=== PATIENT | female | born 1960 | race Caucasian/White ===

== ENCOUNTER 2023-12-22 14:42 | Emergency (ER) | payer BC, SELFPAY ==
[2023-12-22 14:51] VITALS: BP 128/67; PULSE 93; RESP 18; TEMP 36.8; O2SAT 97; BMI 27.4
--- NOTE | 2023-12-22 15:09 | CRLHL7_ITS ---
For Patients: As a result of the Century Cures Act, medical imaging exams and procedure reports are released immediately into your electronic medical record. You may view this report before your referring provider. If you have questions, please contact your health care provider. Indication: Abdomen pain. Technique: Abdomen 3 view. Comparison: None. Findings: Bowel: Bowel pattern is normal. The amount of colonic stool is within normal limits. Other: No sign of free air. No sign of soft tissue mass. No suspicious calcifications. Osseous structures are unremarkable for age. Impression: Unremarkable abdomen. Dictated by Bennett Nur MD @ 12/22/2023 4:15:05 PM (Electronically Signed)
[2023-12-22 15:30] LABS: Lactate* 1.8 mmol/L (0.5-1.9)
[2023-12-22 15:33] LABS: Basophils Absolute Auto 0.02 K/uL (0.00-0.30); Basophils Percent Auto 0.2 % (0.0-3.0); Eosinophils Absolute Auto 0.13 K/uL (0.00-0.50); Eosinophils Percent Auto 1.3 % (0.0-7.0); Hematocrit 39.5 % (33.0-51.0); Hemoglobin* 12.4 gm/dL (12.0-16.0); Immature Granulocytes Abs Auto 0.02 K/uL (0.00-0.30); Immature Granulocytes Pct Auto 0.2 %; Lymphocytes Percent Auto 13.1 % (20-44); Mean Corpuscular HGB Conc 31 gm/dL (32-36); Mean Corpuscular Hemoglobin 30 pg (26-34); Mean Corpuscular Volume 95 fL (80-100); Monocytes Percent Auto 6.2 % (0.0-11.0); Platelet Count* 273 K/uL (140-440); Red Blood Count 4.18 m/uL (4.00-5.20); White Blood Count* 9.77 K/uL (4.50-11.00)
[2023-12-22 15:35] LABS: Slide Review Reflex No
[2023-12-22 15:46] LABS: Chloride* 102 mmol/L (96-114)
[2023-12-22 15:47] LABS: Albumin* 4.1 g/dL (3.3-5.0); Potassium* 3.9 mmol/L (3.6-5.1); Sodium* 136 mmol/L (135-149)
[2023-12-22 15:49] LABS: Anion Gap 8 mEq/L (7-15); Carbon Dioxide* 26 mmol/L (20-32); Creatinine* 0.8 mg/dL (0.5-1.5); Est. Creatinine Clearance* 53.21; Estimated Glomerular Filt Rate 82 ml/min
[2023-12-22 15:50] LABS: Alkaline Phosphatase* 86 U/L (40-150); Aspartate Amino Transferase* 32 U/L (12-35); Bilirubin Direct* 0.2 mg/dL (0.0-0.5); Bilirubin Total* 0.2 mg/dL (0.1-1.5); Blood Urea Nitrogen* 17 mg/dL (7-30); Glucose* 165 mg/dL (60-115); Lipase* 85 U/L (23-300); Total Protein* 6.5 g/dL (6.0-8.3)
[2023-12-22 15:51] LABS: Alanine Aminotransferase* 41 U/L (4-35); Calcium* 9.3 mg/dL (8.4-10.6)
[2023-12-22 15:53] LABS: C Reactive Protein* 1.7 mg/dL (0.5-1.0)
--- NOTE | 2023-12-22 16:06 | ED_ITS ---
HPI - General Adult General Chief complaint: Abdominal Pain Stated complaint: abd pain /cramping Time Seen by Provider: 12/22/23 14:58 Source: patient Mode of arrival: ambulatory Limitations: no limitations History of Present Illness HPI narrative: 63-year-old female presenting with abdominal pain. Patient states she has had lower abdominal pain across the entire lower abdomen for about 1 week, she describes this as a cramping discomfort. Today she woke up with right-sided abdominal discomfort that was higher in the abdomen so she came in for evaluation. She denies any fevers or chills. No nausea or vomiting. She denies any diarrhea but states that she might be a little bit constipated she feels bloated and backed up despite having daily bowel movements. She denies any dysuria, increased urinary frequency or urgency. She denies any unwanted weight loss or weight gain. Appetite is unchanged, pain is not altered with eating. Related Data Home Medications ?Medication ?Instructions ?Recorded ?Confirmed albuterol sulfate 90 mcg/actuation inhalation 12/22/23 aerosol inhaler amlodipine 2.5 mg tablet 2.5 mg PO DAILY 12/22/23 12/22/23 amlodipine 5 mg tablet 5 mg PO DAILY 12/22/23 12/22/23 lisinopril 40 mg tablet 40 mg PO DAILY 12/22/23 12/22/23 metoprolol succinate 50 mg 50 mg PO DAILY 12/22/23 12/22/23 tablet,extended release 24 hr rosuvastatin 10 mg tablet 10 mg PO QPM 12/22/23 12/22/23 Allergies Allergy/AdvReac Type Severity Reaction Status Date / Time Sulfa (Sulfonamide Allergy Unknown Verified 12/22/23 14:50 Antibiotics) Review of Systems Status of ROS: Reports: 10 or more systems reviewed and unremarkable except as noted in History and below Exam Narrative: Exam Narrative: Well-nourished well-developed patient in no acute distress. Alert and oriented. Answers questions appropriately. Mood and affect are appropriate. Thoughts are goal oriented and rational. No tangential or magical thinking noted. Patient speaks in full sentences without needing to catch their breath. HEENT: Normocephalic atraumatic. Pupils are equally round reactive to light. Extraocular muscles are intact. Conjunctivae are moist without any icterus noted. Moist mucous membranes. Posterior pharynx is normal. Neck is soft. Cardiovascular: Heart is regular rate and rhythm S1 and S2 are present without any murmurs. Lungs: Clear to auscultation bilaterally no wheezes rhonchi or rales are appreciated. Patient takes deep breaths without any discomfort. Abdomen: Protuberant, soft and nondistended. She has normal bowel sounds. She has mild right upper quadrant discomfort, negative Fischer sign. No lower abdominal discomfort with palpation. Extremities: Bilateral lower extremities are without edema. Skin: Well perfused without any obvious rashes. Const: Vital Signs, click to edit/add: Vital Signs - 24 hr 12/22/23 14:51 Temperature 98.2 F Pulse Rate [Pulse Oximeter] 93 Respiratory Rate 18 Blood Pressure [Ri t Upper Arm] 128/67 Pulse Oximetry 97 Oxygen Delivery Me thod Room Air Course Course ED Course: Differential diagnoses include cholelithiasis, hepatitis, constipation, pancreatitis, GERD-pain is rather nonspecific. CBC is unremarkable. Normal chemistries. Normal LFTs. Lactate is normal at 1.8. CRP minimally elevated at 1.7. Normal lipase. Abdominal x-ray is unremarkable. No evidence of constipation. Discussed doing ultrasound of the right upper quadrant, however, the fact the patient can eat without any difficulty and the pain is not worsened with eating makes me think that this is not in coli lithiasis. We discussed doing a CT scan, but again given normal blood work and the fact that her discomfort is not preventing her from doing her daily activities, I would not recommend this at this time. I do believe that the risks outweigh the benefits. Patient is in agreement with this. We discussed following up with her primary care provider to discuss doing colonoscopy which is something she has never had. Vital Signs Vital signs: Initial Vital Signs Temperature 98.2 F 12/22/23 14:51 Temperature Source Temporal Artery Scan 12/22/23 14:51 Pulse Rate 93 12/22/23 14:51 Pulse Rhythm Regular 12/22/23 14:51 Respiratory Rate 18 12/22/23 14:51 Blood Pressure 128/67 12/22/23 14:51 Blood Pressure Mean 87 12/22/23 14:51 Blood Pressure Position Sitting 12/22/23 14:51 Pulse Oximetry 97 12/22/23 14:51 Oxygen Delivery Method Room Air 12/22/23 14:51 Vital Signs Temperature 98.2 F 12/22/23 14:51 Pulse Rate 93 12/22/23 14:51 Respiratory Rate 18 12/22/23 14:51 Blood Pressure 128/67 12/22/23 14:51 Pulse Oximetry 97 12/22/23 14:51 Oxygen Delivery Method Room Air 12/22/23 14:51 Temperature 98.2 F 12/22/23 14:51 Pulse Rate 93 12/22/23 14:51 Respiratory Rate 18 12/22/23 14:51 Blood Pressure 128/67 12/22/23 14:51 Pulse Oximetry 97 12/22/23 14:51 Oxygen Delivery Method Room Air 12/22/23 14:51 Medical Decision Making MDM Narrative Medical decision making narrative: 63-year-old female with nonspecific abdominal pain. Plan per above. Lab Data Labs: Lab Results 12/22/23 Range/Units 15:26 WBC 9.77 (4.50-11.00) K/uL RBC 4.18 (4.00-5.20) m/uL Hgb 12.4 (12.0-16.0) gm/dL Hct 39.5 (33.0-51.0) % MCV 95 (80-100) fL MCH 30 (26-34) pg MCHC 31 L (32-36) gm/dL RDW Coeff of Bandar 13.0 (11.5-15.5) % Plt Count 273 (140-440) K/uL Neut % (Auto) 79.0 H (42.0-72.0) % Lymph % (Auto) 13.1 L (20-44) % [place] % (Auto) 6.2 (0.0-11.0) % Eos % (Auto) 1.3 (0.0-7.0) % Baso % (Auto) 0.2 (0.0-3.0) % Neut # (Auto) 7.70 H (1.7-7.0) K/uL Lymph # (Auto) 1.30 (0.90-2.90) K/uL [place] # (Auto) 0.60 (0.00-0.90) K/UL Eos # (Auto) 0.13 (0.00-0.50) K/uL Baso # (Auto) 0.02 (0.00-0.30) K/uL Abs Immat Gran (auto) 0.02 (0.00-0.30) K/uL Imm/Tot Granulo (auto) 0.2 % Sodium 136 (135-149) mmol/L Potassium 3.9 (3.6-5.1) mmol/L Chloride 102 (96-114) mmol/L Carbon Dioxide 26 (20-32) mmol/L Anion Gap 8 (7-15) mEq/L BUN 17 (7-30) mg/dL Creatinine 0.8 (0.5-1.5) mg/dL Estimated Creat Clear 53.21 Estimated GFR 82 ml/min Glucose 165 H (60-115) mg/dL Lactate 1.8 (0.5-1.9) mmol/L Calcium 9.3 (8.4-10.6) mg/dL Total Bilirubin 0.2 (0.1-1.5) mg/dL Direct Bilirubin 0.2 (0.0-0.5) mg/dL AST 32 (12-35) U/L ALT 41 H (4-35) U/L Alkaline Phosphatase 86 (40-150) U/L C-Reactive Protein 1.7 H (0.5-1.0) mg/dL Total Protein 6.5 (6.0-8.3) g/dL Albumin 4.1 (3.3-5.0) g/dL Lipase 85 (23-300) U/L Imaging Data Abdominal x-ray: Attestation: I have reviewed the pertinent imaging results. Radiologist's impression: Abdomen 3 view. Comparison: None. Findings: Bowel: Bowel pattern is normal. The amount of colonic stool is within normal limits. Other: No sign of free air. No sign of soft tissue mass. No suspicious calcifications. Osseous structures are unremarkable for age. Impression: Unremarkable abdomen. Discharge Plan Discharge Clinical Impression: Abdominal pain Patient Disposition: Home, Self-Care Condition: Stable Additional Instructions: Recommend you follow-up with your primary care provider to discuss doing a colonoscopy. There was no evidence of infection or inflammation found during your examination today. Your blood sugar was slightly elevated, you should have this repeated with your primary care provider. You should return to the emergency department if you develop vomiting, worsening pain or fevers. Prescriptions: No Action metoprolol succinate 50 mg tablet extended release 24 hr 50 mg PO DAILY amlodipine 2.5 mg tablet 2.5 mg PO DAILY amlodipine 5 mg tablet 5 mg PO DAILY albuterol sulfate 90 mcg/actuation HFA aerosol inhaler inhalation lisinopril 40 mg tablet 40 mg PO DAILY rosuvastatin 10 mg tablet 10 mg PO QPM Follow Up/Referrals: Luz Maria Matta MD [Primary Care Provider] - Stand Alone Forms: [employer] Info Instructions
[2023-12-22 16:39] LABS: Appearance Urine Clear (Clear); Bilirubin Urine Negative (Negative); Blood Urine Negative (Negative); Color Urine Yellow (Yellow); Glucose Urine Negative (Negative); Ketones Urine Negative (Negative); Leukocyte Esterase Urine Negative (Negative); Nitrite Urine Negative (Negative); Protein Urine Negative (Negative); Specific Gravity Urine <= 1.005 (1.000-1.030); Urobilinogen Urine 0.2 (0.2-1.0); pH Urine 5.5 (5.0-8.5)
[2023-12-22 16:59] LABS: RBC Urine 0-2 (0-2); WBC Urine 0-2 (0-5)
== END 2023-12-22 16:49 | disposition home or self-care (01) ==
PROVIDERS: Emergency Provider Family Medicine; PCP Family Medicine
DX: R10.30 Lower abdominal pain, unspecified (principal)
CPT/HCPCS: 36415; 74019; 80048; 80076; 81001; 83605; 83690; 85025; 86140; 87086; 99283; 99284

== ENCOUNTER 2024-05-16 13:40 | Emergency (ER) | payer BC, SELFPAY ==
[2024-05-16 13:42] VITALS: BP 132/53; PULSE 89; RESP 20; TEMP 36.4; O2SAT 94
--- OUTSIDE RECORDS SUMMARY | 2024-05-16 13:42 | XMS_ITS | CCD ---
Author Name Interface, [id number] Address [address] [address] Organization [facility] Address [address] [address] Care Team Providers Care Search Advertising Strategist Name Role Phone Jose Ayers Unavailable Unavailable Cynthia Euceda Unavailable Unava ilable Care Plan Date Type Value 05/17/2024 APPOINTMENT LAB 15 MIN 05/17/2024 APPOINTMENT NEW PT CONSULT 6 0 MIN 05/14/2024 APPOINTMENT NEW PT CONSULT 6 0 MIN 05/14/2024 APPOINTMENT LAB 15 MIN Reason for Visit NEW PT CONSULT 60 MIN Encounters Date Name 05/17/2024 LAB 15 MIN 05/17/2024 NEW PT CONSULT 60 [place] N Diagnostic Results Date Type Test Units Lower Limit Upper Limit Result Flag Comments Status Ordered By Specimen Source Lab Address 05/07 Misc other lab See attache mobley Social History Date Name Value 05/08/2024 Sex Female
--- OUTSIDE RECORDS SUMMARY | 2024-05-16 13:43 | XMS_ITS | Clinical Summary ---
Author Organization [employer] [facility] [employer] [facility] Address [address] [place] [id number] Care Team Providers Care Fibrous Plasterer Name Role Phone Luz Maria Matta MD [facility] Allergies Active Allergy Reactions Criticality Noted Date Comments Sulfa (Sulfonamide Antibiotics) Anaphylaxis High Medications albuterol (PROVENTIL) 0.083 % neb solutionIndication s:Bronchitis Inhale 3 mL via a nebulizer every 4 hours if needed. 1 box 8 Active clobetasol 0.05% (TEMOVATE 0.05% OINTMENT) 0.05 % ointmentIndication s:Prurigo nodularis Apply topically to affected area(s) 2 times daily. 1 Tube 0 Active fluticasone (50 mcg per actuation) nasal solution (FLONASE) Inhale 1 [place] into affected nostril(s). 2 Active cetirizine (ZYRTEC) 10 mg tabletIndications: Congestion of nasal sinus Take 1 Tablet (10 mg) by mouth once daily. 60 Tablet 2 Active rosuvastatin (CRESTOR) 10 mg tabletIndications: Other hyperlipidemia Take 1 Tablet (10 mg) by mouth at bedtime. 90 Tablet 3 4 Active lisinopriL (PRINIVIL; ZESTRIL) 40 mg tabletIndications: HTN (hypertension) Take 1 Tablet (40 mg) by mouth once daily. 90 Tablet 1 4 Active amLODIPine (NORVASC) 5 mg tabletIndications: HTN (hypertension) Take 1 Tablet (5 mg) by mouth once daily. 90 Tablet 1 4 Active albuterol HFA (Ventolin HFA) 90 mcg/actuation inhalerIndications :History of wheezing Inhale 2 Puffs by mouth every 4 hours if needed for Shortness Of Breath or Wheezing. 2 Each 2 4 Active metoprolol succinate (TOPROL XL) 50 mg sustained-release tabletIndications: HTN (hypertension) Take 1 Tablet (50 mg) by mouth once daily. 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 No lymph node involvement. 2) S/P 4 cycles of dose dense AC followed by 12 weekly doses of Taxol (and Herceptin) 3) S/P radiation to the right breast, completed 08/03 4) S/P one year of treatment with Herceptin and Lapatinib on the ALLTO trial, completed 03/05 Encounters Date Type Department Care Team Description 05/16/2024 Refill [facility] [address] [place] [address] Luz Maria Matta MD Refill Request (amlodipine) 05/15/2024 Nurse Triage [facility] [address] [place] [address] Luz Maria Matta MD Difficulty Breathing 05/15/2024 Nurse Triage [facility] [address] [place] [address] Luz Maria Matta MD 05/09/2024 11:15 AM CRAPS DEALER Office Visit [facility] [address] [place] [address] Avel Nguyen MD Hospital F/U (breathing feels okay - setting up when to have fluid drained ) 05/09/2024 Travel 05/07/2024 Telephone [facility] [address] [facility] [address] [place] [address] [place], [facility] Referral (Malignant neoplasm of female breast, unspecified estrogen receptor status) 05/07/2024 Telephone [facility] [address] [place] [address] Luz Maria Matta MD Referral (Oncology) 05/04/2024 Orders Only [facility] Scanner 1 scan: (1-Ord) [facility]ULT[facility]LE PATHOLOGIES, 05/04/2024 from Last 3 Months Immunizations Name Administration Dates Next Due Influenza, IIV3 (Age 6-35 mos) 03/02/2010 Influenza, IIV3 (Age >=3 years) 03/02/2010,12/11 Influenza, IIV4 06/06/2019 Tdap 06/06/2019 Family History Medical History Relation Name Comments Coronary artery disease Brother 1 Suicide Attempts Brother 2 successful suicide, found CAD on post-mortem exam Hypertension Father Stroke Mother Cancer-breast Paternal Aunt Initial dx in 30s Cancer-colon No Family History Cancer-ovarian No Family History Cancer-prostate No Family History Relation Name Status Comments Brother 1 Brother 2 Father Mother Paternal Aunt Social History Tobacco Use Types Packs/Day Years Used Date Smoking Tobacco: Every Day Cigarettes 1 30 Smokeless Tobacco: Never Tobacco Cessation:Ready to Q uit: No; Counseling Given: Yes Alcohol Use Standard Drinks/Week Comments Yes 3.3 (1 standard drink = 0.6 oz p ure alcohol) PHQ-2 Answer Date Recorded PHQ-2 TOTAL SCORE 0 11/02/2023 Social Connections Answer Date Recorded Do you often feel lonely or isolated from those around you? 0 11/02/2023 Financial Resource Strain Answer Date R ecorded Difficulty of Paying Living Expenses 3 11/02/2023 Difficulty of Paying Living Expenses Not on file 11/02/2023 Food Insecurity Answer Date Recorded Do you worry your food will run out before you are able to buy more? 1 11/02/2023 Transportation Needs Answer Date Record ed Does lack of transportation keep you from medica l appointments? 1 11/02/2023 Does lack of transportation keep you from work, meetings or getting things that you need? 1 11/02/2023 Housing Stability Answer Date Recorded What is your housing situation today? 1 11/02/2023 Utilities Answer Date Recorded Do you have trouble paying f or utilities (for example, heat, electricity, water, phone)? 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 [employer] Not on file Not on file Not on file Not on file Not on file Not on file Not on file Obstetrics History Last Filed Vital Signs Vital Sign Reading Time Taken Comments Blood Pressure 123/80 05/09/2024 11:20 AM CRAPS DEALER Pulse 85 05/09/2024 11:20 AM CRAPS DEALER Temperature 36.8 C (98.2 F) 02/24/2022 4:16 PM CRAPS DEALER Respiratory Rate 18 06/13/2017 5:03 PM CDT Oxygen Saturation 95% 05/09/2024 11:20 AM CRAPS DEALER Inhaled Oxygen Concentration - - Weight 71.9 kg (158 lb 9.6 oz) 05/09/2024 11:20 AM CRAPS DEALER Height 167.9 cm (5' 6.1) 11/02/2023 10:58 AM CD T Body Mass Index 25.52 11/02/2023 10:58 AM CDT Plan of Treatment Health Maintenance Due Date Last Done Comments COVID-19 vaccine series (#1) 07/06/1964 HIV for age 15-65 07/06/1974 Pneumococcal series for age 50+ (1 of 2 - PCV) 07/06/1978 Zoster (shingles) series for age 50+ (1 of 2) 07/06/1978 Colonoscopy through age 75 07/06/[address] (for lung CA) ag e 50-80 07/06/2009 11/12/2008 RSV vaccine for adults or (1 - Risk 60-74 years 1-dose series) 2019 Influenza for age 50-64 11/26/2023 06/06/19 20, 03/02/2010, 12/11/2008 Pap test for age 21-65 06/05/2024 06/06/2019, 2019 BMI (ht and wt on same day) for age 18+ 11/01/2024 11/02/2023, 11/25/2021, 09/10/2020, Additional history exists Depression screening for age 12+ 11/02/2024 11/03/2023, 11/03/2023, 11/02/2023, Additional history exists Mammogram for age 45-75 11/15/2024 11/16/19 24, 11/10/2022, 12/05/2019, Additional history exists Lipids for age 45-75 11/01/2028 11/02/2023, 11/10/2022, 11/25/2021, Additional history exists Tetanus booster 06/05/2029 06/06/2019 Hepatitis C screening for ag e 18-79 Completed 06/06/2019 Tdap Completed 06/06/2019 Medical Devices Implanted Type Area Reaming Machine Operator For Plastic Device Identifier Shelf Expiration Date Model / Serial / Lot Port Power 8fr [id number] [employer] - [id number] Implanted:Qty: 1 on 11/14/2008 at [facility] Left: Chest [employer] 09/14/2010 [id number] / / [id number] Procedures Procedure Name Priority Date/Time Associated Diagnosis Comments SCAN-PATHOLOGY REPORT 05/04/2024 12:00 AM CRAPS DEALER XR MAMMO GETACHEW BILAT SCREEN Routine 11/16/2023 11:10 AM CDT Visit for screening mammogram LIPID PANEL W REFLEX MEASURED LDL Routine 11/02/2023 11:44 AM CDT Other hyperlipidemia ANTI HCV Routine 06/06/2019 10:57 AM CDT Encounter for hepatitis C screening test for low risk patient PATIENT CARE COORDINATOR THIN PREP PAP SCREEN IMAGED Routine 06/06/2019 10:30 AM CDT Screening for malignant neoplasm of cervix CT CHEST WO STAT 11/12/2008 10:24 AM CDT Lung Nodule from Last 3 Months or Most Recently Relevant to Health Maintenance Results * SCAN-PATHOLOGY REPORT (05/04/2024 12:00 AM CRAPS DEALER) us Scanner OTHER Final Result * XR MAMMO GETACHEW BILAT SCREEN (11/16/2023 11:10 AM CDT) Anatomical Region Laterality Modality BREASTS, Breast Left, Breast Right Bilateral Mammography Impressions 11/16/2023 2:36 PM CDT There is no radiographic evidence for malignancy. Recommend annual mammograms. MAMMOGRAM ASSESSMENT: ACR 1 Negative PATIENTS: You will also receive a letter with your examination results in an easy to read format. If you have questions about your results, please contact your referring provider. Narrative 11/16/2023 2:36 PM CDT For Patients: As a result of the Century Cures Act, medical imaging exams and procedure reports are released immediately into your electronic medical record. You may view this report before your referring provider. If you have questions, please contact your health care provider. XR MAMMO GETACHEW BILAT SCREEN [[id number]] CLINICAL HISTORY: This is an asymptomatic 63 y.o. patient. INDICATION FOR EXAM: Mammogram Screening. TECHNIQUE: CC & MLO views were obtained. This study was evaluated with the assistance of Computer-Aided Detection. Breast Tomosynthesis was used in interpretation. COMPARISON FILM: Yes 11/10/22 [employer] 12/05/19 [employer] FINDINGS: There are scattered areas of fibroglandular density. There are no dominant masses, suspicious micro calcifications or areas of architectural distortion. Luz Maria Matta MD MAMMO Final Resul t * LIPID PANEL W REFLEX MEASURED LDL (11/02/2023 11:44 AM CDT) CHOLESTEROL,TOTAL 148 100 - 199 mg/dL 11/03/2023 1:13 AM CDT [facility] Comment: Cholesterol, Total Reference Ranges Desirable <200 mg/dL Borderline 200-239 mg/dL High >=240 mg/dL TRIGLYCERIDES 128 <150 mg/dL 11/03/2023 1:13 AM CDT [facility] HDL CHOLESTEROL 50 >40 mg/dL 1:13 AM CDT [facility] NON-HDL CHOLESTEROL 98 <145 mg/dl 11/03/2023 1:13 AM CDT [facility] CHOL/HDL RATIO 2.96 <4.50 11/03/2023 1:13 AM CDT [facility] LDL CHOLESTEROL 72 <=130 mg/dL 11/03/2023 1:13 AM CDT [facility] VLDL CHOLESTEROL 26 <=30 mg/dL 11/03/2023 1:13 AM CDT [facility] PROVIDER ORDERED STATUS RANDOM 11/03/2023 1:13 AM CDT [facility] Blood BLOOD SPECIMEN / Unknown Venipuncture / Unknown 11/02/2023 11:44 AM CDT 11/02/2023 11:45 AM CDT Luz Maria Matta MD CHEMISTRY Final Resul t [facility] [address] [place] [address], [place] * ANTI HCV (06/06/2019 10:57 AM CDT) HEPATITIS C ANTIBODY Non-React keri Non-React keri 06/06/2019 5:56 PM CDT [facility] Comment:Antibodies to HCV no t detected; does not exclude the possibility of exposure to HCV. Blood BLOOD SPECIMEN / Unknown Venipuncture / Unknown 06/06/2019 10:57 AM CDT 06/06/2019 10:57 AM CDT Luz Maria Matta MD SEND OUTS Final Resul t [facility] [address] [place] [address], [place] * PATIENT CARE COORDINATOR THIN PREP PAP SCREEN IMAGED [[id number]] (06/06/2019 10:30 AM CDT) Case Report Gynecologic Cytology Report Case: [id number] Authorizing Provider: Luz Maria Matta MD Collected: 06/06/2019 1030 Ordering Location: [facility] Received: 06/06/2019 1111 Clinic First Screen: Ailyn Dave Specimen: PATIENT CARE COORDINATOR ThinPrep Vial Screening, Cervical 06/13/2019 10:39 AM CDT [facility] INTERPRETATION/ RESULT NEGATIVE FOR INTRAEPITHELIAL LESION OR MALIGNANCY (NIL) (none) 06/13/2019 10:39 AM CDT [facility] IMEN ADEQUACY Satisfactory for evaluation Endocervical component present 06/13/2019 10:39 AM CDT [facility] HPV REQUEST HPV and PAP 06/13/2019 10:39 AM CDT [facility] Date of LMP 2009 06/13/2019 10:39 AM CDT [facility] Last Pap Date unknown 06/13/2019 10:39 AM CDT [facility] Last Pap Result First Pap/Unknown 10:39 AM CDT [facility] Abnormal Pap or [place] Bx in last 5 years No 06/13/2019 10:39 AM CDT [facility] Menstrual Status Postmenopausal 06/13/2019 10:39 AM CDT [facility] [place] Bx Done Today No 06/13/2019 10:39 AM CDT [facility] Additional Information None given 06/13/2019 10:39 AM CDT [facility] Comment: Cytology is screened at [facility] Laboratory - [address], [place] [address] and [facility] - [address] [place] [address], [place] [address] and [facility] - [address], [place] [address] Interpreted at [facility], [facility] - [address], [place] [address] Automated Review Successful 06/13/2019 10:39 AM CDT [facility] Comment:Specimen processed s uccessfully by automated clarification operator device, ThinPrep Imaging System, [employer] ANCILLARY TESTING PATIENT CARE COORDINATOR HPV Ordered, Please see separate report 06/13/2019 10:39 AM CDT [facility] Note The pap test is a screening technique, not a diagnostic procedure. It is used primarily to screen for squamous cancers and precursor lesions. Published studies have shown that it is subject to both false negative and false positive results. The pap test should not be used as the sole means to diagnose or exclude pre-malignant and malignant lesions. 06/13/2019 10:39 AM CDT [facility] Other (Cervical) Non-Blood / Unknown 06/06/2019 10:30 AM CDT 06/06/2019 11:11 AM CDT us Luz Maria Matta MD PATHOLOGY/CYTOLOGY Final Re sult [facility] [address] [place] [address], [place] * CT Chest wo Contrast (11/12/2008 10:24 AM CDT) Anatomical Region Laterality Modality CHEST, THORAX, HEART Computed To mography 11/12/2008 10:2 4 AM CDT Impressions 11/12/2008 11:15 AM CDT 1. There is patchy infiltrate in the right upper lobe in the area of questioned nodule on the MRI. No worrisome pulmonary nodules. 2. Mild emphysema. 3. Known right breast cancer. Narrative 11/12/2008 11:[address] SCAN OF THE CHEST WITHOUT CONTRAST 11/12/2008 INDICATION: Breast cancer. Right lung nodule seen on MRI. TECHNIQUE: Noncontrast. COMPARISON: [facility] 11/03/2008. FINDINGS: Two right breast masses are again seen. No thoracic abnormality by size criteria. There is mild paraseptal emphysema at the apices. Dependent atelectasis or fibrosis in the inferior right middle lobe and lingula. There is a focus of patchy infiltrate in the right upper lobe in the area of a questioned nodule on the MRI. There is an additional patchy focus of ground-glass opacity in the posterior right upper lobe. No worrisome pulmonary nodules. Images through the upper abdomen demonstrate a 3-cm low-dense left adrenal nodule consistent with an adenoma. There are degenerative endplate changes in the thoracic spine. No signs of skeletal metastases. Procedure Note Theron Minor - 11/12/2008 CT SCAN OF THE CHEST WITHOUT CONTRAST 11/12/2008 INDICATION: Breast cancer. Right lung nodule seen on MRI. TECHNIQUE: Noncontrast. COMPARISON: [facility] 11/03/2008. FINDINGS: Two right breast masses are again seen. No thoracicabnormality by size criteria. There is mild paraseptal emphysema at theapices. Dependent atelectasis or fibrosis in the inferior right middlelobe and lingula. There is a focus of patchy infiltrate in the rightupper lobe in the area of a questioned nodule on the MRI. There is anadditional patchy focus of ground-glass opacity in the posterior rightupper lobe. No worrisome pulmonary nodules. Images through the upperabdomen demonstrate a 3-cm low-dense left adrenal nodule consistent withan adenoma. There are degenerative endplate changes in the thoracicspine. No signs of skeletal metastases. IMPRESSION: 1. There is patchy infiltrate in the right upper lobe in the area ofquestioned nodule on the MRI. No worrisome pulmonary nodules. 2. Mild emphysema. 3. Known right breast cancer. Felipe Herrera MD CT Final Re sult from Last 3 Months or Most Recently Relevant to Health Maintenance Insurance [facility] [place] [phone] Advance Directives * Full Code (Latest Code Status on File) Date Activated Date Inactivated Comments 11/13/2008 7:43 AM 11/14/2008 7:15 PM Care Teams Fibrous Plasterer Relationship Specialty Start Date End Date Luz Maria Matta MD [address] [place] [address] PCP - General Family Practice 12/05/19 Danna Bond, RN [address] [facility] [place] [address] Nurse Navigator - Oncology Registered Nurse 05/07/24
--- OUTSIDE RECORDS SUMMARY | 2024-05-16 13:44 | XMS_ITS | Clinical Summary ---
Author Organization [facility] Address [address] [place] [id number] Care Team Providers Care Gun Tester Name Role Phone Elsewhere, Pcp Primary Care Provider Unavailabl e Source Comments Patient records contain information from all sites at [facility]. For routine questions regarding patient records, call [phone] during business hours, M-F 8:00 AM - 5:00 PM Central Time. Record requests for emergency care only can be directed to [phone] at any time.[facility] Allergies Active Allergy Reactions Criticality Noted Date Comments Sulfa (Sulfonamide Antibiotics) Anaphylaxis High Medications lisinopriL (PRINIVIL,ZEST RIL) 40 mg tablet Take 40 mg by mouth daily. 06/01/19 22 Active rosuvastatin (Crestor) 10 mg tablet Take 1 tablet by mouth at bedtime. 11/02/19 24 Active metoprolol succinate (Toprol XL) 50 mg 24 hr tablet Take 1 tablet by mouth daily. 12/08/19 24 Active amLODIPine (Norvasc) 5 mg tablet Take 1 tablet by mouth daily. 11/02/19 24 Active albuterol 90 mcg/actuation inhaler Inhale 2 puffs every 4 (four) hours as needed for shortness of breath. 18 g 04/24/19 25 Active benzonatate (Tessalon Perles) 100 mg capsule Take 1 capsule (100 mg total) by mouth 3 (three) times a day as needed for cough. 20 capsule 04/24/19 25 Active melatonin 10 mg capsule Take 10 mg by mouth at bedtime. Active albuterol (ACCUNEB) 2.5 mg /3 mL nebulizer solution Inhale 2.5 mg. 06/14/19 18 025 Discontinued( erapy completed) albuterol (PROVENTIL HFA,VENTOLIN HFA) 90 mcg/actuation inhaler Inhale 2 puffs. 07/26/19 13 025 Discontinued( erapy completed) albuterol sulfate (ProAir RespiClick) 90 mcg/actuation aerosol powdr breath activated inhalerIndicat ions:Cough Unspecified Type Inhale 2 puffs every 6 (six) hours as needed for wheezing or shortness of breath. 1 Inhaler 05/11/19 20 025 Discontinued( erapy completed) fluticasone propionate (FLONASE) 50 mcg/actuation nasal sprayIndicatio ns:Sinusitis Administer 1 spray into each nostril 2 (two) times a day. 16 g 06/15/19 22 025 Discontinued( erapy completed) amoxicillin-po t clavulanate (AUGMENTIN) 875-125 mg per tabletIndicati ons:Sinusitis Take 1 tablet by mouth 2 (two) times a day. 20 tablet 06/15/19 22 025 Discontinued amoxicillin-po t clavulanate (Augmentin) 875-125 mg per tabletIndicati ons:Pneumonia Take 1 tablet by mouth 2 (two) times a day for 5 days. 10 tablet 04/24/19 25 025 azithromycin (Zithromax) 250 mg tabletIndicati ons:Pneumonia Take 2 tablets (500 mg) on day 1 and then 1 tablet (250 mg) on days 2-5. 6 tablet 04/24/19 25 025 Active Problems Problem Noted Date Diagnosed Date Acute Respiratory Failure With Hypoxia Acute Candidiasis Of Vulva And Vagina 05/04/2024 Effusion Pleural 05/04/2024 Ascites 05/04/2024 Chronic Cough 05/04/2024 Other Cholelithiasis Without Obstruction 025 Diverticulosis 05/04/2024 Sore Throat 11/21/2021 Assessment & Plan (11/21/2021 2:20 PM CDT): It is most likely that her sore throat is caused by postnasal drip from sinusitis. Differential diagnosis includes allergic sinusitis, viral sinusitis and bacterial sinusitis. Given duration of symptoms, I do not feel that antibiotic therapy is warranted at this time. I advised that she trial Flonase and nasal saline rinses. I also recommend she trial Benadryl or Bailey to see if there is an allergic component to her sinusitis. Obtained strep swab at her request. She is status post tonsillectomy. I recommended that she present to her PCP if her symptoms persist for 10 days. At that time, would consider antibiotic therapy for bacterial sinusitis. 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 No lymph node involvement. 2) S/P 4 cycles of dose dense AC followed by 12 weekly doses of Taxol (and Herceptin) 3) S/P radiation to the right breast, completed 08/03 4) S/P one year of treatment with Herceptin and Lapatinib on the ALLTO trial, completed 03/05 Abuse Tobacco Smoking 05/11/2019 Encounters Date Type Department Care Team Description 05/13/2024 Results Follow-Up Department of Oncology in [place] [id number] [place] [address] Tegan Weaver M.D. Cytology Non-LITHOGRAPHING MACHINE OPERATOR, Cytology Non-LITHOGRAPHING MACHINE OPERATOR 05/07/2024 Refill [facility] [address] [place] [phone] Sabrina Ascencio P.A.-C., P.A. Med Refill 05/04/2024 7:25 AM JEWEL STRIPPER - 05/07/2024 5:42 PM JEWEL STRIPPER Hospital Encounter [facility], [facility], Fifth Floor [address] [place] [address] Zane Chinchilla M.D. Ariana Jefrfies APRN, C.N.P., M.S.N. Hakan Iniguez APRN, C.N.P., D.N.P. Adia Geiger M.D. Dastrange, Mehdi, M.D. Miguelina Harmon M.B., Jesus Madrigal Discharge Disposition: Home or Self Care 05/03/2024 12:29 PM JEWEL STRIPPER - 05/04/2024 6:28 AM [facility] Emergency [facility] [address] [place] [address], [place] [phone] Ilda Martinez M.D., M.B.A. Salma Dinh M.D., M.P.H. Effusion Pleural (Primary Dx); Ascites Discharge Disposition: [facility] 05/03/2024 Intake [facility] 04/24/2024 3:13 PM JEWEL STRIPPER - 04/24/2024 4:25 PM [facility] Emergency [facility] [address] [place] [phone] Sabrina Ascencio P.A.-C., P.A. Cough Unspecified Type (Primary Dx); Pneumonia Discharge Disposition: Home or Self Care from Last 3 Months Family History Medical History Relation Name Comments Coronary artery disease Brother 1 51 Lupus Brother 2 No Known Problems Daughter 1 No Known Problems Daughter 2 Hypertension Mother No Known Problems Son 1 No Known Problems Son 2 Relation Name Status Comments Brother 1 Brother 2 Brother 3 Alive Brother 4 Alive Daughter 1 Alive Daughter 2 Alive Father Alive Mother Alive Son 1 Alive Son 2 Alive Social History Tobacco Use Types Packs/Day Years Used Date Smoking Tobacco: Every Day Cigarettes Passive Smoke Exposure: Current Smokeless Tobacco: Never Tobacco Cessation:Ready to Q uit: Not Asked; Counseling Given: Not Answered Alcohol Use Standard Drinks/Week Comments Yes 0 (1 standard drink = 0.6 oz pur e alcohol) [facility] Utilities Answer Date Recorded In the past 12 months has th e [employer], gas, oil, or water [employer] threatened to shut off services in your home? No 05/04/2024 Humiliation, Afraid, Rape, and Kick questionnair e Answer Date Recorded Within the last year, have y ou been afraid of your partner or ex-partner? No 05/04/2024 Within the last year, have y ou been humiliated or emotionally abused in other ways by your partner or ex-partner? No Within the last year, have y ou been kicked, hit, slapped, or otherwise physically hurt by your partner or ex-partner? No 05/04/2024 Within the last year, have y ou been raped or forced to have any kind of sexual activity by your partner or ex-partner? No 05/04/2024 Hunger Vital Sign Answer Date Recorded Within the past 12 months, y ou worried that your food would run out before you got the money to buy more. Never true 05/04/19 25 Within the past 12 months, t he food you bought just didn't last and you didn't have money to get more. Never true 05/04/2024 PRAPARE - Transportation Answer Date Re corded In the past 12 months, has l ack of transportation kept you from medical appointments or from getting medications? No 10/2024 In the past 12 months, has l ack of transportation kept you from meetings, work, or from getting things needed for daily living? No 05/04/2024 Nutrition Answer Date Recorded Nutrition: EVOO Fat Source 13 10/21 Nutrition: Servings of Fruits/Vegetables per Day Not on file 10/22/2019 Dental Answer Date Recorded Dental: Regular Dentist Unknown 06/05/19 21 Housing Stability Answer Date Recorded What is your living situation today? I have a [facility] place to live 05/04/2024 Comments No Sex and Gender Information Value Date Recorded Sex Assigned at Not on file Legal Sex Female 2:38 PM JEWEL STRIPPER Gender Identity Not on file Sexual Orientation Not on file Last Filed Vital Signs Vital Sign Reading Time Taken Comments Blood Pressure 121/76 05/07/2024 2:11 PM JEWEL STRIPPER Pulse 69 05/07/2024 2:11 PM JEWEL STRIPPER Temperature 36.7 C (98.1 F) 05/07/2024 2:11 PM JEWEL STRIPPER Respiratory Rate 23 05/07/2024 2:11 PM JEWEL STRIPPER Oxygen Saturation 92% 05/07/2024 2:11 PM JEWEL STRIPPER Inhaled Oxygen Concentration - - Weight 71.5 kg (157 lb 10.1 oz) 05/07/2024 6:00 AM JEWEL STRIPPER Height 171 cm (5' 7.32) 05/04/2024 7:26 AM JEWEL STRIPPER Body Mass Index 24.45 05/04/2024 7:26 AM JEWEL STRIPPER Plan of Treatment Health Maintenance Due Date Last Done Comments CT Colonography 1959 Cervical/Vaginal Cancer Screening 1959 Cologuard 1959 Colonoscopy 1959 Colorectal Cancer Screening 1959 FIT 1959 HIV Screening 1959 Hepatitis C Screening 1959 Tobacco Cessation counseling 1959 Pneumococcal vaccine (50+ years) (1 of 2 - PCV) 07/06/1978 Zoster Vaccines (1 of 2) 07/06/2009 RSV vaccine - (32-36 weeks) or 60+ years (1 - Risk 60-74 years 1-dose series) 2019 COVID-19 Vaccine (1 - season) 2023 Influenza Vaccine (#1) 2023 , 03/02/2010, 12/11/2008 Depression Screening (Annual PHQ-2) 03/27/2024 Mammogram 11/15/2024 11/16/2023, 10/26, 11/10/2022, Additional history exists Creatinine Level (Kidney Function Test) 05/07/2025 05/07/2024, 05/06/2024, 05/05/2024, Additional history exists Potassium Level 05/07/2025 05/07/2024, 04/27, 05/05/2024, Additional history exists Sodium Level 05/07/2025 05/07/2024, 04/27, 05/05/2024, Additional history exists Fasting Glucose for Diabetes Screening 05/07/2027 05/07/2024, 05/06/2024, 05/05/2024, Additional history exists Lipid (Cholesterol) Screening 11/01/2028 11/02/2023, 11/25/2021, 06/06/2019 DTaP,Tdap,and Td Vaccines (2 - Td or Tdap) 06/05/2029 06/06/2019 IPV Vaccines Aged Out No longer eligi ble based on patient's age to complete this topic Procedures Procedure Name Priority Date/Time Associated Diagnosis Comments DX CHEST 1 VIEW RAD - Routine (most inpatients and all outpatients) 05/07/2024 4:22 PM JEWEL STRIPPER US THORACENTESIS RIGHT WITH IMAGING GUIDANCE RAD - Routine (most inpatients and all outpatients) 05/07/2024 3:41 PM JEWEL STRIPPER DX CHEST 1 VIEW RAD - Routine (most inpatients and all outpatients) 05/07/2024 10:12 AM JEWEL STRIPPER BASIC METABOLIC PANEL, S/P Routine 05/07/2024 6:43 AM JEWEL STRIPPER CBC WITHOUT DIFFERENTIAL, B Routine 05/07/2024 6:43 AM JEWEL STRIPPER PULSE OXIMETRY, CONTINUOUS Routine 05/06/2024 8:01 AM JEWEL STRIPPER ADULT OXYGEN THERAPY Routine 05/06/2024 8:01 AM JEWEL STRIPPER BASIC METABOLIC PANEL, S/P Routine 05/06/2024 7:00 AM JEWEL STRIPPER CBC WITH DIFFERENTIAL, B Routine 05/06/2024 7:00 AM JEWEL STRIPPER PULSE OXIMETRY, CONTINUOUS Routine 05/05/2024 8:00 PM JEWEL STRIPPER ADULT OXYGEN THERAPY Routine 05/05/2024 8:00 PM JEWEL STRIPPER PULSE OXIMETRY, CONTINUOUS Routine 05/05/2024 8:01 AM JEWEL STRIPPER ADULT OXYGEN THERAPY Routine 05/05/2024 8:01 AM JEWEL STRIPPER CBC WITH DIFFERENTIAL, B Routine 05/05/2024 7:25 AM JEWEL STRIPPER BASIC METABOLIC PANEL, S/P Routine 05/05/2024 7:25 AM JEWEL STRIPPER PULSE OXIMETRY, CONTINUOUS Routine 05/04/2024 8:01 PM JEWEL STRIPPER ADULT OXYGEN THERAPY Routine 05/04/2024 8:01 PM JEWEL STRIPPER CALCIUM, IONIZED, S/B Routine 05/04/2024 6:15 PM JEWEL STRIPPER PH BLOOD GAS Routine 05/04/2024 6:15 PM JEWEL STRIPPER LACTATE DEHYDROGENASE (LD), S Routine 05/04/2024 6:15 PM JEWEL STRIPPER CANCER AG 125 (CA 125), S Routine 05/04/2024 6:15 PM JEWEL STRIPPER URINALYSIS WITH MICROSCOPIC IF INDICATED, U Routine 05/04/2024 5:59 PM JEWEL STRIPPER CYTOLOGY NON-LITHOGRAPHING MACHINE OPERATOR Timed 05/04/2024 12:06 PM JEWEL STRIPPER CYTOLOGY NON-LITHOGRAPHING MACHINE OPERATOR Timed 05/04/2024 11:54 AM JEWEL STRIPPER US PARACENTESIS WITH IMAGING GUIDANCE RAD - Routine (most inpatients and all outpatients) 05/04/2024 11:35 AM JEWEL STRIPPER US THORACENTESIS RIGHT WITH IMAGING GUIDANCE RAD - Routine (most inpatients and all outpatients) 05/04/2024 11:30 AM JEWEL STRIPPER CBC WITH DIFFERENTIAL, B Routine 05/04/2024 11:30 AM JEWEL STRIPPER MAGNESIUM, S Routine 05/04/2024 11:30 AM JEWEL STRIPPER BASIC METABOLIC PANEL, S/P Routine 05/04/2024 11:30 AM JEWEL STRIPPER ECG Routine 05/04/2024 11:23 AM JEWEL STRIPPER GLUCOSE, BODY FLUID Routine 05/04/2024 11:23 AM JEWEL STRIPPER HEPATIC FUNCTION PANEL, S Routine 05/04/2024 11:11 AM JEWEL STRIPPER CELL COUNT AND DIFFERENTIAL, BF Timed 05/04/2024 10:50 AM JEWEL STRIPPER PROTEIN, TOTAL, BF Routine 05/04/2024 10:50 AM JEWEL STRIPPER ALBUMIN, BODY FLUID Routine 05/04/2024 10:50 AM JEWEL STRIPPER GRAM STAIN Timed 05/04/2024 10:50 AM JEWEL STRIPPER BACTERIAL CULTURE, ANAEROBIC + SUSC Timed 05/04/2024 10:50 AM JEWEL STRIPPER BACTERIAL CULTURE, AEROBIC + SUSC Timed 05/04/2024 10:50 AM JEWEL STRIPPER PH, PLEURAL FLUID Timed 05/04/2024 10:30 AM JEWEL STRIPPER CELL COUNT AND DIFFERENTIAL, BF Timed 05/04/2024 10:30 AM JEWEL STRIPPER PROTEIN, TOTAL, BF Timed 05/04/2024 10:30 AM JEWEL STRIPPER LACTATE DEHYDROGENASE (LD), BF Timed 05/04/2024 10:30 AM JEWEL STRIPPER BACTERIAL CULTURE, ANAEROBIC + SUSC Timed 05/04/2024 10:30 AM JEWEL STRIPPER BACTERIAL CULTURE, AEROBIC + SUSC Timed 05/04/2024 10:30 AM JEWEL STRIPPER GRAM STAIN Timed 05/04/2024 10:30 AM JEWEL STRIPPER PULSE OXIMETRY, CONTINUOUS Routine 05/04/2024 9:39 AM JEWEL STRIPPER PULSE OXIMETRY, CONTINUOUS Routine 05/04/2024 9:39 AM JEWEL STRIPPER PULSE OXIMETRY, CONTINUOUS Routine 05/04/2024 9:37 AM JEWEL STRIPPER ADULT OXYGEN THERAPY Routine 05/04/2024 9:37 AM JEWEL STRIPPER ADULT OXYGEN THERAPY Routine 05/04/2024 9:37 AM JEWEL STRIPPER ADULT OXYGEN THERAPY Routine 05/04/2024 9:[address] ABDOMEN PELVIS WITH IV CONTRAST RAD - Semiurgent (Fast; most ED patients; some inpatients) 05/03/2024 3:[address] CHEST ANGIOGRAM AND PULMONARY ARTERIES WITH IV CONTRAST RAD - Semiurgent (Fast; most ED patients; some inpatients) 05/03/2024 2:45 PM JEWEL STRIPPER NT-PRO B-TYPE NATRIURETIC PEPTIDE (BNP), S STAT 05/03/2024 1:19 PM JEWEL STRIPPER D-DIMER, P STAT 05/03/2024 1:19 PM JEWEL STRIPPER COMPREHENSIVE METABOLIC PANEL, S/P STAT 05/03/2024 1:19 PM JEWEL STRIPPER CBC WITH DIFFERENTIAL, B STAT 05/03/2024 1:19 PM JEWEL STRIPPER INFLUENZA A, B, RSV, PCR, POCT STAT 05/03/2024 1:15 PM JEWEL STRIPPER SARS CORONAVIRUS 2, PCR RAPID, V STAT 05/03/2024 1:15 PM JEWEL STRIPPER DX CHEST AP OR PA AND LATERAL 2 VIEWS RAD - Semiurgent (Fast; most ED patients; some inpatients) 04/24/2024 4:06 PM JEWEL STRIPPER Cough Unspecified Type from Last 3 Months Results * DX Chest 1 View (05/07/2024 4:22 PM JEWEL STRIPPER) Only the most recent of2 resultswithin the time period is included. Anatomical Region Laterality Modality Chest, Thoracic RST LOS, Tho racic ARZ LOS, Thoracic FLA LOS N/A Digital Radiography Impressions 05/07/2024 4:26 PM JEWEL STRIPPER Decreased pleural effusion and no pneumothorax following right-sided thoracentesis Narrative 05/07/2024 4:26 PM JEWEL STRIPPER EXAM: DX CHEST 1 VIEW COMPARISON: Chest x-ray 05/07/2024 FINDINGS: The heart is normal in size. There is a large pleural effusion on the RIGHT which is decreased in size since 9:49 AM. There is no pneumothorax on the RIGHT Procedure Note Tony Savage M.D. - 05/07/2024 EXAM: DX CHEST 1 VIEW COMPARISON: Chest x-ray 05/07/2024 FINDINGS: The heart is normal in size. There is a large pleural effusionon the RIGHT which is decreased in size since 9:49 AM. There is nopneumothorax on the RIGHT IMPRESSION: Decreased pleural effusion and no pneumothorax following right- sidedthoracentesis Miguelina Acharya B.Ch., M.D. [facility] Final Result * US Thoracentesis Right with Imaging Guidance (05/07/2024 3:41 PM JEWEL STRIPPER) Only the most recent of2 resultswithin the time period is included. Anatomical Region Laterality Modality Chest, Ultrasound RST LOS, U ltrasound ARZ LOS, Procedure FLA LOS, Abdominal FLA LOS, Procedural, Procedural NWWI LOS Right Ultrasound Impressions 05/07/2024 4:18 PM JEWEL STRIPPER Successful ultrasound guided thoracentesis. Narrative 05/07/2024 4:18 PM JEWEL STRIPPER EXAM: US THORACENTESIS RIGHT WITH IMAGING GUIDANCE PROCEDURE: Sterile; 1% lidocaine for local anesthesia. Location: Right pleural space Needle size: 5 Fr Yueh Fluid Amount/Color: 1.2 L, yellow Complications: None. Laboratory: N/A. Therapeutic only. PREPROCEDURE: Patient seen, evaluated, and history reviewed. Discussed risks, benefits, alternatives for procedure, and obtained informed consent. Patient understands information and questions answered. Immediately prior to starting the procedure, in the presence of assisting personnel, procedural pause was conducted to verify correct patient identity and verification of procedure to be performed, and as applicable, correct side and site, correct patient position, availability of implants, special equipment, or special requirements, and all image and specimen identification data. The roles and responsibilities of care team members, residents, and fellows were discussed. The medication list was reviewed and there are no changes to current medications. Patient education provided by the care horses or mules teamster. Ready to learn, no apparent learning barriers were identified. Post-procedure care explained; patient expressed understanding of the content. Procedure Note Joe Campoverde M.D., M.S. - 05/07/2024 EXAM: US THORACENTESIS RIGHT WITH IMAGING GUIDANCE PROCEDURE: Sterile; 1% lidocaine for local anesthesia. Location: Right pleural space Needle size: 5 Fr Yueh Fluid Amount/Color: 1.2 L, yellow Complications: None. Laboratory: N/A. Therapeutic only. PREPROCEDURE: Patient seen, evaluated, and history reviewed. Discussedrisks, benefits, alternatives for procedure, and obtained informedconsent. Patient understands information and questions answered.Immediately prior to starting the procedure, in the presence of assisting personnel, procedural pause was conducted to verifycorrect patient identity and verification of procedure to be performed,and as applicable, correct side and site, correct patient position,availability of implants, special equipment, or special requirements, and all image and specimenidentification data. The roles and responsibilities of care team members,residents, and fellows were discussed. The medication list was reviewedand there are no changes to current medications. Patient education provided by the care horses or mules teamster. Farideh pachecoearn, no apparent learning barriers were identified. Post-procedure careexplained; patient expressed understanding of the content. IMPRESSION: Successful ultrasound guided thoracentesis. us Miguelina Acharya B.Ch., M.D. IM US ADITI DENISE Final Result * CBC without Differential (05/07/2024 6:43 AM JEWEL STRIPPER) Hemoglobin 12.0 11.6 - 15.0 g/dL 05/07/2024 6:54 AM JEWEL STRIPPER MKTO Hematocrit 38.0 35.5 - 44.9 % 05/07/2024 6:54 AM JEWEL STRIPPER [facility] Erythrocytes 4.25 3.92 - 5.13 x10(12)/L 05/07/2024 6:54 AM JEWEL STRIPPER [facility] MCV 89.4 78.2 - 97.9 fL 05/07/2024 6:54 AM JEWEL STRIPPER [facility] RBC Distrib Width 13.0 12.2 - 16.1 % 05/07/2024 6:54 AM JEWEL STRIPPER [facility] Platelet Count 340 157 - 371 x10(9)/L 05/07/2024 6:54 AM JEWEL STRIPPER [facility] Leukocytes 5.3 3.4 - 9.6 x10(9)/L 05/07/2024 6:54 AM JEWEL STRIPPER [facility] Blood (Blood, Venous) 05/07/2024 6:43 AM JEWEL STRIPPER 05/07/2024 6:52 AM JEWEL STRIPPER us Sergo Ambrocio M.D. LAB BLOOD ADD-ON Final Resu lt [facility] [address] [place] [id number], [facility] in [address] [address] * Basic Metabolic Panel (05/07/2024 6:43 AM JEWEL STRIPPER) Only the most recent of4 resultswithin the time period is included. Potassium, P 4.2 3.6 - 5.2 mmol/L 05/07/2024 7:34 AM JEWEL STRIPPER MKTO Sodium, P 140 135 - 145 mmol/L 05/07/2024 7:34 AM JEWEL STRIPPER [facility] Chloride, P 105 98 - 107 mmol/L 05/07/2024 7:34 AM JEWEL STRIPPER [facility] Bicarbonate, P 27 22 - 29 mmol/L 05/07/2024 7:34 AM JEWEL STRIPPER [facility] Anion Gap, P 8 7 - 15 05/07/2024 7:34 AM JEWEL STRIPPER [facility] BUN (Blood Urea Nitrogen), P 9 6 - 21 mg/dL 05/07/2024 7:34 AM JEWEL STRIPPER [facility] Creatinine 0.69 0.59 - 1.04 mg/dL 05/07/2024 7:34 AM JEWEL STRIPPER [facility] Estimated GFR (eGFR) >90 >=60 mL/min/BSA 05/07/2024 7:34 AM JEWEL STRIPPER [facility] Comment: Estimated GFR calculated using the 2020 CKD_EPI creatinine equation. Calcium, Total, P 8.8 8.8 - 10.2 mg/dL 05/07/2024 7:34 AM JEWEL STRIPPER [facility] Glucose, P 88 70 - 140 mg/dL 05/07/2024 7:34 AM JEWEL STRIPPER [facility] Blood (Blood, Venous) 05/07/2024 6:43 AM JEWEL STRIPPER 05/07/2024 6:52 AM JEWEL STRIPPER us Sergo Ambrocio M.D. LAB BLOOD ADD-ON Final Resu lt [facility] [address] [place] [id number], [facility] in [address] [address] * (ABNORMAL) CBC with Differential, Blood (05/06/2024 7:00 AM JEWEL STRIPPER) Only the most recent of4 resultswithin the time period is included. Hemoglobin 11.4(L) 11.6 - 15.0 g/dL 05/06/2024 7:39 AM JEWEL STRIPPER [facility] Hematocrit 36.1 35.5 - 44.9 % 05/06/2024 7:39 AM JEWEL STRIPPER [facility] Erythrocytes 4.02 3.92 - 5.13 x10(12)/L 05/06/2024 7:39 AM JEWEL STRIPPER [facility] MCV 89.8 78.2 - 97.9 fL 05/06/2024 7:39 AM JEWEL STRIPPER [facility] RBC Distrib Width 13.0 12.2 - 16.1 % 05/06/2024 7:39 AM JEWEL STRIPPER [facility] Platelet Count 315 157 - 371 x10(9)/L 05/06/2024 7:39 AM JEWEL STRIPPER [facility] Leukocytes 5.0 3.4 - 9.6 x10(9)/L 05/06/2024 7:39 AM JEWEL STRIPPER [facility] Neutrophils 3.52 1.56 - 6.45 x10(9)/L 05/06/2024 7:39 AM JEWEL STRIPPER [facility] Lymphocytes 0.83(L) 0.95 - 3.07 x10(9)/L 05/06/2024 7:39 AM JEWEL STRIPPER [facility] Monocytes 0.50 0.26 - 0.81 x10(9)/L 05/06/2024 7:39 AM JEWEL STRIPPER [facility] Eosinophils 0.10 0.03 - 0.48 x10(9)/L 05/06/2024 7:39 AM JEWEL STRIPPER [facility] Basophils <0.03 0.01 - 0.08 x10(9)/L 05/06/2024 7:39 AM JEWEL STRIPPER [facility] Blood (Blood, Venous) 05/06/2024 7:00 AM JEWEL STRIPPER 05/06/2024 7:35 AM JEWEL STRIPPER us Adia Geiger M.D. LAB BLOOD ADD-ON Final Result [facility] [address] [place] [address], [facility] [place] [facility] [place] [address] [place] [address] * pH (05/04/2024 6:15 PM JEWEL STRIPPER) pH 7.38 7.35 - 7.45 pH 05/04/2024 6:23 PM JEWEL STRIPPER [facility] Blood 05/04/2024 6:15 PM JEWEL STRIPPER 05/04/2024 6:19 PM JEWEL STRIPPER Tamara Hutton APRN.N.P., D.N.P. LAB HISTORICA L ORDERS Final Result Performing Organization Address City/[facility]/ZIP Co de Phone Number [facility] [address] [place] [id number], [facility] in [place] [address] [place] [phone] * (ABNORMAL) Cancer Antigen 125 (CA 125) (05/04/2024 6:15 PM JEWEL STRIPPER) Cancer Ag 125 (CA 125), S 8527(H) <46 U/mL 05/06/2024 6:47 AM JEWEL STRIPPER AUST Comment: Biotin has been identified by the legislative assistant as a potential interfering substance. Higher concentrations of biotin may be found in multivitamins, hair/nail supplements, and workout supplements. If the result does not match clinical observations, repeat testing after patient refrains from the use of supplements for at least 12 hours. ----ADDITIONAL INFORMATION---- The testing method is an electrochemiluminescence assay manufactured by [employer] and performed on the [employer] system. Values obtained with different assay methods or kits may be different and cannot be used interchangeably. Test results cannot be interpreted as absolute evidence for the presence or absence of malignant disease. Blood (Blood, Venous) 05/04/2024 6:15 PM JEWEL STRIPPER 05/05/2024 1:52 PM JEWEL STRIPPER Hakan Iniguez APRN, C.N.P., D.N.P. LAB BLOOD ADD -ON Final Result Performing Organization Address City/[facility] [facility]/ZIP Co de Phone Number [facility] [address] [place] [address], [facility] - [facility] [address] [place] [address] * (ABNORMAL) LD (Lactate Dehydrogenase) (05/04/2024 6:15 PM JEWEL STRIPPER) Pathologist [facility] Lactate Dehydrogenase (LD), P 285(H) 122 - 222 U/L 05/04/2024 6:42 PM JEWEL STRIPPER MKTO Blood (Blood, Venous) 05/04/2024 6:15 PM JEWEL STRIPPER 05/04/2024 6:20 PM JEWEL STRIPPER us Hakan Iniguez APRN, C.N.P., D.N.P. LAB BLOOD NON ADD-ON Final Result Performing Organization Address City/[facility]/ZIP Co de Phone Number [facility] [address] [place] [address], [address] [address] * (ABNORMAL) Calcium, Ionized (05/04/2024 6:15 PM JEWEL STRIPPER) [facility] Calcium, Ionized, B 4.56(L) 4.65 - 5.30 mg/dL 05/04/2024 6:23 PM JEWEL STRIPPER MKTO Blood 05/04/2024 6:15 PM JEWEL STRIPPER 05/04/2024 6:19 PM JEWEL STRIPPER us Hakan Iniguez APRN, C.N.P., D.N.P. LAB BLOOD NON ADD-ON Final Result [facility] [address] [place] [address], [address] [address] * Urinalysis with Microscopic if Indicated: Urine, Midstream (05/04/2024 5:59 PM JEWEL STRIPPER) Source Urine, Urine, Midstream 05/04/2024 6:08 PM JEWEL STRIPPER MKTO Clarity Clear Clear 05/04/2024 6:08 PM JEWEL STRIPPER MKTO Color Yellow 05/04/2024 6:08 PM JEWEL STRIPPER MKTO Comment: ----REFERENCE VALUE---- Colorless Yellow Ginger Blood Negative Negative 05/04/2024 6:08 PM JEWEL STRIPPER MKTO Nitrite Negative Negative 05/04/2024 6:08 PM JEWEL STRIPPER MKTO Leukocyte Esterase Negative Negative 05/04/2024 6:08 PM JEWEL STRIPPER MKTO Protein Negative mg/dL 05/04/2024 6:08 PM JEWEL STRIPPER MKTO Comment: ----REFERENCE VALUE---- Negative Trace Glucose Negative Negative mg/dL 05/04/2024 6:08 PM JEWEL STRIPPER MKTO Ketone Negative Negative mg/dL 05/04/2024 6:08 PM JEWEL STRIPPER MKTO Bilirubin Negative Negative 05/04/2024 6:08 PM JEWEL STRIPPER MKTO pH 5.5 5.0 - 8.0 05/04/2024 6:08 PM JEWEL STRIPPER MKTO Specific Brethren 1.010 1.001 - 1.035 05/04/2024 6:08 PM JEWEL STRIPPER MKTO Urobilinogen 0.2 0.2 - 1.0 mg/dL 05/04/2024 6:08 PM JEWEL STRIPPER MKTO Urine (Urine, Midstream) 05/04/2024 5:59 PM JEWEL STRIPPER 05/04/2024 6:05 PM JEWEL STRIPPER us Hakan Iniguez APRN, C.N.P., D.N.P. LAB URINE ORD ERABLES Final Result [facility] [address] [place] [address], [facility] MKTO [facility] [place] [address] * (ABNORMAL) Cytology Non-LITHOGRAPHING MACHINE OPERATOR (05/04/2024 12:06 PM JEWEL STRIPPER) Only the most recent of2 resultswithin the time period is included. (A) 05/08/2024 9:38 AM JEWEL STRIPPER HKCY Report electronically signed by Inocencio Ford MD I verify that I have examined all relevant slides/materials for the specimen(s) and rendered or confirmed the diagnosis. (A) 05/08/2024 9:38 AM JEWEL STRIPPER HKCY Gross Description 1050 ml of cloudy reddish/yellow fluid received. 60 ml fixed with 50% ETOH at 7:15 am on 05-06-2024. 2 slides and cell block prepared. (A) 05/08/2024 9:38 AM JEWEL STRIPPER HKCY Source A. Pleural, Right, fluid(A) 05/08/2024 9:38 AM JEWEL STRIPPER HKCY Clinical History August 2008, right breast, grade 3, infiltrating ductal carcinoma, treated with chemotherapy. On 05/03/2024 with abdominal bloating and dyspnea and mild hypoxia. The CT scan showed diffuse omental or peritoneal thickening and moderate right pleural effusion. Presentation is not typical for recurrence of breast cancer. (A) 05/08/2024 9:38 AM JEWEL STRIPPER HK Interpretation A. Pleural, Right, fluid (smears/cell block): Positive for malignancy. High-grade serous carcinoma. Comment:The metastatic adenocarcinoma is strongly positive for PAX8, WT1, p16, CK7, and qualitative high Ki-67, with qualitative moderate ER positivity, while negative for CK20, CDX2, TTF, GATA3, and null pattern of p53, supporting the diagnosis of a high-grade serous carcinoma. MCSS-I Seen in consultation with Marck Pressley, Ch.B. Acceptable control results. (A) 05/08/2024 9:38 AM JEWEL STRIPPER [facility] Fluid (Pleural Fluid, Right) 05/04/2024 12:06 PM JEWEL STRIPPER 05/06/2024 8:11 AM JEWEL STRIPPER us Hakan Iniguez APRN, C.N.P., D.N.P. LAB SURG PATH ORDERABLES Final Result [facility] [address] [place] [address], [facility] HKCY [address] [address] * US Paracentesis with Imaging Guidance (05/04/2024 11:35 AM JEWEL STRIPPER) Anatomical Region Laterality Modality Abdomen, Ultrasound RST LOS, Ultrasound ARZ LOS, Procedure FLA LOS, Abdominal FLA LOS, Procedural, Procedural NWWI LOS N/A Ultrasound Impressions 05/04/2024 12:33 PM JEWEL STRIPPER Successful ultrasound guided diagnostic and therapeutic paracentesis. Narrative 05/04/2024 12:33 PM JEWEL STRIPPER EXAM: US PARACENTESIS WITH IMAGING GUIDANCE PROCEDURE: Sterile; 1% lidocaine for local anesthesia. Location: Right lower quadrant Needle size: 5 Fr Yueh Fluid Amount/Color: 600 mL of clear straw-colored fluid Complications: None Laboratory: Results pending. PREPROCEDURE: Patient seen, evaluated, and history reviewed. Discussed risks, benefits, alternatives for procedure, and obtained informed consent. Patient understands information and questions answered. Immediately prior to starting the procedure, in the presence of assisting personnel, procedural pause was conducted to verify correct patient identity and verification of procedure to be performed, and as applicable, correct side and site, correct patient position, availability of implants, special equipment, or special requirements, and all image and specimen identification data. The roles and responsibilities of care team members were discussed. The medication list was reviewed and there are no changes to current medications. Patient education provided by the care horses or mules teamster. Ready to learn, no apparent learning barriers were identified. Post-procedure care explained; patient expressed understanding of the content. Procedure Note Navid Roth M.D. - 05/04/2024 EXAM: US PARACENTESIS WITH IMAGING GUIDANCE PROCEDURE: Sterile; 1% lidocaine for local anesthesia. Location: Right lower quadrant Needle size: 5 Fr Yueh Fluid Amount/Color: 600 mL of clear straw-colored fluid Complications: None Laboratory: Results pending. PREPROCEDURE: Patient seen, evaluated, and history reviewed. Discussedrisks, benefits, alternatives for procedure, and obtained informedconsent. Patient understands information and questions answered.Immediately prior to starting the procedure, in the presence of assisting personnel, procedural pause was conducted to verifycorrect patient identity and verification of procedure to be performed,and as applicable, correct side and site, correct patient position,availability of implants, special equipment, or special requirements, and all image and specimenidentification data. The roles and responsibilities of care team memberswere discussed. The medication list was reviewed and there are no changesto current medications. Patient education provided by the care horses or mules teamster. Ready to learn, no apparent learningbarriers were identified. Post-procedure care explained; patient expressedunderstanding of the content. IMPRESSION: Successful ultrasound guided diagnostic and therapeutic paracentesis. us Tamara Hutton APRN.N.P., D.N.P. IMG US PROCED URES Final Result * Magnesium (05/04/2024 11:30 AM JEWEL STRIPPER) Magnesium, P 1.8 1.7 - 2.3 mg/dL 05/04/2024 11:58 AM JEWEL STRIPPER MKTO Blood (Blood, Venous) 05/04/2024 11:30 AM JEWEL STRIPPER 05/04/2024 11:38 AM JEWEL STRIPPER us Tamara Hutton APRN.N.P., D.N.P. LAB BLOOD ADD -ON Final Result [facility] [address] [place] [address], [facility] MKTO [facility] [place] [address] [place] [address] * ECG 12 Lead (05/04/2024 11:23 AM JEWEL STRIPPER) Ventricular Rate ECG/Min 75 BPM MUSE MI Interval 184 ms MUSE QRSD Interval 80 ms MUSE QT Interval 384 ms MUSE QTC Interval 428 ms MUSE P [place] 49 degrees MUSE R [place] 80 degrees MUSE T Wave [place] 47 degrees MUSE 05/04/2024 11:2 3 AM JEWEL STRIPPER 05/04/2024 11:33 AM JEWEL STRIPPER Impressions MUSE - 05/04/2024 11:33 AM JEWEL STRIPPER Normal sinus rhythm Normal ECG No previous ECGs available Reviewed by LINDA Linda Narrative Procedure Note Zhang Sandy M.D. - 05/04/2024 IMPRESSION: Normal sinus rhythm Normal ECG No previous ECGs available Reviewed by LINDA Linda us Tamara Hutton APRN.N.P., D.N.P. ECG ORDERABLE S Final Result Performing Organization Address [facility]/ZIP Co de Phone Number MUSE NA * Glucose, Body Fluid (05/04/2024 11:23 AM JEWEL STRIPPER) Glucose, BF 63 See Comment mg/dL 05/05/2024 12:32 PM JEWEL STRIPPER DTL Comment: ----ADDITIONAL INFORMATION---- Body fluid glucose concentrations may be decreased due to increased cellular metabolism and should be interpreted in the context of blood glucose concentrations and in conjunction with other laboratory and clinical findings. Pleural, Peritoneal, and Pericardial fluid and serum glucose concentrations are similar in the absence of infection. Synovial fluid glucose concentrations are similar to fasting blood glucose concentrations or approximately 50% of the non-fasting serum glucose concentration under normal conditions. Values below this can be seen with infection. Amniotic fluid glucose <16 mg/dL is suggestive of infection. Pancreatic cyst fluid glucose may be useful for differentiating mucinous from non-mucinous cystic lesions. Pancreatic cyst fluid glucose < 50 mg/dL is associated with mucinous cystic lesions. All other fluids refer to www.[employer].e-channel for further interpretive information. This test has been modified from the legislative assistant's instructions. Its performance characteristics were determined by [facility] in a manner consistent with CLIA requirements. This test has not been cleared or approved by the U.S. Food and Drug Administration. Fluid Type, Glucose PLEURAL 05/05 11:00 AM JEWEL STRIPPER DTL Fluid (Pleural Fluid, Right) 05/04/2024 11:23 AM JEWEL STRIPPER 05/05/2024 9:24 AM JEWEL STRIPPER us Hakan Iniguez APRN, C.N.P., D.N.P. LAB B FRANKIE FLUIDS AND STOOLS ORDERABLES Final Result Performing Organization Address [facility] Co de Phone Number [facility] [address] [place] [address], [facility] [address] [place] [address] * Hepatic Function Panel (05/04/2024 11:11 AM JEWEL STRIPPER) Bilirubin, Total, P <0.2 0.0 - 1.2 mg/dL 05/04/2024 1:47 PM JEWEL STRIPPER MKTO Bilirubin, Direct, P <0.1 0.0 - 0.3 mg/dL 05/04/2024 1:47 PM JEWEL STRIPPER MKTO Aspartate Aminotransferase (AST), P 28 8 - 43 U/L 05/04/2024 1:47 PM JEWEL STRIPPER MKTO Alanine Aminotransferase (ALT), P 20 7 - 45 U/L 05/04/2024 1:47 PM JEWEL STRIPPER MKTO Alkaline Phosphatase, P 59 35 - 104 U/L 05/04/2024 1:47 PM JEWEL STRIPPER MKTO Albumin, P 3.6 3.5 - 5.0 g/dL 05/04/2024 1:47 PM JEWEL STRIPPER MKTO Protein, Total, P 6.5 6.3 - 7.9 g/dL 05/04/2024 1:47 PM JEWEL STRIPPER MKTO Blood (Blood, Venous) 05/04/2024 11:11 AM JEWEL STRIPPER 05/04/2024 1:34 PM JEWEL STRIPPER Hakan Iniguez APRN, C.N.P., D.N.P. LAB BLOOD ADD -ON Final Result [facility] [address] [place] [address], [facility] [place] [address] * Protein, Total, Body Fluid (05/04/2024 10:50 AM JEWEL STRIPPER) Only the most recent of2 resultswithin the time period is included. Protein, Total, BF 4.9 See Comment g/dL 05/05/2024 12:34 PM JEWEL STRIPPER DTL Comment: ----ADDITIONAL INFORMATION---- A pleural fluid total protein to serum total protein ratio >0.5 is most consistent with exudative effusion. A peritoneal fluid total protein > 2.5 g/dL in patients with a high serum ascites albumin gradient can be caused by heart failure. A peritoneal fluid total protein > 1.0 g/dL helps to differentiate secondary from spontaneous bacterial peritonitis in conjunction with other laboratory, imaging, and clinical findings. All other fluids refer to www.[employer].com for further interpretive information. This test has been modified from the legislative assistant's instructions. Its performance characteristics were determined by [facility] in a manner consistent with CLIA requirements. This test has not been cleared or approved by the U.S. Food and Drug Administration. Fluid Type, Protein, Total PERITONEAL 05/05/2024 11:01 AM JEWEL STRIPPER DTL Fluid (Abdomen) 05/04/2024 1 0:50 AM JEWEL STRIPPER 05/05/2024 9:24 AM JEWEL STRIPPER Tamara Hutton APRN.N.P., D.N.P. LAB B FRANKIE FLUIDS AND STOOLS ORDERABLES Final Result Performing Organization Address [facility] Co de Phone Number [facility] [address] [place] [address], [facility] DTL [address] [address] * Bacterial Culture, Aerobic + Susceptibility (05/04/2024 10:50 AM JEWEL STRIPPER) Only the most recent of2 resultswithin the time period is included. Bacterial Culture, Aerobic + Susc No growth after 5 days of incubation. 05/09/2024 6:59 AM JEWEL STRIPPER MKTO Fluid (Abdomen) 05/04/2024 1 0:50 AM JEWEL STRIPPER 05/04/2024 11:50 AM JEWEL STRIPPER Comment:Specimen Source Site : Fluid Hakan Iniguez APRN, C.N.P., D.N.P. LAB M ICROBIOLOGY - GENERAL ORDERABLES Final Result [facility] [address] [place] [address], [facility] MKTO [facility] [place] [address] [place] [address] * Cell Count and Differential, Body Fluid (05/04/2024 10:50 AM JEWEL STRIPPER) Only the most recent of2 resultswithin the time period is included. Fluid Type Peritoneal/Pa racentesis 05/04/2024 12:46 PM JEWEL STRIPPER MKTO Gross Appearance Slightly Cloudy 05/04/2024 12:47 PM JEWEL STRIPPER MKTO Total Nucleated Cells 2808 /mcL 05/04/2024 12:48 PM JEWEL STRIPPER MKTO Comment: ----REFERENCE VALUE---- Synovial: <150 Peritoneal: <500 Pleural: <500 Pericardial: <500 ----ADDITIONAL INFORMATION---- This test has been modified from the legislative assistant's instructions. Its performance characteristics were determined by [facility] in a manner consistent with CLIA requirements. This test has not been cleared or approved by the U.S. Food and Drug Administration. Neutrophils 3 % 05/04/2024 1:20 PM JEWEL STRIPPER MKTO Comment: ----REFERENCE VALUE---- Synovial: <25% Peritoneal: <25% Pleural: <25% Pericardial: <25% Lymphocytes 34 Synovial : <75% % 05/04/2024 1:20 PM JEWEL STRIPPER MKTO Monocytes/Macropha ges 42 Synovial : <70% % 05/04/2024 1:20 PM JEWEL STRIPPER MKTO Other Cells 21 % 05/04/2024 1:20 PM JEWEL STRIPPER MKTO Comment: ----REFERENCE VALUE---- The reference range and other method performance specifications have not been established for this body fluid. The test result must be integrated into the clinical context for interpretation. Other Cells Are: SeeComment 05/04/19 25 7:48 PM JEWEL STRIPPER MKTO Comment: REVISED RESULTS Mesothelial cells: 8 Atypical cells: 13 Atypical cells, Correlate with cytology specimen. Dr. Hernandez ----PREVIOUSLY REPORTED ---- Mesothelial cells: 8 Atypical cells: 13 Atypical cells, Correlate with cytology specimen. (Reported 05/04/2024 13:22) Reviewed by: Dr. Hernandez 05/04/2024 7:48 PM JEWEL STRIPPER MKTO Comment: REVISED RESULTS ----PREVIOUSLY REPORTED ---- Will be reviewed by Pathologist Flagged as: N/A (Reported 05/04/2024 13:22) Fluid (Abdomen) 05/04/2024 1 0:50 AM JEWEL STRIPPER 05/04/2024 11:50 AM JEWEL STRIPPER us Hakan Iniguez APRN, C.N.P., D.N.P. LAB BODY FLUIDS AND STOOLS ORDERABLES Edited Result - Final [facility] [address] [place] [address], [address] [address] * Gram Stain (05/04/2024 10:50 AM JEWEL STRIPPER) Only the most recent of2 resultswithin the time period is included. Gram Stain No organisms seen. White blood cells present. Stain performed on concentrated cytospin preparation. 05/04/2024 12:50 PM JEWEL STRIPPER [facility] Fluid (Abdomen) 05/04/2024 1 0:50 AM JEWEL STRIPPER 05/04/2024 11:50 AM JEWEL STRIPPER Comment:Specimen Source Site : Fluid us Hakan Iniguez APRN, C.N.P., D.N.P. LAB M ICROBIOLOGY - GENERAL ORDERABLES Final Result Performing Organization Address [facility] Co de Phone Number [facility] [address] [place] [address], [address] [address] * Bacterial Culture, Anaerobic + Susceptibility (05/04/2024 10:50 AM JEWEL STRIPPER) Only the most recent of2 resultswithin the time period is included. Bacterial Culture, Anaerobic No growth after 7 days of incubation. 05/11/2024 5:49 AM JEWEL STRIPPER [facility] Fluid (Abdomen) 05/04/2024 1 0:50 AM JEWEL STRIPPER 05/04/2024 11:50 AM JEWEL STRIPPER Comment:Specimen Source Site : Fluid us Hakan Iniguez APRN, C.N.P., D.N.P. LAB M ICROBIOLOGY - GENERAL ORDERABLES Final Result Performing Organization Address [facility] Co de Phone Number [facility] [address] [place] [address], [address] [address] * Albumin, Body Fluid (05/04/2024 10:50 AM JEWEL STRIPPER) Albumin BF 2.8 See Comment g/dL 05/05/2024 12:34 PM JEWEL STRIPPER DTL Comment: ----ADDITIONAL INFORMATION---- Peritoneal fluid albumin is used to calculate the serum-ascites albumin gradient (SAAG). Values greater than or equal to 1.1 g/dL suggest portal hypertension. Pleural fluid albumin may be used to calculate a serum-effusion albumin gradient. Values greater than 1.2 g/dL are most consistent with a transudative process. All other fluids refer to www.T[employer]ss.com for further interpretive information. This test has been modified from the legislative assistant's instructions. Its performance characteristics were determined by [facility] in a manner consistent with CLIA requirements. This test has not been cleared or approved by the U.S. Food and Drug Administration. Fluid Type, Albumin PERITONEAL 05/05/2024 11:01 AM JEWEL STRIPPER DT Fluid (Abdomen) 05/04/2024 1 0:50 AM JEWEL STRIPPER 05/05/2024 9:24 AM JEWEL STRIPPER us Hakan Iniguez APRN, C.N.P., D.N.P. LAB B FRANKIE FLUIDS AND STOOLS ORDERABLES Final Result [address] [address], [facility] [address] [place] [address] * pH, Pleural Fluid (05/04/2024 10:30 AM JEWEL STRIPPER) pH, Pleural Fluid 7.35 Not Applicable pH 05/04/2024 12:14 PM JEWEL STRIPPER MKTO Comment: Clinical guidelines suggest that in parapneumonic pleural effusions, a pH <7.2 indicate the need for tube drainage. Fluid (Pleural Fluid, Right) 05/04/2024 10:30 AM JEWEL STRIPPER 05/04/2024 12:07 PM JEWEL STRIPPER us Hakan Iniguez APRN, C.N.P., D.N.P. LAB B FRANKIE FLUIDS AND STOOLS ORDERABLES Final Result Performing Organization Address [facility]/ZIP Co de Phone Number [facility] [address] [place] [address], [place] MKTO [facility] [place] [address] [place] [address] * Lactate Dehydrogenase (LD), Body Fluid (05/04/2024 10:30 AM JEWEL STRIPPER) Lactate Dehydrogenase (LD), BF 291 See Comment U/L 05/05/2024 2:30 PM JEWEL STRIPPER DTL Comment: ----ADDITIONAL INFORMATION---- Pleural fluid lactate dehydrogenase (LDH) to serum LDH ratio >0.6 are most consistent with exudative effusions. Peritoneal fluid LDH > 220 U/L suggest secondary rather than spontaneous bacterial peritonitis in conjunction with other laboratory, imaging, and clinical findings. Synovial fluid lactate dehydrogenase (LDH) may be elevated greater than plasma or serum LDH due to inflammatory causes. Values should be interpreted in conjunction with other clinical findings. All other fluids refer to www.Tail-f Systemss.e-channel for further interpretive information. This test has been modified from the legislative assistant's instructions. Its performance characteristics were determined by [facility] in a manner consistent with CLIA requirements. This test has not been cleared or approved by the U.S. Food and Drug Administration. Fluid Type, Lactate Dehydrogenase PLEURAL 05/05/2024 2:41 PM JEWEL STRIPPER DTL Fluid (Pleural Fluid, Right) 05/04/2024 10:30 AM JEWEL STRIPPER 05/05/2024 12:35 PM JEWEL STRIPPER us Hakan Iniguez APRN, C.N.P., D.N.P. LAB B FRANKIE FLUIDS AND STOOLS ORDERABLES Final Result Performing Organization Address [facility]/ZIP Co de Phone Number [facility] [address] [place] [address], [facility] [place] [address] [place] [address] * CT Abdomen Pelvis with IV Contrast (05/03/2024 3:01 PM JEWEL STRIPPER) Anatomical Region Laterality Modality Abdomen, Pelvis, Abdominal R ST LOS, Abdominal ARZ LOS, Abdominal FLA LOS N/A Computed Tomography 05/03/2024 2:55 PM JEWEL STRIPPER Impressions 05/03/2024 3:12 PM JEWEL STRIPPER 1. No evidence for acute or chronic pulmonary embolus. 2. Moderate-sized right pleural effusion with associated atelectasis and/or consolidation. 3. Diffuse omental and peritoneal disease identified concerning for metastatic or primary malignancy. 4. Moderate ascites. 5. Cholelithiasis. 6. Diverticulosis. 7. Distal small bowel wall thickening. Differential includes reactive change versus inflammatory disease versus infiltrative process. Narrative 05/03/2024 3:12 PM JEWEL STRIPPER EXAM: CT CHEST ANGIOGRAM AND PULMONARY ARTERIES WITH IV CONTRAST, CT ABDOMEN PELVIS WITH IV CONTRAST Including 3D image postprocessing with or without AI assistance. COMPARISON: 04/24/2024 and prior FINDINGS: Chest CT: There is a good contrast bolus within the pulmonary arterial system. There is no filling defect to suggest pulmonary embolus. The thoracic aorta is normal in caliber without evidence for dissection. The trachea and proximal bronchi are patent. There is a moderate-sized right pleural effusion with associated atelectasis and/or consolidation. The left lung is clear. There is no thoracic adenopathy. The visualized bony structures exhibit mild arthritic change. There is no worrisome bone lesion. Abdomen and pelvis CT:. There is extensive omental soft tissue infiltration noted. There is scattered peritoneal nodularity noted as well. The bladder is within normal limits. The genitourinary structures of the pelvis are grossly normal. There is a 6.6 x 5.6 cm left adrenal nodule with focal fat and calcifications. Gallbladder contains a small gallstone. The upper abdominal organs are within normal limits otherwise. There is moderate ascites. There is diverticulosis of the colon. The small and large bowel are of normal caliber. There is thickening of the distal small bowel wall in the right lower quadrant. There is mild arthritic change of the visualized skeleton. Procedure Note Steve Saenz M.D. - 05/03/2024 EXAM: CT CHEST ANGIOGRAM AND PULMONARY ARTERIES WITH IV CONTRAST, CTABDOMEN PELVIS WITH IV CONTRAST Including 3D image postprocessing with or without AI assistance. COMPARISON: 04/24/2024 and prior FINDINGS: Chest CT: There is a good contrast bolus within the pulmonary arterialsystem. There is no filling defect to suggest pulmonary embolus. Thethoracic aorta is normal in caliber without evidence for dissection. Thetrachea and proximal bronchi are patent. There is a moderate-sized right pleural effusion with associatedatelectasis and/or consolidation. The left lung is clear. There is nothoracic adenopathy. The visualized bony structures exhibit mild arthriticchange. There is no worrisome bone lesion. Abdomen and pelvis CT:. There is extensive omental soft tissueinfiltration noted. There is scattered peritoneal nodularity noted aswell. The bladder is within normal limits. The genitourinary structures ofthe pelvis are grossly normal. There is a 6.6 x 5.6 cm left adrenal nodule with focal fat and calcifications.Gallbladder contains a small gallstone. The upper abdominal organs arewithin normal limits otherwise. There is moderate ascites. There isdiverticulosis of the colon. The small and large bowel are of normal caliber. There is thickening of the distal small bowelwall in the right lower quadrant. There is mild arthritic change of thevisualized skeleton. IMPRESSION: 1. No evidence for acute or chronic pulmonary embolus. 2. Moderate-sized right pleural effusion with associated atelectasisand/or consolidation. 3. Diffuse omental and peritoneal disease identified concerning formetastatic or primary malignancy. 4. Moderate ascites. 5. Cholelithiasis. 6. Diverticulosis. 7. Distal small bowel wall thickening. Differential includes reactivechange versus inflammatory disease versus infiltrative process. Ilda Martinez M.D., M.B.A. IM CT PROCEDURES Final Result * CT Chest Angiogram and Pulmonary Arteries with IV Contrast (05/03/2024 2:45 PM JEWEL STRIPPER) Anatomical Region Laterality Modality Chest, Cardiovascular RST LO S, Thoracic ARZ LOS, Thoracic FLA LOS N/A Computed Tomography 05/03/2024 2:57 PM JEWEL STRIPPER Impressions 05/03/2024 3:12 PM JEWEL STRIPPER 1. No evidence for acute or chronic pulmonary embolus. 2. Moderate-sized right pleural effusion with associated atelectasis and/or consolidation. 3. Diffuse omental and peritoneal disease identified concerning for metastatic or primary malignancy. 4. Moderate ascites. 5. Cholelithiasis. 6. Diverticulosis. 7. Distal small bowel wall thickening. Differential includes reactive change versus inflammatory disease versus infiltrative process. Narrative 05/03/2024 3:12 PM JEWEL STRIPPER EXAM: CT CHEST ANGIOGRAM AND PULMONARY ARTERIES WITH IV CONTRAST, CT ABDOMEN PELVIS WITH IV CONTRAST Including 3D image postprocessing with or without AI assistance. COMPARISON: 04/24/2024 and prior FINDINGS: Chest CT: There is a good contrast bolus within the pulmonary arterial system. There is no filling defect to suggest pulmonary embolus. The thoracic aorta is normal in caliber without evidence for dissection. The trachea and proximal bronchi are patent. There is a moderate-sized right pleural effusion with associated atelectasis and/or consolidation. The left lung is clear. There is no thoracic adenopathy. The visualized bony structures exhibit mild arthritic change. There is no worrisome bone lesion. Abdomen and pelvis CT:. There is extensive omental soft tissue infiltration noted. There is scattered peritoneal nodularity noted as well. The bladder is within normal limits. The genitourinary structures of the pelvis are grossly normal. There is a 6.6 x 5.6 cm left adrenal nodule with focal fat and calcifications. Gallbladder contains a small gallstone. The upper abdominal organs are within normal limits otherwise. There is moderate ascites. There is diverticulosis of the colon. The small and large bowel are of normal caliber. There is thickening of the distal small bowel wall in the right lower quadrant. There is mild arthritic change of the visualized skeleton. Procedure Note Steve Saenz M.D. - 05/03/2024 EXAM: CT CHEST ANGIOGRAM AND PULMONARY ARTERIES WITH IV CONTRAST, CTABDOMEN PELVIS WITH IV CONTRAST Including 3D image postprocessing with or without AI assistance. COMPARISON: 04/24/2024 and prior FINDINGS: Chest CT: There is a good contrast bolus within the pulmonary arterialsystem. There is no filling defect to suggest pulmonary embolus. Thethoracic aorta is normal in caliber without evidence for dissection. Thetrachea and proximal bronchi are patent. There is a moderate-sized right pleural effusion with associatedatelectasis and/or consolidation. The left lung is clear. There is nothoracic adenopathy. The visualized bony structures exhibit mild arthriticchange. There is no worrisome bone lesion. Abdomen and pelvis CT:. There is extensive omental soft tissueinfiltration noted. There is scattered peritoneal nodularity noted aswell. The bladder is within normal limits. The genitourinary structures ofthe pelvis are grossly normal. There is a 6.6 x 5.6 cm left adrenal nodule with focal fat and calcifications.Gallbladder contains a small gallstone. The upper abdominal organs arewithin normal limits otherwise. There is moderate ascites. There isdiverticulosis of the colon. The small and large bowel are of normal caliber. There is thickening of the distal small bowelwall in the right lower quadrant. There is mild arthritic change of thevisualized skeleton. IMPRESSION: 1. No evidence for acute or chronic pulmonary embolus. 2. Moderate-sized right pleural effusion with associated atelectasisand/or consolidation. 3. Diffuse omental and peritoneal disease identified concerning formetastatic or primary malignancy. 4. Moderate ascites. 5. Cholelithiasis. 6. Diverticulosis. 7. Distal small bowel wall thickening. Differential includes reactivechange versus inflammatory disease versus infiltrative process. us Ilda Martinez M.D., M.B.A. IMG CT PROCEDURES Final Result * NT-Pro B-Type Natriuretic Peptide (BNP) (05/03/2024 1:19 PM JEWEL STRIPPER) NT-Pro BNP 153 <=226 pg/mL 05/03/2024 1:57 PM JEWEL STRIPPER NPRG Comment: NT-proBNP values less than 300 pg/mL have a 99% negative predictive value for excluding acute congestive heart failure. A cutoff of 1200 pg/mL for patients with an eGFR<60 yields a diagnostic sensitivity and specificity of 89% and 72% for acute congestive heart failure. A diagnostic NT-proBNP cutoff of 900 pg/mL has been suggested in adults 50-75 years of age in the absence of renal failure. Blood (Blood, Venous) 05/03/2024 1:19 PM JEWEL STRIPPER 05/03/2024 1:21 PM JEWEL STRIPPER us Ilda Martinez M.D., M.B.A. LAB BLOOD ADD-ON Final Result Performing Organization Address City/[facility]/ZIP Co de Phone Number [facility] [address] [place] [address], [facility] NPRG [place] [address] [place] [address] * (ABNORMAL) D-Dimer (05/03/2024 1:19 PM JEWEL STRIPPER) D-Dimer, P 3913(H) <=500 ng/mL FEU 05/03/2024 1:44 PM JEWEL STRIPPER NPRG Comment: D-dimer concentrations increase with age. For DVT/PE exclusion, in addition to clinical pre-test probability, age-adjusted D-dimer cut-offs are suggested for patients >50 years old. For additional information refer to the D-dimer assay in the Laboratory Test Catalog (LTC) and/or [employer] (KAREY). ----ADDITIONAL INFORMATION---- D-dimer values less than or equal to 500 ng/mL fibrinogen equivalent units (FEU) may be used in conjunction with clinical pre-test probability to exclude deep vein thrombosis (DVT) and/or pulmonary embolism (PE). Blood (Blood, Venous) 05/03/2024 1:19 PM JEWEL STRIPPER 05/03/2024 1:22 PM JEWEL STRIPPER Ilda Martinez M.D., M.B.A. LAB BLOOD ADD-ON Final Result Performing Organization Address City/[facility]/ZIP Co de Phone Number [facility] [address] [place] [address], [facility] NPRG [place] [address] [place] [address] * (ABNORMAL) Comprehensive Metabolic Panel (05/03/2024 1:19 PM JEWEL STRIPPER) Potassium, P 4.4 3.6 - 5.2 mmol/L 05/03/2024 1:54 PM JEWEL STRIPPER NPRG Sodium, P 138 135 - 145 mmol/L 05/03/2024 1:54 PM JEWEL STRIPPER NPRG Chloride, P 103 98 - 107 mmol/L 05/03/2024 1:54 PM JEWEL STRIPPER NPRG Bicarbonate, P 26 22 - 29 mmol/L 05/03/2024 1:54 PM JEWEL STRIPPER NPRG Anion Gap, P 9 7 - 15 05/03/2024 1:54 PM JEWEL STRIPPER NPRG BUN (Blood Urea Nitrogen), P 13 6 - 21 mg/dL 05/03/2024 1:54 PM JEWEL STRIPPER NPRG Creatinine 0.71 0.59 - 1.04 mg/dL 05/03/2024 1:54 PM JEWEL STRIPPER NPRG Estimated GFR (eGFR) >90 >=60 mL/min/BS A 05/03/2024 1:54 PM JEWEL STRIPPER NPRG Comment: Estimated GFR calculated using the 2020 CKD_EPI creatinine equation. Calcium, Total, P 8.7(L) 8.8 - 10.2 mg/dL 05/03/2024 1:54 PM JEWEL STRIPPER NPRG Glucose, P 85 70 - 140 mg/dL 05/03/2024 1:54 PM JEWEL STRIPPER NPRG Protein, Total, P 6.5 6.3 - 7.9 g/dL 05/03/2024 1:54 PM JEWEL STRIPPER NPRG Albumin, P 3.6 3.5 - 5.0 g/dL 05/03/2024 1:54 PM JEWEL STRIPPER NPRG Aspartate Aminotransferase (AST), P 26 8 - 43 U/L 05/03/2024 1:54 PM JEWEL STRIPPER NPRG Alkaline Phosphatase, P 61 35 - 104 U/L 05/03/2024 1:54 PM JEWEL STRIPPER NPRG Alanine Aminotransferase (ALT), P 21 7 - 45 U/L 05/03/2024 1:54 PM JEWEL STRIPPER NPRG Bilirubin, Total, P <0.2 0.0 - 1.2 mg/dL 05/03/2024 1:54 PM JEWEL STRIPPER NPRG Blood (Blood, Venous) 05/03/2024 1:19 PM JEWEL STRIPPER 05/03/2024 1:22 PM JEWEL STRIPPER us Ilda Martinez M.D., M.B.A. LAB BLOOD ADD-ON Final Result [facility] [address] [place] [address], [facility] NPRG [facility] [address] [place] [address] * SARS Coronavirus 2, PCR Rapid Symptomatic (05/03/2024 1:15 PM JEWEL STRIPPER) SARS CoV-2, PCR, Rapid, V Undetected Undetected 05/03/2024 1:24 PM JEWEL STRIPPER NPRG SARS Coronavirus 2, Source, Rapid Swab, Nasopharynx 05/03/2024 1:22 PM JEWEL STRIPPER NPRG Swab (Nasopharynx) 05/03/2024 1:15 PM JEWEL STRIPPER 05/03/2024 1:22 PM JEWEL STRIPPER Ilda Martinez M.D., M.B.A. LAB MICROBIOLOGY - GENERAL ORDERABLES Final Result Performing Organization Address City/[facility]/ZIP Co de Phone Number [facility] [address] [place] [address], [address] [address] * Influenza A/B and RSV, PCR, Point of Care (05/03/2024 1:15 PM JEWEL STRIPPER) Influenza A, POCT Negative Negative 05/03/2024 1:21 PM JEWEL STRIPPER NPRG Influenza B, POCT Negative Negative 05/03/2024 1:21 PM JEWEL STRIPPER NPRG Resp Syncytial Virus, POCT Negative Negative 05/03/2024 1:21 PM JEWEL STRIPPER NPRG Swab (Nasopharynx) 05/03/2024 1:15 PM JEWEL STRIPPER 05/03/2024 1:22 PM JEWEL STRIPPER Ilda Martinez M.D., M.B.A. LAB POCT ORDERABL ES - DEVICE Final Result [facility] [address] [place] [address], [place] [address] [address] [place] [address] * DX Chest AP or PA and Lateral 2 Views (04/24/2024 4:06 PM JEWEL STRIPPER) Anatomical Region Laterality Modality Chest, Thoracic RST LOS, Tho racic ARZ LOS, Thoracic FLA LOS N/A Digital Radiography Impressions 04/24/2024 4:08 PM JEWEL STRIPPER New large pleural effusion in the RIGHT lower lobe. Narrative 04/24/2024 4:08 PM JEWEL STRIPPER EXAM: DX CHEST AP OR PA AND LATERAL 2 VIEWS COMPARISON: Chest x-ray 05/11/2019 FINDINGS: The heart is normal in size. There is a large pleural effusion on the RIGHT with subsegmental atelectasis in the RIGHT lower lobe. The RIGHT upper lobe and LEFT lung are clear. Procedure Note Tony Savage M.D. - 04/24/2024 EXAM: DX CHEST AP OR PA AND LATERAL 2 VIEWS COMPARISON: Chest x-ray 05/11/2019 FINDINGS: The heart is normal in size. There is a large pleural effusionon the RIGHT with subsegmental atelectasis in the RIGHT lower lobe. TheRIGHT upper lobe and LEFT lung are clear. IMPRESSION: New large pleural effusion in the RIGHT lower lobe. Sabrina Ascencio P.A.-C., P.A. IMG DIAGNOSTIC IMAGI NG PROCEDURES Final Result from Last 3 Months Insurance [facility] Advance Directives For more information, please contact: [phone] * Full Code (Latest Code Status on File) Date Activated Date Inactivated Comments 05/04/2024 9:37 AM 05/07/2024 7:42 PM Question Answer Comments Full Code: Discussed with patient Care Teams Gun Tester Relationship Specialty Start Date End Date Elsewhere, Pcp PCP - General Internal Medicine 04/24/24
--- OUTSIDE RECORDS SUMMARY | 2024-05-16 13:44 | XMS_ITS | Encounter Summary ---
Author Organization [facility] Address [address] [place] [address] Care Team Providers Care Investor Name Role Phone Elsewhere, Pcp Primary Care Provider Unavailabl e Encounter Details Date Type Department Care Team (Late st Contact Info) Description 05/13/2024 Results Follow-Up Department of Oncology in [place], [place] [address] [place] [phone] Tegan Weaver M.D. [address] [place] [phone] Cytology Non-FACTORY MAINTENANCE MANAGER, Cytology Non-FACTORY MAINTENANCE MANAGER Social History Tobacco Use Types Packs/Day Years Used Date Smoking Tobacco: Every Day Cigarettes Passive Smoke Exposure: Current Smokeless Tobacco: Never Alcohol Use Standard Drinks/Week Comments Yes 0 (1 standard drink = 0.6 oz pur e alcohol) [facility] Utilities Answer Date Recorded In the past 12 months has [facility] [employer], gas, oil, or water [employer] threatened to shut off services in your [...] your living situation today? I have a [facility] place to live 05/04/2024 Comments No Sex and Gender Information Value Date Recorded Sex Assigned at Not on file Legal Sex Female 2:38 PM [employer] Gender Identity Not on file Sexual Orientation Not on file documented as of this encounter Plan of Treatment Not on file documented as of this encounter Visit Diagnoses Not on filedocumented in this encounter Care Teams Investor Relationship Specialty Start Date End Date Elsewhere, Pcp PCP - General Internal Medicine 04/24/24 documented as of this encounter
--- OUTSIDE RECORDS SUMMARY | 2024-05-16 13:44 | XMS_ITS | Encounter Summary ---
Author Organization [facility] Address [address] [place] [address] Care Team Providers Care Priming Mixture Carrier Name Role Phone Elsewhere, Pcp Primary Care Provider Unavailabl e Encounter Details Date Type Department Care Team (Latest Contact Info) Description 05/03/2024 Intake [facility] Social History Tobacco Use Types Packs/Day Years Used Date Smoking Tobacco: Every Day Cigarettes Passive Smoke Exposure: Current Smokeless Tobacco: Never Alcohol Use Standard Drinks/Week Comments Yes 0 (1 standard drink = 0.6 oz pur e alcohol) [facility] Utilities Answer Date Recorded In the past 12 months has e [employer], gas, oil, or water [employer] threatened to shut off services in your [...] your living situation today? I have a [facility] place to live 05/04/2024 Comments No Sex and Gender Information Value Date Recorded Sex Assigned at Not on file Legal Sex Female 2:38 PM FAT PURIFICATION WORKER Gender Identity Not on file Sexual Orientation Not on file documented as of this encounter Functional Status * Intimate Partner Violence Question Answer Date of Assessment Author Within the last year, have y ou been humiliated or emotionally abused in other ways by your partner or ex-partner? No 05/04/2024 7:56 AM FAT PURIFICATION WORKER Larissa Calderon R.N. Within the last year, have y ou been afraid of your partner or ex-partner? No 05/04/2024 7:56 AM FAT PURIFICATION WORKER Larissa Calderon R.N. Within the last year, have y ou been raped or forced to have any kind of sexual activity by your partner or ex-partner? No 05/04/2024 7:56 AM FAT PURIFICATION WORKER Larissa Calderon R.N. Within the last year, have y ou been kicked, hit, slapped, or otherwise physically hurt by your partner or ex-partner? No 05/04/2024 7:56 AM FAT PURIFICATION WORKER Larissa Calderon R.N. documented as of this encounter Plan of Treatment Not on file documented as of this encounter Visit Diagnoses Not on filedocumented in this encounter Additional Health Concerns Infection Onset Date Last Indicated Resolved Time COVID19 Pending 05/03/2024 05/03/2024 05/03/2024 1 :43 PM FAT PURIFICATION WORKER documented as of this encounter Care Teams Priming Mixture Carrier Relationship Specialty Start Date End Date Elsewhere, Pcp PCP - General Internal Medicine 04/24/24 documented as of this encounter
--- OUTSIDE RECORDS SUMMARY | 2024-05-16 13:44 | XMS_ITS | Encounter Summary ---
Author Organization [facility] Address [address] [place] [id number] Care Team Providers Care Medical Office Technology Instructor Name Role Phone Elsewhere, Pcp Primary Care Provider Unavailabl e Reason for Visit * Reason Comments Cough Patient reports prod uctive cough started originally around [place] time. Reports earache on her right side. Encounter Details Date Type Department Care Team (Late st Contact Info) Description 04/24/2024 3:13 PM WIND SITE MANAGER - 04/24/2024 4:25 PM WIND SITE MANAGER Emergency [facility] [address] [place] [phone] Sabrina Ascencio P.A.-Tamara., P.A. [address] [place] [phone] Cough Unspecified Type (Primary Dx); Pneumonia Discharge Disposition: Home or Self Care Social History Tobacco Use Types Packs/Day Years Used Date Smoking Tobacco: Every Day Cigarettes Passive Smoke Exposure: Current Smokeless Tobacco: Never Tobacco Cessation:Ready to Q uit: Not Asked; Counseling Given: Not Answered Alcohol Use Standard Drinks/Week Comments Yes 0 (1 standard drink = 0.6 oz pur e alcohol) Nutrition Answer Date Recorded Nutrition: EVOO Fat Source 13 10/21 Nutrition: Servings of Fruits/Vegetables per Day Not on file 10/22/2019 Dental Answer Date Recorded Dental: Regular Dentist Unknown 06/05/19 21 Comments No Sex and Gender Information Value Date Recorded Sex Assigned at Not on file Legal Sex Female 2:38 PM WIND SITE MANAGER Gender Identity Not on file Sexual Orientation Not on file documented as of this encounter Last Filed Vital Signs Vital Sign Reading Time Taken Comments Blood Pressure 124/71 04/24/2024 2:31 PM WIND SITE MANAGER Pulse 89 04/24/2024 2:31 PM WIND SITE MANAGER Temperature 36.7 C (98.1 F) 04/24/2024 2:31 PM WIND SITE MANAGER Respiratory Rate 20 04/24/2024 2:31 PM WIND SITE MANAGER Oxygen Saturation 93% 04/24/2024 2:31 PM WIND SITE MANAGER Inhaled Oxygen Concentration - - Weight 77.5 kg (170 lb 12.8 oz) 04/24/2024 2:32 PM WIND SITE MANAGER Height - - Body Mass Index - - documented in this encounter Medications at Time of Discharge albuterol 90 mcg/actuation inhaler Inhale 2 puffs every 4 (four) hours as needed for shortness of breath. 18 g 04/24/2024 amLODIPine (Norvasc) 5 mg tablet Take 1 tablet by mouth daily. 11/02/2023 lisinopriL (PRINIVIL,ZESTRIL ) 40 mg tablet Take 40 mg by mouth daily. 05/31/2021 metoprolol succinate (Toprol XL) 50 mg 24 hr tablet Take 1 tablet by mouth daily. 12/08/2023 rosuvastatin (Crestor) 10 mg tablet Take 1 tablet by mouth at bedtime. 11/02/2023 amoxicillin-pot clavulanate (Augmentin) 875-125 mg per tabletIndications :Pneumonia Take 1 tablet by mouth 2 (two) times a day for 5 days. 10 tablet 04/24/2024 azithromycin (Zithromax) 250 mg tabletIndications :Pneumonia Take 2 tablets (500 mg) on day 1 and then 1 tablet (250 mg) on days 2-5. 6 tablet 04/24/2024 5 albuterol (ACCUNEB) 2.5 mg /3 mL nebulizer solution Inhale 2.5 mg. 06/13/2017 5 albuterol (PROVENTIL HFA,VENTOLIN HFA) 90 mcg/actuation inhaler Inhale 2 puffs. 07/25/2012 5 albuterol sulfate (ProAir RespiClick) 90 mcg/actuation aerosol powdr breath activated inhalerIndication s:Cough Unspecified Type Inhale 2 puffs every 6 (six) hours as needed for wheezing or shortness of breath. 1 Inhaler 05/11/2019 5 fluticasone propionate (FLONASE) 50 mcg/actuation nasal sprayIndications: Sinusitis Administer 1 spray into each nostril 2 (two) times a day. 16 g 06/14/2021 5 documented as of this encounter Progress Notes * Sabrina Ascencio P.A.-Tamara., P.A. - 04/24/2024 4:25 PM CST SUBJECTIVE CHIEF COMPLAINT / REASON FOR VISIT Cough (Patient reports productive cough started originally around [place] time. Reports earache on her right side. ) HISTORY OF PRESENT ILLNESS Smiley Hernández is a 63 y.o. female who presents for evaluation of prolonged cough and congestion. She had onset of symptoms about 1 month ago of congestion and cough. Denies sinus pain/pressure.Has lost of congestion in the mornings blowing nose, clear nasal drainage. Cough is productive for clear to yellow colored sputum, no blood noted in sputum or with cough. She denies fever, chest painor SOB. She does have albuterol inhaler she uses as needed. She does think she may be almost out ofthe albuterol inhaler and will refill this today for her during visit. No vomiting, nausea, no abdominal pain. No urinary symptoms. Patient has noted the cough has been prolonged and has worsened with cough becoming productive. Pt does have history of smoking. The patient's social and medical history was reviewed in the electronic medical record. ALLERGIES/CONTRAINDICATIONS Allergies[1] OBJECTIVE VITAL SIGNS BP 124/71 (BP Location: Right arm;Upper, Patient Position: Sitting) Pulse 89 Temp 36.7 ??C (Temporal) Resp 20 Wt 77.5 kg SpO2 93% No PHYSICAL EXAMINATION General: Patient is alert and in no acute distress. HEENT: Pupils PERRLA. Conjunctivae clear without hemorrhages or exudates. Auditory canals normal without erythema or edema. TMs pearly salcedo and intact without erythema. Oral cavity adequately hydrated. Posterior pharynx normal without erythema or drainage present. Neck: Supple without lymphadenopathy. Respiratory: effort is easy. Lung sounds are clear to auscultation. Cardiovascular: S1, S2 present. Normal rate and rhythm. Musculoskeletal: Grossly intact. No deformities noted. Skin: Normal color, temperature and moisture. No rashes or lesions noted. DIAGNOSTICS Labs: No results found for this or any previous visit (from the past 24 hours). Imaging: DX Chest AP or PA and Lateral 2 Views Result Date: 04/24/2024 Impression: New large pleural effusion in the RIGHT lower lobe. Curb 64 ASSESSMENT / PLAN #1 Cough Unspecified Type - DX Chest AP or PA and Lateral 2 Views; Standing - DX Chest AP or PA and Lateral 2 Views #2 Pneumonia - amoxicillin-pot clavulanate (Augmentin) 875-125 mg per tablet; Take 1 tablet by mouth 2 (two) times a day for 5 days., Starting Mon04/24/2024, Until Mon04/29/2024, Normal - azithromycin (Zithromax) 250 mg tablet; Take 2 tablets (500 mg) on day 1 and then 1 tablet (250 mg) on days 2-5., Normal Other orders - albuterol 90 mcg/actuation inhaler; Inhale 2 puffs every 4 (four) hours as needed for shortness of breath., Starting Mon04/24/2024, NormalMay substitute generic Proair, generic Ventolin or generic Proventil as appropriate for patient or insurance preference - benzonatate (Tessalon Perles) 100 mg capsule; Take 1 capsule (100 mg total) by mouth 3 (three) times a day as needed for cough., Starting Mon04/24/2024, Normal Reviewed findings of chest xray with patient. Showed large pleural effusion in right lower lobe, atelectasis right. Discussed xray results with patient during visit. Based on patients history of productive cough andcongestion the past month suspect pleural effusion likely secondary to pneumonia. Did review with patient other conditions, causes for pleural effusion. At this time will treat empirically for pneumonia with antibiotic as above sent to pharmacy, patient advised on risks and directions on antibiotics. Refilled albuterol inhaler. Tessalon Perles Prn for cough. Patient has PCP whom she states is located in [facility]. Discussed with patient that she should make follow up appointment in 1-2 weeks, for recheck and recommendation to repeat chest xray to assure resolution of pleural effusion. She states understanding and agreement with recommendations. If persists or no change can follow up at that time for further work up. She is advised on return precautions and is advised if new or worsening symptoms to return to [facility] without delay. Ie chest pain, difficulty breathing, SOB, fever or any other new/worsening symptoms. Symptomatic treatments were discussed. Cover your cough. Wash hands frequently. Concerning symptoms to watch for were discussed. If new or concerning symptoms develop, seek medical attention. Patient verbalizes understanding and acceptance of this plan of care and denies any further needs or questions at this time. Sabrina Ascencio P.A.-C., P.A. [1] Allergies Allergen Reactions Sulfa (Sulfonamide Antibiotics) Anaphylaxis Sabrina Ascencio P.A.-C., P.A. 04/24/24 [id number] SITE MANAGER documented in this encounter Plan of Treatment Not on file documented as of this encounter Procedures Procedure Name Priority Date/Time Associated Diagnosis Comments DX CHEST AP OR PA AND LATERAL 2 VIEWS RAD - Semiurgent (Fast; most ED patients; some inpatients) 04/24/2024 4:06 PM WIND SITE MANAGER Cough Unspecified Type documented in this encounter Results * DX Chest AP or PA and Lateral 2 Views (04/24/2024 4:06 PM WIND SITE MANAGER) Anatomical Region Laterality Modality Chest, Thoracic RST LOS, Tho racic ARZ LOS, Thoracic FLA LOS N/A Digital Radiography Impressions 04/24/2024 4:08 PM WIND SITE MANAGER New large pleural effusion in the RIGHT lower lobe. Narrative 04/24/2024 4:08 PM WIND SITE MANAGER EXAM: DX CHEST AP OR PA AND [...] in the RIGHT lower lobe. Sabrina Ascencio P.A.-C. P.A. IMG DIAGNOSTIC IMAGI NG PROCEDURES Final Result documented in this encounter Visit Diagnoses Diagnosis Cough Unspecified Type- Primary Pneumonia documented in this encounter Care Teams Medical Office Technology Instructor Relationship Specialty Start Date End Date Elsewhere, Pcp PCP - General Internal Medicine 04/24/24 documented as of this encounter
--- OUTSIDE RECORDS SUMMARY | 2024-05-16 13:45 | XMS_ITS | Encounter Summary ---
Author Organization [facility] Address [address] [place] [id number] Care Team Providers Care Boatwright Name Role Phone Elsewhere, Pcp Primary Care Provider Unavailabl e Reason for Visit * Reason Comments Med Refill Encounter Details Date Type Department Care Team ([facility] st Contact Info) Description 05/07/2024 Refill [facility] [address] [place] [phone] Sabrina Ascencio P.A.-C., P.A. [address] [place] [phone] Med Refill Social History Tobacco Use Types Packs/Day Years Used Date Smoking Tobacco: Every Day Cigarettes Passive Smoke Exposure: Current Smokeless Tobacco: Never Alcohol Use Standard Drinks/Week Comments Yes 0 (1 standard drink = 0.6 oz pur e alcohol) [facility] Utilities Answer Date Recorded In the past 12 months has [facility] [employer], gas, oil, or water [employer] threatened to shut off services in your [...] your living situation today? I have a [facility] place to live 05/04/2024 Comments No Sex and Gender Information Value Date Recorded Sex Assigned at Not on file Legal Sex Female 2:38 PM [employer] Gender Identity Not on file Sexual Orientation Not on file documented as of this encounter Plan of Treatment Not on file documented as of this encounter Visit Diagnoses Not on filedocumented in this encounter Care Teams Boatwright Relationship Specialty Start Date End Date Elsewhere, Pcp PCP - General Internal Medicine 04/24/24 documented as of this encounter
--- OUTSIDE RECORDS SUMMARY | 2024-05-16 13:45 | XMS_ITS | Encounter Summary ---
Author Organization [facility] Address [address] [place] [address] Care Team Providers Care Hospice Admitting Clerk Name Role Phone Elsewhere, Pcp Primary Care Provider Unavailabl e Reason for Visit * Auth/Cert (Routine) Specialty Diagnoses / Procedures Referred By Contebenezer t Referred To Contact Diagnoses Acute Respiratory Failure With Hypoxia (HCC) shortness of breath Procedures INPT Referral ID Status Reason Start Date Expiration Date Visits Re quested Visits Authorized [id number] 1 1 Encounter Details Date Type Department Care Team (Latest Contact Info) Description 05/04/2024 7:25 AM DIRECTOR OF CLINICAL TRIALS - 05/07/2024 5:42 PM DIRECTOR OF CLINICAL TRIALS Hospital Encounter [facility], Fifth Floor [address] [phone] Zane Chinchilla M.D. [address] [place], [place] [id number] Ariana Jeffries APRN, C.N.P., M.S.N. [address] [place], [place] [phone] Hakan Iniguez APRN, C.N.P., D.N.P. [address] [place] [address] Adia Geiger M.D. [address] [place] [phone] Sergo Ambrocio M.D. [address] [place] [phone] Miguelina Harmon M.B., Arpita Madrigal. [address] [facility] [place] [address] Discharge Disposition: Home or Self Care Social History Tobacco Use Types Packs/Day Years Used Date Smoking Tobacco: Every Day Cigarettes Passive Smoke Exposure: Current Smokeless Tobacco: Never Alcohol Use Standard Drinks/Week Comments Yes 0 (1 standard drink = 0.6 oz pur e alcohol) [facility] Utilities Answer Date Recorded In the past 12 months has e [employer], gas, oil, or water [employer] threatened to shut off services in your [...] your living situation today? I have a [facility] to live 05/04/2024 Comments No Sex and Gender Information Value Date Recorded Sex Assigned at Not on file Legal Sex Female 2:38 PM DIRECTOR OF CLINICAL TRIALS Gender Identity Not on file Sexual Orientation Not on file documented as of this encounter Last Filed Vital Signs Vital Sign Reading Time Taken Comments Blood Pressure 121/76 05/07/2024 2:11 PM DIRECTOR OF CLINICAL TRIALS Pulse 69 05/07/2024 2:11 PM DIRECTOR OF CLINICAL TRIALS Temperature 36.7 C (98.1 F) 05/07/2024 2:11 PM DIRECTOR OF CLINICAL TRIALS Respiratory Rate 23 05/07/2024 2:11 PM DIRECTOR OF CLINICAL TRIALS Oxygen Saturation 92% 05/07/2024 2:11 PM DIRECTOR OF CLINICAL TRIALS Inhaled Oxygen Concentration - - Weight 71.5 kg (157 lb 10.1 oz) 05/07/2024 6:00 AM DIRECTOR OF CLINICAL TRIALS Height 171 cm (5' 7.32) 05/04/2024 7:26 AM DIRECTOR OF CLINICAL TRIALS Body Mass Index 24.45 05/04/2024 7:26 AM DIRECTOR OF CLINICAL TRIALS documented in this encounter Functional Status * Intimate Partner Violence Question Answer Date of Assessment Author Within the last year, have y ou been humiliated or emotionally abused in other ways by your partner or ex-partner? No 05/04/2024 7:56 AM DIRECTOR OF CLINICAL TRIALS Larissa Calderon R.N. Within the last year, have y ou been afraid of your partner or ex-partner? No 05/04/2024 7:56 AM DIRECTOR OF CLINICAL TRIALS Larissa Calderon R.N. Within the last year, have y ou been raped or forced to have any kind of sexual activity by your partner or ex-partner? No 05/04/2024 7:56 AM DIRECTOR OF CLINICAL TRIALS Larissa Calderon R.N. Within the last year, have y ou been kicked, hit, slapped, or otherwise physically hurt by your partner or ex-partner? No 05/04/2024 7:56 AM DIRECTOR OF CLINICAL TRIALS Larissa Calderon RKennN. documented as of this encounter Discharge Summaries * Miguelina Harmon M.B., Jesus Madrigal - 05/07/2024 4:09 PM CST DISCHARGE SUMMARY BRIEF OVERVIEW Discharge Hospital: Hospital: [facility] Discharge Provider: Miguelina Harmon M.B., Jesus Madrigal Primary Care Providers: Elsewhere, Pcp (General) No address on file Discharge Provider Team: [facility] ([facility]) [facility] Primary Care Provider Phone Number: None Primary Care Provider Fax Number: None Admission Date: 05/04/2024 Discharge Date: 05/07/24 PRINCIPAL DIAGNOSIS Acute Respiratory Failure With Hypoxia (HCC) SECONDARY DIAGNOSES Principal Problem: Acute Respiratory Failure With Hypoxia (HCC) Active Problems: Cancer Breast Personal History Abuse Tobacco Smoking Sore Throat Acute Candidiasis Of Vulva And Vagina Effusion Pleural Ascites Chronic Cough Other Cholelithiasis Without Obstruction Diverticulosis Resolved Problems: * No resolved hospital problems. * DISCHARGE DISPOSITION Home or Self Care [1] ACTIVE ISSUES REQUIRING FOLLOW UP -follow up with outpatient oncology OUTPATIENT FOLLOW UP Scheduled Appointments 05/07/2024 4:10 PM DX [facility] 04 Radiology For appointment details refer to your Patient Appointment Guide. TEST RESULTS PENDING AT DISCHARGE Pending Labs Order Current Status Cytology Non-BEADWORKER In process Cytology Non-BEADWORKER In process Bacterial Culture, Aerobic + Susceptibility Preliminary result Bacterial Culture, Aerobic + Susceptibility Preliminary result Bacterial Culture, Anaerobic + Susceptibility Preliminary result Bacterial Culture, Anaerobic + Susceptibility Preliminary result DETAILS OF HOSPITAL STAY REASON FOR ADMISSION Acute Respiratory Failure With Hypoxia (HCC) HOSPITAL COURSE Smiley Hernández is a pleasant 63 y.o. female with underlying comorbid medical conditions of breast cancer (SP resection, radiation and chemo 2008), tobacco abuse, hypertension, and hyperlipidemiawho presents to the [place] emergency department on 05/03/2024 with the abdominal bloating and shortness for breath for the past few weeks that progressed to her inability to lie flat. In the emergency department patient found to have mild hypoxia on presentation requiring 2 L of oxygen as well as abdominal ascites. Labs relatively unremarkable. Viral quad panel negative. CT showing moderate sized right pleural effusion diffuse omental or peritoneal disease concerning for metastatic or primary malignancy, moderate ascites, cholelithiasis, diverticulosis, distal small bowel thickening. No PE seen. Patient to be transferred to [facility] for hypoxia and further management of large pleural effusion including thoracentesis. status post thoracentesis with 1.2 L of clear straw-colored y ellow fluid drained on 05/04. status post paracentesis with 600 mL clear straw- colored fluid drained.CEA significantly elevated (8527). Patient does not live in [place]. She communicated with her PCP,she then provided us with a fax number to send the admission work up to ensure in-patient to outpatient follow up with oncology. Chest xray on the day of discharge showed reaccumulation of fluids. USthoracentesis was done. Patient tolerated the procedure well. Chest xray post procedure did not show pneumothorax. Patient was saturating well on room air on the day of discharge. Hospitalization otherwise uncomplicated. MEDICATIONS CHANGED DURING THIS HOSPITAL STAY Discharge Medications Unreviewed Medications Sig Disp Start albuterol 90 mcg/actuation inhaler Inhale 2 puffs every 4 (four) hours as needed for shortness of breath. 18 g amLODIPine 5 mg tablet Commonly known as: Norvasc Take 1 tablet by mouth daily. benzonatate 100 mg capsule Commonly known as: Tessalon Perles Take 1 capsule (100 mg total) by mouth 3 (three) times a day as needed for cough. 20 capsule lisinopriL 40 mg tablet melatonin 10 mg capsule Take 10 mg by mouth at bedtime. metoprolol succinate 50 mg 24 hr tablet Commonly known as: Toprol XL Take 1 tablet by mouth daily. rosuvastatin 10 mg tablet Commonly known as: Crestor Take 1 tablet by mouth at bedtime. CONSULTS ORDERED DURING THIS ADMISSION IP CONSULT TO ONCOLOGY CONDITION AT DISCHARGE stable I saw and evaluated Smiley Hernández today and provided counseling nipp-ie-hqon at bedside. I personally spent a total of greater than 30 minutes in counseling and coordination of care as described above to facilitate the hospital discharge. Discharge instructions were provided to the patient and caregiver(s). CTOR OF CLINICAL TRIALS documented in this encounter Medications at Time of Discharge albuterol 90 mcg/actuation inhaler Inhale 2 puffs every 4 (four) hours as needed for shortness of breath. 18 g 04/24/2024 amLODIPine (Norvasc) 5 mg tablet Take 1 tablet by mouth daily. 11/02/2023 benzonatate (Tessalon Perles) 100 mg capsule Take 1 capsule (100 mg total) by mouth 3 (three) times a day as needed for cough. 20 capsule 04/24/2024 lisinopriL (PRINIVIL,ZESTRI L) 40 mg tablet Take 40 mg by mouth daily. 05/31/2021 melatonin 10 mg capsule Take 10 mg by mouth at bedtime. metoprolol succinate (Toprol XL) 50 mg 24 hr tablet Take 1 tablet by mouth daily. 12/08/2023 rosuvastatin (Crestor) 10 mg tablet Take 1 tablet by mouth at bedtime. 11/02/2023 documented as of this encounter Progress Notes * Sergo Ambrocio M.D. - 05/06/2024 11:08 AM CST Images from the original note were not included. Internal Medicine Progress Note Date of Admission: 05/04/2024 LOS: 2 days SUBJECTIVE Ms. Hernández was seen and examined at the bedside during team rounds No acute events overnight at bedside Cytology pending OBJECTIVE VITAL SIGNS BP 123/71 (BP Location: Right arm;Upper, Patient Position: Sitting) Pulse 78 Temp 36.2 ??C (Temporal) Resp 16 Ht 171 cm Wt 73.9 kg SpO2 96% BMI 25.27 kg/m?? PHYSICAL EXAMINATION Gen: no acute distress HEENT: NCAT EOMI mmm Neck: Supple CV: RRR normal s1 s2 Lungs: CTAB Abd: Soft,nt, nd Neuro: Alert, oriented, CN grossly intact; nonfocal screening exam Psych: appropriate affect MSK: age appropriate muscle mass Skin; Warm, dry no rash on face Intake/Output Summary (Last 24 hours) at 05/06/2024 1129 Last data filed at 05/06/2024 0636 Gross per 24 hour Intake 1790 ml Output 0 ml Net 1790 ml DIAGNOSTICS Labs: Results from last 7 days Lab Units 05/06/24 0700 05/05/24 0725 05/04/24 1130 WBC x10(9)/L 5.0 5.5 5.4 HEMOGLOBIN g/dL 11.4* 12.1 11.5* HEMATOCRIT % 36.1 38.4 36.2 PLATELETS AUTO x10(9)/L 315 344 356 Results from last 7 days Lab Units 05/06/24 0700 05/05/24 0725 05/04/24 1130 SODIUM P mmol/L 140 138 138 CHLORIDE P mmol/L 105 103 102 BUN P mg/dL 8 8 10 CREATININE mg/dL 0.67 0.75 0.68 CALCIUM P mg/dL 8.5* 8.7* 8.5* Results from last 7 days Lab Units 05/04/24 1111 05/03/24 1319 ALBUMIN P g/dL 3.6 3.6 AST P U/L 28 26 ALT P U/L 20 21 ALK PHOS P U/L 59 61 BILIRUBIN DIRECT P mg/dL <0.1 -- BILIRUBIN TOTAL P mg/dL <0.2 <0.2 Intake/Output Summary (Last 24 hours) at 05/06/2024 1129 Last data filed at 05/06/2024 0636 Gross per 24 hour Intake 1790 ml Output 0 ml Net 1790 ml Radiology: US Paracentesis with Imaging Guidance Final Result Successful ultrasound guided diagnostic and therapeutic paracentesis. US Thoracentesis Right with Imaging Guidance Final Result Successful ultrasound guided diagnostic and therapeutic right thoracentesis. ASSESSMENT / PLAN # Acute Respiratory Failure with Hypoxia # Moderate Right-Sided Pleural Effusion # omental and peritoneal disease concerning for malignancy, metastatic versus primary # Ascites # Chronic Cough # Cancer Breast Personal History Status Post Resection, Radiation, And Chemotherapy In 2008 # diffuse small bowel thickening on CT -presented to ED with shortness for breath, and abdominal bloating as well as orthopnea that has been ongoing for the past few weeks. -CT angio of the chest abdomen and pelvis-no evidence of PE. Showed moderate- sized right pleural effusion with associated atelectasis/consolidation, omental and peritoneal disease concerning for metastatic or primary malignancy, moderate ascites, diffuse small bowel thickening among other findings. -status post thoracentesis with 1.2 L of clear straw-colored yellow fluid drained on 05/04. -status post paracentesis with 600 mL clear straw-colored fluid drained. -peritoneal fluid: Cultures pending. No organisms on Gram stain. 2808 cell count 34% lymphocytic and 3% neutrophilic therefore less likely bacterial infection. Cytology pending.CEA-pending . Pleural fluid: Gram stain shows no organisms. Cell count 523 predominantly lymphocytic. Cytology pending. LDH,protein pending. -given concern for underlying malignancy will consult oncology. -continue to try to wean off oxygen. -p.r.n. analgesics. -CT chest showing effusion with a seated atelectasis/consolidation. Recently treated with amoxicillin and azithromycin on 04/24/24. Will hold off any antibiotics for now pending cultures. Influenza and COVID panel negative. # Hypertension Controlled. - continue DRYER OPERATOR dosing of amlodipine, lisinopril, and metoprolol. # Hyperlipidemia - continue DRYER OPERATOR dosing of rosuvastatin # vaginal itching Vaginal itching and irritation status post recent antibiotic course. - Diflucan oral x1 - UA # Abuse Tobacco Smoking Patient smokes 3/4 of a pack per day. Declines nicotine replacement -counseled on smoking cessation # Other Cholelithiasis Without Obstruction # Diverticulosis # Distal Small Bowel Thickening # 6.6 X 5.6 Cm Left Adrenal Nodule Incidental findings. Asymptomatic. Will withhold from stool studies unless she develops diarrhea. ANTICOAGULANTS/DVT PROPHYLAXIS: AntiCoag AntiPlatelet Meds IP/OP Low Molecular Weight Heparins Refills Start End enoxaparin injection 40 mg (Lovenox) -- 05/05/2024 -- 40 mg, subcutaneous, Daily Lovenox,scd DIET: Current Diet Adult Diet Regular; 2,000 mg Na starting at 05/04 1142 Benavidez Catheter Present?: No. Code status: Full Code # Anticipated discharge and Disposition: Pending further workup, clinical improvement; cytology Oncology recs Total time spent 35 minutes CTOR OF CLINICAL TRIALS * Adia Geiger M.D. - 05/05/2024 8:17 AM CST Internal Medicine Progress Note Date of Admission: 05/04/2024 LOS: 1 day SUBJECTIVE Ms. Hernández was seen and examined at the bedside with the nurse. She does report shortness for breath and abdominal bloating of improved. Denies chest pain, nausea or vomiting. She does report a cough. Currently on 2-3 L of oxygen. OBJECTIVE VITAL SIGNS BP 124/69 (BP Location: Right arm;Upper, Patient Position: Sitting) Pulse 72 Temp 36 ??C (Temporal) Resp 14 Ht 171 cm Wt 73.9 kg SpO2 94% BMI 25.27 kg/m?? PHYSICAL EXAMINATION General exam: Patient appears comfortable not in any acute distress. Head ENT exam: Mucous membranes are moist. Neck: Supple. Cardiovascular exam: Regular rate and rhythm ,S1 and S2 normal ,no murmur ,no gallop. Lung exam: Not using accessory muscles. Breathing is nonlabored. Diminished breath sounds in the right. Abdomen: Soft ,nontender, bowel sounds are normoactive. Mildly distended, no fluid thrill Neuro: Patient is awake alert oriented time place and person. No focal deficits. Lower extremities: No edema. Intake/Output Summary (Last 24 hours) at 05/05/2024 08 Last data filed at 05/05/2024 0726 Gross per 24 hour Intake 2255 ml Output 300 ml Net 1955 ml DIAGNOSTICS Labs: Results from last 7 days Lab Units 05/05/24 0725 05/04/24 1130 05/03/24 1319 WBC x10(9)/L 5.5 5.4 5.5 HEMOGLOBIN g/dL 12.1 11.5* 11.6 HEMATOCRIT % 38.4 36.2 36.8 PLATELETS AUTO x10(9)/L 344 356 345 Results from last 7 days Lab Units 05/04/24 1130 05/03/24 1319 SODIUM P mmol/L 138 138 CHLORIDE P mmol/L 102 103 BUN P mg/dL 10 13 CREATININE mg/dL 0.68 0.71 CALCIUM P mg/dL 8.5* 8.7* Results from last 7 days Lab Units 05/04/24 1111 05/03/24 1319 ALBUMIN P g/dL 3.6 3.6 AST P U/L 28 26 ALT P U/L 20 21 ALK PHOS P U/L 59 61 BILIRUBIN DIRECT P mg/dL <0.1 -- BILIRUBIN TOTAL P mg/dL <0.2 <0.2 Intake/Output Summary (Last 24 hours) at 05/05/2024 0817 Last data filed at 05/05/2024 0726 Gross per 24 hour Intake 2255 ml Output 300 ml Net 1955 ml Radiology: US Paracentesis with Imaging Guidance Final Result Successful ultrasound guided diagnostic and therapeutic paracentesis. US Thoracentesis Right with Imaging Guidance Final Result Successful ultrasound guided diagnostic and therapeutic right thoracentesis. ASSESSMENT / PLAN # Acute Respiratory Failure with Hypoxia # Moderate Right-Sided Pleural Effusion # omental and peritoneal disease concerning for malignancy, metastatic versus primary # Ascites # Chronic Cough # Cancer Breast Personal History Status Post Resection, Radiation, And Chemotherapy In 2008 # diffuse small bowel thickening on CT -presented to ED with shortness for breath, and abdominal bloating as well as orthopnea that has been ongoing for the past few weeks. -CT angio of the chest abdomen and pelvis-no evidence of PE. Showed moderate- sized right pleural effusion with associated atelectasis/consolidation, omental and peritoneal disease concerning for metastatic or primary malignancy, moderate ascites, diffuse small bowel thickening among other findings. -status post thoracentesis with 1.2 L of clear straw-colored yellow fluid drained on 05/04. -status post paracentesis with 600 mL clear straw-colored fluid drained. -peritoneal fluid: Cultures pending. No organisms on Gram stain. 2808 cell count 34% lymphocytic and 3% neutrophilic therefore less likely bacterial infection. Cytology pending.CEA-pending . Pleural fluid: Gram stain shows no organisms. Cell count 523 predominantly lymphocytic. Cytology pending. LDH,protein pending. -given concern for underlying malignancy will consult oncology. -continue to try to wean off oxygen. -p.r.n. analgesics. -CT chest showing effusion with a seated atelectasis/consolidation. Recently treated with amoxicillin and azithromycin on 04/24/24. Will hold off any antibiotics for now pending cultures. Influenza and COVID panel negative. # Hypertension Controlled. - continue DRYER OPERATOR dosing of amlodipine, lisinopril, and metoprolol. # Hyperlipidemia - continue DRYER OPERATOR dosing of rosuvastatin # vaginal itching Vaginal itching and irritation status post recent antibiotic course. - Diflucan oral x1 - UA # Abuse Tobacco Smoking Patient smokes 3/4 of a pack per day. Declines nicotine replacement -counseled on smoking cessation # Other Cholelithiasis Without Obstruction # Diverticulosis # Distal Small Bowel Thickening # 6.6 X 5.6 Cm Left Adrenal Nodule Incidental findings. Asymptomatic. Will withhold from stool studies unless she develops diarrhea. ANTICOAGULANTS/DVT PROPHYLAXIS: Lovenox,scd DIET: Current Diet Adult Diet Regular; 2,000 mg Na starting at 05/04 1142 Benavidez Catheter Present?: No. Code status: Full Code # Anticipated discharge and Disposition: Pending further workup, clinical improvement. Total time spent 50 minutes CTOR OF CLINICAL TRIALS documented in this encounter H&P Notes * Hakan Iniguez, JONATHAN, C.N.P., D.N.P. - 05/04/2024 8:17 AM CST Date of Admission: 05/04/2024 LOS: 0 days Primary Care Physician: ELSEWHERE, PCP SUBJECTIVE REASON FOR ADMISSION: Acute Respiratory Failure With Hypoxia (HCC) HISTORY OF PRESENT ILLNESS HISTORY OF PRESENT ILLNESS Smiley Hernández is a pleasant 63 y.o. female with underlying comorbid medical conditions of breast cancer (SP resection, radiation and chemo 2008), tobacco abuse, hypertension, and hyperlipidemiawho presents to the [place] emergency department on 05/03/2024 with the abdominal bloating and shortness for breath for the past few weeks that progressed to her inability to lie flat. She was seen by urgent care previously and was diagnosed with pleural effusion which they thought to be parapneumonic and so was treated with antibiotics which she has completed. She also notes worsening appetite and feeling full. She had one day of nausea without vomiting and cramping pain without diarrhea, which resolved. Endorses a recent viral illness with nasal congestion and cough. In the emergency department patient found to have mild hypoxia on presentation requiring 2 L of oxygen as well as abdominal ascites. Labs relatively unremarkable. Viral quad panel negative. CT showing moderate sized right pleural effusion diffuse omental or peritoneal disease concerning for metastatic or primary malignancy, moderate ascites, cholelithiasis, diverticulosis, distal small bowel thickening. No PE seen. Patient to be transferred to [facility] for hypoxia and further managementof large pleural effusion including thoracentesis. Patient was evaluated once arrived to the medical surgical unit with her boyfriend Raheel at bedside.She was able to reiterate previous history provided to ER. She also complains of vaginal itching and discomfort that began after finishing recent antibiotic course. She otherwise denies dizziness, fever, chills, chest pain, palpitations, or urinary symptoms. REVIEW OF SYSTEMS Constitutional: Per HPI Ears, nose, mouth, throat, and face: Per HPI Respiratory: Per HPI Cardiovascular: No chest pain/palpitations/PND. Gastrointestinal: No abdominal pain, nausea, vomiting, diarrhea, constipation, melena, hematochezia. Genitourinary: No dysuria or changes in normal urinary habits. Integument: No rashes or easy bruising. Musculoskeletal: No joint or muscle pain. Neurological: No dizziness, AC, LOC, focal weakness, numbness/tingling. ALLERGIES/CONTRAINDICATIONS Allergies[1] CURRENT MEDICATIONS Current Outpatient Medications on File Prior to Encounter Medication Sig Dispense Refill Last Dose/Taking albuterol 90 mcg/actuation inhaler Inhale 2 puffs every 4 (four) hours as needed for shortness of breath. 18 g 0 05/03/2024 at 9:00 AM amLODIPine (Norvasc) 5 mg tablet Take 1 tablet by mouth daily. 05/03/2024 at 9:00 AM benzonatate (Tessalon Perles) 100 mg capsule Take 1 capsule (100 mg total) by mouth 3 (three) timesa day as needed for cough. 20 capsule 0 Past Week at 9:00 AM lisinopriL (PRINIVIL,ZESTRIL) 40 mg tablet 05/03/2024 at 9:00 AM melatonin 10 mg capsule Take 10 mg by mouth at bedtime. Past Week at 10:00 PM metoprolol succinate (Toprol XL) 50 mg 24 hr tablet Take 1 tablet by mouth daily. 05/03/2024 at 9:00 AM rosuvastatin (Crestor) 10 mg tablet Take 1 tablet by mouth at bedtime. 05/03/2024 at 9:00 AM Patient History MEDICAL HISTORY Problem List[2] Medical History[3] SURGICAL HISTORY Surgical History[4] FAMILY HISTORY Family History[5] SOCIAL HISTORY Social History Tobacco Use Smoking status: Every Day Current packs/day: 0.75 Types: Cigarettes Passive exposure: Current Smokeless tobacco: Never Substance Use Topics Alcohol use: Yes Lives with boyfriend in [place]. She has 4 adult children. OBJECTIVE VITAL SIGNS BP (!) 110/92 Pulse 78 Temp 36.3 ??C (Temporal) Resp 20 Ht 171 cm Wt 73.9 kg SpO2 97% BMI 25.27 kg/m?? PHYSICAL EXAMINATION General: Alert and oriented. Good historian. Sitting straight up in bed and dyspneic with conversation. Increased dyspnea with supine position. HEENT: Normocephalic, atraumatic. Pupils are equal, round, and reactive to light. No scleral icterus, conjunctivae clear, EOM normal, Oral mucosa dry. Skin: Warm, dry, and intact. Neck: Supple. No lymphadenopathy. No tracheal deviation present. Cardiovascular: Regular rate and rhythm. Normal S1/S2. No murmurs. Lungs: Rhonchi through bilaterally anterior and posterior. Abdomen: Firm, round, nontender without fluid wave. Positive bowel sounds. Musculoskeletal: No bilateral lower extremity edema. Neurological: CN 2-12 grossly intact, visual acuity not tested. Psychiatric: Normal mood and affect. Intake/Output Summary (Last 24 hours) at 05/04/2024 1239 Last data filed at 05/04/2024 1158 Gross per 24 hour Intake 100 ml Output -- Net 100 ml DIAGNOSTICS Data Review CBC: Results from last 7 days Lab Units 05/04/24 1130 05/03/24 1319 WBC x10(9)/L 5.4 5.5 HEMOGLOBIN g/dL 11.5* 11.6 HEMATOCRIT % 36.2 36.8 PLATELETS AUTO x10(9)/L 356 345 BMP: Results from last 7 days Lab Units 05/04/24 1130 05/03/24 1319 SODIUM P mmol/L 138 138 CHLORIDE P mmol/L 102 103 BUN P mg/dL 10 13 CREATININE mg/dL 0.68 0.71 CALCIUM P mg/dL 8.5* 8.7* Coagulation: Cardiac Markers: Liver Panel: Results from last 7 days Lab Units 05/03/24 1319 ALBUMIN P g/dL 3.6 AST P U/L 26 ALT P U/L 21 ALK PHOS P U/L 61 BILIRUBIN TOTAL P mg/dL <0.2 Microbiology: No results found for this visit on 05/04/24 (from the past 72 hours). EKG: ECG 12 Lead Result Date: 05/04/2024 Normal sinus rhythm Normal ECG No previous ECGs available Reviewed by [facility]: US Paracentesis with Imaging Guidance Final Result Successful ultrasound guided diagnostic and therapeutic paracentesis. US Thoracentesis Right with Imaging Guidance Final Result Successful ultrasound guided diagnostic and therapeutic right thoracentesis. ASSESSMENT / PLAN Ms. Hernández is a pleasant 63 y.o. female who presents with dyspnea and hypoxia with imaging consistent with pleural effusion and ascites. She is hospitalized on [facility] for evaluation and management of: Acute Respiratory Failure With Hypoxia (HCC) # Acute Respiratory Failure with Hypoxia Requiring 2 L Of Oxygen # Moderate Right-Sided Pleural Effusion # Ascites # Chronic Cough # Cancer Breast Personal History Status Post Resection, Radiation, And Chemotherapy In 2009 Moderate sized right pleural effusion and diffuse omental or peritoneal disease concerning for metastatic or primary malignancy given history., Patient dyspneic, orthopneic and unable to lie flat. Requiring 2 L of new oxygen. Lung sounds are rhonchorous throughout. Chronic cough has mildly worsenedwith white sputum and recent viral illness. Moderate ascites on scan, abdomen is round, firm and distended without fluid wave. With history of breast cancer, must consider possibility of late stage ovarian cancer. PLAN: - therapeutic and diagnostic paracentesis and thoracentesis with fluid analysis - repeat labs to include CBC, CMP, magnesium, LD, iCa, ca125; baseline EKG - follow-up with Oncology outpatient - continue DRYER OPERATOR dosing of albuterol - continue DRYER OPERATOR dosing of Tessalon Perles - Tylenol or oxycodone prn pain - Incentive spirometry - O2 to keep saturation > 92% - strict I/O and daily weights ADDENDUM: Paracentesis with 600 mL of clear straw-colored fluid. Thoracentesis with 1.2 L of clear straw yellow fluid. Patient is feeling less dyspneic however is still requiring 2 L of oxygen. Albumin was notreplaced at this time given they withdrew less than 3 L. We will continue to monitor blood pressures closely. Alert provider SBP less than 110. # Hypertension Controlled. - continue DRYER OPERATOR dosing of amlodipine, lisinopril, and metoprolol. - monitor blood pressures q.4 hours and consider albumin replacement infusion if begins to drop # Hyperlipidemia - continue DRYER OPERATOR dosing of rosuvastatin # Acute Candidiasis Of Vulva And Vagina Vaginal itching and irritation status post recent antibiotic course. - Diflucan oral x1 - will check UA # Abuse Tobacco Smoking Patient smokes 3/4 of a pack per day. He denies need for nicotine patch - discuss smoking cessation # Other Cholelithiasis Without Obstruction # Diverticulosis # Distal Small Bowel Thickening # 6.6 X 5.6 Cm Left Adrenal Nodule Incidental findings. Asymptomatic. Will withhold from stool studies unless she develops diarrhea. ANTICOAGULANTS/DVT PROPHYLAXIS: Sequential compression devices DIET: Current Diet Adult Diet Regular; 2,000 mg Na starting at 05/04 1142 LDA: Lines, Drains, and Airways Peripheral IV Duration Peripheral IV 05/03/24 20 G Anterior;Distal;Left;Lower Forearm 13h Benavidez Catheter Present?: No. CODE STATUS: Full Code discussed with the patient. Discharge Planning: Prior to this hospitalization this patient lived with her boyfriend. Discharge when medically stable. Communication: Plan of care was discussed with the patient and the bedside nurse. All questions andconcerns were addressed. ADMINISTRATIVE BILLING Total time spent 90 minutes Hakan Iniguez APRN, C.N.P., D.N.P. [1] Allergies Allergen Reactions Sulfa (Sulfonamide Antibiotics) Anaphylaxis [2] Patient Active Problem List Diagnosis Cancer Breast Personal History Abuse Tobacco Smoking Sore Throat Acute Respiratory Failure With Hypoxia (HCC) Acute Candidiasis Of Vulva And Vagina Effusion Pleural Ascites Chronic Cough Other Cholelithiasis Without Obstruction Diverticulosis [3] Past Medical History: Diagnosis Date Cancer Breast Personal History [4] History reviewed. No pertinent surgical history. [5] Family History Problem Relation Name Age of Onset Hypertension Mother Coronary artery disease Brother 51 Lupus Brother No Known Problems Son No Known Problems Son No Known Problems Daughter No Known Problems Daughter CTOR OF CLINICAL TRIALS documented in this encounter Consult Notes * Tegan Weaver M.D. - 05/05/2024 11:48 AM CSTAssociated Order(s): IP CONSULT TO ONCOLOGY [facility] Plan of care note [facility] Provider Tegan Weaver REASON FOR REFERRAL Medical Oncology Consultation patient with omental thickening, findings of peritoneal carcinomatosis, pleural effusion REFERRING PROVIDER: Ilda Martinez M.D., M.B.A. [address] [place] [phone] Oncology History/HPI -[place] a lump in right breast in August 2008. - Mammography at [facility]: 2 lobulated masses in upper outer quadrant. Biopsy: G3 IDC, ER neg, IN neg - Larger lesion was HER2 positive by FISH. Smaller lesion was HER2 negative by FISH -Preop breast MRI was performed prior. Pathology demonstrated 2 foci of invasive carcinoma. One of the tumors was a 2.8 cm grade 3 infiltrating ductal carcinoma, ER/IN and Her2 amplified based on FISH ratio of 2.56. The second tumor was a grade 3 infiltrating ductal carcinoma, ER/IN and Her2 negative. 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 [place] lymph node biopsy was performed and a total of 3 lymph nodes were identified and were benign. -10/24/2008 Met with Medical Oncology: recommendation given to meet with Genetic Counselor for germline testing but I did not see any results of testing -Right breast s/p lumpectomy 11-14-08 demonstrating 2.8 cm grade 3 infiltrating ductal carcinoma ER/IN negative, Her2 amplified and separate tumor measuring 1.5 cm grade 3 infiltrating ductal carcinoma, triple negative. No lymph node involvement. -Enrolled in [employer]TT[employer] trial and received AC followed by Paclitaxel. Also received Trastuzumab with lapatinib in the adjuvant setting - at [facility]. -05/03/2024 presents to [facility] with abdominal bloating and dyspnea and mild hypoxia. -CT scan showed diffuse omental or peritoneal thickening; moderate size right pleural effusion, MEDICATIONS: current medications[1] Scheduled Meds:albumin human, 0-100 g, intravenous, Once amLODIPine, 5 mg, oral, Daily enoxaparin, 40 mg, subcutaneous, Daily lisinopriL, 40 mg, oral, Daily metoprolol succinate, 50 mg, oral, Daily rosuvastatin, 10 mg, oral, Daily sodium chloride, 3 mL, intravenous, Q12H [place] Continuous Infusions: PRN Meds:. acetaminophen albuterol benzonatate calcium carbonate melatonin naloxone ondansetron oxyCODONE polyethylene glycol sennosides-docusate sodium sodium chloride sodium chloride Medical History[2] Surgical History[3] Family History[4] Social History[5] OBJECTIVE Vitals: 05/05/24 1045 BP: 123/70 Pulse: 77 Resp: 19 Temp: 36.5 ??C SpO2: 90% ECOG Score--No recent values found: No recent values found LABORATORY DATA Recent Results (from the past 24 hours) Urinalysis with Microscopic if Indicated: Urine, Midstream Collection Time: 05/04/24 5:59 PM Result Value Source Urine, Urine, Midstream Clarity Clear Color Yellow Blood Negative Nitrite Negative Leukocyte Esterase Negative Protein Negative Glucose Negative Ketone Negative Bilirubin Negative pH 5.5 Specific [place] 1.010 Urobilinogen 0.2 LD (Lactate Dehydrogenase) Collection Time: 05/04/24 6:15 PM Result Value Lactate Dehydrogenase (LD), P 285 (H) pH Collection Time: 05/04/24 6:15 PM Result Value pH 7.38 Calcium, Ionized Collection Time: 05/04/24 6:15 PM Result Value Calcium, Ionized, B 4.56 (L) Basic Metabolic Panel Collection Time: 05/05/24 7:25 AM Result Value Potassium, P 3.9 Sodium, P 138 Chloride, P 103 Bicarbonate, P 27 Anion Gap, P 8 BUN (Blood Urea Nitrogen), P 8 Creatinine 0.75 Estimated GFR (eGFR) 89 Calcium, Total, P 8.7 (L) Glucose, P 147 (H) CBC with Differential, Blood Collection Time: 05/05/24 7:25 AM Result Value Hemoglobin 12.1 Hematocrit 38.4 Erythrocytes 4.29 MCV 89.5 RBC Distrib Width 13.0 Platelet Count 344 Leukocytes 5.5 Neutrophils 4.12 Lymphocytes 0.81 (L) Monocytes 0.45 Eosinophils 0.05 Basophils 0.03 RADIOLOGICAL DATA Radiology data reviewed. 05/03/2024 CT angiogram of chest IMPRESSION: 1. No evidence for acute or chronic pulmonary embolus. 2. Moderate-sized right pleural effusion with associated atelectasis and/or consolidation. 3. Diffuse omental and peritoneal disease identified concerning for metastatic or primary malignancy. 4. Moderate ascites. 5. Cholelithiasis. 6. Diverticulosis. 7. Distal small bowel wall thickening. Differential includes reactive change versus inflammatory disease versus infiltrative process. ASSESSMENT / PLAN -Prior Right sided Estrogen Receptor negative Progesterone Receptor negative HER2 positive breast cancer (2+ by IHC, amplified on FISH) diagnosed in 2008 and managed with adjuvant chemotherapy and Herceptin + lapatinib -Prior Right sided Estrogen Receptor negative Progesterone Receptor negative HER2 negative (not amplified by FISH), managed with adjuvant chemotherapy in 2008 Presenting with findings suggestive of malignant involvement with omental thickening and pleural thickening. Cytology is still pending. CA-125 was ordered as well. -I do not see any results of germline testing following diagnosis of triple negative breast cancer -Presentation is not typical for recurrence of breast cancer, but will need results of cytology prior to any recommendations by Oncology Please reconsult when this information is available -Recommend Palliative Care consultation as well. Tegan Weaver M.D. 12:04 PM DIRECTOR OF CLINICAL TRIALS 05/05/24 ADMINISTRATIVE BILLING I personally spent 25 minutes in care of the patient today. Time includes both non face to face andface to face patient care. [1] No current outpatient medications on file. [2] Past Medical History: Diagnosis Date Cancer Breast Personal History [3] History reviewed. No pertinent surgical history. [4] Family History Problem Relation Name Age of Onset Hypertension Mother Coronary artery disease Brother 51 Lupus Brother No Known Problems Son No Known Problems Son No Known Problems Daughter No Known Problems Daughter [5] Social History Tobacco Use Smoking status: Every Day Current packs/day: 0.75 Types: Cigarettes Passive exposure: Current Smokeless tobacco: Never Vaping Use Vaping status: never used Substance Use Topics Alcohol use: Yes Drug use: Not Currently CTOR OF CLINICAL TRIALS documented in this encounter Nursing Notes * Cara Funez R.N. - 05/07/2024 5:03 PM CST INPATIENT DISCHARGE SUMMARY Discharge Provider: Miguelina Harmon M.B., Jesus Madrigal Admission Date: 05/04/2024 Discharge Date: 05/07/2024 DISCHARGE DISPOSITION Home/Self Care CONDITION AT DISCHARGE stable TREATMENTS None DEVICES/EQUIPMENT None PROFESSIONAL SKILLED SERVICES None MODE OF DISCHARGE Wheelchair TRANSPORTATION Private Vehicle ACCOMPANIED BY Nurse and daughter Reviewed upcoming appointments with patient. IV removed. All belongings sent home with patient. CTOR OF CLINICAL TRIALS * Vicenta Pinon R.N. - 05/07/2024 1:49 PM CST INPATIENT SHIFT SUMMARY ORIENTATION: A&Ox3 SAFETY MEASURES: Met by Routine ASSISTED MOBILITY: Independent VITALS: Vitals assessed and stable this shift INTAKE: Adequate for solids and Adequate for liquids, 2 gram na restriction OUTPUT: Patient has been urinating adequately. PAIN: Patient has not had any complaints of pain this shift. PRN MEDICATIONS UTILIZED THIS SHIFT: None DVT PROPHYLAXIS: SCDs and Lovenox injections CHG/BENAVIDEZ CARE NEEDS: None needed SHIFT EVENTS: No acute events this shift. UPCOMING PLAN OF CARE: Thoracentesis at 3 pm, possible d/c this evening CTOR OF CLINICAL TRIALS * Debi Meneses R.N. - 05/07/2024 5:07 AM CST Shift Goals: Clinical Goals for the Shift: VSS, monitor BP, monitor oxygenation, promote safety and rest Identify possible barriers to meeting goals/advancing plan of care: none End of Shift Summary: Pt had decreased pulse ox briefly. Noted pt is wearing artifical fingernails,new fingertip oximeter applied, pulse oximetry has been 92-96 % R/A. strong non-prod cough. Lab work/cultures pending. Slept fairly well during the night. CTOR OF CLINICAL TRIALS * Vicenta Pinon R.N. - 05/06/2024 4:05 PM CST INPATIENT SHIFT SUMMARY ORIENTATION: A&Ox3 SAFETY MEASURES: Met by Routine ASSISTED MOBILITY: Independent VITALS: Vitals assessed and stable this shift INTAKE: Adequate for solids and Adequate for liquids, 2 g na restriction OUTPUT: Patient has been urinating adequately. PAIN: Patient has not had any complaints of pain this shift. PRN MEDICATIONS UTILIZED THIS SHIFT: None DVT PROPHYLAXIS: SCDs and Lovenox injections CHG/BENAVIDEZ CARE NEEDS: None needed SHIFT EVENTS: No acute events this shift. Weaned off of oxygen this shift. No complaints of pain. Patients SpO2 went below 90% with ambulation. UPCOMING PLAN OF CARE: Pending cytology labs CTOR OF CLINICAL TRIALS CTOR OF CLINICAL TRIALS * Miri Tidwell R.N. - 05/06/2024 5:08 AM CST Shift Goals: Clinical Goals for the Shift: VSS, monitor BP, monitor oxygenation, promote safety and rest INPATIENT SHIFT SUMMARY ORIENTATION: A&Ox3 SAFETY MEASURES: Hourly Rounding and Met by Routine ASSISTED MOBILITY: Independent VITALS: Vitals assessed and stable this shift. INTAKE: Adequate for solids and Adequate for liquids OUTPUT: Patient has been urinating adequately. PAIN: Patient has not had any complaints of pain this shift. PRN MEDICATIONS UTILIZED THIS SHIFT: None DVT PROPHYLAXIS: Lovenox injections CHG/BENAVIDEZ CARE NEEDS: None needed SHIFT EVENTS: No acute events this shift. Patient slept well through the night. Patient care assumed at 2300. Patient remained on 2L overnight to maintain O2 SATS. UPCOMING PLAN OF CARE: Cultures pending. Continue plan of care. CTOR OF CLINICAL TRIALS * Zeus Alcocer R.N. - 05/05/2024 9:56 PM CST INPATIENT SHIFT SUMMARY ORIENTATION: A&Ox3 SAFETY MEASURES: Met by Routine ASSISTED MOBILITY: Independent VITALS: Vitals: 05/05/24 2141 BP: 116/63 Pulse: 71 Resp: 22 Temp: 36.6 ??C SpO2: 96% INTAKE: Adequate for solids and Adequate for liquids OUTPUT: Patient reports she has been voiding adequately. Had a small BM this morning. PAIN: Patient has not had any complaints of pain this shift. PRN MEDICATIONS UTILIZED THIS SHIFT: None DVT PROPHYLAXIS: Lovenox injections CHG/BENAVIDEZ CARE NEEDS: None needed SHIFT EVENTS: No acute events this shift. UPCOMING PLAN OF CARE: - Awaiting results of culture from fluids. CTOR OF CLINICAL TRIALS * Dee Dee Mcghee M.S.N. R.NKenn - 05/05/2024 4:30 PM CST Shift Goals: Monitor respiratory status, stable vital signs Identify possible barriers to meeting goals/advancing plan of care: acuity of illness End of Shift Summary: INPATIENT SHIFT SUMMARY ORIENTATION: A&Ox3 SAFETY MEASURES: Hourly Rounding ASSISTED MOBILITY: Independent VITALS: Vitals assessed and stable this shift INTAKE: Adequate for solids and Adequate for liquids OUTPUT: Patient has been urinating adequately. PAIN: Patient has not had any complaints of pain this shift. PRN MEDICATIONS UTILIZED THIS SHIFT: None DVT PROPHYLAXIS: SCDs CHG/BENAVIDEZ CARE NEEDS: None needed SHIFT EVENTS: No acute events this shift. Oncology consult added. UPCOMING PLAN OF CARE: Blood and fluid cultures pending. Problem: INFECTION - ADULT Goal: Absence of infection during hospitalization Outcome: Progressing CTOR OF CLINICAL TRIALS * Brenna Lubin R.N. - 05/05/2024 6:16 AM CST Shift Goals: Monitor oxygen titration, patient safety, thoracentesis and paracentesis sites and rest. Identify possible barriers to meeting goals/advancing plan of care: None End of Shift Summary: Patient continued on 2L NC. Thoracentesis and paracentesis sites remained CDI. Patient had no c/o pain, up IND in room. Patient rested comfortably throughout shift. VSS. CTOR OF CLINICAL TRIALS * Larissa Calderon R.N. - 05/04/2024 1:51 PM CST Shift Goals: Monitor thora and paracentesis sites, monitor respiratory status and O2 titration, enc activity, monitor for pain Identify possible barriers to meeting goals/advancing plan of care: None End of Shift Summary: Patient states her shortness of breath and breathing effort has much improvedpost thoracentesis and paracentesis. Those puncture sites remain soft, clean, dry, and intact. She tolerated procedures very well. She still requires 2 L NC supplemental oxygen for RA SATS of 86%. Harsh, nonproductive cough noted. She is up in the room independently. She has denied any lightheadedness or discomfort. Her s/o, Raheel, visiting most of day. Very pleasant. CTOR OF CLINICAL TRIALS documented in this encounter Plan of Treatment Not on file documented as of this encounter Procedures Procedure Name Priority Date/Time Associated Diagnosis Comments DX CHEST 1 VIEW RAD - Routine (most inpatients and all outpatients) 05/07/2024 4:22 PM DIRECTOR OF CLINICAL TRIALS US THORACENTESIS RIGHT WITH IMAGING GUIDANCE RAD - Routine (most inpatients and all outpatients) 05/07/2024 3:41 PM DIRECTOR OF CLINICAL TRIALS DX CHEST 1 VIEW RAD - Routine (most inpatients and all outpatients) 05/07/2024 10:12 AM DIRECTOR OF CLINICAL TRIALS CBC WITHOUT DIFFERENTIAL, B Routine 05/07/2024 6:43 AM DIRECTOR OF CLINICAL TRIALS BASIC METABOLIC PANEL, S/P Routine 05/07/2024 6:43 AM DIRECTOR OF CLINICAL TRIALS ADULT OXYGEN THERAPY Routine 05/06/2024 8:01 AM DIRECTOR OF CLINICAL TRIALS PULSE OXIMETRY, CONTINUOUS Routine 05/06/2024 8:01 AM DIRECTOR OF CLINICAL TRIALS CBC WITH DIFFERENTIAL, B Routine 05/06/2024 7:00 AM DIRECTOR OF CLINICAL TRIALS BASIC METABOLIC PANEL, S/P Routine 05/06/2024 7:00 AM DIRECTOR OF CLINICAL TRIALS ADULT OXYGEN THERAPY Routine 05/05/2024 8:00 PM DIRECTOR OF CLINICAL TRIALS PULSE OXIMETRY, CONTINUOUS Routine 05/05/2024 8:00 PM DIRECTOR OF CLINICAL TRIALS ADULT OXYGEN THERAPY Routine 05/05/2024 8:01 AM DIRECTOR OF CLINICAL TRIALS PULSE OXIMETRY, CONTINUOUS Routine 05/05/2024 8:01 AM DIRECTOR OF CLINICAL TRIALS CBC WITH DIFFERENTIAL, B Routine 05/05/2024 7:25 AM DIRECTOR OF CLINICAL TRIALS BASIC METABOLIC PANEL, S/P Routine 05/05/2024 7:25 AM DIRECTOR OF CLINICAL TRIALS ADULT OXYGEN THERAPY Routine 05/04/2024 8:01 PM DIRECTOR OF CLINICAL TRIALS PULSE OXIMETRY, CONTINUOUS Routine 05/04/2024 8:01 PM DIRECTOR OF CLINICAL TRIALS PH BLOOD GAS Routine 05/04/2024 6:15 PM DIRECTOR OF CLINICAL TRIALS CANCER AG 125 (CA 125), S Routine 05/04/2024 6:15 PM DIRECTOR OF CLINICAL TRIALS LACTATE DEHYDROGENASE (LD), S Routine 05/04/2024 6:15 PM DIRECTOR OF CLINICAL TRIALS CALCIUM, IONIZED, S/B Routine 05/04/2024 6:15 PM DIRECTOR OF CLINICAL TRIALS URINALYSIS WITH MICROSCOPIC IF INDICATED, U Routine 05/04/2024 5:59 PM DIRECTOR OF CLINICAL TRIALS CYTOLOGY NON-BEADWORKER Timed 05/04/2024 12:0 6 PM DIRECTOR OF CLINICAL TRIALS CYTOLOGY NON-BEADWORKER Timed 05/04/2024 11:5 4 AM DIRECTOR OF CLINICAL TRIALS US PARACENTESIS WITH IMAGING GUIDANCE RAD - Routine (most inpatients and all outpatients) 05/04/2024 11:35 AM DIRECTOR OF CLINICAL TRIALS US THORACENTESIS RIGHT WITH IMAGING GUIDANCE RAD - Routine (most inpatients and all outpatients) 05/04/2024 11:30 AM DIRECTOR OF CLINICAL TRIALS CBC WITH DIFFERENTIAL, B Routine 05/04/2024 11:30 AM DIRECTOR OF CLINICAL TRIALS MAGNESIUM, S Routine 05/04/2024 11:30 AM DIRECTOR OF CLINICAL TRIALS BASIC METABOLIC PANEL, S/P Routine 05/04/2024 11:30 AM DIRECTOR OF CLINICAL TRIALS ECG Routine 05/04/2024 11:23 AM DIRECTOR OF CLINICAL TRIALS GLUCOSE, BODY FLUID Routine 05/04/2024 1 1:23 AM DIRECTOR OF CLINICAL TRIALS HEPATIC FUNCTION PANEL, S Routine 05/04/2024 11:11 AM DIRECTOR OF CLINICAL TRIALS PROTEIN, TOTAL, BF Routine 05/04/2024 10 :50 AM DIRECTOR OF CLINICAL TRIALS BACTERIAL CULTURE, AEROBIC + SUSC Timed 05/04/2024 10:50 AM DIRECTOR OF CLINICAL TRIALS CELL COUNT AND DIFFERENTIAL, BF Timed 05/04/2024 10:50 AM DIRECTOR OF CLINICAL TRIALS GRAM STAIN Timed 05/04/2024 10:50 AM DIRECTOR OF CLINICAL TRIALS BACTERIAL CULTURE, ANAEROBIC + SUSC Timed 05/04/2024 10:50 AM DIRECTOR OF CLINICAL TRIALS ALBUMIN, BODY FLUID Routine 05/04/2024 1 0:50 AM DIRECTOR OF CLINICAL TRIALS PROTEIN, TOTAL, BF Timed 05/04/2024 10 :30 AM DIRECTOR OF CLINICAL TRIALS BACTERIAL CULTURE, AEROBIC + SUSC Timed 05/04/2024 10:30 AM DIRECTOR OF CLINICAL TRIALS CELL COUNT AND DIFFERENTIAL, BF Timed 05/04/2024 10:30 AM DIRECTOR OF CLINICAL TRIALS PH, PLEURAL FLUID Timed 05/04/2024 10: 30 AM DIRECTOR OF CLINICAL TRIALS GRAM STAIN Timed 05/04/2024 10:30 AM DIRECTOR OF CLINICAL TRIALS BACTERIAL CULTURE, ANAEROBIC + SUSC Timed 05/04/2024 10:30 AM DIRECTOR OF CLINICAL TRIALS LACTATE DEHYDROGENASE (LD), BF Timed 05/04/2024 10:30 AM DIRECTOR OF CLINICAL TRIALS PULSE OXIMETRY, CONTINUOUS Routine 05/04/2024 9:39 AM DIRECTOR OF CLINICAL TRIALS PULSE OXIMETRY, CONTINUOUS Routine 05/04/2024 9:39 AM DIRECTOR OF CLINICAL TRIALS PULSE OXIMETRY, CONTINUOUS Routine 05/04/2024 9:37 AM DIRECTOR OF CLINICAL TRIALS ADULT OXYGEN THERAPY Routine 05/04/2024 9:37 AM DIRECTOR OF CLINICAL TRIALS ADULT OXYGEN THERAPY Routine 05/04/2024 9:37 AM DIRECTOR OF CLINICAL TRIALS ADULT OXYGEN THERAPY Routine 05/04/2024 9:37 AM DIRECTOR OF CLINICAL TRIALS documented in this encounter Results * DX Chest 1 View (05/07/2024 4:22 PM DIRECTOR OF CLINICAL TRIALS) Anatomical Region Laterality Modality Chest, Thoracic RST LOS, Tho racic ARZ LOS, Thoracic FLA LOS N/A Digital Radiography Impressions 05/07/2024 4:26 PM DIRECTOR OF CLINICAL TRIALS Decreased pleural effusion and no pneumothorax following right-sided thoracentesis Narrative 05/07/2024 4:26 PM DIRECTOR OF CLINICAL TRIALS EXAM: DX CHEST 1 VIEW COMPARISON: Chest [...] following right- sidedthoracentesis Miguelina Acharya B.Ch., M.D. IM DIAGNOST IC IMAGING PROCEDURES Final Result * US Thoracentesis Right with Imaging Guidance (05/07/2024 3:41 PM DIRECTOR OF CLINICAL TRIALS) Anatomical Region Laterality Modality Chest, Ultrasound RST LOS, U ltrasound ARZ LOS, Procedure FLA LOS, Abdominal FLA LOS, Procedural, Procedural NWWI LOS Right Ultrasound Impressions 05/07/2024 4:18 PM DIRECTOR OF CLINICAL TRIALS Successful ultrasound guided thoracentesis. Narrative 05/07/2024 4:18 PM DIRECTOR OF CLINICAL TRIALS EXAM: US THORACENTESIS RIGHT WITH IMAGING GUIDANCE [...] medications. Patient education provided by the care athletic team physician. Ready to learn, no apparent learning barriers were identified. Post-procedure care explained; patient expressed understanding of the content. Procedure Note Joe Campoverde M.D., M.S. - 05/07/2024 EXAM: US THORACENTESIS RIGHT WITH IMAGING GUIDANCE PROCEDURE: Sterile; 1% lidocaine for local anesthesia. Location: Right pleural space Needle size: 5 Fr [place] Fluid Amount/Color: 1.2 L, yellow Complications: None. [...] medications. Patient education provided by the care athletic team physician. Ready tolearn, no apparent learning barriers were identified. Post-procedure careexplained; patient expressed understanding of the content. IMPRESSION: Successful ultrasound guided thoracentesis. us Miguelina Acharya, Jesus Madrigal [facility] US ADITI DENISE Final Result * DX Chest 1 View (05/07/2024 10:12 AM DIRECTOR OF CLINICAL TRIALS) Anatomical Region Laterality Modality Chest, Thoracic RST LOS, Tho racic ARZ LOS, Thoracic FLA LOS N/A Digital Radiography Impressions 05/07/2024 10:22 AM DIRECTOR OF CLINICAL TRIALS Enlarging RIGHT pleural effusion since April 24. Narrative 05/07/2024 10:22 AM DIRECTOR OF CLINICAL TRIALS EXAM: DX CHEST 1 VIEW COMPARISON: Chest x-ray 04/24/2024 FINDINGS: There is a large pleural effusion on the RIGHT that appears to have increased slightly in size since April 24. There is subsegmental atelectasis in the RIGHT base. The RIGHT upper lobe and LEFT lung are clear. Procedure Note Tony Savage M.D. - 05/07/2024 EXAM: DX CHEST 1 VIEW COMPARISON: Chest x-ray 04/24/2024 FINDINGS: There is a large pleural effusion on the RIGHT that appears tohave increased slightly in size since April 24. There is subsegmentalatelectasis in the RIGHT base. The RIGHT upper lobe and LEFT lung areclear. IMPRESSION: Enlarging RIGHT pleural effusion since April 24. us Miguelina Acharya B.Ch., M.D. IMG DIAGNOST IC IMAGING PROCEDURES Final Result * Basic Metabolic Panel (05/07/2024 6:43 AM DIRECTOR OF CLINICAL TRIALS) Pathologist [facility] Potassium, P 4.2 3.6 - 5.2 mmol/L 05/07/2024 7:34 AM DIRECTOR OF CLINICAL TRIALS [facility] Sodium, P 140 135 - 145 mmol/L 05/07/2024 7:34 AM DIRECTOR OF CLINICAL TRIALS [facility] Chloride, P 105 98 - 107 mmol/L 05/07/2024 7:34 AM DIRECTOR OF CLINICAL TRIALS [facility] Bicarbonate, P 27 22 - 29 mmol/L 05/07/2024 7:34 AM DIRECTOR OF CLINICAL TRIALS [facility] Anion Gap, P 8 7 - 15 05/07/2024 7:34 AM DIRECTOR OF CLINICAL TRIALS [facility] BUN (Blood Urea Nitrogen), P 9 6 - 21 mg/dL 05/07/2024 7:34 AM DIRECTOR OF CLINICAL TRIALS [facility] Creatinine 0.69 0.59 - 1.04 mg/dL 05/07/2024 7:34 AM DIRECTOR OF CLINICAL TRIALS [facility] Estimated GFR (eGFR) >90 >=60 mL/min/BSA 05/07/2024 7:34 AM DIRECTOR OF CLINICAL TRIALS [facility] Comment: Estimated GFR calculated using the 2020 CKD_EPI creatinine equation. Calcium, Total, P 8.8 8.8 - 10.2 mg/dL 05/07/2024 7:34 AM DIRECTOR OF CLINICAL TRIALS [facility] Glucose, P 88 70 - 140 mg/dL 05/07/2024 7:34 AM DIRECTOR OF CLINICAL TRIALS MK[facility] Blood (Blood, Venous) 05/07/2024 6:43 AM DIRECTOR OF CLINICAL TRIALS 05/07/2024 6:52 AM DIRECTOR OF CLINICAL TRIALS us Sergo Ambrocio M.D. LAB BLOOD ADD-ON Final Resu lt [facility] [address] [place] [address], [place] [facility] [address] [address] * CBC without Differential (05/07/2024 6:43 AM DIRECTOR OF CLINICAL TRIALS) Hemoglobin 12.0 11.6 - 15.0 g/dL 05/07/2024 6:54 AM DIRECTOR OF CLINICAL TRIALS [facility] Hematocrit 38.0 35.5 - 44.9 % 05/07/2024 6:54 AM DIRECTOR OF CLINICAL TRIALS [facility] Erythrocytes 4.25 3.92 - 5.13 x10(12)/L 05/07/2024 6:54 AM DIRECTOR OF CLINICAL TRIALS [facility] MCV 89.4 78.2 - 97.9 fL 05/07/2024 6:54 AM DIRECTOR OF CLINICAL TRIALS [facility] RBC Distrib Width 13.0 12.2 - 16.1 % 05/07/2024 6:54 AM DIRECTOR OF CLINICAL TRIALS [facility] Platelet Count 340 157 - 371 x10(9)/L 05/07/2024 6:54 AM DIRECTOR OF CLINICAL TRIALS [facility] Leukocytes 5.3 3.4 - 9.6 x10(9)/L 05/07/2024 6:54 AM DIRECTOR OF CLINICAL TRIALS MK[facility] Blood (Blood, Venous) 05/07/2024 6:43 AM DIRECTOR OF CLINICAL TRIALS 05/07/2024 6:52 AM DIRECTOR OF CLINICAL TRIALS us Sergo Ambrocio M.D. LAB BLOOD ADD-ON Final Resu lt [facility] [address] [place] [address], [address] [address] * (ABNORMAL) Basic Metabolic Panel (05/06/2024 7:00 AM DIRECTOR OF CLINICAL TRIALS) Potassium, P 4.0 3.6 - 5.2 mmol/L 05/06/2024 8:19 AM DIRECTOR OF CLINICAL TRIALS [facility] Sodium, P 140 135 - 145 mmol/L 05/06/2024 8:19 AM DIRECTOR OF CLINICAL TRIALS [facility] Chloride, P 105 98 - 107 mmol/L 05/06/2024 8:19 AM DIRECTOR OF CLINICAL TRIALS [facility] Bicarbonate, P 29 22 - 29 mmol/L 05/06/2024 8:19 AM DIRECTOR OF CLINICAL TRIALS [facility] Anion Gap, P 6(L) 7 - 15 05/06/2024 8:19 AM DIRECTOR OF CLINICAL TRIALS [facility] BUN (Blood Urea Nitrogen), P 8 6 - 21 mg/dL 05/06/2024 8:19 AM DIRECTOR OF CLINICAL TRIALS [facility] Creatinine 0.67 0.59 - 1.04 mg/dL 05/06/2024 8:19 AM DIRECTOR OF CLINICAL TRIALS [facility] Estimated GFR (eGFR) >90 >=60 mL/min/BSA 05/06/2024 8:19 AM DIRECTOR OF CLINICAL TRIALS MK[facility] Comment: Estimated GFR calculated using the 2020 CKD_EPI creatinine equation. Calcium, Total, P 8.5(L) 8.8 - 10.2 mg/dL 05/06/2024 8:19 AM DIRECTOR OF CLINICAL TRIALS [facility] Glucose, P 91 70 - 140 mg/dL 05/06/2024 8:19 AM DIRECTOR OF CLINICAL TRIALS [facility] Blood (Blood, Venous) 05/06/2024 7:00 AM DIRECTOR OF CLINICAL TRIALS 05/06/2024 7:35 AM DIRECTOR OF CLINICAL TRIALS us Adia Geiger M.D. LAB BLOOD ADD-ON Final Result [facility] [address] [place] [address], [place] [facility] [place] [address] * (ABNORMAL) CBC with Differential, Blood (05/06/2024 7:00 AM DIRECTOR OF CLINICAL TRIALS) Hemoglobin 11.4(L) 11.6 - 15.0 g/dL 05/06/2024 7:39 AM DIRECTOR OF CLINICAL TRIALS MK[facility] Hematocrit 36.1 35.5 - 44.9 % 05/06/2024 7:39 AM DIRECTOR OF CLINICAL TRIALS [facility] Erythrocytes 4.02 3.92 - 5.13 x10(12)/L 05/06/2024 7:39 AM DIRECTOR OF CLINICAL TRIALS [facility] MCV 89.8 78.2 - 97.9 fL 05/06/2024 7:39 AM DIRECTOR OF CLINICAL TRIALS MK[facility] RBC Distrib Width 13.0 12.2 - 16.1 % 05/06/2024 7:39 AM DIRECTOR OF CLINICAL TRIALS [facility] Platelet Count 315 157 - 371 x10(9)/L 05/06/2024 7:39 AM DIRECTOR OF CLINICAL TRIALS [facility] Leukocytes 5.0 3.4 - 9.6 x10(9)/L 05/06/2024 7:39 AM DIRECTOR OF CLINICAL TRIALS [facility] Neutrophils 3.52 1.56 - 6.45 x10(9)/L 05/06/2024 7:39 AM DIRECTOR OF CLINICAL TRIALS [facility] Lymphocytes 0.83(L) 0.95 - 3.07 x10(9)/L 05/06/2024 7:39 AM DIRECTOR OF CLINICAL TRIALS [facility] Monocytes 0.50 0.26 - 0.81 x10(9)/L 05/06/2024 7:39 AM DIRECTOR OF CLINICAL TRIALS [facility] Eosinophils 0.10 0.03 - 0.48 x10(9)/L 05/06/2024 7:39 AM DIRECTOR OF CLINICAL TRIALS [facility] Basophils <0.03 0.01 - 0.08 x10(9)/L 05/06/2024 7:39 AM DIRECTOR OF CLINICAL TRIALS [facility] Blood (Blood, Venous) 05/06/2024 7:00 AM DIRECTOR OF CLINICAL TRIALS 05/06/2024 7:35 AM DIRECTOR OF CLINICAL TRIALS us Adia Geiger M.D. LAB BLOOD ADD-ON Final Result [facility] [address] [place] [address], [facility] [place] [address] * (ABNORMAL) CBC with Differential, Blood (05/05/2024 7:25 AM DIRECTOR OF CLINICAL TRIALS) Pathologist [facility] Hemoglobin 12.1 11.6 - 15.0 g/dL 05/05/2024 8:00 AM DIRECTOR OF CLINICAL TRIALS [facility] Hematocrit 38.4 35.5 - 44.9 % 05/05/2024 8:00 AM DIRECTOR OF CLINICAL TRIALS [facility] Erythrocytes 4.29 3.92 - 5.13 x10(12)/L 05/05/2024 8:00 AM DIRECTOR OF CLINICAL TRIALS [facility] MCV 89.5 78.2 - 97.9 fL 05/05/2024 8:00 AM DIRECTOR OF CLINICAL TRIALS MK[facility] RBC Distrib Width 13.0 12.2 - 16.1 % 05/05/2024 8:00 AM DIRECTOR OF CLINICAL TRIALS [facility] Platelet Count 344 157 - 371 x10(9)/L 05/05/2024 8:00 AM DIRECTOR OF CLINICAL TRIALS [facility] Leukocytes 5.5 3.4 - 9.6 x10(9)/L 05/05/2024 8:00 AM DIRECTOR OF CLINICAL TRIALS [facility] Neutrophils 4.12 1.56 - 6.45 x10(9)/L 05/05/2024 8:00 AM DIRECTOR OF CLINICAL TRIALS [facility] Lymphocytes 0.81(L) 0.95 - 3.07 x10(9)/L 05/05/2024 8:00 AM DIRECTOR OF CLINICAL TRIALS [facility] Monocytes 0.45 0.26 - 0.81 x10(9)/L 05/05/2024 8:00 AM DIRECTOR OF CLINICAL TRIALS [facility] Eosinophils 0.05 0.03 - 0.48 x10(9)/L 05/05/2024 8:00 AM DIRECTOR OF CLINICAL TRIALS [facility] Basophils 0.03 0.01 - 0.08 x10(9)/L 05/05/2024 8:00 AM DIRECTOR OF CLINICAL TRIALS MK[facility] Blood (Blood, Venous) 05/05/2024 7:25 AM DIRECTOR OF CLINICAL TRIALS 05/05/2024 7:57 AM DIRECTOR OF CLINICAL TRIALS us Hakan Iniguez APRN, C.N.P., D.N.P. LAB BLOOD ADD -ON Final Result [facility] [address] [place] [address], [place] [facility] [place] [address] * (ABNORMAL) Basic Metabolic Panel (05/05/2024 7:25 AM DIRECTOR OF CLINICAL TRIALS) Pathologist [facility] Potassium, P 3.9 3.6 - 5.2 mmol/L 05/05/2024 8:19 AM DIRECTOR OF CLINICAL TRIALS [facility] Sodium, P 138 135 - 145 mmol/L 05/05/2024 8:19 AM DIRECTOR OF CLINICAL TRIALS [facility] Chloride, P 103 98 - 107 mmol/L 05/05/2024 8:19 AM DIRECTOR OF CLINICAL TRIALS [facility] Bicarbonate, P 27 22 - 29 mmol/L 05/05/2024 8:19 AM DIRECTOR OF CLINICAL TRIALS [facility] Anion Gap, P 8 7 - 15 05/05/2024 8:19 AM DIRECTOR OF CLINICAL TRIALS [facility] BUN (Blood Urea Nitrogen), P 8 6 - 21 mg/dL 05/05/2024 8:19 AM DIRECTOR OF CLINICAL TRIALS [facility] Creatinine 0.75 0.59 - 1.04 mg/dL 05/05/2024 8:19 AM DIRECTOR OF CLINICAL TRIALS [facility] Estimated GFR (eGFR) 89 >=60 mL/min/BSA 05/05/2024 8:19 AM DIRECTOR OF CLINICAL TRIALS [facility] Comment: Estimated GFR calculated using the 2020 CKD_EPI creatinine equation. Calcium, Total, P 8.7(L) 8.8 - 10.2 mg/dL 05/05/2024 8:19 AM DIRECTOR OF CLINICAL TRIALS [facility] Glucose, P 147(H) 70 - 140 mg/dL 05/05/2024 8:19 AM DIRECTOR OF CLINICAL TRIALS [facility] Blood (Blood, Venous) 05/05/2024 7:25 AM DIRECTOR OF CLINICAL TRIALS 05/05/2024 7:57 AM DIRECTOR OF CLINICAL TRIALS us Hakan Iniguez APRN, C.N.P., D.N.P. LAB BLOOD ADD -ON Final Result Performing Organization Address City/[facility]/ZIP Co de Phone Number [facility] [address] [place] [address] * (ABNORMAL) Calcium, Ionized (05/04/2024 6:15 PM DIRECTOR OF CLINICAL TRIALS) Calcium, Ionized, B 4.56(L) 4.65 - 5.30 mg/dL 05/04/2024 6:23 PM DIRECTOR OF CLINICAL TRIALS MK[facility] Blood 05/04/2024 6:15 PM DIRECTOR OF CLINICAL TRIALS 05/04/2024 6:19 PM DIRECTOR OF CLINICAL TRIALS us Hakan Iniguez APRN, C.N.P., D.N.P. LAB BLOOD NON ADD-ON Final Result Performing Organization Address City/[facility]/ZIP Co de Phone Number [facility] [address] [place] [address] * pH (05/04/2024 6:15 PM DIRECTOR OF CLINICAL TRIALS) pH 7.38 7.35 - 7.45 pH 05/04/2024 6:23 PM DIRECTOR OF CLINICAL TRIALS [facility] Blood 05/04/2024 6:15 PM DIRECTOR OF CLINICAL TRIALS 05/04/2024 6:19 PM DIRECTOR OF CLINICAL TRIALS us Hakan Iniguez APRN, C.N.P., D.N.P. LAB HISTORICA L ORDERS Final Result [facility] [address] [place] [address] * (ABNORMAL) LD (Lactate Dehydrogenase) (05/04/2024 6:15 PM DIRECTOR OF CLINICAL TRIALS) Lactate Dehydrogenase (LD), P 285(H) 122 - 222 U/L 05/04/2024 6:42 PM DIRECTOR OF CLINICAL TRIALS MK Blood (Blood, Venous) 05/04/2024 6:15 PM DIRECTOR OF CLINICAL TRIALS 05/04/2024 6:20 PM DIRECTOR OF CLINICAL TRIALS us Hakan Iniguez APRN, C.N.P., D.N.P. LAB BLOOD NON ADD-ON Final Result Performing Organization Address City/[facility]/ZIP Co de Phone Number [facility] [address] [place] [address], [place] [address] * (ABNORMAL) Cancer Antigen 125 (CA 125) (05/04/2024 6:15 PM DIRECTOR OF CLINICAL TRIALS) Cancer Ag 125 (CA 125), S 8527(H) <46 U/mL 05/06/2024 6:47 AM DIRECTOR OF CLINICAL TRIALS AUST Comment: Biotin has been identified by the manager field service as a potential interfering substance. Higher concentrations [...] disease. Blood (Blood, Venous) 05/04/2024 6:15 PM DIRECTOR OF CLINICAL TRIALS 05/05/2024 1:52 PM DIRECTOR OF CLINICAL TRIALS us Hakan Iniguez APRN, C.N.P., D.N.P. LAB BLOOD ADD -ON Final Result [facility] [address] [place] [address], [facility] - [facility] [address] [place] [address] * Urinalysis with Microscopic if Indicated: Urine, Midstream (05/04/2024 5:59 PM DIRECTOR OF CLINICAL TRIALS) Source Urine, Urine, Midstream 05/04/2024 6:08 PM DIRECTOR OF CLINICAL TRIALS [facility] Clarity Clear Clear 05/04/2024 6:08 PM DIRECTOR OF CLINICAL TRIALS MK[facility] Color Yellow 05/04/2024 6:08 PM DIRECTOR OF CLINICAL TRIALS MKTO Comment: ----REFERENCE VALUE---- Colorless Yellow Ginger Blood Negative Negative 05/04/2024 6:08 PM DIRECTOR OF CLINICAL TRIALS [facility] Nitrite Negative Negative 05/04/2024 6:08 PM DIRECTOR OF CLINICAL TRIALS [facility] Leukocyte Esterase Negative Negative 05/04/2024 6:08 PM DIRECTOR OF CLINICAL TRIALS MK[facility] Protein Negative mg/dL 05/04/2024 6:08 PM DIRECTOR OF CLINICAL TRIALS [facility] Comment: ----REFERENCE VALUE---- Negative Trace Glucose Negative Negative mg/dL 05/04/2024 6:08 PM DIRECTOR OF CLINICAL TRIALS [facility] Ketone Negative Negative mg/dL 05/04/2024 6:08 PM DIRECTOR OF CLINICAL TRIALS [facility] Bilirubin Negative Negative 05/04/2024 6:08 PM DIRECTOR OF CLINICAL TRIALS MK[facility] pH 5.5 5.0 - 8.0 05/04/2024 6:08 PM DIRECTOR OF CLINICAL TRIALS [facility] Specific [place] 1.010 1.001 - 1.035 05/04/2024 6:08 PM DIRECTOR OF CLINICAL TRIALS [facility] Urobilinogen 0.2 0.2 - 1.0 mg/dL 05/04/2024 6:08 PM DIRECTOR OF CLINICAL TRIALS [facility] Urine (Urine, Midstream) 05/04/2024 5:59 PM DIRECTOR OF CLINICAL TRIALS 05/04/2024 6:05 PM DIRECTOR OF CLINICAL TRIALS us Hakan Iniguez APRN, C.N.P., D.N.P. LAB URINE ORD ERABLES Final Result [facility] [address] [place] [address], [place] [facility] [place] [address] [place] [address] * (ABNORMAL) Cytology Non-BEADWORKER (05/04/2024 12:06 PM DIRECTOR OF CLINICAL TRIALS) (A) 05/08/2024 9:38 AM DIRECTOR OF CLINICAL TRIALS [facility] Report electronically signed by Inocencio Ford MD I verify that I have examined all relevant slides/materials for the specimen(s) and rendered or confirmed the diagnosis. (A) 05/08/2024 9:38 AM DIRECTOR OF CLINICAL TRIALS [facility] Gross Description 1050 ml of cloudy reddish/yellow fluid received. 60 ml fixed with 50% ETOH at 7:15 am on 05-06-2024. 2 slides and cell block prepared. (A) 05/08/2024 9:38 AM DIRECTOR OF CLINICAL TRIALS [facility] Source A. Pleural, Right, fluid(A) 05/08/2024 9:38 AM DIRECTOR OF CLINICAL TRIALS [facility] Clinical History August 2008, right breast, grade 3, infiltrating ductal carcinoma, treated with chemotherapy. On 05/03/2024 with abdominal bloating and dyspnea and mild hypoxia. The CT scan showed diffuse omental or peritoneal thickening and moderate right pleural effusion. Presentation is not typical for recurrence of breast cancer. (A) 05/08/2024 9:38 AM DIRECTOR OF CLINICAL TRIALS [facility] Interpretation A. Pleural, Right, fluid (smears/cell block): Positive for malignancy. High-grade serous carcinoma. Comment:The metastatic adenocarcinoma is strongly positive for PAX8, WT1, p16, CK7, and qualitative high Ki-67, with qualitative moderate ER positivity, while negative for CK20, CDX2, TTF, GATA3, and null pattern of p53, supporting the diagnosis of a high-grade serous carcinoma. MCSS-I Seen in consultation with Kell Pressley., Ch.B. Acceptable control results. (A) 05/08/2024 9:38 AM DIRECTOR OF CLINICAL TRIALS [facility] Fluid (Pleural Fluid, Right) 05/04/2024 12:06 PM DIRECTOR OF CLINICAL TRIALS 05/06/2024 8:11 AM DIRECTOR OF CLINICAL TRIALS us Hakan Iniguez APRN, C.N.P., D.N.P. LAB SURG PATH ORDERABLES Final Result [facility] [address] [place] [address], [place] [facility] [address] [address] * (ABNORMAL) Cytology Non-BEADWORKER (05/04/2024 11:54 AM DIRECTOR OF CLINICAL TRIALS) (A) 05/08/2024 9:38 AM DIRECTOR OF CLINICAL TRIALS [facility] Report electronically signed by Inocencio Ford MD I verify that I have examined all relevant slides/material s for the specimen(s) and rendered or confirmed the diagnosis. (A) 05/08/2024 9:38 AM DIRECTOR OF CLINICAL TRIALS [facility] Gross Description 600 ml of cloudy perez yellow fluid received. 60 ml fixed with 50% ETOH at 7:25 am on 05-06-2024. 2 slides and cell block prepared. (A) 05/08/2024 9:38 AM DIRECTOR OF CLINICAL TRIALS [facility] Source A. Peritoneal, fluid(A) 05/08/2024 9:38 AM DIRECTOR OF CLINICAL TRIALS [facility] Clinical History August 2008, right breast, grade 3, infiltrating ductal carcinoma, treated with chemotherapy. On 05/03/2024 with abdominal bloating and dyspnea and mild hypoxia. The CT scan showed diffuse omental or peritoneal thickening and moderate right pleural effusion. Presentation is not typical for recurrence of breast cancer. (A) 05/08/2024 9:38 AM DIRECTOR OF CLINICAL TRIALS [facility] Interpretation A. Peritoneal, fluid (smears/cell block): Positive for malignancy. High-grade serous carcinoma. (A) 05/08/2024 9:38 AM DIRECTOR OF CLINICAL TRIALS [facility] Fluid (Peritoneal Fluid) 05/04/2024 11:54 AM DIRECTOR OF CLINICAL TRIALS 05/06/2024 8:53 AM DIRECTOR OF CLINICAL TRIALS us Hakan Iniguez APRN, C.N.P., D.N.P. LAB SURG PATH ORDERABLES Final Result [facility] [address] [place] [address], [place] [facility] [address] [facility] [address] [place] [address] * US Paracentesis with Imaging Guidance (05/04/2024 11:35 AM DIRECTOR OF CLINICAL TRIALS) Anatomical Region Laterality Modality Abdomen, Ultrasound RST LOS, Ultrasound ARZ LOS, Procedure FLA LOS, Abdominal FLA LOS, Procedural, Procedural NWWI LOS N/A Ultrasound Impressions 05/04/2024 12:33 PM DIRECTOR OF CLINICAL TRIALS Successful ultrasound guided diagnostic and therapeutic paracentesis. Narrative 05/04/2024 12:33 PM DIRECTOR OF CLINICAL TRIALS EXAM: US PARACENTESIS WITH IMAGING GUIDANCE PROCEDURE: Sterile; 1% lidocaine for local anesthesia. Location: Right lower quadrant Needle size: 5 Fr [facility] Fluid Amount/Color: 600 mL of clear straw-colored [...] medications. Patient education provided by the care athletic team physician. Ready to learn, no apparent learning barriers [...] medications. Patient education provided by the care athletic team physician. Ready to learn, no apparent learningbarriers were identified. Post-procedure care explained; patient expressedunderstanding of the content. IMPRESSION: Successful ultrasound guided diagnostic and therapeutic paracentesis. us Hakan Iniguez APRN, C.N.P., D.N.P. IMG US PROCED URES Final Result * US Thoracentesis Right with Imaging Guidance (05/04/2024 11:30 AM DIRECTOR OF CLINICAL TRIALS) Anatomical Region Laterality Modality Chest, Ultrasound RST LOS, U ltrasound ARZ LOS, Procedure FLA LOS, Abdominal FLA LOS, Procedural, Procedural NWWI LOS Right Ultrasound Impressions 05/04/2024 12:32 PM DIRECTOR OF CLINICAL TRIALS Successful ultrasound guided diagnostic and therapeutic right thoracentesis. Narrative 05/04/2024 12:32 PM DIRECTOR OF CLINICAL TRIALS EXAM: US THORACENTESIS RIGHT WITH IMAGING GUIDANCE PROCEDURE: Sterile; 1% lidocaine for local anesthesia. Location: Right pleural space Needle size: 5 Fr [facility] Fluid Amount/Color: 1.2 L of clear straw-colored fluid Complications: None. Laboratory: Results pending. PREPROCEDURE: Patient seen, evaluated, [...] medications. Patient education provided by the care athletic team physician. Ready to learn, no apparent learning barriers were identified. Post-procedure care explained; patient expressed understanding of the content. Procedure Note Navid Roth M.D. - 05/04/2024 EXAM: US THORACENTESIS RIGHT WITH IMAGING GUIDANCE PROCEDURE: Sterile; 1% lidocaine for local anesthesia. Location: Right pleural space Needle size: 5 Fr [facility] Fluid Amount/Color: 1.2 L of clear straw-colored fluid Complications: None. Laboratory: Results pending. PREPROCEDURE: Patient seen, evaluated, [...] medications. Patient education provided by the care athletic team physician. Ready to learn, no apparent learningbarriers were identified. Post-procedure care explained; patient expressedunderstanding of the content. IMPRESSION: Successful ultrasound guided diagnostic and therapeutic rightthoracentesis. us Hakan Iniguez APRN, C.N.P., D.N.P. IMG US PROCED URES Final Result * (ABNORMAL) CBC with Differential, Blood (05/04/2024 11:30 AM DIRECTOR OF CLINICAL TRIALS) Hemoglobin 11.5(L) 11.6 - 15.0 g/dL 05/04/2024 11:45 AM DIRECTOR OF CLINICAL TRIALS [facility]TO Hematocrit 36.2 35.5 - 44.9 % 05/04/2024 11:45 AM DIRECTOR OF CLINICAL TRIALS [facility] Erythrocytes 4.06 3.92 - 5.13 x10(12)/L 05/04/2024 11:45 AM DIRECTOR OF CLINICAL TRIALS [facility] MCV 89.2 78.2 - 97.9 fL 05/04/2024 11:45 AM DIRECTOR OF CLINICAL TRIALS MK[facility] RBC Distrib Width 12.9 12.2 - 16.1 % 05/04/2024 11:45 AM DIRECTOR OF CLINICAL TRIALS [facility] Platelet Count 356 157 - 371 x10(9)/L 05/04/2024 11:45 AM DIRECTOR OF CLINICAL TRIALS [facility] Leukocytes 5.4 3.4 - 9.6 x10(9)/L 05/04/2024 11:45 AM DIRECTOR OF CLINICAL TRIALS [facility] Neutrophils 3.98 1.56 - 6.45 x10(9)/L 05/04/2024 11:45 AM DIRECTOR OF CLINICAL TRIALS [facility] Lymphocytes 0.93(L) 0.95 - 3.07 x10(9)/L 05/04/2024 11:45 AM DIRECTOR OF CLINICAL TRIALS [facility] Monocytes 0.46 0.26 - 0.81 x10(9)/L 05/04/2024 11:45 AM DIRECTOR OF CLINICAL TRIALS [facility] Eosinophils 0.06 0.03 - 0.48 x10(9)/L 05/04/2024 11:45 AM DIRECTOR OF CLINICAL TRIALS [facility] Basophils <0.03 0.01 - 0.08 x10(9)/L 05/04/2024 11:45 AM DIRECTOR OF CLINICAL TRIALS [facility] Blood (Blood, Venous) 05/04/2024 11:30 AM DIRECTOR OF CLINICAL TRIALS 05/04/2024 11:38 AM DIRECTOR OF CLINICAL TRIALS us Hakan Iniguez APRN, C.N.P., D.N.P. LAB BLOOD ADD -ON Final Result [facility] [address] [place] [address], [place] [facility] [place] [address] [place] [address] * Magnesium (05/04/2024 11:30 AM DIRECTOR OF CLINICAL TRIALS) Magnesium, P 1.8 1.7 - 2.3 mg/dL 05/04/2024 11:58 AM DIRECTOR OF CLINICAL TRIALS [facility] Blood (Blood, Venous) 05/04/2024 11:30 AM DIRECTOR OF CLINICAL TRIALS 05/04/2024 11:38 AM DIRECTOR OF CLINICAL TRIALS us Hakan Iniguez APRN, C.N.P., D.N.P. LAB BLOOD ADD -ON Final Result [facility] [address] [place] [address], [place] [facility] [place] [address] [place] [address] * (ABNORMAL) Basic Metabolic Panel (05/04/2024 11:30 AM DIRECTOR OF CLINICAL TRIALS) Potassium, P 4.4 3.6 - 5.2 mmol/L 05/04/2024 11:58 AM DIRECTOR OF CLINICAL TRIALS [facility] Sodium, P 138 135 - 145 mmol/L 05/04/2024 11:58 AM DIRECTOR OF CLINICAL TRIALS [facility] Chloride, P 102 98 - 107 mmol/L 05/04/2024 11:58 AM DIRECTOR OF CLINICAL TRIALS [facility] Bicarbonate, P 25 22 - 29 mmol/L 05/04/2024 11:58 AM DIRECTOR OF CLINICAL TRIALS [facility] Anion Gap, P 11 7 - 15 05/04/2024 11:58 AM DIRECTOR OF CLINICAL TRIALS [facility] BUN (Blood Urea Nitrogen), P 10 6 - 21 mg/dL 05/04/2024 11:58 AM DIRECTOR OF CLINICAL TRIALS [facility] Creatinine 0.68 0.59 - 1.04 mg/dL 05/04/2024 11:58 AM DIRECTOR OF CLINICAL TRIALS [facility] Estimated GFR (eGFR) >90 >=60 mL/min/BSA 05/04/2024 11:58 AM DIRECTOR OF CLINICAL TRIALS [facility] Comment: Estimated GFR calculated using the 2020 CKD_EPI creatinine equation. Calcium, Total, P 8.5(L) 8.8 - 10.2 mg/dL 05/04/2024 11:58 AM DIRECTOR OF CLINICAL TRIALS [facility] Glucose, P 75 70 - 140 mg/dL 05/04/2024 11:58 AM DIRECTOR OF CLINICAL TRIALS [facility] Blood (Blood, Venous) 05/04/2024 11:30 AM DIRECTOR OF CLINICAL TRIALS 05/04/2024 11:38 AM DIRECTOR OF CLINICAL TRIALS us Hakan Iniguez APRN C.N.P., D.N.P. LAB BLOOD ADD -ON Final Result [facility] [address] [place] [address], [place] [facility] [place] [address] [place] [address] * ECG 12 Lead (05/04/2024 11:23 AM DIRECTOR OF CLINICAL TRIALS) Ventricular Rate ECG/Min 75 BPM MUSE IN Interval 184 ms MUSE QRSD Interval 80 ms MUSE QT Interval 384 ms MUSE QTC Interval 428 ms MUSE P Kirksey 49 degrees MUSE R Kirksey 80 degrees MUSE T Wave Kirksey 47 degrees MUSE 05/04/2024 11:2 3 AM DIRECTOR OF CLINICAL TRIALS 05/04/2024 11:33 AM DIRECTOR OF CLINICAL TRIALS Impressions MUSE - 05/04/2024 11:33 AM DIRECTOR OF CLINICAL TRIALS Normal sinus rhythm Normal ECG No previous ECGs available Reviewed by LINDA Linda Narrative Procedure Note Zhang Sandy M.D. - 05/04/2024 IMPRESSION: Normal sinus rhythm Normal ECG No previous ECGs available Reviewed by LINDA Linda Hakan Iniguez APRN, C.N.P., D.N.P. ECG ORDERABLE S Final Result Performing Organization Address [facility] Co de Phone Number MUSE NA * Glucose, Body Fluid (05/04/2024 11:23 AM DIRECTOR OF CLINICAL TRIALS) Glucose, BF 63 See Comment mg/dL 05/05/2024 12:32 PM DIRECTOR OF CLINICAL TRIALS DTL Comment: ----ADDITIONAL INFORMATION---- Body fluid glucose [...] cystic lesions. All other fluids refer to www.[employer].com for further interpretive information. This test has been modified from the manager field service's instructions. Its performance characteristics were determined by [facility] in a manner consistent with CLIA requirements. This test has not been cleared or approved by the U.S. Food and Drug Administration. Fluid Type, Glucose PLEURAL 05/05 11:00 AM DIRECTOR OF CLINICAL TRIALS DTL Fluid (Pleural Fluid, Right) 05/04/2024 11:23 AM DIRECTOR OF CLINICAL TRIALS 05/05/2024 9:24 AM DIRECTOR OF CLINICAL TRIALS us Hakan Iniguez APRN, C.N.P., D.N.P. LAB B FRANKIE FLUIDS AND STOOLS ORDERABLES Final Result [facility] [address] [place] [address], [facility] [address] [place] [address] * Hepatic Function Panel (05/04/2024 11:11 AM DIRECTOR OF CLINICAL TRIALS) Bilirubin, Total, P <0.2 0.0 - 1.2 mg/dL 05/04/2024 1:47 PM DIRECTOR OF CLINICAL TRIALS MK[facility] Bilirubin, Direct, P <0.1 0.0 - 0.3 mg/dL 05/04/2024 1:47 PM DIRECTOR OF CLINICAL TRIALS [facility] Aspartate Aminotransferase (AST), P 28 8 - 43 U/L 05/04/2024 1:47 PM DIRECTOR OF CLINICAL TRIALS MKTO Alanine Aminotransferase (ALT), P 20 7 - 45 U/L 05/04/2024 1:47 PM DIRECTOR OF CLINICAL TRIALS MKTO Alkaline Phosphatase, P 59 35 - 104 U/L 05/04/2024 1:47 PM DIRECTOR OF CLINICAL TRIALS MKTO Albumin, P 3.6 3.5 - 5.0 g/dL 05/04/2024 1:47 PM DIRECTOR OF CLINICAL TRIALS MKTO Protein, Total, P 6.5 6.3 - 7.9 g/dL 05/04/2024 1:47 PM DIRECTOR OF CLINICAL TRIALS MKTO Blood (Blood, Venous) 05/04/2024 11:11 AM DIRECTOR OF CLINICAL TRIALS 05/04/2024 1:34 PM DIRECTOR OF CLINICAL TRIALS us Hakan Iniguez APRN, C.N.P., D.N.P. LAB BLOOD ADD -ON Final Result Performing Organization Address City/[facility]/ZIP Co de Phone Number [facility] [address] [place] [address], [place] MKTO [facility] [place] [address] [place] [address] * Protein, Total, Body Fluid (05/04/2024 10:50 AM DIRECTOR OF CLINICAL TRIALS) Protein, Total, BF 4.9 See Comment g/dL 05/05/2024 12:34 PM DIRECTOR OF CLINICAL TRIALS DTL Comment: ----ADDITIONAL INFORMATION---- A pleural fluid [...] clinical findings. All other fluids refer to www.Semetrics.com for further interpretive information. This test has been modified from the manager field service's instructions. Its performance characteristics were determined by [facility] in a manner consistent with CLIA requirements. This test has not been cleared or approved by the U.S. Food and Drug Administration. Fluid Type, Protein, Total PERITONEAL 05/05/2024 11:01 AM DIRECTOR OF CLINICAL TRIALS DTL Fluid (Abdomen) 05/04/2024 1 0:50 AM DIRECTOR OF CLINICAL TRIALS 05/05/2024 9:24 AM DIRECTOR OF CLINICAL TRIALS us Hakan Iniguez APRN, C.N.P., D.N.P. LAB B FRANKIE FLUIDS AND STOOLS ORDERABLES Final Result [facility] [address] [place] [address], [facility] [address] [place] [address] * Gram Stain (05/04/2024 10:50 AM DIRECTOR OF CLINICAL TRIALS) Gram Stain No organisms seen. White blood cells present. Stain performed on concentrated cytospin preparation. 05/04/2024 12:50 PM DIRECTOR OF CLINICAL TRIALS MKTO Fluid (Abdomen) 05/04/2024 1 0:50 AM DIRECTOR OF CLINICAL TRIALS 05/04/2024 11:50 AM DIRECTOR OF CLINICAL TRIALS Comment:Specimen Source Site : Fluid us Tamara Hutton APRN.N.Jung., D.N.P. LAB M ICROBIOLOGY - GENERAL ORDERABLES Final Result [facility] [address] [place] [address], [place] MKTO [facility] [place] [address] [place] [address] * Albumin, Body Fluid (05/04/2024 10:50 AM DIRECTOR OF CLINICAL TRIALS) Albumin BF 2.8 See Comment g/dL 05/05/2024 12:34 PM DIRECTOR OF CLINICAL TRIALS DTL Comment: ----ADDITIONAL INFORMATION---- Peritoneal fluid albumin is used to calculate the serum-ascites albumin gradient (SAAG). Values greater than or equal to 1.1 g/dL suggest portal hypertension. Pleural fluid albumin may be used to calculate a serum-effusion albumin gradient. Values greater than 1.2 g/dL are most consistent with a transudative process. All other fluids refer to www.[facility].com for further interpretive information. This test has been modified from the manager field service's instructions. Its performance characteristics were determined by [facility] in a manner consistent with CLIA requirements. This test has not been cleared or approved by the U.S. Food and Drug Administration. Fluid Type, Albumin PERITONEAL 05/05/2024 11:01 AM DIRECTOR OF CLINICAL TRIALS DTL Fluid (Abdomen) 05/04/2024 1 0:50 AM DIRECTOR OF CLINICAL TRIALS 05/05/2024 9:24 AM DIRECTOR OF CLINICAL TRIALS Tamara Hutton APRN.N.P., D.N.PKenn LAB B FRANKIE FLUIDS AND STOOLS ORDERABLES Final Result [facility] [address] [place] [address], [place] [facility] [address] [place] [address] * Cell Count and Differential, Body Fluid (05/04/2024 10:50 AM DIRECTOR OF CLINICAL TRIALS) Fluid Type Peritoneal/Pa racentesis 05/04/2024 12:46 PM DIRECTOR OF CLINICAL TRIALS MKTO Gross Appearance Slightly Cloudy 05/04/2024 12:47 PM DIRECTOR OF CLINICAL TRIALS MKTO Total Nucleated Cells 2808 /mcL 05/04/2024 12:48 PM DIRECTOR OF CLINICAL TRIALS MKTO Comment: ----REFERENCE VALUE---- Synovial: <150 Peritoneal: <500 Pleural: <500 Pericardial: <500 ----ADDITIONAL INFORMATION---- This test has been modified from the manager field service's instructions. Its performance characteristics were determined by [facility] in a manner consistent with CLIA requirements. This test has not been cleared or approved by the U.S. Food and Drug Administration. Neutrophils 3 % 05/04/2024 1:20 PM DIRECTOR OF CLINICAL TRIALS MKTO Comment: ----REFERENCE VALUE---- Synovial: <25% Peritoneal: <25% Pleural: <25% Pericardial: <25% Lymphocytes 34 Synovial : <75% % 05/04/2024 1:20 PM DIRECTOR OF CLINICAL TRIALS MKTO Monocytes/Macropha ges 42 Synovial : <70% % 05/04/2024 1:20 PM DIRECTOR OF CLINICAL TRIALS MKTO Other Cells 21 % 05/04/2024 1:20 PM DIRECTOR OF CLINICAL TRIALS MKTO Comment: ----REFERENCE VALUE---- The reference range and other method performance specifications have not been established for this body fluid. The test result must be integrated into the clinical context for interpretation. Other Cells Are: SeeComment 05/04/19 25 7:48 PM DIRECTOR OF CLINICAL TRIALS MKTO Comment: REVISED RESULTS Mesothelial cells: 8 Atypical cells: 13 Atypical cells, Correlate with cytology specimen. Dr. Hernandez ----PREVIOUSLY REPORTED ---- Mesothelial cells: 8 Atypical cells: 13 Atypical cells, Correlate with cytology specimen. (Reported 05/04/2024 13:22) Reviewed by: Dr. Hernandez 05/04/2024 7:48 PM DIRECTOR OF CLINICAL TRIALS [facility] Comment: REVISED RESULTS ----PREVIOUSLY REPORTED ---- Will be reviewed by Pathologist Flagged as: N/A (Reported 05/04/2024 13:22) Fluid (Abdomen) 05/04/2024 1 0:50 AM DIRECTOR OF CLINICAL TRIALS 05/04/2024 11:50 AM DIRECTOR OF CLINICAL TRIALS Tamara Hutton APRN.N.P., D.N.P. LAB BODY FLUIDS AND STOOLS ORDERABLES Edited Result - Final Performing Organization Address City/[facility]/ZIP Co de Phone Number [facility] [address] [place] [address], [place] [address] * Bacterial Culture, Anaerobic + Susceptibility (05/04/2024 10:50 AM DIRECTOR OF CLINICAL TRIALS) Bacterial Culture, Anaerobic No growth after 7 days of incubation. 05/11/2024 5:49 AM DIRECTOR OF CLINICAL TRIALS [facility] Fluid (Abdomen) 05/04/2024 1 0:50 AM DIRECTOR OF CLINICAL TRIALS 05/04/2024 11:50 AM DIRECTOR OF CLINICAL TRIALS Comment:Specimen Source Site : Fluid Hakan Iniguez APRN, C.N.P., D.N.P. LAB M ICROBIOLOGY - GENERAL ORDERABLES Final Result Performing Organization Address [facility]/ZIP Co de Phone Number [facility] [address] [place] [address], [place] [address] * Bacterial Culture, Aerobic + Susceptibility (05/04/2024 10:50 AM DIRECTOR OF CLINICAL TRIALS) Bacterial Culture, Aerobic + Susc No growth after 5 days of incubation. 05/09/2024 6:59 AM DIRECTOR OF CLINICAL TRIALS [facility] Fluid (Abdomen) 05/04/2024 1 0:50 AM DIRECTOR OF CLINICAL TRIALS 05/04/2024 11:50 AM DIRECTOR OF CLINICAL TRIALS Comment:Specimen Source Site : Fluid us Hakan Iniguez APRN, C.N.P., D.N.P. LAB M ICROBIOLOGY - GENERAL ORDERABLES Final Result [facility] [address] [place] [phone], [facility] [place] [address] [place] [address] * pH, Pleural Fluid (05/04/2024 10:30 AM DIRECTOR OF CLINICAL TRIALS) pH, Pleural Fluid 7.35 Not Applicable pH 05/04/2024 12:14 PM DIRECTOR OF CLINICAL TRIALS [facility] Comment: Clinical guidelines suggest that in parapneumonic pleural effusions, a pH <7.2 indicate the need for tube drainage. Fluid (Pleural Fluid, Right) 05/04/2024 10:30 AM DIRECTOR OF CLINICAL TRIALS 05/04/2024 12:07 PM DIRECTOR OF CLINICAL TRIALS us Hakan Iniguez APRN, Tamara.N.P., D.N.P. LAB B FRANKIE FLUIDS AND STOOLS ORDERABLES Final Result Performing Organization Address [facility]/ZIP Co de Phone Number [facility] [address] [place] [phone], [facility] in [address] [address] * Bacterial Culture, Anaerobic + Susceptibility (05/04/2024 10:30 AM DIRECTOR OF CLINICAL TRIALS) Bacterial Culture, Anaerobic No growth after 7 days of incubation. 05/11/2024 5:49 AM DIRECTOR OF CLINICAL TRIALS [facility] Fluid (Pleural Fluid, Right) 05/04/2024 10:30 AM DIRECTOR OF CLINICAL TRIALS 05/04/2024 12:07 PM DIRECTOR OF CLINICAL TRIALS Comment:Specimen Source Site : Fluid us Hakan Iniguez APRN, C.N.P., D.N.P. LAB M ICROBIOLOGY - GENERAL ORDERABLES Final Result Performing Organization Address City/[facility]/ZIP Co de Phone Number [facility] [address] [place] [address], [place] [address] [address] * Bacterial Culture, Aerobic + Susceptibility (05/04/2024 10:30 AM DIRECTOR OF CLINICAL TRIALS) Bacterial Culture, Aerobic + Susc No growth after 5 days of incubation. 05/09/2024 7:00 AM DIRECTOR OF CLINICAL TRIALS MKTO Fluid (Pleural Fluid, Right) 05/04/2024 10:30 AM DIRECTOR OF CLINICAL TRIALS 05/04/2024 12:07 PM DIRECTOR OF CLINICAL TRIALS Comment:Specimen Source Site : Fluid Hakan Iniguez APRN, C.N.P., D.N.P. LAB [facility] ORDERAB[facility] Final Result Performing Organization Address [facility] Co de Phone Number [facility] [address] [place] [phone], [address] [address] * Gram Stain (05/04/2024 10:30 AM DIRECTOR OF CLINICAL TRIALS) Gram Stain No organisms seen. White blood cells present. Stain performed on concentrated cytospin preparation. 05/04/2024 12:50 PM DIRECTOR OF CLINICAL TRIALS MKTO Fluid (Pleural Fluid, Right) 05/04/2024 10:30 AM DIRECTOR OF CLINICAL TRIALS 05/04/2024 12:07 PM DIRECTOR OF CLINICAL TRIALS Comment:Specimen Source Site : Fluid Hakan Iniguez APRN, C.N.P., D.N.P. LAB [facility] GENERAL ORDERABLES Final Result Performing Organization Address City/[facility]/ZIP Co de Phone Number [facility] [address] [place] [address], [address] [address] * Cell Count and Differential, Body Fluid (05/04/2024 10:30 AM DIRECTOR OF CLINICAL TRIALS) Fluid Type Pleural/Thora centesis 05/04/2024 1:23 PM DIRECTOR OF CLINICAL TRIALS MKTO Gross Appearance Serous 05/04/19 25 1:26 PM DIRECTOR OF CLINICAL TRIALS MKTO Total Nucleated Cells 523 /mcL 05/04/2024 1:26 PM DIRECTOR OF CLINICAL TRIALS MKTO Comment: ----REFERENCE VALUE---- Synovial: <150 Peritoneal: <500 Pleural: <500 Pericardial: <500 ----ADDITIONAL INFORMATION---- This test has been modified from the manager field service's instructions. Its performance characteristics were determined by [facility] in a manner consistent with CLIA requirements. This test has not been cleared or approved by the U.S. Food and Drug Administration. Neutrophils 1 % 05/04/2024 1:25 PM DIRECTOR OF CLINICAL TRIALS MKTO Comment: ----REFERENCE VALUE---- Synovial: <25% Peritoneal: <25% Pleural: <25% Pericardial: <25% Lymphocytes 58 Synovial : <75% % 05/04/2024 1:25 PM DIRECTOR OF CLINICAL TRIALS MKTO Monocytes/Macropha ges 25 Synovial : <70% % 05/04/2024 1:25 PM DIRECTOR OF CLINICAL TRIALS MKTO Other Cells 16 % 05/04/2024 1:25 PM DIRECTOR OF CLINICAL TRIALS MKTO Comment: ----REFERENCE VALUE---- The reference range and other method performance specifications have not been established for this body fluid. The test result must be integrated into the clinical context for interpretation. Other Cells Are: SeeComment 05/04/19 25 7:44 PM DIRECTOR OF CLINICAL TRIALS MKTO Comment: REVISED RESULTS Mesothelial Cells: 7 Atypical cells: 9 Atypical cell, correlate with cytology specimen. Dr. Hernandez ----PREVIOUSLY REPORTED ---- Mesothelial Cells: 7 Atypical cells: 9 Atypical cell, correlate with cytology specimen. (Reported 05/04/2024 13:26) Reviewed by: Dr. Hernandez 05/04/2024 7:44 PM DIRECTOR OF CLINICAL TRIALS MKTO Comment: REVISED RESULTS ----PREVIOUSLY REPORTED ---- Will be reviewed by Pathology Flagged as: N/A (Reported 05/04/2024 13:26) Fluid (Pleural Fluid, Right) 05/04/2024 10:30 AM DIRECTOR OF CLINICAL TRIALS 05/04/2024 12:07 PM DIRECTOR OF CLINICAL TRIALS us Hakan Iniguez APRN, C.N.P., D.N.P. LAB BODY FLUIDS AND STOOLS ORDERABLES Edited Result - Final [facility] [address] [place] [address], [place] MKTO [facility] [place] [address] [place] [address] * Protein, Total, Body Fluid (05/04/2024 10:30 AM DIRECTOR OF CLINICAL TRIALS) Protein, Total, BF 4.2 See Comment g/dL 05/05/2024 12:35 PM DIRECTOR OF CLINICAL TRIALS DTL Comment: ----ADDITIONAL INFORMATION---- A pleural fluid [...] clinical findings. All other fluids refer to www.Semetrics.com for further interpretive information. This test has been modified from the manager field service's instructions. Its performance characteristics were determined by [facility] in a manner consistent with CLIA requirements. This test has not been cleared or approved by the U.S. Food and Drug Administration. Fluid Type, Protein, Total PLEURAL 05/05/2024 11:01 AM DIRECTOR OF CLINICAL TRIALS DTL Fluid (Pleural Fluid, Right) 05/04/2024 10:30 AM DIRECTOR OF CLINICAL TRIALS 05/05/2024 9:24 AM DIRECTOR OF CLINICAL TRIALS Hakan Iniguez APRN, C.N.P., D.N.P. LAB B FRANKIE FLUIDS AND STOOLS ORDERABLES Final Result Performing Organization Address City/State/[facility] Co de Phone Number [facility] [address] [place] [address], [place] DTL [facility] [address] [place] [address] * Lactate Dehydrogenase (LD), Body Fluid (05/04/2024 10:30 AM DIRECTOR OF CLINICAL TRIALS) Lactate Dehydrogenase (LD), BF 291 See Comment U/L 05/05/2024 2:30 PM DIRECTOR OF CLINICAL TRIALS DTL Comment: ----ADDITIONAL INFORMATION---- Pleural fluid lactate [...] clinical findings. All other fluids refer to www.Semetrics.com for further interpretive information. This test has been modified from the manager field service's instructions. Its performance characteristics were determined by [facility] in a manner consistent with CLIA requirements. This test has not been cleared or approved by the U.S. Food and Drug Administration. Fluid Type, Lactate Dehydrogenase PLEURAL 05/05/2024 2:41 PM DIRECTOR OF CLINICAL TRIALS DTL Fluid (Pleural Fluid, Right) 05/04/2024 10:30 AM DIRECTOR OF CLINICAL TRIALS 05/05/2024 12:35 PM DIRECTOR OF CLINICAL TRIALS Hakan Iniguez APRN, C.N.P., D.N.P. LAB B FRANKIE FLUIDS AND STOOLS ORDERABLES Final Result [facility] [address] [place] [address], [place] [facility] [address] [place] [address] documented in this encounter Visit Diagnoses Diagnosis Acute Respiratory Failure With Hypoxia (HCC)- Primary Cancer Breast Personal History Abuse Tobacco Smoking Sore Throat Acute Candidiasis Of Vulva And Vagina Effusion Pleural Ascites Chronic Cough Other Cholelithiasis Without Obstruction Diverticulosis documented in this encounter Admitting Diagnoses Diagnosis Acute Respiratory Failure With Hypoxia (HCC) documented in this encounter Administered Medications Inactive Administered Medications - up to 3 most recent administrations Medication Order MAR Action Action Date Dose Rate Site acetaminophen tablet 1,000 mg (TylenoL) 1,000 mg, oral, Every 6 hours PRN, mild pain or score 1-3 of 10, moderate pain or score 4-6 of 10, headaches, fever, Starting on 05/04/24 at 0932, Not to exceed 4 grams of acetaminophen in 24 hours all sources Given 05/06/2024 11:49 PM DIRECTOR OF CLINICAL TRIALS 1,000 mg amLODIPine tablet 5 mg (Norvasc) 5 mg, oral, Daily, First dose on 05/04/24 at 0945, Do not give if SBP<105 Given 05/07/2024 8:27 AM DIRECTOR OF CLINICAL TRIALS 5 mg Given 05/06/2024 9:52 AM DIRECTOR OF CLINICAL TRIALS 5 mg Given 05/05/2024 10:45 AM DIRECTOR OF CLINICAL TRIALS 5 mg enoxaparin injection 40 mg (Lovenox) 40 mg, subcutaneous, Daily, First dose on 05/05/24 at 0900 Given 05/07/2024 8:27 AM DIRECTOR OF CLINICAL TRIALS 40 mg Left Lower Abdomen Given 05/06/2024 9:52 AM DIRECTOR OF CLINICAL TRIALS 40 mg Le ft Lower Abdomen Given 05/05/2024 10:48 AM DIRECTOR OF CLINICAL TRIALS 40 mg L eft Lower Abdomen fluconazole tablet 150 mg (Diflucan) 150 mg, oral, Once, On 05/04/24 at 1115, For 1 dose, Drug Monitoring Program: Pharmacist to adjust medication dosing based on indication and drug clearance factors., Indications: Skin and soft tissue infection, vaginal infectionIndications:Skin and soft tissue infection,vaginal infection Given 05/04/2024 1:01 PM DIRECTOR OF CLINICAL TRIALS 150 mg lidocaine (PF) 10 mg/mL (1 %) injection 10 mL (Xylocaine) 10 mL, subcutaneous, Once, On 05/04/24 at 1030, For 1 dose Given 05/04/2024 10:25 AM DIRECTOR OF CLINICAL TRIALS 10 mL Other lidocaine (PF) 10 mg/mL (1 %) injection 10 mL (Xylocaine) 10 mL, subcutaneous, Once, On 05/04/24 at 1045, For 1 dose Given 05/04/2024 10:45 AM DIRECTOR OF CLINICAL TRIALS 10 mL Right Lower Abdomen lidocaine (PF) 10 mg/mL (1 %) injection 5 mL (Xylocaine) 5 mL, subcutaneous, Once, On 05/07/24 at 1600, For 1 dose Given 05/07/2024 3:34 PM DIRECTOR OF CLINICAL TRIALS 5 mL Right Chest lisinopriL tablet 40 mg 40 mg, oral, Daily, First dose on 05/04/24 at 0945, Do not give if SBP<105 Given 05/07/2024 8:27 AM DIRECTOR OF CLINICAL TRIALS 40 mg Given 05/06/2024 9:52 AM DIRECTOR OF CLINICAL TRIALS 40 mg Given 05/05/2024 10:45 AM DIRECTOR OF CLINICAL TRIALS 40 mg melatonin tablet 9 mg 9 mg, oral, Bedtime PRN, sleep, Starting on 05/04/24 at 0931 Given 05/06/2024 11:49 PM DIRECTOR OF CLINICAL TRIALS 9 mg metoprolol succinate 24 hr tablet 50 mg (Toprol XL) 50 mg, oral, Daily, First dose on 05/04/24 at 0945, Do not give if SBP<100 or HR<60 Do NOT crush or chew. Tablet may be split on score if needed. Given 05/07/2024 8:27 AM DIRECTOR OF CLINICAL TRIALS 50 mg Given 05/06/2024 9:52 AM DIRECTOR OF CLINICAL TRIALS 50 mg Given 05/05/2024 10:45 AM DIRECTOR OF CLINICAL TRIALS 50 mg rosuvastatin tablet 10 mg (Crestor) 10 mg, oral, Daily, First dose on 05/04/24 at 0945 Given 05/07/2024 8:27 AM DIRECTOR OF CLINICAL TRIALS 10 mg Given 05/06/2024 9:51 AM DIRECTOR OF CLINICAL TRIALS 10 mg Given 05/05/2024 10:45 AM DIRECTOR OF CLINICAL TRIALS 10 mg sodium chloride 0.9 % injection 3 mL 3 mL, intravenous, As needed, line care, Starting on 05/04/24 at 0932, Prior to and following infusion and between multiple consecutive infusions: sodium chloride 0.9 % injection Given 05/04/2024 12:04 PM DIRECTOR OF CLINICAL TRIALS 3 mL sodium chloride 0.9 % injection 3 mL 3 mL, intravenous, Every 12 hours scheduled, First dose on 05/04/24 at 2100, Peripheral Intravenous Catheter and Rapid Infusion Catheter, when no infusion to maintain patency Given 05/07/2024 8: 27 AM DIRECTOR OF CLINICAL TRIALS 3 mL Given 05/06/2024 9:59 PM DIRECTOR OF CLINICAL TRIALS 3 mL Given 05/06/2024 9:52 AM DIRECTOR OF CLINICAL TRIALS 3 mL documented in this encounter Active and Recently Administered Medications Times are shown in DIRECTOR OF CLINICAL TRIALS. Scheduled Medication Order 05/05/2024 05/06/2024 05/07/2024 albumin human 25 % injection 0-100 g 0-100 g, intravenous, Once, On 05/04/24 at 1015, For 1 dose, If paracentesis volume less than 3 liters - Only at the discretion of Physcian. If paracentesis volume between 3 liters and 4.9 liters - administer 25 grams. If paracentesis volume between 5 liters and 7.9 liters - administer 50 grams. If paracentesis volume between 8 liters and 9.9 liters - administer 75 grams. If paracentesis volume 10 liters or more - administer 100 grams. amLODIPine tablet 5 mg (Norvasc) 5 mg, oral, Daily, First dose on 05/04/24 at 0945, Do not give if SBP<105 1045 (Given - Provider: Kelsea Davenport., R.N.) 09 (Given - Provider: Dung BarajasN.) 826 (Given - Provider: Vicenta Pinon R.N.) enoxaparin injection 40 mg (Lovenox) 40 mg, subcutaneous, Daily, First dose on Mon05/05/24 at 0900 1048 (Given - Provider: Luis Eduardo Davenport, R.N. - Comment: prioritization) 951 (Given - Provider: Vicenta Pinon R.N.) 826 (Given - Provider: Vicenta Pinon R.N.) lidocaine (PF) 10 mg/mL (1 %) injection 5 mL (Xylocaine) (COMPLETED) 5 mL, subcutaneous, Once, On Mon05/07/24 at 1600, For 1 dose 1534 (Given - Provider: Danielle Acosta - Comment: Right Upper Back) lisinopriL tablet 40 mg 40 mg, oral, Daily, First dose on 05/04/24 at 0945, Do not give if SBP<105 1045 (Given - Provider: Phan DavenportSKarthik., R.N.) 09 (Given - Provider: Vicenta Pinon R.N.) 826 (Given - Provider: Vicenta Pinon R.N.) metoprolol succinate 24 hr tablet 50 mg (Toprol XL) 50 mg, oral, Daily, First dose on 05/04/24 at 0945, Do not give if SBP<100 or HR<60 Do NOT crush or chew. Tablet may be split on score if needed. 1045 (Given - Provider: Dee Dee Mcghee M.S.N., R.N.) 09 (Given - Provider: Vicenta Pinon R.N.) 826 (Given - Provider: Vicenta Pinon R.N.) rosuvastatin tablet 10 mg (Crestor) 10 mg, oral, Daily, First dose on 05/04/24 at 0945 1045 (Given - Provider: Luis Eduardo Davenport, R.N.) 0951 (Given - Provider: Vicenta Pinon R.N.) 0827 (Given - Provider: Vicenta Pinon R.N.) sodium chloride 0.9 % injection 3 mL 3 mL, intravenous, Every 12 hours scheduled, First dose on 05/04/24 at 2100, Peripheral Intravenous Catheter and Rapid Infusion Catheter, when no infusion to maintain patency 1048 (Given - Provider: Luis Eduardo Davenport, R.N.)2128 (Given - Provider: Zeus Alcocer R.N.) 0952 (Given - Provider: Terell Barajas.N.)2159 (Given - Provider: Debi Meneses R.N.) 0827 (Given - Provider: Vicenta Pinon R.N.) PRN Medication Order 05/05/2024 05/06/2024 05/07/2024 acetaminophen tablet 1,000 mg (TylenoL) 1,000 mg, oral, Every 6 hours PRN, mild pain or score 1-3 of 10, moderate pain or score 4-6 of 10, headaches, fever, Starting on 05/04/24 at 0932, Not to exceed 4 grams of acetaminophen in 24 hours all sources 2349 (Given - Provider: Kelsey Meneses RJorge Luis) albuterol nebulizer solution 2.5 mg 2.5 mg, nebulization, Every 4 hours PRN, wheezing, shortness of breath, Starting on 05/04/24 at 0930, Albuterol nebs were interchanged for albuterol MDI (same frequency) benzonatate capsule 100 mg (Tessalon Perles) 100 mg, oral, 3 times daily PRN, cough, Starting on 05/04/24 at 0930, Swallow whole. Do NOT crush, chew or open capsule. calcium carbonate chewable tablet 400 mg of calcium (Tums) 400 mg of calcium, oral, Every 2 hour PRN, heartburn, indigestion, Starting on 05/04/24 at 0932, Doses listed are in mg of elemental calcium. Take with food. 500 mg calcium carbonate contains 200 mg of elemental calcium. melatonin tablet 9 mg 9 mg, oral, Bedtime PRN, sleep, Starting on 05/04/24 at 0931 2347 (Given - Provider: Kelsey Meneses R.N.) naloxone injection 0.1 mg 0.1 mg, intravenous, Every 5 min PRN, reversal, respiratory depression, For RASS Score -4 or less, respiratory rate of less than 8 breaths/min. Notify provider/service and rapid response team (if available at institution)., Starting on 05/04/24 at 0932, For 3 doses ondansetron (PF) injection 4 mg (Zofran) 4 mg, intravenous, Every 6 hours PRN, nausea, vomiting, Starting on 05/04/24 at 0932 oxyCODONE IR tablet 5 mg (Roxicodone) 5 mg, oral, Every 6 hours PRN, moderate pain or score 4-6 of 10, severe pain or score 7-10 of 10, Starting on 05/04/24 at 0937 polyethylene glycol powder packet 17 g (Miralax) 17 g, oral, Daily PRN, constipation, Starting on 05/04/24 at 0932, Ordered sequence of administration: polyethylene glycol, then bisacodyl until BM achieved. Avoid mixing with starch-based thickened liquids. sennosides-docusate sodium 8.6-50 mg per tablet 1 tablet (Senokot-S) 1 tablet, oral, 2 times daily PRN, constipation, Starting on 05/04/24 at 0932, Do not give if patient has diarrhea. sodium chloride 0.9 % injection 10 mL 10 mL, intravenous, As needed, line care, Starting on 05/04/24 at 0932, Peripheral Intravenous Catheter and Rapid Infusion Catheter, prior to blood sampling, post blood transfusion or post blood sampling sodium chloride 0.9 % injection 3 mL 3 mL, intravenous, As needed, line care, Starting on 05/04/24 at 0932, Prior to and following infusion and between multiple consecutive infusions: sodium chloride 0.9 % injection documented in this encounter Care Teams Hospice Admitting Clerk Relationship Specialty Start Date End Date Elsewhere, Pcp PCP - General Internal Medicine 04/24/24 documented as of this encounter
--- OUTSIDE RECORDS SUMMARY | 2024-05-16 13:45 | XMS_ITS | Encounter Summary ---
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 Pt reports stomach cramping and distention that is worsening her SOB as well. Encounter Details Date Type Department Care Team ([facility] st Contact Info) Description 05/03/2024 12:29 PM [facility] - 05/04/2024 6:[address] [facility] Emergency [place] [facility] [address] [place] [address] [phone] Ilda Martinez M.D., M.B.A. [address] [place] [address] [phone] Salma Dinh M.D., M.P.H. [address] [place] [phone] Effusion Pleural (Primary Dx); Ascites Discharge Disposition: Acute Care Hospital Social History Tobacco Use Types Packs/Day Years Used Date Smoking Tobacco: Every Day Cigarettes Passive Smoke Exposure: Current Smokeless Tobacco: Never Alcohol Use Standard Drinks/Week Comments Yes 0 (1 standard drink = 0.6 oz pur e alcohol) [facility] Utilities Answer Date Recorded In the past 12 months has th e electric, gas, oil, or water company threatened to shut off services in your [...] your living situation today? [facility] to live 05/04/2024 Comments No Sex and Gender Information Value Date Recorded Sex Assigned at Not on file Legal Sex Female 2:38 PM [facility] Gender Identity Not on file Sexual Orientation Not on file documented as of this encounter Last Filed Vital Signs Vital Sign Reading Time Taken Comments Blood Pressure 128/73 05/04/2024 6:00 AM [facility] Pulse 80 05/04/2024 6:15 AM [facility] Temperature 36.6 C (97.9 F) 05/03/2024 12:30 PM [facility] Respiratory Rate 19 05/04/2024 6:15 AM [facility] Oxygen Saturation 95% 05/04/2024 6:15 AM [facility] Inhaled Oxygen Concentration - - Weight 74.4 kg (164 lb) 05/03/2024 12:28 PM [facility] Height - - Body Mass Index - [...] bedtime. 11/02/2023 documented as of this encounter ED Notes * Salma Dinh M.D., M.P.H. - 05/03/2024 10:46 PM CST Patient was signed out awaiting ambulance transportation. The patient is requiring oxygen due to large right pleural effusion and ascites from metastatic disease. ADDENDUM: While waiting, I did offer thoracocentesis but patient is comfortable and prefers to haveit in [place] where they will send fluid for evaluation. She is not requiring any escalation of oxygen. Will transfer by EMS. VITAL SIGNS BP 126/85 Pulse 73 Temp 36.6 ??C (Temporal) Resp 19 Wt 74.4 kg SpO2 94% Final Diagnoses: as of 05/03/24 2246 Effusion Pleural Ascites Salma Dinh M.D., M.P.H. 05/04/24 0035 [facility]ARTH MELTER * Ilda Martinez M.D., M.B.A. - 05/03/2024 1:06 PM CST SUBJECTIVE CHIEF COMPLAINT/REASON FOR VISIT Shortness of Breath (Pt presents with worsening shortness of breath causing her to have to sleep upright. Pt reports stomach cramping and distention that is worsening her SOB as well. ) HISTORY OF PRESENT ILLNESS Smiley Hernández is a 63 y.o. female with history of breast cancer and smoking who is presentingwith abdominal bloating and shortness of breath. The patient reports that she has felt her abdomen bloating for about a month but it has become more significant over the last week. Additionally she has had a very poor appetite. She does not have nausea or vomiting unless it is post-tussive. Also around [place] time she started to develop a cold. She was evaluated and had a chest x-ray that showed some fluid on her lung. Unfortunately it has recently become quite a bit worse and if she lays flat she is very short of breath. She denies any chest pain. She has had a runny nose but no sore throat. She has had no fevers. Her has been sick with cold-like symptoms as well. Patient does not use oxygen at home but she does use inhalers which she has been trying recently. REVIEW OF SYSTEMS Constitutional: Negative for fever. HENT: Positive for rhinorrhea. Negative for sore throat. Respiratory: Positive for cough and shortness of breath. Negative for hemoptysis. Cardiovascular: Negative for chest pain. Gastrointestinal: Positive for abdominal distention. Negative for diarrhea, nausea and vomiting (only posttussive gagging). OBJECTIVE Initial Vitals Temperature 05/03/24 1230 36.6 ??C Pulse Rate 05/03/24 1235 79 Heart Rate 05/03/24 1247 79 Resp Rate 05/03/24 1247 16 Blood Pressure 05/03/24 1239 125/72 SpO2 05/03/24 1235 (!) 87 % Pain Score 05/03/24 1230 0 - No pain PHYSICAL EXAMINATION Constitutional: Adult female, [id number] distress HENT: Head: Normocephalic and atraumatic. Nose: Nose normal. Mouth/Throat: Oropharynx is clear and moist. Cardiovascular: Normal rate and regular rhythm. Pulmonary/Chest: Patient has slight increased work of breathing, lung sounds the left posterior clear, on the right posterior base they are significantly diminished and there is mild wheeze apically Abdominal: Abdomen is distended and almost like a palpable mass is felt in the epigastrium to left upper quadrant Musculoskeletal: General: No deformity. Neurological: Alert, no gross neurologic deficit Skin: Skin is warm. Psychiatric: She has a normal mood and affect. ASSESSMENT/PLAN Smiley Hernández is a 63 y.o. female who is presenting with shortness of breath and abdominal bloating. Patient's initial vital signs were remarkable for hypoxia. Patient was placed on supplemental oxygen. Patient's physical exam reveals diminished breath sounds at the right base as well as abdominal swelling significantly in the epigastrium and left upper quadrant. Differential diagnosis includes malignant pleural effusion, parapneumonic effusion, viral illness, abdominal mass, obstruction, congestive heart failure. Patient's workup was remarkable for a moderate to large size pleural effusion as well as ascites and diffuse omental and peritoneal disease suggestive of malignancy which likely indicates that her large pleural effusion is malignancy related. Given that the patient is on oxygen and has significantly worsened I feel that she would benefit from admission. Patient remained stable while she was here and ultimately was accepted to [place] by Dr. Chinchilla. Patient was transitioned to my colleague awaiting transfer. Of note her laboratory work was fairly unremarkable including a negative COVID, influenza and RSV. Her CMP showed normal electrolytes and liver enzymes. She had no leukocytosis or significant anemia.I had considered CHF exacerbation but this was very unlikely given her imaging and her BNP that returned at 153. Final Diagnoses: as of 05/04/24 0926 Effusion Pleural Ascites Ilda Martinez M.D., M.B.A. 05/04/24 0932 [facility] documented in this encounter Plan of Treatment Not on file documented as of this encounter Procedures Procedure Name Priority Date/Time Associated Diagnosis Comments CT ABDOMEN PELVIS WITH IV CONTRAST RAD - Semiurgent (Fast; most ED patients; some inpatients) 05/03/2024 3:[address] [address] [address] CHEST ANGIOGRAM AND PULMONARY ARTERIES WITH IV CONTRAST RAD - Semiurgent (Fast; most ED patients; some inpatients) 05/03/2024 2:45 PM [facility] NT-PRO B-TYPE NATRIURETIC PEPTIDE (BNP), S STAT 05/03/2024 1:19 PM [facility] D-DIMER, P STAT 05/03/2024 1:19 PM [facility] CBC WITH DIFFERENTIAL, B STAT 05/03/2024 1:19 PM [facility] COMPREHENSIVE METABOLIC PANEL, S/P STAT 05/03/2024 1:19 PM [facility] SARS CORONAVIRUS 2, PCR RAPID, V STAT 05/03/2024 1:15 PM [facility] INFLUENZA A, B, RSV, PCR, POCT STAT 05/03/2024 1:15 PM [facility] documented in this encounter Results * CT Abdomen Pelvis with IV Contrast (05/03/2024 3:01 PM [facility]) Anatomical Region Laterality Modality Abdomen, Pelvis, Abdominal R ST LOS, Abdominal ARZ LOS, Abdominal FLA LOS N/A Computed Tomography 05/03/2024 2:55 PM [facility] Impressions 05/03/2024 3:12 PM [facility] 1. No evidence for acute or chronic pulmonary embolus. 2. Moderate-sized right pleural effusion with associated atelectasis and/or consolidation. 3. Diffuse omental and peritoneal disease identified concerning for metastatic or primary malignancy. 4. Moderate ascites. 5. Cholelithiasis. 6. Diverticulosis. 7. Distal small bowel wall thickening. Differential includes reactive change versus inflammatory disease versus infiltrative process. Narrative 05/03/2024 3:12 PM [facility] EXAM: CT CHEST ANGIOGRAM AND PULMONARY ARTERIES [...] versus infiltrative process. Ilda Martinez M.D., M.B.A. IMG CT PROCEDURES Final Result * CT Chest Angiogram and Pulmonary Arteries with IV Contrast (05/03/2024 2:45 PM [facility]) Anatomical Region Laterality Modality Chest, Cardiovascular RST LO S, Thoracic ARZ LOS, Thoracic FLA LOS N/A Computed Tomography 05/03/2024 2:57 PM [facility] Impressions 05/03/2024 3:12 PM [facility] 1. No evidence for acute or chronic pulmonary embolus. 2. Moderate-sized right pleural effusion with associated atelectasis and/or consolidation. 3. Diffuse omental and peritoneal disease identified concerning for metastatic or primary malignancy. 4. Moderate ascites. 5. Cholelithiasis. 6. Diverticulosis. 7. Distal small bowel wall thickening. Differential includes reactive change versus inflammatory disease versus infiltrative process. Narrative 05/03/2024 3:12 PM [facility] EXAM: CT CHEST ANGIOGRAM AND PULMONARY ARTERIES [...] versus infiltrative process. Ilda Martinez M.D., M.B.A. IMG CT PROCEDURES Final Result * NT-Pro B-Type Natriuretic Peptide (BNP) (05/03/2024 1:19 PM [facility]) NT-Pro BNP 153 <=226 pg/mL 05/03/2024 1:57 PM [facility] Comment: NT-proBNP values less than 300 [...] failure. Blood (Blood, Venous) 05/03/2024 1:19 PM [facility] 05/03/2024 1:21 PM [facility] Ilda Martinez M.D., M.B.A. LAB BLOOD ADD-ON Final Result [facility] [address] [place] [address], [facility] NPRG [facility] [address] [place] [address] * (ABNORMAL) D-Dimer (05/03/2024 1:19 PM [facility]) D-Dimer, P 3913(H) <=500 ng/mL FEU 05/03/2024 1:44 PM [facility] Comment: D-dimer concentrations increase with age. [...] (PE). Blood (Blood, Venous) 05/03/2024 1:19 PM [facility] 05/03/2024 1:22 PM [facility] us Ilda Martinez M.D., M.B.A. LAB BLOOD ADD-ON Final Result [facility] [address] [place] [address], [place] [facility] [address] [place] [address] * (ABNORMAL) Comprehensive Metabolic Panel (05/03/2024 1:19 PM [facility]) Potassium, P 4.4 3.6 - 5.2 mmol/L 05/03/2024 1:54 PM [facility] Sodium, P 138 135 - 145 mmol/L 05/03/2024 1:54 PM [facility] Chloride, P 103 98 - 107 mmol/L 05/03/2024 1:54 PM [facility] Bicarbonate, P 26 22 - 29 mmol/L 05/03/2024 1:54 PM [facility] Anion Gap, P 9 7 - 15 05/03/2024 1:54 PM [facility] BUN (Blood Urea Nitrogen), P 13 6 - 21 mg/dL 05/03/2024 1:54 PM [facility] Creatinine 0.71 0.59 - 1.04 mg/dL 05/03/2024 1:54 PM [facility] Estimated GFR (eGFR) >90 >=60 mL/min/BS A 05/03/2024 1:54 PM [facility] Comment: Estimated GFR calculated using the 2020 CKD_EPI creatinine equation. Calcium, Total, P 8.7(L) 8.8 - 10.2 mg/dL 05/03/2024 1:54 PM [facility] Glucose, P 85 70 - 140 mg/dL 05/03/2024 1:54 PM [facility] Protein, Total, P 6.5 6.3 - 7.9 g/dL 05/03/2024 1:54 PM [facility] Albumin, P 3.6 3.5 - 5.0 g/dL 05/03/2024 1:54 PM [facility] Aspartate Aminotransferase (AST), P 26 8 - 43 U/L 05/03/2024 1:54 PM [facility] Alkaline Phosphatase, P 61 35 - 104 U/L 05/03/2024 1:54 PM [facility] Alanine Aminotransferase (ALT), P 21 7 - 45 U/L 05/03/2024 1:54 PM [facility] Bilirubin, Total, P <0.2 0.0 - 1.2 mg/dL 05/03/2024 1:54 PM [facility] Blood (Blood, Venous) 05/03/2024 1:19 PM [facility] 05/03/2024 1:22 PM [facility] Ilda Martinez M.D., M.B.A. LAB BLOOD ADD-ON Final Result [facility] [address] [place] [address], [facility] [address] [place] [address] * (ABNORMAL) CBC with Differential, Blood (05/03/2024 1:19 PM [facility]) Hemoglobin 11.6 11.6 - 15.0 g/dL 05/03/2024 1:27 PM [facility] Hematocrit 36.8 35.5 - 44.9 % 05/03/2024 1:27 PM [facility] Erythrocytes 4.07 3.92 - 5.13 x10(12)/L 05/03/2024 1:27 PM [facility] MCV 90.4 78.2 - 97.9 fL 05/03/2024 1:27 PM [facility] RBC Distrib Width 12.9 12.2 - 16.1 % 05/03/2024 1:27 PM [facility] Platelet Count 345 157 - 371 x10(9)/L 05/03/2024 1:27 PM [facility] Leukocytes 5.5 3.4 - 9.6 x10(9)/L 05/03/2024 1:27 PM [facility] Neutrophils 4.21 1.56 - 6.45 x10(9)/L 05/03/2024 1:27 PM [facility] Lymphocytes 0.76(L) 0.95 - 3.07 x10(9)/L 05/03/2024 1:27 PM [facility] Monocytes 0.50 0.26 - 0.81 x10(9)/L 05/03/2024 1:27 PM [facility] Eosinophils 0.05 0.03 - 0.48 x10(9)/L 05/03/2024 1:27 PM [facility] Basophils <0.04 0.01 - 0.08 x10(9)/L 05/03/2024 1:27 PM [facility] Blood (Blood, Venous) 05/03/2024 1:19 PM [facility] 05/03/2024 1:22 PM [facility] Ilda Martinez M.D., M.B.A. LAB BLOOD ADD-ON Final Result Performing Organization Address [facility]/ZIP Co de Phone Number [facility]NOTE 2] [facility] [address] [place] [id number], [facility] NPRG [address] [address] * Influenza A/B and RSV, PCR, Point of Care (05/03/2024 1:15 PM [facility]) Pathologist [facility] Influenza A, POCT Negative Negative 05/03/2024 1:21 PM [facility] Influenza B, POCT Negative Negative 05/03/2024 1:21 PM [facility] Resp Syncytial Virus, POCT Negative Negative 05/03/2024 1:21 PM [facility] Swab (Nasopharynx) 05/03/2024 1:15 PM [facility] 05/03/2024 1:22 PM [facility] us Ilda Martinez M.D., M.B.A. LAB POCT ORDERABL ES - DEVICE Final Result Performing Organization Address [facility]/ZIP Co de Phone Number [facility]NOTE 2[facility] [address] [place] [id number], [facility] [address] [place] [address] * SARS Coronavirus 2, PCR Rapid Symptomatic (05/03/2024 1:15 PM [facility]) SARS CoV-2, PCR, Rapid, V Undetected Undetected 05/03/2024 1:24 PM [facility] SARS Coronavirus 2, Source, Rapid Swab, Nasopharynx 05/03/2024 1:22 PM [facility] Swab (Nasopharynx) 05/03/2024 1:15 PM [facility] 05/03/2024 1:22 PM [facility] us Ilda Martinez M.D., M.B.A. LAB MICROBIOLOGY - GENERAL ORDERABLES Final Result [facility] [address] [address], [facility] NPR[facility] [address] [address] documented in this encounter Visit Diagnoses Diagnosis Effusion Pleural- Primary Ascites documented in this encounter Administered Medications Inactive Administered Medications - up to 3 most recent administrations Medication Order MAR Action Action Date Dose Rate Site iohexoL 350 mg iodine/mL solution 1-200 mL (Omnipaque) 1-200 mL, intravenous, Once in imaging, contrast, Starting on Mon05/03/24 at 1440, For 1 dose, Dose per Radiant Medication Guidelines Given 05/03/2024 2:40 PM [facility] 140 mL sodium chloride 0.9 % flush 100 mL 100 mL, intravenous, Once in imaging, line care, for CT Exam, Starting on Mon05/03/24 at 1440, For 1 dose Given 05/03/2024 2:40 PM [facility] 100 mL sodium chloride 0.9 % injection 10 mL 10 mL, intravenous, Once in imaging, line care, Starting on Mon05/03/24 at 1440, For 1 dose Given 05/03/2024 2:40 PM [facility] 10 mL documented in this encounter Active and Recently Administered Medications Times are shown in [facility]. PRN Medication Order 05/02/2024 05/03/2024 05/04/2024 iohexoL 350 mg iodine/mL solution 1-200 mL (Omnipaque) (COMPLETED) 1-200 mL, intravenous, Once in imaging, contrast, Starting on Mon05/03/24 at 1440, For 1 dose, Dose per Radiant Medication Guidelines 1440 (Given - Provider: Kolby Cabrales(R)(CT), R.T.(R)) sodium chloride 0.9 % flush 100 mL (COMPLETED) 100 mL, intravenous, Once in imaging, line care, for CT Exam, Starting on Mon05/03/24 at 1440, For 1 dose 1440 (Given - Provider: Kolby Cabrales(R)(CT), R.T.(R)) sodium chloride 0.9 % injection 10 mL (COMPLETED) 10 mL, intravenous, Once in imaging, line care, Starting on Mon05/03/24 at 1440, For 1 dose 1440 (Given - Provider: Kolby Cabrales(R)(CT), R.T.(R)) documented in this encounter Additional Health Concerns Infection Onset Date Last Indicated Resolved Time COVID19 Pending 05/03/2024 05/03/2024 05/03/2024 1 :43 PM [facility] documented as of this encounter Care Teams Hydraulic And Plumbing Installer Relationship Specialty Start Date End Date Elsewhere, Pcp PCP - General Internal Medicine 04/24/24 documented as of this encounter
--- NOTE | 2024-05-16 13:56 | CRLHL7_ITS ---
For Patients: As a result of the Century Cures Act, medical imaging exams and procedure reports are released immediately into your electronic medical record. You may view this report before your referring provider. If you have questions, please contact your health care provider. INDICATION: Dyspnea. TECHNIQUE: Chest radiographs, 2 views. COMPARISON: None. FINDINGS: Cardiovascular/Mediastinum: Normal heart size. Unremarkable. Lungs: No focal consolidation. Compressive atelectasis of the right lung base. Airways: Trachea remains midline. Pleura: Small right pleural effusion. No pneumothorax. Bones: No acute osseous abnormalities. Upper abdomen: Unremarkable. IMPRESSION: Small right pleural effusion with compressive atelectasis of the right lung base. Dictated by Phani Drake MD @ 05/16/2024 2:28:52 PM (Electronically Signed)
--- OUTSIDE RECORDS SUMMARY | 2024-05-16 14:17 | XMS_ITS | Clinical Summary ---
Author Organization [employer] [facility] Address [address] [place] [address] Care Team Providers Care Electrocardiograph Repairer Name Role Phone Luz Maria Matta MD [facility] Unavailable Allergies Active Allergy Reactions Criticality [...] per actuation) nasal solution (FLONASE) Inhale 1 Perry into affected nostril(s). 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, Her2 amplified and separate tumor measuring [...] Type Department Care Team Description 05/16/2024 Refill [facility] [address] [place] [address] Luz Maria Matta MD Refill Request (amlodipine) 05/15/2024 Nurse Triage [facility] [address] [place] [address] Luz Maria Matta MD Difficulty Breathing 05/15/2024 Nurse Triage [facility] [address] [place] [address] Luz Maria Matta MD 05/09/2024 11:15 AM GENERAL CAR SUPERVISOR YARD Office Visit [facility] [address] [place] [address] Avel Nguyen MD Hospital F/U (breathing feels okay - setting up when to have fluid drained ) 05/09/2024 Travel 05/07/2024 Telephone [facility] [address] [place] [address] [place], [facility] Referral (Malignant neoplasm of female breast, unspecified estrogen receptor status) 05/07/2024 Telephone [facility] [address] [place] [address] Luz Maria Matta MD Referral (Oncology) 05/04/2024 Orders Only [facility] Scanner 1 scan: (1-Ord) [facility], MULTIPLE PATHOLOGIES, 05/04/2024 from Last 3 Months [...] on file Legal Sex Female 7:38 AM GENERAL CAR SUPERVISOR YARD Gender Identity Not on file Sexual Orientation Not on file 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 [employer] Not on file Not on file Not on file Not on file Not on file Not on file Not on file Obstetrics History Last Filed Vital Signs Vital Sign Reading Time Taken Comments Blood Pressure 123/80 05/09/2024 11:20 AM GENERAL CAR SUPERVISOR YARD Pulse 85 05/09/2024 11:20 AM GENERAL CAR SUPERVISOR YARD Temperature 36.8 C (98.2 F) 02/24/2022 4:16 PM GENERAL CAR SUPERVISOR YARD Respiratory Rate 18 06/13/2017 5:03 PM CDT Oxygen Saturation 95% 05/09/2024 11:20 AM GENERAL CAR SUPERVISOR YARD Inhaled Oxygen Concentration - - Weight 71.9 kg (158 lb 9.6 oz) 05/09/2024 11:20 AM GENERAL CAR SUPERVISOR YARD Height 167.9 cm (5' 6.1) 11/02/2023 10:58 [...] Completed 06/06/2019 Medical Devices Implanted Type Area Solar Tech Device Identifier Shelf Expiration Date Model / Serial / Lot Port Power 8fr [id number] [employer] Access - [id number] Implanted:Qty: 1 on 11/14/2008 at [facility] Left: Chest [employer] 09/14/2010 [id number] / / [id number] Procedures Procedure Name Priority Date/Time Associated Diagnosis Comments SCAN-PATHOLOGY REPORT 05/04/2024 12:00 AM GENERAL CAR SUPERVISOR YARD XR MAMMO GETACHEW BILAT SCREEN Routine 11/16/2023 11:10 AM CDT Visit for screening mammogram LIPID PANEL W REFLEX MEASURED LDL Routine 11/02/2023 11:44 AM CDT Other hyperlipidemia ANTI HCV Routine 06/06/2019 10:57 AM CDT Encounter for hepatitis C screening test for low risk patient HOTEL MAID THIN PREP PAP SCREEN IMAGED Routine 06/06/2019 10:30 AM CDT Screening for malignant neoplasm of cervix CT CHEST WO STAT 11/12/2008 10:24 AM CDT Lung Nodule from Last 3 Months or Most Recently Relevant to Health Maintenance Results * SCAN-PATHOLOGY REPORT (05/04/2024 12:00 AM GENERAL CAR SUPERVISOR YARD) us Scanner OTHER Final Result * XR [...] care provider. XR MAMMO GETACHEW BILAT SCREEN [[id number]] CLINICAL HISTORY: This is an asymptomatic 63 y.o. patient. INDICATION FOR EXAM: Mammogram Screening. TECHNIQUE: CC & MLO views were obtained. This study was evaluated with the assistance of Computer-Aided Detection. Breast Tomosynthesis was used in interpretation. COMPARISON FILM: Yes 11/10/22 [employer] 12/05/19 [employer] FINDINGS: There are scattered areas of fibroglandular density. There are no dominant masses, suspicious micro calcifications or areas of architectural distortion. Luz Maria Matta MD MAMMO Final Resul t * LIPID PANEL W REFLEX MEASURED LDL (11/02/2023 11:44 AM CDT) CHOLESTEROL,TOTAL 148 100 - 199 mg/dL 11/03/2023 1:13 AM CDT [facility] Comment: Cholesterol, Total Reference Ranges Desirable <200 mg/dL Borderline 200-239 mg/dL High >=240 mg/dL TRIGLYCERIDES 128 <150 mg/dL 11/03/2023 1:13 AM CDT [facility] HDL CHOLESTEROL 50 >40 mg/dL 1:13 AM CDT [facility] NON-HDL CHOLESTEROL 98 <145 mg/dl 11/03/2023 1:13 AM CDT [facility] CHOL/HDL RATIO 2.96 <4.50 11/03/2023 1:13 AM CDT [facility] LDL CHOLESTEROL 72 <=130 mg/dL 11/03/2023 1:13 AM CDT [facility] VLDL CHOLESTEROL 26 <=30 mg/dL 11/03/2023 1:13 AM CDT [facility] PROVIDER ORDERED STATUS RANDOM 11/03/2023 1:13 AM CDT [facility] Blood BLOOD SPECIMEN / Unknown Venipuncture / Unknown 11/02/2023 11:44 AM CDT 11/02/2023 11:45 AM CDT Luz Maria Matta MD CHEMISTRY Final Resul t [facility] [address] [place] [address], [place] * ANTI HCV (06/06/2019 10:57 AM CDT) HEPATITIS C ANTIBODY Non-React keri Non-React keri 06/06/2019 5:56 PM CDT [facility] Comment:Antibodies to HCV no t detected; does not exclude the possibility of exposure to HCV. Blood BLOOD SPECIMEN / Unknown Venipuncture / Unknown 06/06/2019 10:57 AM CDT 06/06/2019 10:57 AM CDT Luz Maria Matta MD SEND OUTS Final Resul t [facility] [address] [place] [address], [place] * HOTEL MAID THIN PREP PAP SCREEN IMAGED [[id number]] (06/06/2019 10:30 AM CDT) Case Report Gynecologic Cytology Report Case: [id number] Authorizing Provider: Luz Maria Matta MD Collected: 06/06/2019 1030 Ordering Location: [facility] Received: 06/06/2019 1111 Clinic First Screen: Ailyn Dave Specimen: HOTEL MAID ThinPrep Vial Screening, Cervical 06/13/2019 10:39 AM CDT [facility] INTERPRETATION/ RESULT NEGATIVE FOR INTRAEPITHELIAL LESION OR MALIGNANCY (NIL) (none) 06/13/2019 10:39 AM CDT [facility] [employer] IMEN ADEQUACY Satisfactory for evaluation Endocervical component present 06/13/2019 10:39 AM CDT [facility] HPV REQUEST HPV and PAP 06/13/2019 10:39 AM CDT [facility] Date of LMP 2009 06/13/2019 10:39 AM CDT [facility] Last Pap Date unknown 06/13/2019 10:39 AM CDT [facility] Last Pap Result First Pap/Unknown 10:39 AM CDT [facility] Abnormal Pap or [place] Bx in last 5 years No 06/13/2019 10:39 AM CDT [facility] Menstrual Status Postmenopausal 06/13/2019 10:39 AM CDT [facility] [place] Bx Done Today No 06/13/2019 10:39 AM CDT [facility] Additional Information None given 06/13/2019 10:39 AM CDT [facility] [employer] EN[facility] Comment: Cytology is screened at [facility] Central Laboratory - [address], [place] [address] and [facility] Laboratory - [address] [place] [address], [place] [address] and [facility] - [address], [place] [address] Interpreted at [facility] Laboratory - [address], [place] [address] Automated Review Successful 06/13/2019 10:39 AM CDT [facility] [employer] Comment:Specimen processed s uccessfully by automated primary care provider device, ThinPrep Imaging System, [employer] ANCILLARY TESTING HOTEL MAID HPV Ordered, Please see separate report 06/13/2019 10:39 AM CDT [facility] Note The pap test [...] and malignant lesions. 06/13/2019 10:39 AM CDT [facility]- ENTRAL LABORATORY Other (Cervical) Non-Blood / Unknown 06/06/2019 10:30 AM CDT 06/06/2019 11:11 AM CDT us Luz Maria Matta MD PATHOLOGY/CYTOLOGY Final Re sult [facility] [address] [place] [address], [place] * CT Chest wo Contrast (11/12/2008 [...] seen on MRI. TECHNIQUE: Noncontrast. COMPARISON: [facility] 11/03/2008. FINDINGS: Two right breast masses [...] seen on MRI. TECHNIQUE: Noncontrast. COMPARISON: [facility] 11/03/2008. FINDINGS: Two right breast masses [...] Most Recently Relevant to Health Maintenance Insurance [facility] [place] [id number] Advance Directives * Full Code (Latest Code Status on File) Date Activated Date Inactivated Comments 11/13/2008 7:43 AM 11/14/2008 7:15 PM Care Teams Electrocardiograph Repairer Relationship Specialty Start Date End Date Luz Maria Matta MD [address] [place] [address] PCP - General Family Practice 12/05/19 Danna Bond, RN [address] [facility] [place] [address] Nurse Navigator - Oncology Registered Nurse 05/07/24
--- OUTSIDE RECORDS SUMMARY | 2024-05-16 14:17 | XMS_ITS | CCD ---
Author Name Interface, [id number] Address [address] [address] Organization [facility] Address [address] [address] Care Team Providers Care Satellite Tv Technician Name Role Phone Jose Ayers Unavailable Unavailable [...]
--- OUTSIDE RECORDS SUMMARY | 2024-05-16 14:18 | XMS_ITS | Encounter Summary ---
Author Organization [facility] Address [address] [place] [address] Care Team Providers Care Technical Solutions Consultant Name Role Phone Elsewhere, Pcp Primary Care Provider Unavailabl e Reason for Visit * Reason Comments Cough Patient reports prod uctive cough started originally around Davy time. Reports earache on her right side. Encounter Details Date Type Department Care Team (Late st Contact Info) Description 04/24/2024 3:13 PM LOAN ADVISER - 04/24/2024 4:25 PM LOAN ADVISER Emergency [facility] [address] [place] [phone] Sabrina Ascencio P.A.-Tamara., P.A. [address] [place] [phone] Cough Unspecified Type (Primary Dx); Pneumonia Discharge [...] on file Legal Sex Female 2:38 PM LOAN ADVISER Gender Identity Not on file Sexual Orientation Not on file documented as of this encounter Last Filed Vital Signs Vital Sign Reading Time Taken Comments Blood Pressure 124/71 04/24/2024 2:31 PM LOAN ADVISER Pulse 89 04/24/2024 2:31 PM LOAN ADVISER Temperature 36.7 C (98.1 F) 04/24/2024 2:31 PM LOAN ADVISER Respiratory Rate 20 04/24/2024 2:31 PM LOAN ADVISER Oxygen Saturation 93% 04/24/2024 2:31 PM LOAN ADVISER Inhaled Oxygen Concentration - - Weight 77.5 kg (170 lb 12.8 oz) 04/24/2024 2:32 PM LOAN ADVISER Height - - Body Mass Index - [...] (Patient reports productive cough started originally around Davy time. Reports earache on her right side. [...] PCP whom she states is located in [facility]. Discussed with patient that she should make [...] new or worsening symptoms to return to [facility] without delay. Ie chest pain, difficulty [...] Antibiotics) Anaphylaxis Sabrina Ascencio P.A.-C., P.A. 04/24/24 0973 ADVISER documented in this encounter Plan of Treatment Not on file documented as of this encounter Procedures Procedure Name Priority Date/Time Associated Diagnosis Comments DX CHEST AP OR PA AND LATERAL 2 VIEWS RAD - Semiurgent (Fast; most ED patients; some inpatients) 04/24/2024 4:06 PM LOAN ADVISER Cough Unspecified Type documented in this encounter Results * DX Chest AP or PA and Lateral 2 Views (04/24/2024 4:06 PM LOAN ADVISER) Anatomical Region Laterality Modality Chest, Thoracic RST LOS, Tho racic ARZ LOS, Thoracic FLA LOS N/A Digital Radiography Impressions 04/24/2024 4:08 PM LOAN ADVISER New large pleural effusion in the RIGHT lower lobe. Narrative 04/24/2024 4:08 PM LOAN ADVISER EXAM: DX CHEST AP OR PA AND [...] Pneumonia documented in this encounter Care Teams Technical Solutions Consultant Relationship Specialty Start Date End Date Elsewhere, Pcp PCP - General Internal Medicine 04/24/24 documented as of this encounter
--- OUTSIDE RECORDS SUMMARY | 2024-05-16 14:18 | XMS_ITS | Encounter Summary ---
Author Organization [facility] Address [address] [place] [address] Care Team Providers Care Shrimp Peeler Name Role Phone Elsewhere, Pcp Primary Care Provider Unavailabl e Encounter Details Date Type Department Care Team (Latest Contact Info) Description 05/03/2024 Intake [facility] Social History Tobacco Use Types Packs/Day Years Used Date Smoking Tobacco: Every Day Cigarettes Passive Smoke Exposure: Current Smokeless Tobacco: Never Alcohol Use Standard Drinks/Week Comments Yes 0 (1 standard drink = 0.6 oz pur e alcohol) [facility] Utilities Answer Date Recorded In the past 12 months has e Leveler, gas, oil, or water [employer] ([employer] threatened to shut off services in your [...] your living situation today? I have a [facility] place to live 05/04/2024 Comments No Sex and Gender Information Value Date Recorded Sex Assigned at Not on file Legal Sex Female 2:38 PM SEATING AND MOBILITY TECHNOLOGIST Gender Identity Not on file Sexual Orientation Not on file documented as of this encounter Functional Status * Intimate Partner Violence Question Answer Date of Assessment Author Within the last year, have y ou been humiliated or emotionally abused in other ways by your partner or ex-partner? No 05/04/2024 7:56 AM SEATING AND MOBILITY TECHNOLOGIST Larissa Calderon R.N. Within the last year, have y ou been afraid of your partner or ex-partner? No 05/04/2024 7:56 AM SEATING AND MOBILITY TECHNOLOGIST Larissa Calderon R.N. Within the last year, have y ou been raped or forced to have any kind of sexual activity by your partner or ex-partner? No 05/04/2024 7:56 AM SEATING AND MOBILITY TECHNOLOGIST Larissa Calderon R.N. Within the last year, have y ou been kicked, hit, slapped, or otherwise physically hurt by your partner or ex-partner? No 05/04/2024 7:56 AM SEATING AND MOBILITY TECHNOLOGIST Larissa Calderon R.N. documented as of this encounter Plan of Treatment Not on file documented as of this encounter Visit Diagnoses Not on filedocumented in this encounter Additional Health Concerns Infection Onset Date Last Indicated Resolved Time COVID19 Pending 05/03/2024 05/03/2024 05/03/2024 1 :43 PM SEATING AND MOBILITY TECHNOLOGIST documented as of this encounter Care Teams Shrimp Peeler Relationship Specialty Start Date End Date Elsewhere, Pcp PCP - General Internal Medicine 04/24/24 documented as of this encounter
--- OUTSIDE RECORDS SUMMARY | 2024-05-16 14:19 | XMS_ITS | Encounter Summary ---
Author Organization [facility] Address [address] [place] [address] Care Team Providers Care [employer] Name Role Phone Elsewhere, Pcp Primary Care Provider Unavailabl e Reason for Visit * Auth/Cert (Routine) Specialty Diagnoses / Procedures Referred By Contebenezer t Referred To Contact Diagnoses Acute Respiratory Failure With Hypoxia (HCC) shortness of breath Procedures INPT Referral ID Status Reason Start Date Expiration Date Visits Re quested Visits Authorized [id number] 1 1 Encounter Details Date Type Department Care Team (Latest Contact Info) Description 05/04/2024 7:25 AM PRODUCTION SUPPORT MANAGER - 05/07/2024 5:42 PM PRODUCTION SUPPORT MANAGER Hospital Encounter [facility], Fifth Floor [address] [phone] Zane Chinchilla M.D. [address] [place], [place] [address] Ariana Jeffries APRN, C.N.P., M.S.N. [address] [place], [place] [phone] Hakan Iniguez APRN, C.N.P., D.N.P. [address] [place] [address] Adia Geiger M.D. [address] [place] [phone] Sergo Ambrocio M.D. [address] [place] [phone] Miguelina Harmon M.B., Arpita Madrigal. [address] [facility] [place] [address] Discharge Disposition: Home or Self Care Social History Tobacco Use Types Packs/Day Years Used Date Smoking Tobacco: Every Day Cigarettes Passive Smoke Exposure: Current Smokeless Tobacco: Never Alcohol Use Standard Drinks/Week Comments Yes 0 (1 standard drink = 0.6 oz pur e alcohol) [facility] Utilities Answer Date Recorded In the past 12 months has e [employer], gas, oil, or water [employer] threatened to shut off services in your [...] your living situation today? I have a [facility] place to live 05/04/2024 Comments No Sex and Gender Information Value Date Recorded Sex Assigned at Not on file Legal Sex Female 2:38 PM PRODUCTION SUPPORT MANAGER Gender Identity Not on file Sexual Orientation Not on file documented as of this encounter Last Filed Vital Signs Vital Sign Reading Time Taken Comments Blood Pressure 121/76 05/07/2024 2:11 PM PRODUCTION SUPPORT MANAGER Pulse 69 05/07/2024 2:11 PM PRODUCTION SUPPORT MANAGER Temperature 36.7 C (98.1 F) 05/07/2024 2:11 PM PRODUCTION SUPPORT MANAGER Respiratory Rate 23 05/07/2024 2:11 PM PRODUCTION SUPPORT MANAGER Oxygen Saturation 92% 05/07/2024 2:11 PM PRODUCTION SUPPORT MANAGER Inhaled Oxygen Concentration - - Weight 71.5 kg (157 lb 10.1 oz) 05/07/2024 6:00 AM PRODUCTION SUPPORT MANAGER Height 171 cm (5' 7.32) 05/04/2024 7:26 AM PRODUCTION SUPPORT MANAGER Body Mass Index 24.45 05/04/2024 7:26 AM PRODUCTION SUPPORT MANAGER documented in this encounter Functional Status * Intimate Partner Violence Question Answer Date of Assessment Author Within the last year, have y ou been humiliated or emotionally abused in other ways by your partner or ex-partner? No 05/04/2024 7:56 AM PRODUCTION SUPPORT MANAGER Larissa Calderon R.N. Within the last year, have y ou been afraid of your partner or ex-partner? No 05/04/2024 7:56 AM PRODUCTION SUPPORT MANAGER Larissa Calderon R.N. Within the last year, have y ou been raped or forced to have any kind of sexual activity by your partner or ex-partner? No 05/04/2024 7:56 AM PRODUCTION SUPPORT MANAGER Larissa Calderon R.N. Within the last year, have y ou been kicked, hit, slapped, or otherwise physically hurt by your partner or ex-partner? No 05/04/2024 7:56 AM PRODUCTION SUPPORT MANAGER Larissa Calderon RKennN. documented as of this encounter Discharge Summaries * Miguelina Harmon M.B., Jesus Madrigal - 05/07/2024 4:09 PM CST DISCHARGE SUMMARY BRIEF OVERVIEW Discharge Hospital: Hospital: [facility] Discharge Provider: Miguelina Harmon M.B., Jesus Madrigal Primary Care Providers: Elsewhere, Pcp (General) No address on file Discharge Provider Team: [facility] Medicine ([facility]) [facility] Primary Care Provider Phone Number: None Primary [...] UP Scheduled Appointments 05/07/2024 4:10 PM DX [facility] 04 Radiology For appointment details refer to your Patient Appointment Guide. TEST RESULTS PENDING AT DISCHARGE Pending Labs Order Current Status Cytology Non-SOD STRIPPER In process Cytology Non-SOD STRIPPER In process Bacterial Culture, Aerobic + Susceptibility Preliminary result Bacterial Culture, Aerobic + Susceptibility Preliminary result Bacterial Culture, Anaerobic + Susceptibility Preliminary result Bacterial Culture, Anaerobic + Susceptibility Preliminary result DETAILS OF HOSPITAL STAY REASON FOR ADMISSION Acute Respiratory Failure With Hypoxia (HCC) HOSPITAL COURSE Smiley eHrnández is a pleasant 63 y.o. female with underlying comorbid medical conditions of breast cancer (SP resection, radiation and chemo 2008), tobacco abuse, hypertension, and hyperlipidemiawho presents to the [place] emergency department on 05/03/2024 with the abdominal [...] seen. Patient to be transferred to [facility] for hypoxia and further management of large pleural effusion including thoracentesis. status post thoracentesis with 1.2 L of clear straw-colored y ellow fluid drained on 05/04. status post paracentesis with 600 mL clear straw- colored fluid drained.CEA significantly elevated (8527). Patient does not live in [place]. She communicated with her PCP,she then provided [...] evaluated Smiley Hernández today and provided counseling [id number] at bedside. I personally spent a total of greater than 30 minutes in counseling and coordination of care as described above to facilitate the hospital discharge. Discharge instructions were provided to the patient and caregiver(s). UCTION SUPPORT MANAGER documented in this encounter Medications at Time [...] panel negative. # Hypertension Controlled. - continue STOCKROOM SELECTOR dosing of amlodipine, lisinopril, and metoprolol. # Hyperlipidemia - continue STOCKROOM SELECTOR dosing of rosuvastatin # vaginal itching Vaginal [...] Oncology recs Total time spent 35 minutes UCTION SUPPORT MANAGER * Adia Geiger M.D. - 05/05/2024 8:17 [...] panel negative. # Hypertension Controlled. - continue STOCKROOM SELECTOR dosing of amlodipine, lisinopril, and metoprolol. # Hyperlipidemia - continue STOCKROOM SELECTOR dosing of rosuvastatin # vaginal itching Vaginal [...] 2,000 mg Na starting at 05/04 1142 Benvaidez Catheter Present?: No. Code status: Full Code # Anticipated discharge and Disposition: Pending further workup, clinical improvement. Total time spent 50 minutes UCTION SUPPORT MANAGER documented in this encounter H&P Notes * [...] abuse, hypertension, and hyperlipidemiawho presents to the [place] emergency department on 05/03/2024 with the abdominal [...] seen. Patient to be transferred to [facility] for hypoxia and further managementof large [...] Alcohol use: Yes Lives with boyfriend in [place]. She has 4 adult children. OBJECTIVE VITAL [...] effusion and ascites. She is hospitalized on [facility] for evaluation and management of: Acute Respiratory [...] - follow-up with Oncology outpatient - continue STOCKROOM SELECTOR dosing of albuterol - continue STOCKROOM SELECTOR dosing of Tessalon Perles - Tylenol or [...] than 110. # Hypertension Controlled. - continue STOCKROOM SELECTOR dosing of amlodipine, lisinopril, and metoprolol. - monitor blood pressures q.4 hours and consider albumin replacement infusion if begins to drop # Hyperlipidemia - continue STOCKROOM SELECTOR dosing of rosuvastatin # Acute Candidiasis Of [...] Known Problems Daughter No Known Problems Daughter UCTION SUPPORT MANAGER documented in this encounter Consult Notes * Tegan eWaver M.D. - 05/05/2024 11:48 AM CSTAssociated Order(s): IP CONSULT TO ONCOLOGY [facility] ONCOLOGY Plan of care note [facility] Provider Tegan Weaver REASON FOR REFERRAL Medical Oncology Consultation patient with omental thickening, findings of peritoneal carcinomatosis, pleural effusion REFERRING PROVIDER: Ilda Martinez M.D., M.B.A. [address] [place] [phone] Oncology History/HPI -[place] a lump in right breast in August 2008. - Mammography at [facility]: 2 lobulated masses in upper outer quadrant. Biopsy: G3 IDC, ER neg, MI neg - Larger lesion was HER2 positive by FISH. Smaller lesion was HER2 negative by FISH -Preop breast MRI was performed prior. Pathology demonstrated 2 foci of invasive carcinoma. One of the tumors was a 2.8 cm grade 3 infiltrating ductal carcinoma, ER/MI and Her2 amplified based on FISH ratio of 2.56. The second tumor was a grade 3 infiltrating ductal carcinoma, ER/MI and Her2 negative. 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 Aspen lymph node biopsy was performed and a total of 3 lymph nodes were identified and were benign. -10/24/2008 Met with Medical Oncology: recommendation given to meet with Genetic Counselor for germline testing but I did not see any results of testing -Right breast s/p lumpectomy 11-14-08 demonstrating 2.8 cm grade 3 infiltrating ductal carcinoma ER/MI negative, Her2 amplified and separate tumor measuring 1.5 cm grade 3 infiltrating ductal carcinoma, triple negative. No lymph node involvement. -Enrolled in ALTTO trial and received AC followed by Paclitaxel. Also received Trastuzumab with lapatinib in the adjuvant setting - at [facility]. -05/03/2024 presents to [facility] with abdominal bloating and dyspnea and mild [...] Ketone Negative Bilirubin Negative pH 5.5 Specific Dickinson 1.010 Urobilinogen 0.2 LD (Lactate Dehydrogenase) Collection [...] as well. Tegan Weaver M.D. 12:04 PM PRODUCTION SUPPORT MANAGER 05/05/24 ADMINISTRATIVE BILLING I personally spent 25 [...] Alcohol use: Yes Drug use: Not Currently UCTION SUPPORT MANAGER documented in this encounter Nursing Notes * [...] removed. All belongings sent home with patient. UCTION SUPPORT MANAGER * Vicenta Pinon R.N. - 05/07/2024 1:49 [...] at 3 pm, possible d/c this evening UCTION SUPPORT MANAGER * Debi Meneses R.N. - 05/07/2024 5:07 [...] pending. Slept fairly well during the night. UCTION SUPPORT MANAGER * Vicenta Pinon R.N. - 05/06/2024 4:05 [...] UPCOMING PLAN OF CARE: Pending cytology labs UCTION SUPPORT MANAGER UCTION SUPPORT MANAGER * Miri Tidwell R.N. - 05/06/2024 5:08 [...] THIS SHIFT: None DVT PROPHYLAXIS: Lovenox injections CHG/BENVAIDEZ CARE NEEDS: None needed SHIFT EVENTS: No acute events this shift. Patient slept well through the night. Patient care assumed at 2300. Patient remained on 2L overnight to maintain O2 SATS. UPCOMING PLAN OF CARE: Cultures pending. Continue plan of care. UCTION SUPPORT MANAGER * Zeus Alcocer R.N. - 05/05/2024 9:56 [...] - Awaiting results of culture from fluids. UCTION SUPPORT MANAGER * Dee Dee Mcghee M.S.N. R.NKenn - [...] Absence of infection during hospitalization Outcome: Progressing UCTION SUPPORT MANAGER * Brenna Lubin R.N. - 05/05/2024 6:16 AM CST Shift Goals: Monitor oxygen titration, patient safety, thoracentesis and paracentesis sites and rest. Identify possible barriers to meeting goals/advancing plan of care: None End of Shift Summary: Patient continued on 2L NC. Thoracentesis and paracentesis sites remained CDI. Patient had no c/o pain, up IND in room. Patient rested comfortably throughout shift. VSS. UCTION SUPPORT MANAGER * Larissa Calderon R.N. - 05/04/2024 1:51 [...] Raheel, visiting most of day. Very pleasant. UCTION SUPPORT MANAGER documented in this encounter Plan of Treatment Not on file documented as of this encounter Procedures Procedure Name Priority Date/Time Associated Diagnosis Comments DX CHEST 1 VIEW RAD - Routine (most inpatients and all outpatients) 05/07/2024 4:22 PM PRODUCTION SUPPORT MANAGER US THORACENTESIS RIGHT WITH IMAGING GUIDANCE RAD - Routine (most inpatients and all outpatients) 05/07/2024 3:41 PM PRODUCTION SUPPORT MANAGER DX CHEST 1 VIEW RAD - Routine (most inpatients and all outpatients) 05/07/2024 10:12 AM PRODUCTION SUPPORT MANAGER CBC WITHOUT DIFFERENTIAL, B Routine 05/07/2024 6:43 AM PRODUCTION SUPPORT MANAGER BASIC METABOLIC PANEL, S/P Routine 05/07/2024 6:43 AM PRODUCTION SUPPORT MANAGER ADULT OXYGEN THERAPY Routine 05/06/2024 8:01 AM PRODUCTION SUPPORT MANAGER PULSE OXIMETRY, CONTINUOUS Routine 05/06/2024 8:01 AM PRODUCTION SUPPORT MANAGER CBC WITH DIFFERENTIAL, B Routine 05/06/2024 7:00 AM PRODUCTION SUPPORT MANAGER BASIC METABOLIC PANEL, S/P Routine 05/06/2024 7:00 AM PRODUCTION SUPPORT MANAGER ADULT OXYGEN THERAPY Routine 05/05/2024 8:00 PM PRODUCTION SUPPORT MANAGER PULSE OXIMETRY, CONTINUOUS Routine 05/05/2024 8:00 PM PRODUCTION SUPPORT MANAGER ADULT OXYGEN THERAPY Routine 05/05/2024 8:01 AM PRODUCTION SUPPORT MANAGER PULSE OXIMETRY, CONTINUOUS Routine 05/05/2024 8:01 AM PRODUCTION SUPPORT MANAGER CBC WITH DIFFERENTIAL, B Routine 05/05/2024 7:25 AM PRODUCTION SUPPORT MANAGER BASIC METABOLIC PANEL, S/P Routine 05/05/2024 7:25 AM PRODUCTION SUPPORT MANAGER ADULT OXYGEN THERAPY Routine 05/04/2024 8:01 PM PRODUCTION SUPPORT MANAGER PULSE OXIMETRY, CONTINUOUS Routine 05/04/2024 8:01 PM PRODUCTION SUPPORT MANAGER PH BLOOD GAS Routine 05/04/2024 6:15 PM PRODUCTION SUPPORT MANAGER CANCER AG 125 (CA 125), S Routine 05/04/2024 6:15 PM PRODUCTION SUPPORT MANAGER LACTATE DEHYDROGENASE (LD), S Routine 05/04/2024 6:15 PM PRODUCTION SUPPORT MANAGER CALCIUM, IONIZED, S/B Routine 05/04/2024 6:15 PM PRODUCTION SUPPORT MANAGER URINALYSIS WITH MICROSCOPIC IF INDICATED, U Routine 05/04/2024 5:59 PM PRODUCTION SUPPORT MANAGER CYTOLOGY NON-SOD STRIPPER Timed 05/04/2024 12:0 6 PM PRODUCTION SUPPORT MANAGER CYTOLOGY NON-SOD STRIPPER Timed 05/04/2024 11:5 4 AM PRODUCTION SUPPORT MANAGER US PARACENTESIS WITH IMAGING GUIDANCE RAD - Routine (most inpatients and all outpatients) 05/04/2024 11:35 AM PRODUCTION SUPPORT MANAGER US THORACENTESIS RIGHT WITH IMAGING GUIDANCE RAD - Routine (most inpatients and all outpatients) 05/04/2024 11:30 AM PRODUCTION SUPPORT MANAGER CBC WITH DIFFERENTIAL, B Routine 05/04/2024 11:30 AM PRODUCTION SUPPORT MANAGER MAGNESIUM, S Routine 05/04/2024 11:30 AM PRODUCTION SUPPORT MANAGER BASIC METABOLIC PANEL, S/P Routine 05/04/2024 11:30 AM PRODUCTION SUPPORT MANAGER ECG Routine 05/04/2024 11:23 AM PRODUCTION SUPPORT MANAGER GLUCOSE, BODY FLUID Routine 05/04/2024 1 1:23 AM PRODUCTION SUPPORT MANAGER HEPATIC FUNCTION PANEL, S Routine 05/04/2024 11:11 AM PRODUCTION SUPPORT MANAGER PROTEIN, TOTAL, BF Routine 05/04/2024 10 :50 AM PRODUCTION SUPPORT MANAGER BACTERIAL CULTURE, AEROBIC + SUSC Timed 05/04/2024 10:50 AM PRODUCTION SUPPORT MANAGER CELL COUNT AND DIFFERENTIAL, BF Timed 05/04/2024 10:50 AM PRODUCTION SUPPORT MANAGER GRAM STAIN Timed 05/04/2024 10:50 AM PRODUCTION SUPPORT MANAGER BACTERIAL CULTURE, ANAEROBIC + SUSC Timed 05/04/2024 10:50 AM PRODUCTION SUPPORT MANAGER ALBUMIN, BODY FLUID Routine 05/04/2024 1 0:50 AM PRODUCTION SUPPORT MANAGER PROTEIN, TOTAL, BF Timed 05/04/2024 10 :30 AM PRODUCTION SUPPORT MANAGER BACTERIAL CULTURE, AEROBIC + SUSC Timed 05/04/2024 10:30 AM PRODUCTION SUPPORT MANAGER CELL COUNT AND DIFFERENTIAL, BF Timed 05/04/2024 10:30 AM PRODUCTION SUPPORT MANAGER PH, PLEURAL FLUID Timed 05/04/2024 10: 30 AM PRODUCTION SUPPORT MANAGER GRAM STAIN Timed 05/04/2024 10:30 AM PRODUCTION SUPPORT MANAGER BACTERIAL CULTURE, ANAEROBIC + SUSC Timed 05/04/2024 10:30 AM PRODUCTION SUPPORT MANAGER LACTATE DEHYDROGENASE (LD), BF Timed 05/04/2024 10:30 AM PRODUCTION SUPPORT MANAGER PULSE OXIMETRY, CONTINUOUS Routine 05/04/2024 9:39 AM PRODUCTION SUPPORT MANAGER PULSE OXIMETRY, CONTINUOUS Routine 05/04/2024 9:39 AM PRODUCTION SUPPORT MANAGER PULSE OXIMETRY, CONTINUOUS Routine 05/04/2024 9:37 AM PRODUCTION SUPPORT MANAGER ADULT OXYGEN THERAPY Routine 05/04/2024 9:37 AM PRODUCTION SUPPORT MANAGER ADULT OXYGEN THERAPY Routine 05/04/2024 9:37 AM PRODUCTION SUPPORT MANAGER ADULT OXYGEN THERAPY Routine 05/04/2024 9:37 AM PRODUCTION SUPPORT MANAGER documented in this encounter Results * DX Chest 1 View (05/07/2024 4:22 PM PRODUCTION SUPPORT MANAGER) Anatomical Region Laterality Modality Chest, Thoracic RST LOS, Tho racic ARZ LOS, Thoracic FLA LOS N/A Digital Radiography Impressions 05/07/2024 4:26 PM PRODUCTION SUPPORT MANAGER Decreased pleural effusion and no pneumothorax following right-sided thoracentesis Narrative 05/07/2024 4:26 PM PRODUCTION SUPPORT MANAGER EXAM: DX CHEST 1 VIEW COMPARISON: Chest [...] Right with Imaging Guidance (05/07/2024 3:41 PM PRODUCTION SUPPORT MANAGER) Anatomical Region Laterality Modality Chest, Ultrasound RST LOS, U ltrasound ARZ LOS, Procedure FLA LOS, Abdominal FLA LOS, Procedural, Procedural NWWI LOS Right Ultrasound Impressions 05/07/2024 4:18 PM PRODUCTION SUPPORT MANAGER Successful ultrasound guided thoracentesis. Narrative 05/07/2024 4:18 PM PRODUCTION SUPPORT MANAGER EXAM: US THORACENTESIS RIGHT WITH IMAGING GUIDANCE [...] medications. Patient education provided by the care outreach team member. Ready to learn, no apparent learning barriers [...] medications. Patient education provided by the care outreach team member. Ready tolearn, no apparent learning barriers were identified. Post-procedure careexplained; patient expressed understanding of the content. IMPRESSION: Successful ultrasound guided thoracentesis. us Miguelina Acharya, Jesus Madrigal [facility] US ADITI DENISE Final Result * DX Chest 1 View (05/07/2024 10:12 AM PRODUCTION SUPPORT MANAGER) Anatomical Region Laterality Modality Chest, Thoracic RST LOS, Tho racic ARZ LOS, Thoracic FLA LOS N/A Digital Radiography Impressions 05/07/2024 10:22 AM PRODUCTION SUPPORT MANAGER Enlarging RIGHT pleural effusion since April 24. Narrative 05/07/2024 10:22 AM PRODUCTION SUPPORT MANAGER EXAM: DX CHEST 1 VIEW COMPARISON: Chest [...] * Basic Metabolic Panel (05/07/2024 6:43 AM PRODUCTION SUPPORT MANAGER) Pathologist [facility] Potassium, P 4.2 3.6 - 5.2 mmol/L 05/07/2024 7:34 AM PRODUCTION SUPPORT MANAGER MKTO Sodium, P 140 135 - 145 mmol/L 05/07/2024 7:34 AM PRODUCTION SUPPORT MANAGER MKTO Chloride, P 105 98 - 107 mmol/L 05/07/2024 7:34 AM PRODUCTION SUPPORT MANAGER MKTO Bicarbonate, P 27 22 - 29 mmol/L 05/07/2024 7:34 AM PRODUCTION SUPPORT MANAGER MKTO Anion Gap, P 8 7 - 15 05/07/2024 7:34 AM PRODUCTION SUPPORT MANAGER MKTO BUN (Blood Urea Nitrogen), P 9 6 - 21 mg/dL 05/07/2024 7:34 AM PRODUCTION SUPPORT MANAGER MKTO Creatinine 0.69 0.59 - 1.04 mg/dL 05/07/2024 7:34 AM PRODUCTION SUPPORT MANAGER MKTO Estimated GFR (eGFR) >90 >=60 mL/min/BSA 05/07/2024 7:34 AM PRODUCTION SUPPORT MANAGER MKTO Comment: Estimated GFR calculated using the 2020 CKD_EPI creatinine equation. Calcium, Total, P 8.8 8.8 - 10.2 mg/dL 05/07/2024 7:34 AM PRODUCTION SUPPORT MANAGER MKTO Glucose, P 88 70 - 140 mg/dL 05/07/2024 7:34 AM PRODUCTION SUPPORT MANAGER MKTO Blood (Blood, Venous) 05/07/2024 6:43 AM PRODUCTION SUPPORT MANAGER 05/07/2024 6:52 AM PRODUCTION SUPPORT MANAGER us Sergo Ambrocio M.D. LAB BLOOD ADD-ON Final Resu lt [facility] [address] [place] [address], [facility] MKTO [address] [address] * CBC without Differential (05/07/2024 6:43 AM PRODUCTION SUPPORT MANAGER) Hemoglobin 12.0 11.6 - 15.0 g/dL 05/07/2024 6:54 AM PRODUCTION SUPPORT MANAGER MKTO Hematocrit 38.0 35.5 - 44.9 % 05/07/2024 6:54 AM PRODUCTION SUPPORT MANAGER MKTO Erythrocytes 4.25 3.92 - 5.13 x10(12)/L 05/07/2024 6:54 AM PRODUCTION SUPPORT MANAGER MKTO MCV 89.4 78.2 - 97.9 fL 05/07/2024 6:54 AM PRODUCTION SUPPORT MANAGER MKTO RBC Distrib Width 13.0 12.2 - 16.1 % 05/07/2024 6:54 AM PRODUCTION SUPPORT MANAGER MKTO Platelet Count 340 157 - 371 x10(9)/L 05/07/2024 6:54 AM PRODUCTION SUPPORT MANAGER MKTO Leukocytes 5.3 3.4 - 9.6 x10(9)/L 05/07/2024 6:54 AM PRODUCTION SUPPORT MANAGER MKTO Blood (Blood, Venous) 05/07/2024 6:43 AM PRODUCTION SUPPORT MANAGER 05/07/2024 6:52 AM PRODUCTION SUPPORT MANAGER us Sergo Ambrocio M.D. LAB BLOOD ADD-ON Final Resu lt [facility] [address] [place] [address], [address] [address] * (ABNORMAL) Basic Metabolic Panel (05/06/2024 7:00 AM PRODUCTION SUPPORT MANAGER) Potassium, P 4.0 3.6 - 5.2 mmol/L 05/06/2024 8:19 AM PRODUCTION SUPPORT MANAGER MKTO Sodium, P 140 135 - 145 mmol/L 05/06/2024 8:19 AM PRODUCTION SUPPORT MANAGER MKTO Chloride, P 105 98 - 107 mmol/L 05/06/2024 8:19 AM PRODUCTION SUPPORT MANAGER MKTO Bicarbonate, P 29 22 - 29 mmol/L 05/06/2024 8:19 AM PRODUCTION SUPPORT MANAGER MKTO Anion Gap, P 6(L) 7 - 15 05/06/2024 8:19 AM PRODUCTION SUPPORT MANAGER MKTO BUN (Blood Urea Nitrogen), P 8 6 - 21 mg/dL 05/06/2024 8:19 AM PRODUCTION SUPPORT MANAGER MKTO Creatinine 0.67 0.59 - 1.04 mg/dL 05/06/2024 8:19 AM PRODUCTION SUPPORT MANAGER MKTO Estimated GFR (eGFR) >90 >=60 mL/min/BSA 05/06/2024 8:19 AM PRODUCTION SUPPORT MANAGER MKTO Comment: Estimated GFR calculated using the 2020 CKD_EPI creatinine equation. Calcium, Total, P 8.5(L) 8.8 - 10.2 mg/dL 05/06/2024 8:19 AM PRODUCTION SUPPORT MANAGER MKTO Glucose, P 91 70 - 140 mg/dL 05/06/2024 8:19 AM PRODUCTION SUPPORT MANAGER MKTO Blood (Blood, Venous) 05/06/2024 7:00 AM PRODUCTION SUPPORT MANAGER 05/06/2024 7:35 AM PRODUCTION SUPPORT MANAGER us Adia Geiger M.D. LAB BLOOD ADD-ON Final Result [facility] [address] [place] [address], [facility] MKTO [place] [address] * (ABNORMAL) CBC with Differential, Blood (05/06/2024 7:00 AM PRODUCTION SUPPORT MANAGER) Hemoglobin 11.4(L) 11.6 - 15.0 g/dL 05/06/2024 7:39 AM PRODUCTION SUPPORT MANAGER MKTO Hematocrit 36.1 35.5 - 44.9 % 05/06/2024 7:39 AM PRODUCTION SUPPORT MANAGER MKTO Erythrocytes 4.02 3.92 - 5.13 x10(12)/L 05/06/2024 7:39 AM PRODUCTION SUPPORT MANAGER MKTO MCV 89.8 78.2 - 97.9 fL 05/06/2024 7:39 AM PRODUCTION SUPPORT MANAGER MKTO RBC Distrib Width 13.0 12.2 - 16.1 % 05/06/2024 7:39 AM PRODUCTION SUPPORT MANAGER MKTO Platelet Count 315 157 - 371 x10(9)/L 05/06/2024 7:39 AM PRODUCTION SUPPORT MANAGER MKTO Leukocytes 5.0 3.4 - 9.6 x10(9)/L 05/06/2024 7:39 AM PRODUCTION SUPPORT MANAGER MKTO Neutrophils 3.52 1.56 - 6.45 x10(9)/L 05/06/2024 7:39 AM PRODUCTION SUPPORT MANAGER MKTO Lymphocytes 0.83(L) 0.95 - 3.07 x10(9)/L 05/06/2024 7:39 AM PRODUCTION SUPPORT MANAGER MKTO Monocytes 0.50 0.26 - 0.81 x10(9)/L 05/06/2024 7:39 AM PRODUCTION SUPPORT MANAGER MKTO Eosinophils 0.10 0.03 - 0.48 x10(9)/L 05/06/2024 7:39 AM PRODUCTION SUPPORT MANAGER MKTO Basophils <0.03 0.01 - 0.08 x10(9)/L 05/06/2024 7:39 AM PRODUCTION SUPPORT MANAGER MKTO Blood (Blood, Venous) 05/06/2024 7:00 AM PRODUCTION SUPPORT MANAGER 05/06/2024 7:35 AM PRODUCTION SUPPORT MANAGER us Adia Geiger M.D. LAB BLOOD ADD-ON Final Result [facility] [address] [place] [address], [facility] [place] [address] * (ABNORMAL) CBC with Differential, Blood (05/05/2024 7:25 AM PRODUCTION SUPPORT MANAGER) Pathologist [facility] Hemoglobin 12.1 11.6 - 15.0 g/dL 05/05/2024 8:00 AM PRODUCTION SUPPORT MANAGER MKTO Hematocrit 38.4 35.5 - 44.9 % 05/05/2024 8:00 AM PRODUCTION SUPPORT MANAGER MKTO Erythrocytes 4.29 3.92 - 5.13 x10(12)/L 05/05/2024 8:00 AM PRODUCTION SUPPORT MANAGER MKTO MCV 89.5 78.2 - 97.9 fL 05/05/2024 8:00 AM PRODUCTION SUPPORT MANAGER MKTO RBC Distrib Width 13.0 12.2 - 16.1 % 05/05/2024 8:00 AM PRODUCTION SUPPORT MANAGER MKTO Platelet Count 344 157 - 371 x10(9)/L 05/05/2024 8:00 AM PRODUCTION SUPPORT MANAGER MKTO Leukocytes 5.5 3.4 - 9.6 x10(9)/L 05/05/2024 8:00 AM PRODUCTION SUPPORT MANAGER MKTO Neutrophils 4.12 1.56 - 6.45 x10(9)/L 05/05/2024 8:00 AM PRODUCTION SUPPORT MANAGER MKTO Lymphocytes 0.81(L) 0.95 - 3.07 x10(9)/L 05/05/2024 8:00 AM PRODUCTION SUPPORT MANAGER MKTO Monocytes 0.45 0.26 - 0.81 x10(9)/L 05/05/2024 8:00 AM PRODUCTION SUPPORT MANAGER MKTO Eosinophils 0.05 0.03 - 0.48 x10(9)/L 05/05/2024 8:00 AM PRODUCTION SUPPORT MANAGER MKTO Basophils 0.03 0.01 - 0.08 x10(9)/L 05/05/2024 8:00 AM PRODUCTION SUPPORT MANAGER MKTO Blood (Blood, Venous) 05/05/2024 7:25 AM PRODUCTION SUPPORT MANAGER 05/05/2024 7:57 AM PRODUCTION SUPPORT MANAGER us Hakan Iniguez APRN, C.N.P., D.N.P. LAB BLOOD ADD -ON Final Result [facility] [address] [place] [address], [facility] MKTO [facility] [address] * (ABNORMAL) Basic Metabolic Panel (05/05/2024 7:25 AM PRODUCTION SUPPORT MANAGER) Pathologist [facility] Potassium, P 3.9 3.6 - 5.2 mmol/L 05/05/2024 8:19 AM PRODUCTION SUPPORT MANAGER MKTO Sodium, P 138 135 - 145 mmol/L 05/05/2024 8:19 AM PRODUCTION SUPPORT MANAGER MKTO Chloride, P 103 98 - 107 mmol/L 05/05/2024 8:19 AM PRODUCTION SUPPORT MANAGER MKTO Bicarbonate, P 27 22 - 29 mmol/L 05/05/2024 8:19 AM PRODUCTION SUPPORT MANAGER MKTO Anion Gap, P 8 7 - 15 05/05/2024 8:19 AM PRODUCTION SUPPORT MANAGER MKTO BUN (Blood Urea Nitrogen), P 8 6 - 21 mg/dL 05/05/2024 8:19 AM PRODUCTION SUPPORT MANAGER MKTO Creatinine 0.75 0.59 - 1.04 mg/dL 05/05/2024 8:19 AM PRODUCTION SUPPORT MANAGER MKTO Estimated GFR (eGFR) 89 >=60 mL/min/BSA 05/05/2024 8:19 AM PRODUCTION SUPPORT MANAGER MKTO Comment: Estimated GFR calculated using the 2020 CKD_EPI creatinine equation. Calcium, Total, P 8.7(L) 8.8 - 10.2 mg/dL 05/05/2024 8:19 AM PRODUCTION SUPPORT MANAGER MKTO Glucose, P 147(H) 70 - 140 mg/dL 05/05/2024 8:19 AM PRODUCTION SUPPORT MANAGER MKTO Blood (Blood, Venous) 05/05/2024 7:25 AM PRODUCTION SUPPORT MANAGER 05/05/2024 7:57 AM PRODUCTION SUPPORT MANAGER us Hakan Iniguez APRN, C.N.P., D.N.P. LAB BLOOD ADD -ON Final Result Performing Organization Address City/[facility]/ZIP Co de Phone Number [facility] [address] [place] [address] * (ABNORMAL) Calcium, Ionized (05/04/2024 6:15 PM PRODUCTION SUPPORT MANAGER) Calcium, Ionized, B 4.56(L) 4.65 - 5.30 mg/dL 05/04/2024 6:23 PM PRODUCTION SUPPORT MANAGER MKTO Blood 05/04/2024 6:15 PM PRODUCTION SUPPORT MANAGER 05/04/2024 6:19 PM PRODUCTION SUPPORT MANAGER us Hakan Iniguez APRN, C.N.P., D.N.P. LAB BLOOD NON ADD-ON Final Result Performing Organization Address City/[facility]/ZIP Co de Phone Number [facility] [address] [place] [address] * pH (05/04/2024 6:15 PM PRODUCTION SUPPORT MANAGER) pH 7.38 7.35 - 7.45 pH 05/04/2024 6:23 PM PRODUCTION SUPPORT MANAGER [facility] Blood 05/04/2024 6:15 PM PRODUCTION SUPPORT MANAGER 05/04/2024 6:19 PM PRODUCTION SUPPORT MANAGER us Hakan Iniguez APRN, C.N.P., D.N.P. LAB HISTORICA L ORDERS Final Result [facility] [address] [place] [address] * (ABNORMAL) LD (Lactate Dehydrogenase) (05/04/2024 6:15 PM PRODUCTION SUPPORT MANAGER) Lactate Dehydrogenase (LD), P 285(H) 122 - 222 U/L 05/04/2024 6:42 PM PRODUCTION SUPPORT MANAGER MK Blood (Blood, Venous) 05/04/2024 6:15 PM PRODUCTION SUPPORT MANAGER 05/04/2024 6:20 PM PRODUCTION SUPPORT MANAGER us Hakan Iniguez APRN, C.N.P., D.N.P. LAB BLOOD NON ADD-ON Final Result Performing Organization Address City/[facility]/ZIP Co de Phone Number [facility] [address] [place] [address], [place] [address] * (ABNORMAL) Cancer Antigen 125 (CA 125) (05/04/2024 6:15 PM PRODUCTION SUPPORT MANAGER) Cancer Ag 125 (CA 125), S 8527(H) <46 U/mL 05/06/2024 6:47 AM PRODUCTION SUPPORT MANAGER AUST Comment: Biotin has been identified by the manufacturer representative as a potential interfering substance. Higher concentrations [...] disease. Blood (Blood, Venous) 05/04/2024 6:15 PM PRODUCTION SUPPORT MANAGER 05/05/2024 1:52 PM PRODUCTION SUPPORT MANAGER us Hakan Iniguez APRN, C.N.P., D.N.P. LAB BLOOD ADD -ON Final Result [facility] [address] [place] [address], [facility] - [facility] [address] [place] [address] * Urinalysis with Microscopic if Indicated: Urine, Midstream (05/04/2024 5:59 PM PRODUCTION SUPPORT MANAGER) Source Urine, Urine, Midstream 05/04/2024 6:08 PM PRODUCTION SUPPORT MANAGER MKTO Clarity Clear Clear 05/04/2024 6:08 PM PRODUCTION SUPPORT MANAGER MKTO Color Yellow 05/04/2024 6:08 PM PRODUCTION SUPPORT MANAGER MKTO Comment: ----REFERENCE VALUE---- Colorless Yellow Ginger Blood Negative Negative 05/04/2024 6:08 PM PRODUCTION SUPPORT MANAGER MKTO Nitrite Negative Negative 05/04/2024 6:08 PM PRODUCTION SUPPORT MANAGER MKTO Leukocyte Esterase Negative Negative 05/04/2024 6:08 PM PRODUCTION SUPPORT MANAGER MKTO Protein Negative mg/dL 05/04/2024 6:08 PM PRODUCTION SUPPORT MANAGER MKTO Comment: ----REFERENCE VALUE---- Negative Trace Glucose Negative Negative mg/dL 05/04/2024 6:08 PM PRODUCTION SUPPORT MANAGER MKTO Ketone Negative Negative mg/dL 05/04/2024 6:08 PM PRODUCTION SUPPORT MANAGER MKTO Bilirubin Negative Negative 05/04/2024 6:08 PM PRODUCTION SUPPORT MANAGER MKTO pH 5.5 5.0 - 8.0 05/04/2024 6:08 PM PRODUCTION SUPPORT MANAGER MKTO Specific Dickinson 1.010 1.001 - 1.035 05/04/2024 6:08 PM PRODUCTION SUPPORT MANAGER MKTO Urobilinogen 0.2 0.2 - 1.0 mg/dL 05/04/2024 6:08 PM PRODUCTION SUPPORT MANAGER MKTO Urine (Urine, Midstream) 05/04/2024 5:59 PM PRODUCTION SUPPORT MANAGER 05/04/2024 6:05 PM PRODUCTION SUPPORT MANAGER us Hakan Iniguez APRN, C.N.P., D.N.P. LAB URINE ORD ERABLES Final Result [facility] [address] [place] [address], [facility] MKTO [facility] [place] [address] [place] [address] * (ABNORMAL) Cytology Non-SOD STRIPPER (05/04/2024 12:06 PM PRODUCTION SUPPORT MANAGER) (A) 05/08/2024 9:38 AM PRODUCTION SUPPORT MANAGER HKCY Report electronically signed by Inocencio Ford MD I verify that I have examined all relevant slides/materials for the specimen(s) and rendered or confirmed the diagnosis. (A) 05/08/2024 9:38 AM PRODUCTION SUPPORT MANAGER HKCY Gross Description 1050 ml of cloudy reddish/yellow fluid received. 60 ml fixed with 50% ETOH at 7:15 am on 05-06-2024. 2 slides and cell block prepared. (A) 05/08/2024 9:38 AM PRODUCTION SUPPORT MANAGER HKCY Source A. Pleural, Right, fluid(A) 05/08/2024 9:38 AM PRODUCTION SUPPORT MANAGER HKCY Clinical History August 2008, right breast, grade 3, infiltrating ductal carcinoma, treated with chemotherapy. On 05/03/2024 with abdominal bloating and dyspnea and mild hypoxia. The CT scan showed diffuse omental or peritoneal thickening and moderate right pleural effusion. Presentation is not typical for recurrence of breast cancer. (A) 05/08/2024 9:38 AM PRODUCTION SUPPORT MANAGER HKCY Interpretation A. Pleural, Right, fluid (smears/cell [...] Acceptable control results. (A) 05/08/2024 9:38 AM PRODUCTION SUPPORT MANAGER HK[facility] Fluid (Pleural Fluid, Right) 05/04/2024 12:06 PM PRODUCTION SUPPORT MANAGER 05/06/2024 8:11 AM PRODUCTION SUPPORT MANAGER us Hakan Iniguez APRN, C.N.P., D.N.P. LAB SURG PATH ORDERABLES Final Result [facility] [address] [place] [address], [facility] HKCY [address] [address] * (ABNORMAL) Cytology Non-SOD STRIPPER (05/04/2024 11:54 AM PRODUCTION SUPPORT MANAGER) (A) 05/08/2024 9:38 AM PRODUCTION SUPPORT MANAGER HKCY Report electronically signed by Inocencio Ford MD I verify that I have examined all relevant slides/material s for the specimen(s) and rendered or confirmed the diagnosis. (A) 05/08/2024 9:38 AM PRODUCTION SUPPORT MANAGER HKCY Gross Description 600 ml of cloudy perez yellow fluid received. 60 ml fixed with 50% ETOH at 7:25 am on 05-06-2024. 2 slides and cell block prepared. (A) 05/08/2024 9:38 AM PRODUCTION SUPPORT MANAGER [facility] Source A. Peritoneal, fluid(A) 05/08/2024 9:38 AM PRODUCTION SUPPORT MANAGER [facility] Clinical History August 2008, right breast, grade 3, infiltrating ductal carcinoma, treated with chemotherapy. On 05/03/2024 with abdominal bloating and dyspnea and mild hypoxia. The CT scan showed diffuse omental or peritoneal thickening and moderate right pleural effusion. Presentation is not typical for recurrence of breast cancer. (A) 05/08/2024 9:38 AM PRODUCTION SUPPORT MANAGER HK[facility] Interpretation A. Peritoneal, fluid (smears/cell block): Positive for malignancy. High-grade serous carcinoma. (A) 05/08/2024 9:38 AM PRODUCTION SUPPORT MANAGER HKCY Fluid (Peritoneal Fluid) 05/04/2024 11:54 AM PRODUCTION SUPPORT MANAGER 05/06/2024 8:53 AM PRODUCTION SUPPORT MANAGER us Hakan Iniguez APRN, C.N.P., D.N.P. LAB SURG PATH ORDERABLES Final Result [facility] [address] [place] [address], [place] [facility] [address] [facility] [address] [place] [address] * US Paracentesis with Imaging Guidance (05/04/2024 11:35 AM PRODUCTION SUPPORT MANAGER) Anatomical Region Laterality Modality Abdomen, Ultrasound RST LOS, Ultrasound ARZ LOS, Procedure FLA LOS, Abdominal FLA LOS, Procedural, Procedural NWWI LOS N/A Ultrasound Impressions 05/04/2024 12:33 PM PRODUCTION SUPPORT MANAGER Successful ultrasound guided diagnostic and therapeutic paracentesis. Narrative 05/04/2024 12:33 PM PRODUCTION SUPPORT MANAGER EXAM: US PARACENTESIS WITH IMAGING GUIDANCE PROCEDURE: Sterile; 1% lidocaine for local anesthesia. Location: Right lower quadrant Needle size: 5 Fr [facility] Fluid Amount/Color: 600 mL of clear straw-colored [...] medications. Patient education provided by the care outreach team member. Ready to learn, no apparent learning barriers [...] medications. Patient education provided by the care outreach team member. Ready to learn, no apparent learningbarriers were identified. Post-procedure care explained; patient expressedunderstanding of the content. IMPRESSION: Successful ultrasound guided diagnostic and therapeutic paracentesis. us Hakan Iniguez APRN, C.N.P., D.N.P. IMG US PROCED URES Final Result * US Thoracentesis Right with Imaging Guidance (05/04/2024 11:30 AM PRODUCTION SUPPORT MANAGER) Anatomical Region Laterality Modality Chest, Ultrasound RST LOS, U ltrasound ARZ LOS, Procedure FLA LOS, Abdominal FLA LOS, Procedural, Procedural NWWI LOS Right Ultrasound Impressions 05/04/2024 12:32 PM PRODUCTION SUPPORT MANAGER Successful ultrasound guided diagnostic and therapeutic right thoracentesis. Narrative 05/04/2024 12:32 PM PRODUCTION SUPPORT MANAGER EXAM: US THORACENTESIS RIGHT WITH IMAGING GUIDANCE [...] medications. Patient education provided by the care outreach team member. Ready to learn, no apparent learning barriers were identified. Post-procedure care explained; patient expressed understanding of the content. Procedure Note Navid Roth M.D. - 05/04/2024 EXAM: US THORACENTESIS RIGHT WITH IMAGING GUIDANCE PROCEDURE: Sterile; 1% lidocaine for local anesthesia. Location: Right pleural space Needle size: 5 Fr [facility] Fluid Amount/Color: 1.2 L of clear straw-colored [...] medications. Patient education provided by the care outreach team member. Ready to learn, no apparent learningbarriers were identified. Post-procedure care explained; patient expressedunderstanding of the content. IMPRESSION: Successful ultrasound guided diagnostic and therapeutic rightthoracentesis. us Hakan Iniguez APRN, C.N.P., D.N.P. IMG US PROCED URES Final Result * (ABNORMAL) CBC with Differential, Blood (05/04/2024 11:30 AM PRODUCTION SUPPORT MANAGER) Hemoglobin 11.5(L) 11.6 - 15.0 g/dL 05/04/2024 11:45 AM PRODUCTION SUPPORT MANAGER MKTO Hematocrit 36.2 35.5 - 44.9 % 05/04/2024 11:45 AM PRODUCTION SUPPORT MANAGER MKTO Erythrocytes 4.06 3.92 - 5.13 x10(12)/L 05/04/2024 11:45 AM PRODUCTION SUPPORT MANAGER MKTO MCV 89.2 78.2 - 97.9 fL 05/04/2024 11:45 AM PRODUCTION SUPPORT MANAGER MKTO RBC Distrib Width 12.9 12.2 - 16.1 % 05/04/2024 11:45 AM PRODUCTION SUPPORT MANAGER MKTO Platelet Count 356 157 - 371 x10(9)/L 05/04/2024 11:45 AM PRODUCTION SUPPORT MANAGER MKTO Leukocytes 5.4 3.4 - 9.6 x10(9)/L 05/04/2024 11:45 AM PRODUCTION SUPPORT MANAGER MKTO Neutrophils 3.98 1.56 - 6.45 x10(9)/L 05/04/2024 11:45 AM PRODUCTION SUPPORT MANAGER MKTO Lymphocytes 0.93(L) 0.95 - 3.07 x10(9)/L 05/04/2024 11:45 AM PRODUCTION SUPPORT MANAGER MKTO Monocytes 0.46 0.26 - 0.81 x10(9)/L 05/04/2024 11:45 AM PRODUCTION SUPPORT MANAGER MKTO Eosinophils 0.06 0.03 - 0.48 x10(9)/L 05/04/2024 11:45 AM PRODUCTION SUPPORT MANAGER MKTO Basophils <0.03 0.01 - 0.08 x10(9)/L 05/04/2024 11:45 AM PRODUCTION SUPPORT MANAGER MKTO Blood (Blood, Venous) 05/04/2024 11:30 AM PRODUCTION SUPPORT MANAGER 05/04/2024 11:38 AM PRODUCTION SUPPORT MANAGER us Hakan Iniguez APRN, C.N.P., D.N.P. LAB BLOOD ADD -ON Final Result [facility] [address] [place] [address], [facility] MKTO [facility] [place] [address] [place] [address] * Magnesium (05/04/2024 11:30 AM PRODUCTION SUPPORT MANAGER) Magnesium, P 1.8 1.7 - 2.3 mg/dL 05/04/2024 11:58 AM PRODUCTION SUPPORT MANAGER MKTO Blood (Blood, Venous) 05/04/2024 11:30 AM PRODUCTION SUPPORT MANAGER 05/04/2024 11:38 AM PRODUCTION SUPPORT MANAGER us Hakan Iniguez APRN, C.N.P., D.N.P. LAB BLOOD ADD -ON Final Result [facility] [address] [place] [address], [facility] MKTO [facility] [place] [address] [place] [address] * (ABNORMAL) Basic Metabolic Panel (05/04/2024 11:30 AM PRODUCTION SUPPORT MANAGER) Potassium, P 4.4 3.6 - 5.2 mmol/L 05/04/2024 11:58 AM PRODUCTION SUPPORT MANAGER MKTO Sodium, P 138 135 - 145 mmol/L 05/04/2024 11:58 AM PRODUCTION SUPPORT MANAGER MKTO Chloride, P 102 98 - 107 mmol/L 05/04/2024 11:58 AM PRODUCTION SUPPORT MANAGER MKTO Bicarbonate, P 25 22 - 29 mmol/L 05/04/2024 11:58 AM PRODUCTION SUPPORT MANAGER MKTO Anion Gap, P 11 7 - 15 05/04/2024 11:58 AM PRODUCTION SUPPORT MANAGER MKTO BUN (Blood Urea Nitrogen), P 10 6 - 21 mg/dL 05/04/2024 11:58 AM PRODUCTION SUPPORT MANAGER MKTO Creatinine 0.68 0.59 - 1.04 mg/dL 05/04/2024 11:58 AM PRODUCTION SUPPORT MANAGER MKTO Estimated GFR (eGFR) >90 >=60 mL/min/BSA 05/04/2024 11:58 AM PRODUCTION SUPPORT MANAGER MKTO Comment: Estimated GFR calculated using the 2020 CKD_EPI creatinine equation. Calcium, Total, P 8.5(L) 8.8 - 10.2 mg/dL 05/04/2024 11:58 AM PRODUCTION SUPPORT MANAGER MKTO Glucose, P 75 70 - 140 mg/dL 05/04/2024 11:58 AM PRODUCTION SUPPORT MANAGER MKTO Blood (Blood, Venous) 05/04/2024 11:30 AM PRODUCTION SUPPORT MANAGER 05/04/2024 11:38 AM PRODUCTION SUPPORT MANAGER us Hakan Iniguez APRN C.N.P., D.N.P. LAB BLOOD ADD -ON Final Result [facility] [address] [place] [address], [place] MKTO [facility] [place] [address] [place] [address] * ECG 12 Lead (05/04/2024 11:23 AM PRODUCTION SUPPORT MANAGER) Ventricular Rate ECG/Min 75 BPM MUSE MI Interval 184 ms MUSE QRSD Interval 80 ms MUSE QT Interval 384 ms MUSE QTC Interval 428 ms MUSE P Amonate 49 degrees MUSE R Amonate 80 degrees MUSE T Wave Amonate 47 degrees MUSE 05/04/2024 11:2 3 AM PRODUCTION SUPPORT MANAGER 05/04/2024 11:33 AM PRODUCTION SUPPORT MANAGER Impressions MUSE - 05/04/2024 11:33 AM PRODUCTION SUPPORT MANAGER Normal sinus rhythm Normal ECG No previous ECGs available Reviewed by LINDA Linda Narrative Procedure Note Zhang Sandy M.D. - 05/04/2024 IMPRESSION: Normal sinus rhythm Normal ECG No previous ECGs available Reviewed by LINDA Linda Hakan Iniguez APRN, C.N.P., D.N.P. ECG ORDERABLE S Final Result Performing Organization Address [facility] Co de Phone Number MUSE NA * Glucose, Body Fluid (05/04/2024 11:23 AM PRODUCTION SUPPORT MANAGER) Glucose, BF 63 See Comment mg/dL 05/05/2024 12:32 PM PRODUCTION SUPPORT MANAGER DTL Comment: ----ADDITIONAL INFORMATION---- Body fluid glucose [...] cystic lesions. All other fluids refer to www.Go World![employer].com for further interpretive information. This test has been modified from the manufacturer representative's instructions. Its performance characteristics were determined by [facility] in a manner consistent with CLIA requirements. This test has not been cleared or approved by the U.S. Food and Drug Administration. Fluid Type, Glucose PLEURAL 05/05 11:00 AM PRODUCTION SUPPORT MANAGER DTL Fluid (Pleural Fluid, Right) 05/04/2024 11:23 AM PRODUCTION SUPPORT MANAGER 05/05/2024 9:24 AM PRODUCTION SUPPORT MANAGER us Hakan Iniguez APRN, C.N.P., D.N.P. LAB B FRANKIE FLUIDS AND STOOLS ORDERABLES Final Result [facility] [address] [place] [address], [facility] [address] [place] [address] * Hepatic Function Panel (05/04/2024 11:11 AM PRODUCTION SUPPORT MANAGER) Bilirubin, Total, P <0.2 0.0 - 1.2 mg/dL 05/04/2024 1:47 PM PRODUCTION SUPPORT MANAGER MKTO Bilirubin, Direct, P <0.1 0.0 - 0.3 mg/dL 05/04/2024 1:47 PM PRODUCTION SUPPORT MANAGER MKTO Aspartate Aminotransferase (AST), P 28 8 - 43 U/L 05/04/2024 1:47 PM PRODUCTION SUPPORT MANAGER MKTO Alanine Aminotransferase (ALT), P 20 7 - 45 U/L 05/04/2024 1:47 PM PRODUCTION SUPPORT MANAGER MKTO Alkaline Phosphatase, P 59 35 - 104 U/L 05/04/2024 1:47 PM PRODUCTION SUPPORT MANAGER MKTO Albumin, P 3.6 3.5 - 5.0 g/dL 05/04/2024 1:47 PM PRODUCTION SUPPORT MANAGER MKTO Protein, Total, P 6.5 6.3 - 7.9 g/dL 05/04/2024 1:47 PM PRODUCTION SUPPORT MANAGER MKTO Blood (Blood, Venous) 05/04/2024 11:11 AM PRODUCTION SUPPORT MANAGER 05/04/2024 1:34 PM PRODUCTION SUPPORT MANAGER us Hakan Iniguez APRN, C.N.P., D.N.P. LAB BLOOD ADD -ON Final Result Performing Organization Address City/[facility]/ZIP Co de Phone Number [facility] [address] [place] [address], [facility] MKTO [facility] [place] [address] [place] [address] * Protein, Total, Body Fluid (05/04/2024 10:50 AM PRODUCTION SUPPORT MANAGER) Protein, Total, BF 4.9 See Comment g/dL 05/05/2024 12:34 PM PRODUCTION SUPPORT MANAGER DTL Comment: ----ADDITIONAL INFORMATION---- A pleural fluid [...] clinical findings. All other fluids refer to www.Go World!s.com for further interpretive information. This test has been modified from the manufacturer representative's instructions. Its performance characteristics were determined by [facility] in a manner consistent with CLIA requirements. This test has not been cleared or approved by the U.S. Food and Drug Administration. Fluid Type, Protein, Total PERITONEAL 05/05/2024 11:01 AM PRODUCTION SUPPORT MANAGER DTL Fluid (Abdomen) 05/04/2024 1 0:50 AM PRODUCTION SUPPORT MANAGER 05/05/2024 9:24 AM PRODUCTION SUPPORT MANAGER us Hakan Iniguez APRN, C.N.P., D.N.P. LAB B FRANKIE FLUIDS AND STOOLS ORDERABLES Final Result [facility] [address] [place] [address], [facility] [address] [place] [address] * Gram Stain (05/04/2024 10:50 AM PRODUCTION SUPPORT MANAGER) Gram Stain No organisms seen. White blood cells present. Stain performed on concentrated cytospin preparation. 05/04/2024 12:50 PM PRODUCTION SUPPORT MANAGER MKTO Fluid (Abdomen) 05/04/2024 1 0:50 AM PRODUCTION SUPPORT MANAGER 05/04/2024 11:50 AM PRODUCTION SUPPORT MANAGER Comment:Specimen Source Site : Fluid us Tamara Hutton APRN.N.Jung., D.N.P. LAB M ICROBIOLOGY - GENERAL ORDERABLES Final Result [facility] [address] [place] [address], [facility] MKTO [facility] [place] [address] [place] [address] * Albumin, Body Fluid (05/04/2024 10:50 AM PRODUCTION SUPPORT MANAGER) Albumin BF 2.8 See Comment g/dL 05/05/2024 12:34 PM PRODUCTION SUPPORT MANAGER DTL Comment: ----ADDITIONAL INFORMATION---- Peritoneal fluid albumin is used to calculate the serum-ascites albumin gradient (SAAG). Values greater than or equal to 1.1 g/dL suggest portal hypertension. Pleural fluid albumin may be used to calculate a serum-effusion albumin gradient. Values greater than 1.2 g/dL are most consistent with a transudative process. All other fluids refer to www.[employer].com for further interpretive information. This test has been modified from the manufacturer representative's instructions. Its performance characteristics were determined by [facility] in a manner consistent with CLIA requirements. This test has not been cleared or approved by the U.S. Food and Drug Administration. Fluid Type, Albumin PERITONEAL 05/05/2024 11:01 AM PRODUCTION SUPPORT MANAGER DTL Fluid (Abdomen) 05/04/2024 1 0:50 AM PRODUCTION SUPPORT MANAGER 05/05/2024 9:24 AM PRODUCTION SUPPORT MANAGER Tamara Hutton APRN.N.P., D.N.PKenn LAB B FRANKIE FLUIDS AND STOOLS ORDERABLES Final Result [facility] [address] [place] [address], [place] [facility] [address] [place] [address] * Cell Count and Differential, Body Fluid (05/04/2024 10:50 AM PRODUCTION SUPPORT MANAGER) Fluid Type Peritoneal/Pa racentesis 05/04/2024 12:46 PM PRODUCTION SUPPORT MANAGER MKTO Gross Appearance Slightly Cloudy 05/04/2024 12:47 PM PRODUCTION SUPPORT MANAGER MKTO Total Nucleated Cells 2808 /mcL 05/04/2024 12:48 PM PRODUCTION SUPPORT MANAGER MKTO Comment: ----REFERENCE VALUE---- Synovial: <150 Peritoneal: <500 Pleural: <500 Pericardial: <500 ----ADDITIONAL INFORMATION---- This test has been modified from the manufacturer representative's instructions. Its performance characteristics were determined by [facility] in a manner consistent with CLIA requirements. This test has not been cleared or approved by the U.S. Food and Drug Administration. Neutrophils 3 % 05/04/2024 1:20 PM PRODUCTION SUPPORT MANAGER MKTO Comment: ----REFERENCE VALUE---- Synovial: <25% Peritoneal: <25% Pleural: <25% Pericardial: <25% Lymphocytes 34 Synovial : <75% % 05/04/2024 1:20 PM PRODUCTION SUPPORT MANAGER MKTO Monocytes/Macropha ges 42 Synovial : <70% % 05/04/2024 1:20 PM PRODUCTION SUPPORT MANAGER MKTO Other Cells 21 % 05/04/2024 1:20 PM PRODUCTION SUPPORT MANAGER MKTO Comment: ----REFERENCE VALUE---- The reference range and other method performance specifications have not been established for this body fluid. The test result must be integrated into the clinical context for interpretation. Other Cells Are: SeeComment 05/04/19 25 7:48 PM PRODUCTION SUPPORT MANAGER MKTO Comment: REVISED RESULTS Mesothelial cells: 8 Atypical cells: 13 Atypical cells, Correlate with cytology specimen. Dr. Hernandez ----PREVIOUSLY REPORTED ---- Mesothelial cells: 8 Atypical cells: 13 Atypical cells, Correlate with cytology specimen. (Reported 05/04/2024 13:22) Reviewed by: Dr. Hernandez 05/04/2024 7:48 PM PRODUCTION SUPPORT MANAGER [facility] Comment: REVISED RESULTS ----PREVIOUSLY REPORTED ---- Will be reviewed by Pathologist Flagged as: N/A (Reported 05/04/2024 13:22) Fluid (Abdomen) 05/04/2024 1 0:50 AM PRODUCTION SUPPORT MANAGER 05/04/2024 11:50 AM PRODUCTION SUPPORT MANAGER Tamara Hutton APRN.N.P., D.N.P. LAB BODY FLUIDS AND STOOLS ORDERABLES Edited Result - Final Performing Organization Address City/[facility]/ZIP Co de Phone Number [facility] [address] [place] [address], [place] [address] * Bacterial Culture, Anaerobic + Susceptibility (05/04/2024 10:50 AM PRODUCTION SUPPORT MANAGER) Bacterial Culture, Anaerobic No growth after 7 days of incubation. 05/11/2024 5:49 AM PRODUCTION SUPPORT MANAGER [facility] Fluid (Abdomen) 05/04/2024 1 0:50 AM PRODUCTION SUPPORT MANAGER 05/04/2024 11:50 AM PRODUCTION SUPPORT MANAGER Comment:Specimen Source Site : Fluid Hakan Iniguez APRN, C.N.P., D.N.P. LAB M ICROBIOLOGY - GENERAL ORDERABLES Final Result Performing Organization Address [facility]/ZIP Co de Phone Number [facility] [address] [place] [address], [place] [address] * Bacterial Culture, Aerobic + Susceptibility (05/04/2024 10:50 AM PRODUCTION SUPPORT MANAGER) Bacterial Culture, Aerobic + Susc No growth after 5 days of incubation. 05/09/2024 6:59 AM PRODUCTION SUPPORT MANAGER [facility] Fluid (Abdomen) 05/04/2024 1 0:50 AM PRODUCTION SUPPORT MANAGER 05/04/2024 11:50 AM PRODUCTION SUPPORT MANAGER Comment:Specimen Source Site : Fluid us Hakan Iniguez APRN, C.N.P., D.N.P. LAB M ICROBIOLOGY - GENERAL ORDERABLES Final Result [facility] [address] [place] [id number], [facility] [place] [address] [place] [address] [id number] * pH, Pleural Fluid (05/04/2024 10:30 AM PRODUCTION SUPPORT MANAGER) pH, Pleural Fluid 7.35 Not Applicable pH 05/04/2024 12:14 PM PRODUCTION SUPPORT MANAGER [facility] Comment: Clinical guidelines suggest that in parapneumonic pleural effusions, a pH <7.2 indicate the need for tube drainage. Fluid (Pleural Fluid, Right) 05/04/2024 10:30 AM PRODUCTION SUPPORT MANAGER 05/04/2024 12:07 PM PRODUCTION SUPPORT MANAGER us Hakan Iniguez APRN, Tamara.N.P., D.N.P. LAB B FRANKIE FLUIDS AND STOOLS ORDERABLES Final Result Performing Organization Address [facility]/ZIP Co de Phone Number [facility] [address] [place] [phone], [facility] in [address] [address] * Bacterial Culture, Anaerobic + Susceptibility (05/04/2024 10:30 AM PRODUCTION SUPPORT MANAGER) Bacterial Culture, Anaerobic No growth after 7 days of incubation. 05/11/2024 5:49 AM PRODUCTION SUPPORT MANAGER [facility] Fluid (Pleural Fluid, Right) 05/04/2024 10:30 AM PRODUCTION SUPPORT MANAGER 05/04/2024 12:07 PM PRODUCTION SUPPORT MANAGER Comment:Specimen Source Site : Fluid us Hakan Iniguez APRN, C.N.P., D.N.P. LAB M ICROBIOLOGY - GENERAL ORDERABLES Final Result Performing Organization Address City/[facility]/ZIP Co de Phone Number [facility] [address] [place] [address], [place] [address] [address] * Bacterial Culture, Aerobic + Susceptibility (05/04/2024 10:30 AM PRODUCTION SUPPORT MANAGER) Bacterial Culture, Aerobic + Susc No growth after 5 days of incubation. 05/09/2024 7:00 AM PRODUCTION SUPPORT MANAGER [facility] Fluid (Pleural Fluid, Right) 05/04/2024 10:30 AM PRODUCTION SUPPORT MANAGER 05/04/2024 12:07 PM PRODUCTION SUPPORT MANAGER Comment:Specimen Source Site : Fluid Hakan Iniguez APRN, C.N.P., D.N.P. LAB [facility] - GENERAL ORDERABLES Final Result Performing Organization Address [facility] Co de Phone Number [facility] [address] [place] [phone], [address] [address] * Gram Stain (05/04/2024 10:30 AM PRODUCTION SUPPORT MANAGER) Gram Stain No organisms seen. White blood cells present. Stain performed on concentrated cytospin preparation. 05/04/2024 12:50 PM PRODUCTION SUPPORT MANAGER [facility] Fluid (Pleural Fluid, Right) 05/04/2024 10:30 AM PRODUCTION SUPPORT MANAGER 05/04/2024 12:07 PM PRODUCTION SUPPORT MANAGER Comment:Specimen Source Site : Fluid Hakan Iniguez APRN, C.N.P., D.N.P. LAB [facility] - GENERAL ORDERABLES Final Result Performing Organization Address City/[facility]/ZIP Co de Phone Number [facility] [address] [place] [address], [address] [address] * Cell Count and Differential, Body Fluid (05/04/2024 10:30 AM PRODUCTION SUPPORT MANAGER) Fluid Type Pleural/Thora centesis 05/04/2024 1:23 PM PRODUCTION SUPPORT MANAGER [facility] Gross Appearance Serous 05/04/19 25 1:26 PM PRODUCTION SUPPORT MANAGER [facility] Total Nucleated Cells 523 /mcL 05/04/2024 1:26 PM PRODUCTION SUPPORT MANAGER [facility] Comment: ----REFERENCE VALUE---- Synovial: <150 Peritoneal: <500 Pleural: <500 Pericardial: <500 ----ADDITIONAL INFORMATION---- This test has been modified from the manufacturer representative's instructions. Its performance characteristics were determined by [facility] in a manner consistent with CLIA requirements. This test has not been cleared or approved by the U.S. Food and Drug Administration. Neutrophils 1 % 05/04/2024 1:25 PM PRODUCTION SUPPORT MANAGER [facility] Comment: ----REFERENCE VALUE---- Synovial: <25% Peritoneal: <25% Pleural: <25% Pericardial: <25% Lymphocytes 58 Synovial : <75% % 05/04/2024 1:25 PM PRODUCTION SUPPORT MANAGER [facility] Monocytes/Macropha ges 25 Synovial : <70% % 05/04/2024 1:25 PM PRODUCTION SUPPORT MANAGER [facility] Other Cells 16 % 05/04/2024 1:25 PM PRODUCTION SUPPORT MANAGER [facility] Comment: ----REFERENCE VALUE---- The reference range and other method performance specifications have not been established for this body fluid. The test result must be integrated into the clinical context for interpretation. Other Cells Are: SeeComment 05/04/19 25 7:44 PM PRODUCTION SUPPORT MANAGER [facility] Comment: REVISED RESULTS Mesothelial Cells: 7 Atypical cells: 9 Atypical cell, correlate with cytology specimen. Dr. Hernandez ----PREVIOUSLY REPORTED ---- Mesothelial Cells: 7 Atypical cells: 9 Atypical cell, correlate with cytology specimen. (Reported 05/04/2024 13:26) Reviewed by: Dr. Hernandez 05/04/2024 7:44 PM PRODUCTION SUPPORT MANAGER [facility] Comment: REVISED RESULTS ----PREVIOUSLY REPORTED ---- Will be reviewed by Pathology Flagged as: N/A (Reported 05/04/2024 13:26) Fluid (Pleural Fluid, Right) 05/04/2024 10:30 AM PRODUCTION SUPPORT MANAGER 05/04/2024 12:07 PM PRODUCTION SUPPORT MANAGER us Hakan Iniguez APRN, C.N.P., D.N.P. LAB BODY FLUIDS AND STOOLS ORDERABLES Edited Result - Final [facility] [address] [place] [address], [facility] MKTO [facility] [place] [address] [place] [address] * Protein, Total, Body Fluid (05/04/2024 10:30 AM PRODUCTION SUPPORT MANAGER) Protein, Total, BF 4.2 See Comment g/dL 05/05/2024 12:35 PM PRODUCTION SUPPORT MANAGER DTL Comment: ----ADDITIONAL INFORMATION---- A pleural fluid [...] clinical findings. All other fluids refer to www.[employer] World!s.com for further interpretive information. This test has been modified from the manufacturer representative's instructions. Its performance characteristics were determined by [facility] in a manner consistent with CLIA requirements. This test has not been cleared or approved by the U.S. Food and Drug Administration. Fluid Type, Protein, Total PLEURAL 05/05/2024 11:01 AM PRODUCTION SUPPORT MANAGER DTL Fluid (Pleural Fluid, Right) 05/04/2024 10:30 AM PRODUCTION SUPPORT MANAGER 05/05/2024 9:24 AM PRODUCTION SUPPORT MANAGER Hakan Iniguez APRN, C.N.P., D.N.P. LAB B FRANKIE FLUIDS AND STOOLS ORDERABLES Final Result Performing Organization Address City/State/[facility] Co de Phone Number [facility] [address] [place] [address], [facility] DTL [facility] [address] [place] [address] * Lactate Dehydrogenase (LD), Body Fluid (05/04/2024 10:30 AM PRODUCTION SUPPORT MANAGER) Lactate Dehydrogenase (LD), BF 291 See Comment U/L 05/05/2024 2:30 PM PRODUCTION SUPPORT MANAGER DTL Comment: ----ADDITIONAL INFORMATION---- Pleural fluid lactate [...] clinical findings. All other fluids refer to www.Go World!s.com for further interpretive information. This test has been modified from the manufacturer representative's instructions. Its performance characteristics were determined by [facility] in a manner consistent with CLIA requirements. This test has not been cleared or approved by the U.S. Food and Drug Administration. Fluid Type, Lactate Dehydrogenase PLEURAL 05/05/2024 2:41 PM PRODUCTION SUPPORT MANAGER DTL Fluid (Pleural Fluid, Right) 05/04/2024 10:30 AM PRODUCTION SUPPORT MANAGER 05/05/2024 12:35 PM PRODUCTION SUPPORT MANAGER Hakan Iniguez APRN, C.N.P., D.N.P. LAB B FRANKIE FLUIDS AND STOOLS ORDERABLES Final Result [facility] [address] [place] [address], [facility] DTNem[facility] [address] [place] [address] documented in this encounter Visit Diagnoses Diagnosis [...] hours all sources Given 05/06/2024 11:49 PM PRODUCTION SUPPORT MANAGER 1,000 mg amLODIPine tablet 5 mg (Norvasc) 5 mg, oral, Daily, First dose on 05/04/24 at 0945, Do not give if SBP<105 Given 05/07/2024 8:27 AM PRODUCTION SUPPORT MANAGER 5 mg Given 05/06/2024 9:52 AM PRODUCTION SUPPORT MANAGER 5 mg Given 05/05/2024 10:45 AM PRODUCTION SUPPORT MANAGER 5 mg enoxaparin injection 40 mg (Lovenox) 40 mg, subcutaneous, Daily, First dose on 05/05/24 at 0900 Given 05/07/2024 8:27 AM PRODUCTION SUPPORT MANAGER 40 mg Left Lower Abdomen Given 05/06/2024 9:52 AM PRODUCTION SUPPORT MANAGER 40 mg Le ft Lower Abdomen Given 05/05/2024 10:48 AM PRODUCTION SUPPORT MANAGER 40 mg L eft Lower Abdomen fluconazole tablet 150 mg (Diflucan) 150 mg, oral, Once, On 05/04/24 at 1115, For 1 dose, Drug Monitoring Program: Pharmacist to adjust medication dosing based on indication and drug clearance factors., Indications: Skin and soft tissue infection, vaginal infectionIndications:Skin and soft tissue infection,vaginal infection Given 05/04/2024 1:01 PM PRODUCTION SUPPORT MANAGER 150 mg lidocaine (PF) 10 mg/mL (1 %) injection 10 mL (Xylocaine) 10 mL, subcutaneous, Once, On 05/04/24 at 1030, For 1 dose Given 05/04/2024 10:25 AM PRODUCTION SUPPORT MANAGER 10 mL Other lidocaine (PF) 10 mg/mL (1 %) injection 10 mL (Xylocaine) 10 mL, subcutaneous, Once, On 05/04/24 at 1045, For 1 dose Given 05/04/2024 10:45 AM PRODUCTION SUPPORT MANAGER 10 mL Right Lower Abdomen lidocaine (PF) 10 mg/mL (1 %) injection 5 mL (Xylocaine) 5 mL, subcutaneous, Once, On 05/07/24 at 1600, For 1 dose Given 05/07/2024 3:34 PM PRODUCTION SUPPORT MANAGER 5 mL Right Chest lisinopriL tablet 40 mg 40 mg, oral, Daily, First dose on 05/04/24 at 0945, Do not give if SBP<105 Given 05/07/2024 8:27 AM PRODUCTION SUPPORT MANAGER 40 mg Given 05/06/2024 9:52 AM PRODUCTION SUPPORT MANAGER 40 mg Given 05/05/2024 10:45 AM PRODUCTION SUPPORT MANAGER 40 mg melatonin tablet 9 mg 9 mg, oral, Bedtime PRN, sleep, Starting on 05/04/24 at 0931 Given 05/06/2024 11:49 PM PRODUCTION SUPPORT MANAGER 9 mg metoprolol succinate 24 hr tablet 50 mg (Toprol XL) 50 mg, oral, Daily, First dose on 05/04/24 at 0945, Do not give if SBP<100 or HR<60 Do NOT crush or chew. Tablet may be split on score if needed. Given 05/07/2024 8:27 AM PRODUCTION SUPPORT MANAGER 50 mg Given 05/06/2024 9:52 AM PRODUCTION SUPPORT MANAGER 50 mg Given 05/05/2024 10:45 AM PRODUCTION SUPPORT MANAGER 50 mg rosuvastatin tablet 10 mg (Crestor) 10 mg, oral, Daily, First dose on 05/04/24 at 0945 Given 05/07/2024 8:27 AM PRODUCTION SUPPORT MANAGER 10 mg Given 05/06/2024 9:51 AM PRODUCTION SUPPORT MANAGER 10 mg Given 05/05/2024 10:45 AM PRODUCTION SUPPORT MANAGER 10 mg sodium chloride 0.9 % injection 3 mL 3 mL, intravenous, As needed, line care, Starting on 05/04/24 at 0932, Prior to and following infusion and between multiple consecutive infusions: sodium chloride 0.9 % injection Given 05/04/2024 12:04 PM PRODUCTION SUPPORT MANAGER 3 mL sodium chloride 0.9 % injection 3 mL 3 mL, intravenous, Every 12 hours scheduled, First dose on 05/04/24 at 2100, Peripheral Intravenous Catheter and Rapid Infusion Catheter, when no infusion to maintain patency Given 05/07/2024 8: 27 AM PRODUCTION SUPPORT MANAGER 3 mL Given 05/06/2024 9:59 PM PRODUCTION SUPPORT MANAGER 3 mL Given 05/06/2024 9:52 AM PRODUCTION SUPPORT MANAGER 3 mL documented in this encounter Active and Recently Administered Medications Times are shown in PRODUCTION SUPPORT MANAGER. Scheduled Medication Order 05/05/2024 05/06/2024 05/07/2024 albumin [...] PRN, sleep, Starting on 05/04/24 at 0931 2341 (Given - Provider: Kelsey Meneses R.N.) naloxone [...] injection documented in this encounter Care Teams [employer] Relationship Specialty Start Date End Date Elsewhere, Pcp PCP - General Internal Medicine 04/24/24 documented as of this encounter
--- OUTSIDE RECORDS SUMMARY | 2024-05-16 14:19 | XMS_ITS | Encounter Summary ---
Author Organization [facility] Address [address] [place] [address] Care Team Providers Care Medical Researcher Name Role Phone Elsewhere, Pcp Primary Care Provider Unavailabl e Reason for Visit * Reason Comments Shortness of Breath Pt presents with wor sening shortness of breath causing her to have to sleep upright. Pt reports stomach cramping and distention that is worsening her SOB as well. Encounter Details Date Type Department Care Team ([facility] st Contact Info) Description 05/03/2024 12:29 PM INSPECTOR PACKAGER - 05/04/2024 6:28 AM [facility] Emergency [place] [facility] [address] [place] [address] [phone] Ilda Martinez M.D., M.B.A. [address] [place] [address] [phone] Salma Dinh M.D., M.P.H. [address] [place] [phone] Effusion Pleural (Primary Dx); Ascites Discharge Disposition: Acute Care Hospital Social History Tobacco Use Types Packs/Day Years Used Date Smoking Tobacco: Every Day Cigarettes Passive Smoke Exposure: Current Smokeless Tobacco: Never Alcohol Use Standard Drinks/Week Comments Yes 0 (1 standard drink = 0.6 oz pur e alcohol) [facility] Utilities Answer Date Recorded In [...] your living situation today? I have a [facility] place to live 05/04/2024 Comments No Sex and Gender Information Value Date Recorded Sex Assigned at Not on file Legal Sex Female 2:38 PM INSPECTOR PACKAGER Gender Identity Not on file Sexual Orientation Not on file documented as of this encounter Last Filed Vital Signs Vital Sign Reading Time Taken Comments Blood Pressure 128/73 05/04/2024 6:00 AM INSPECTOR PACKAGER Pulse 80 05/04/2024 6:15 AM INSPECTOR PACKAGER Temperature 36.6 C (97.9 F) 05/03/2024 12:30 PM INSPECTOR PACKAGER Respiratory Rate 19 05/04/2024 6:15 AM INSPECTOR PACKAGER Oxygen Saturation 95% 05/04/2024 6:15 AM INSPECTOR PACKAGER Inhaled Oxygen Concentration - - Weight 74.4 kg (164 lb) 05/03/2024 12:28 PM INSPECTOR PACKAGER Height - - Body Mass Index - [...] is comfortable and prefers to haveit in [place] where they will send fluid for evaluation. She is not requiring any escalation of oxygen. Will transfer by EMS. VITAL SIGNS BP 126/85 Pulse 73 Temp 36.6 ??C (Temporal) Resp 19 Wt 74.4 kg SpO2 94% Final Diagnoses: as of 05/03/24 2246 Effusion Pleural Ascites Salma Dinh M.D., M.P.H. 05/04/24 0035 ECTOR PACKAGER * Ilda Martinez M.D., M.B.A. - 05/03/2024 [...] vomiting unless it is post-tussive. Also around [place] time she started to develop a cold. [...] No pain PHYSICAL EXAMINATION Constitutional: Adult female, [id number] distress HENT: Head: Normocephalic and atraumatic. Nose: [...] was here and ultimately was accepted to [place] by Dr. Chinchilla. Patient was transitioned to [...] Ascites Ilda Martinez M.D., M.B.A. 05/04/24 0932 ECTOR PACKAGER documented in this encounter Plan of Treatment Not on file documented as of this encounter Procedures Procedure Name Priority Date/Time Associated Diagnosis Comments CT ABDOMEN PELVIS WITH IV CONTRAST RAD - Semiurgent (Fast; most ED patients; some inpatients) 05/03/2024 3:[address] CHEST ANGIOGRAM AND PULMONARY ARTERIES WITH IV CONTRAST RAD - Semiurgent (Fast; most ED patients; some inpatients) 05/03/2024 2:45 PM INSPECTOR PACKAGER NT-PRO B-TYPE NATRIURETIC PEPTIDE (BNP), S STAT 05/03/2024 1:19 PM INSPECTOR PACKAGER D-DIMER, P STAT 05/03/2024 1:19 PM INSPECTOR PACKAGER CBC WITH DIFFERENTIAL, B STAT 05/03/2024 1:19 PM INSPECTOR PACKAGER COMPREHENSIVE METABOLIC PANEL, S/P STAT 05/03/2024 1:19 PM INSPECTOR PACKAGER SARS CORONAVIRUS 2, PCR RAPID, V STAT 05/03/2024 1:15 PM INSPECTOR PACKAGER INFLUENZA A, B, RSV, PCR, POCT STAT 05/03/2024 1:15 PM INSPECTOR PACKAGER documented in this encounter Results * CT Abdomen Pelvis with IV Contrast (05/03/2024 3:01 PM INSPECTOR PACKAGER) Anatomical Region Laterality Modality Abdomen, Pelvis, Abdominal R ST LOS, Abdominal ARZ LOS, Abdominal FLA LOS N/A Computed Tomography 05/03/2024 2:55 PM INSPECTOR PACKAGER Impressions 05/03/2024 3:12 PM INSPECTOR PACKAGER 1. No evidence for acute or chronic pulmonary embolus. 2. Moderate-sized right pleural effusion with associated atelectasis and/or consolidation. 3. Diffuse omental and peritoneal disease identified concerning for metastatic or primary malignancy. 4. Moderate ascites. 5. Cholelithiasis. 6. Diverticulosis. 7. Distal small bowel wall thickening. Differential includes reactive change versus inflammatory disease versus infiltrative process. Narrative 05/03/2024 3:12 PM INSPECTOR PACKAGER EXAM: CT CHEST ANGIOGRAM AND PULMONARY ARTERIES [...] Arteries with IV Contrast (05/03/2024 2:45 PM INSPECTOR PACKAGER) Anatomical Region Laterality Modality Chest, Cardiovascular RST LO S, Thoracic ARZ LOS, Thoracic FLA LOS N/A Computed Tomography 05/03/2024 2:57 PM INSPECTOR PACKAGER Impressions 05/03/2024 3:12 PM INSPECTOR PACKAGER 1. No evidence for acute or chronic pulmonary embolus. 2. Moderate-sized right pleural effusion with associated atelectasis and/or consolidation. 3. Diffuse omental and peritoneal disease identified concerning for metastatic or primary malignancy. 4. Moderate ascites. 5. Cholelithiasis. 6. Diverticulosis. 7. Distal small bowel wall thickening. Differential includes reactive change versus inflammatory disease versus infiltrative process. Narrative 05/03/2024 3:12 PM INSPECTOR PACKAGER EXAM: CT CHEST ANGIOGRAM AND PULMONARY ARTERIES [...] B-Type Natriuretic Peptide (BNP) (05/03/2024 1:19 PM INSPECTOR PACKAGER) NT-Pro BNP 153 <=226 pg/mL 05/03/2024 1:57 PM INSPECTOR PACKAGER NPRG Comment: NT-proBNP values less than 300 [...] failure. Blood (Blood, Venous) 05/03/2024 1:19 PM INSPECTOR PACKAGER 05/03/2024 1:21 PM INSPECTOR PACKAGER Ilda Martinez M.D., M.B.A. LAB BLOOD ADD-ON Final Result [facility] [address] [place] [address], [facility] NPRG [facility] [address] [place] [address] * (ABNORMAL) D-Dimer (05/03/2024 1:19 PM INSPECTOR PACKAGER) D-Dimer, P 3913(H) <=500 ng/mL FEU 05/03/2024 1:44 PM INSPECTOR PACKAGER NPRG Comment: D-dimer concentrations increase with age. [...] (PE). Blood (Blood, Venous) 05/03/2024 1:19 PM INSPECTOR PACKAGER 05/03/2024 1:22 PM INSPECTOR PACKAGER us Ilda Martinez M.D., M.B.A. LAB BLOOD ADD-ON Final Result [facility] [address] [place] [address], [place] NPRG [facility] [address] [place] [address] * (ABNORMAL) Comprehensive Metabolic Panel (05/03/2024 1:19 PM INSPECTOR PACKAGER) Potassium, P 4.4 3.6 - 5.2 mmol/L 05/03/2024 1:54 PM INSPECTOR PACKAGER NPRG Sodium, P 138 135 - 145 mmol/L 05/03/2024 1:54 PM INSPECTOR PACKAGER NPRG Chloride, P 103 98 - 107 mmol/L 05/03/2024 1:54 PM INSPECTOR PACKAGER NPRG Bicarbonate, P 26 22 - 29 mmol/L 05/03/2024 1:54 PM INSPECTOR PACKAGER NPRG Anion Gap, P 9 7 - 15 05/03/2024 1:54 PM INSPECTOR PACKAGER NPRG BUN (Blood Urea Nitrogen), P 13 6 - 21 mg/dL 05/03/2024 1:54 PM INSPECTOR PACKAGER NPRG Creatinine 0.71 0.59 - 1.04 mg/dL 05/03/2024 1:54 PM INSPECTOR PACKAGER NPRG Estimated GFR (eGFR) >90 >=60 mL/min/BS A 05/03/2024 1:54 PM INSPECTOR PACKAGER NPRG Comment: Estimated GFR calculated using the 2020 CKD_EPI creatinine equation. Calcium, Total, P 8.7(L) 8.8 - 10.2 mg/dL 05/03/2024 1:54 PM INSPECTOR PACKAGER NPRG Glucose, P 85 70 - 140 mg/dL 05/03/2024 1:54 PM INSPECTOR PACKAGER NPRG Protein, Total, P 6.5 6.3 - 7.9 g/dL 05/03/2024 1:54 PM INSPECTOR PACKAGER NPRG Albumin, P 3.6 3.5 - 5.0 g/dL 05/03/2024 1:54 PM INSPECTOR PACKAGER NPRG Aspartate Aminotransferase (AST), P 26 8 - 43 U/L 05/03/2024 1:54 PM INSPECTOR PACKAGER NPRG Alkaline Phosphatase, P 61 35 - 104 U/L 05/03/2024 1:54 PM INSPECTOR PACKAGER NPRG Alanine Aminotransferase (ALT), P 21 7 - 45 U/L 05/03/2024 1:54 PM INSPECTOR PACKAGER NPRG Bilirubin, Total, P <0.2 0.0 - 1.2 mg/dL 05/03/2024 1:54 PM INSPECTOR PACKAGER NPRG Blood (Blood, Venous) 05/03/2024 1:19 PM INSPECTOR PACKAGER 05/03/2024 1:22 PM INSPECTOR PACKAGER Ilda Martinez M.D., M.B.A. LAB BLOOD ADD-ON Final Result [facility] [address] [place] [address], [facility] NPRG [facility] [address] [place] [address] * (ABNORMAL) CBC with Differential, Blood (05/03/2024 1:19 PM INSPECTOR PACKAGER) Hemoglobin 11.6 11.6 - 15.0 g/dL 05/03/2024 1:27 PM INSPECTOR PACKAGER NPRG Hematocrit 36.8 35.5 - 44.9 % 05/03/2024 1:27 PM INSPECTOR PACKAGER NPRG Erythrocytes 4.07 3.92 - 5.13 x10(12)/L 05/03/2024 1:27 PM INSPECTOR PACKAGER NPRG MCV 90.4 78.2 - 97.9 fL 05/03/2024 1:27 PM INSPECTOR PACKAGER NPRG RBC Distrib Width 12.9 12.2 - 16.1 % 05/03/2024 1:27 PM INSPECTOR PACKAGER NPRG Platelet Count 345 157 - 371 x10(9)/L 05/03/2024 1:27 PM INSPECTOR PACKAGER NPRG Leukocytes 5.5 3.4 - 9.6 x10(9)/L 05/03/2024 1:27 PM INSPECTOR PACKAGER NPRG Neutrophils 4.21 1.56 - 6.45 x10(9)/L 05/03/2024 1:27 PM INSPECTOR PACKAGER NPRG Lymphocytes 0.76(L) 0.95 - 3.07 x10(9)/L 05/03/2024 1:27 PM INSPECTOR PACKAGER NPRG Monocytes 0.50 0.26 - 0.81 x10(9)/L 05/03/2024 1:27 PM INSPECTOR PACKAGER NPRG Eosinophils 0.05 0.03 - 0.48 x10(9)/L 05/03/2024 1:27 PM INSPECTOR PACKAGER NPRG Basophils <0.04 0.01 - 0.08 x10(9)/L 05/03/2024 1:27 PM INSPECTOR PACKAGER NPRG Blood (Blood, Venous) 05/03/2024 1:19 PM INSPECTOR PACKAGER 05/03/2024 1:22 PM INSPECTOR PACKAGER Ilda Martinez M.D., M.B.A. LAB BLOOD ADD-ON Final Result Performing Organization Address [facility]/ZIP Co de Phone Number [facility] [address] [place] [phone], [facility] NPRG [address] [address] * Influenza A/B and RSV, PCR, Point of Care (05/03/2024 1:15 PM INSPECTOR PACKAGER) Pathologist [facility] Influenza A, POCT Negative Negative 05/03/2024 1:21 PM INSPECTOR PACKAGER NPRG Influenza B, POCT Negative Negative 05/03/2024 1:21 PM INSPECTOR PACKAGER NPRG Resp Syncytial Virus, POCT Negative Negative 05/03/2024 1:21 PM INSPECTOR PACKAGER NPRG Swab (Nasopharynx) 05/03/2024 1:15 PM INSPECTOR PACKAGER 05/03/2024 1:22 PM INSPECTOR PACKAGER us Ilda Martinez M.D., M.B.A. LAB POCT ORDERABL ES - DEVICE Final Result Performing Organization Address [facility]/ZIP Co de Phone Number [facility] [address] [place] [address], [facility] NPRG [address] [place] [address] * SARS Coronavirus 2, PCR Rapid Symptomatic (05/03/2024 1:15 PM INSPECTOR PACKAGER) SARS CoV-2, PCR, Rapid, V Undetected Undetected 05/03/2024 1:24 PM INSPECTOR PACKAGER NPRG SARS Coronavirus 2, Source, Rapid Swab, Nasopharynx 05/03/2024 1:22 PM INSPECTOR PACKAGER NPRG Swab (Nasopharynx) 05/03/2024 1:15 PM INSPECTOR PACKAGER 05/03/2024 1:22 PM INSPECTOR PACKAGER us Ilda Martinez M.D., M.B.A. LAB MICROBIOLOGY - GENERAL ORDERABLES Final Result [facility] [address] [address], [facility] NPRG [address] [address] documented in this encounter Visit Diagnoses Diagnosis [...] Radiant Medication Guidelines Given 05/03/2024 2:40 PM INSPECTOR PACKAGER 140 mL sodium chloride 0.9 % flush 100 mL 100 mL, intravenous, Once in imaging, line care, for CT Exam, Starting on Mon05/03/24 at 1440, For 1 dose Given 05/03/2024 2:40 PM INSPECTOR PACKAGER 100 mL sodium chloride 0.9 % injection 10 mL 10 mL, intravenous, Once in imaging, line care, Starting on Mon05/03/24 at 1440, For 1 dose Given 05/03/2024 2:40 PM INSPECTOR PACKAGER 10 mL documented in this encounter Active and Recently Administered Medications Times are shown in INSPECTOR PACKAGER. PRN Medication Order 05/02/2024 05/03/2024 05/04/2024 iohexoL [...] Pending 05/03/2024 05/03/2024 05/03/2024 1 :43 PM INSPECTOR PACKAGER documented as of this encounter Care Teams Medical Researcher Relationship Specialty Start Date End Date Elsewhere, Pcp PCP - General Internal Medicine 04/24/24 documented as of this encounter
--- OUTSIDE RECORDS SUMMARY | 2024-05-16 14:19 | XMS_ITS | CCD ---
Author Name Interface, [id number] lity Address [address] [address] Organization [facility] Address [address] [address] Care Team Providers Care [employer] Footballer Name Role Phone Jose Ayers Unavailable Unavailable Cynthia Euceda Unavailable Unava ilable Care Plan Date Type Value 05/17/2024 APPOINTMENT LAB 15 MIN 05/17/2024 APPOINTMENT NEW PT CONSULT 6 0 MIN 05/14/2024 APPOINTMENT NEW PT CONSULT 6 0 MIN 05/14/2024 APPOINTMENT LAB 15 MIN Reason for Visit NEW PT CONSULT 60 MIN Encounters Date Name 05/17/2024 LAB 15 MIN 05/17/2024 NEW PT CONSULT 60 CT N Diagnostic Results Date Type Test Units Lower Limit Upper Limit Result Flag Comments Status Ordered By Specimen Source Lab Address 05/07 Misc other lab See attache mobley Social History Date Name Value 05/08/2024 Sex Female
--- OUTSIDE RECORDS SUMMARY | 2024-05-16 14:19 | XMS_ITS | Clinical Summary ---
Author Organization [facility] Address [address] [place] [address] Care Team Providers Care Service Station Attendant Name Role Phone Elsewhere, Pcp Primary Care Provider Unavailabl e Source Comments Patient records contain information from all sites at [facility]. For routine questions regarding patient records, call [phone] during business hours, M-F 8:00 AM - 5:00 PM Central Time. 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 Cytology Non-KINDERGARTNER, Cytology Non-KINDERGARTNER 05/07/2024 Refill [facility] [address] [place] [phone] Sabrina Ascencio P.A.-C., P.A. Med Refill 05/04/2024 7:25 AM HEALTH EDUCATION ASSISTANT - 05/07/2024 5:42 PM HEALTH EDUCATION ASSISTANT Hospital Encounter [facility], [facility], Fifth Floor [address] [place] [address] Zane Chinchilla M.D. Ariana Jeffries APRN, C.N.P., M.S.N. Hakan Iniguez APRN, C.N.P., D.N.P. Adia Geiger M.D. Dastrange, Mehdi, M.D. Miguelina Harmon M.B., Jesus Madrigal Discharge Disposition: Home or Self Care 05/03/2024 12:29 PM HEALTH EDUCATION ASSISTANT - 05/04/2024 6:28 AM [facility] Emergency [facility] [address] [place] [address], [place] [address] Ilda Martinez M.D., M.B.A. Salma Dinh M.D., M.P.H. Effusion Pleural (Primary Dx); Ascites Discharge Disposition: [facility] 05/03/2024 Intake [facility] 04/24/2024 3:13 PM HEALTH EDUCATION ASSISTANT - 04/24/2024 4:25 PM [facility] Emergency [facility] [address] [place] [phone] Sabrina Ascencio P.A.-C., P.A. Cough Unspecified Type [...] 0.6 oz pur e alcohol) [facility] Utilities Answer Date Recorded In the past 12 months has th e Fab, gas, oil, or water [employer] threatened to shut off services in your [...] living situation today? I have a [facility] place to live 05/04/2024 Comments No Sex and Gender Information Value Date Recorded Sex Assigned at Not on file Legal Sex Female 2:38 PM HEALTH EDUCATION ASSISTANT Gender Identity Not on file Sexual Orientation Not on file Last Filed Vital Signs Vital Sign Reading Time Taken Comments Blood Pressure 121/76 05/07/2024 2:11 PM HEALTH EDUCATION ASSISTANT Pulse 69 05/07/2024 2:11 PM HEALTH EDUCATION ASSISTANT Temperature 36.7 C (98.1 F) 05/07/2024 2:11 PM HEALTH EDUCATION ASSISTANT Respiratory Rate 23 05/07/2024 2:11 PM HEALTH EDUCATION ASSISTANT Oxygen Saturation 92% 05/07/2024 2:11 PM HEALTH EDUCATION ASSISTANT Inhaled Oxygen Concentration - - Weight 71.5 kg (157 lb 10.1 oz) 05/07/2024 6:00 AM HEALTH EDUCATION ASSISTANT Height 171 cm (5' 7.32) 05/04/2024 7:26 AM HEALTH EDUCATION ASSISTANT Body Mass Index 24.45 05/04/2024 7:26 AM HEALTH EDUCATION ASSISTANT Plan of Treatment Health Maintenance Due Date [...] inpatients and all outpatients) 05/07/2024 4:22 PM HEALTH EDUCATION ASSISTANT US THORACENTESIS RIGHT WITH IMAGING GUIDANCE RAD - Routine (most inpatients and all outpatients) 05/07/2024 3:41 PM HEALTH EDUCATION ASSISTANT DX CHEST 1 VIEW RAD - Routine (most inpatients and all outpatients) 05/07/2024 10:12 AM HEALTH EDUCATION ASSISTANT BASIC METABOLIC PANEL, S/P Routine 05/07/2024 6:43 AM HEALTH EDUCATION ASSISTANT CBC WITHOUT DIFFERENTIAL, B Routine 05/07/2024 6:43 AM HEALTH EDUCATION ASSISTANT PULSE OXIMETRY, CONTINUOUS Routine 05/06/2024 8:01 AM HEALTH EDUCATION ASSISTANT ADULT OXYGEN THERAPY Routine 05/06/2024 8:01 AM HEALTH EDUCATION ASSISTANT BASIC METABOLIC PANEL, S/P Routine 05/06/2024 7:00 AM HEALTH EDUCATION ASSISTANT CBC WITH DIFFERENTIAL, B Routine 05/06/2024 7:00 AM HEALTH EDUCATION ASSISTANT PULSE OXIMETRY, CONTINUOUS Routine 05/05/2024 8:00 PM HEALTH EDUCATION ASSISTANT ADULT OXYGEN THERAPY Routine 05/05/2024 8:00 PM HEALTH EDUCATION ASSISTANT PULSE OXIMETRY, CONTINUOUS Routine 05/05/2024 8:01 AM HEALTH EDUCATION ASSISTANT ADULT OXYGEN THERAPY Routine 05/05/2024 8:01 AM HEALTH EDUCATION ASSISTANT CBC WITH DIFFERENTIAL, B Routine 05/05/2024 7:25 AM HEALTH EDUCATION ASSISTANT BASIC METABOLIC PANEL, S/P Routine 05/05/2024 7:25 AM HEALTH EDUCATION ASSISTANT PULSE OXIMETRY, CONTINUOUS Routine 05/04/2024 8:01 PM HEALTH EDUCATION ASSISTANT ADULT OXYGEN THERAPY Routine 05/04/2024 8:01 PM HEALTH EDUCATION ASSISTANT CALCIUM, IONIZED, S/B Routine 05/04/2024 6:15 PM HEALTH EDUCATION ASSISTANT PH BLOOD GAS Routine 05/04/2024 6:15 PM HEALTH EDUCATION ASSISTANT LACTATE DEHYDROGENASE (LD), S Routine 05/04/2024 6:15 PM HEALTH EDUCATION ASSISTANT CANCER AG 125 (CA 125), S Routine 05/04/2024 6:15 PM HEALTH EDUCATION ASSISTANT URINALYSIS WITH MICROSCOPIC IF INDICATED, U Routine 05/04/2024 5:59 PM HEALTH EDUCATION ASSISTANT CYTOLOGY NON-KINDERGARTNER Timed 05/04/2024 12:06 PM HEALTH EDUCATION ASSISTANT CYTOLOGY NON-KINDERGARTNER Timed 05/04/2024 11:54 AM HEALTH EDUCATION ASSISTANT US PARACENTESIS WITH IMAGING GUIDANCE RAD - Routine (most inpatients and all outpatients) 05/04/2024 11:35 AM HEALTH EDUCATION ASSISTANT US THORACENTESIS RIGHT WITH IMAGING GUIDANCE RAD - Routine (most inpatients and all outpatients) 05/04/2024 11:30 AM HEALTH EDUCATION ASSISTANT CBC WITH DIFFERENTIAL, B Routine 05/04/2024 11:30 AM HEALTH EDUCATION ASSISTANT MAGNESIUM, S Routine 05/04/2024 11:30 AM HEALTH EDUCATION ASSISTANT BASIC METABOLIC PANEL, S/P Routine 05/04/2024 11:30 AM HEALTH EDUCATION ASSISTANT ECG Routine 05/04/2024 11:23 AM HEALTH EDUCATION ASSISTANT GLUCOSE, BODY FLUID Routine 05/04/2024 11:23 AM HEALTH EDUCATION ASSISTANT HEPATIC FUNCTION PANEL, S Routine 05/04/2024 11:11 AM HEALTH EDUCATION ASSISTANT CELL COUNT AND DIFFERENTIAL, BF Timed 05/04/2024 10:50 AM HEALTH EDUCATION ASSISTANT PROTEIN, TOTAL, BF Routine 05/04/2024 10:50 AM HEALTH EDUCATION ASSISTANT ALBUMIN, BODY FLUID Routine 05/04/2024 10:50 AM HEALTH EDUCATION ASSISTANT GRAM STAIN Timed 05/04/2024 10:50 AM HEALTH EDUCATION ASSISTANT BACTERIAL CULTURE, ANAEROBIC + SUSC Timed 05/04/2024 10:50 AM HEALTH EDUCATION ASSISTANT BACTERIAL CULTURE, AEROBIC + SUSC Timed 05/04/2024 10:50 AM HEALTH EDUCATION ASSISTANT PH, PLEURAL FLUID Timed 05/04/2024 10:30 AM HEALTH EDUCATION ASSISTANT CELL COUNT AND DIFFERENTIAL, BF Timed 05/04/2024 10:30 AM HEALTH EDUCATION ASSISTANT PROTEIN, TOTAL, BF Timed 05/04/2024 10:30 AM HEALTH EDUCATION ASSISTANT LACTATE DEHYDROGENASE (LD), BF Timed 05/04/2024 10:30 AM HEALTH EDUCATION ASSISTANT BACTERIAL CULTURE, ANAEROBIC + SUSC Timed 05/04/2024 10:30 AM HEALTH EDUCATION ASSISTANT BACTERIAL CULTURE, AEROBIC + SUSC Timed 05/04/2024 10:30 AM HEALTH EDUCATION ASSISTANT GRAM STAIN Timed 05/04/2024 10:30 AM HEALTH EDUCATION ASSISTANT PULSE OXIMETRY, CONTINUOUS Routine 05/04/2024 9:39 AM HEALTH EDUCATION ASSISTANT PULSE OXIMETRY, CONTINUOUS Routine 05/04/2024 9:39 AM HEALTH EDUCATION ASSISTANT PULSE OXIMETRY, CONTINUOUS Routine 05/04/2024 9:37 AM HEALTH EDUCATION ASSISTANT ADULT OXYGEN THERAPY Routine 05/04/2024 9:37 AM HEALTH EDUCATION ASSISTANT ADULT OXYGEN THERAPY Routine 05/04/2024 9:37 AM HEALTH EDUCATION ASSISTANT ADULT OXYGEN THERAPY Routine 05/04/2024 9:[address]ATION [address] ABDOMEN PELVIS WITH IV CONTRAST RAD - Semiurgent (Fast; most ED patients; some inpatients) 05/03/2024 3:01 [address] EDUCATION ASS[address] CHEST ANGIOGRAM AND PULMONARY ARTERIES WITH IV CONTRAST RAD - Semiurgent (Fast; most ED patients; some inpatients) 05/03/2024 2:45 PM HEALTH EDUCATION ASSISTANT NT-PRO B-TYPE NATRIURETIC PEPTIDE (BNP), S STAT 05/03/2024 1:19 PM HEALTH EDUCATION ASSISTANT D-DIMER, P STAT 05/03/2024 1:19 PM HEALTH EDUCATION ASSISTANT COMPREHENSIVE METABOLIC PANEL, S/P STAT 05/03/2024 1:19 PM HEALTH EDUCATION ASSISTANT CBC WITH DIFFERENTIAL, B STAT 05/03/2024 1:19 PM HEALTH EDUCATION ASSISTANT INFLUENZA A, B, RSV, PCR, POCT STAT 05/03/2024 1:15 PM HEALTH EDUCATION ASSISTANT SARS CORONAVIRUS 2, PCR RAPID, V STAT 05/03/2024 1:15 PM HEALTH EDUCATION ASSISTANT DX CHEST AP OR PA AND LATERAL 2 VIEWS RAD - Semiurgent (Fast; most ED patients; some inpatients) 04/24/2024 4:06 PM HEALTH EDUCATION ASSISTANT Cough Unspecified Type from Last 3 Months Results * DX Chest 1 View (05/07/2024 4:22 PM HEALTH EDUCATION ASSISTANT) Only the most recent of2 resultswithin the time period is included. Anatomical Region Laterality Modality Chest, Thoracic RST LOS, Tho racic ARZ LOS, Thoracic FLA LOS N/A Digital Radiography Impressions 05/07/2024 4:26 PM HEALTH EDUCATION ASSISTANT Decreased pleural effusion and no pneumothorax following right-sided thoracentesis Narrative 05/07/2024 4:26 PM HEALTH EDUCATION ASSISTANT EXAM: DX CHEST 1 VIEW COMPARISON: Chest [...] following right- sidedthoracentesis Miguelina Acharya B.Ch., M.D. [facility] IMAGING PROCEDURES Final Result * US Thoracentesis Right with Imaging Guidance (05/07/2024 3:41 PM HEALTH EDUCATION ASSISTANT) Only the most recent of2 resultswithin the time period is included. Anatomical Region Laterality Modality Chest, Ultrasound RST LOS, U ltrasound ARZ LOS, Procedure FLA LOS, Abdominal FLA LOS, Procedural, Procedural NWWI LOS Right Ultrasound Impressions 05/07/2024 4:18 PM HEALTH EDUCATION ASSISTANT Successful ultrasound guided thoracentesis. Narrative 05/07/2024 4:18 PM HEALTH EDUCATION ASSISTANT EXAM: US THORACENTESIS RIGHT WITH IMAGING GUIDANCE [...] medications. Patient education provided by the care [employer] sales and lending team member. Ready to learn, no apparent [...] medications. Patient education provided by the care [employer] sales and lending team member. Farideh pachecoearn, no apparent learning barriers were identified. Post-procedure careexplained; patient expressed understanding of the content. IMPRESSION: Successful ultrasound guided thoracentesis. us Miguelina Acharya B.Ch., M.D. IM US ADITI DENISE Final Result * CBC without Differential (05/07/2024 6:43 AM HEALTH EDUCATION ASSISTANT) Hemoglobin 12.0 11.6 - 15.0 g/dL 05/07/2024 6:54 AM HEALTH EDUCATION ASSISTANT MKTO Hematocrit 38.0 35.5 - 44.9 % 05/07/2024 6:54 AM HEALTH EDUCATION ASSISTANT [facility] Erythrocytes 4.25 3.92 - 5.13 x10(12)/L 05/07/2024 6:54 AM HEALTH EDUCATION ASSISTANT [facility] MCV 89.4 78.2 - 97.9 fL 05/07/2024 6:54 AM HEALTH EDUCATION ASSISTANT [facility] RBC Distrib Width 13.0 12.2 - 16.1 % 05/07/2024 6:54 AM HEALTH EDUCATION ASSISTANT [facility] Platelet Count 340 157 - 371 x10(9)/L 05/07/2024 6:54 AM HEALTH EDUCATION ASSISTANT [facility] Leukocytes 5.3 3.4 - 9.6 x10(9)/L 05/07/2024 6:54 AM HEALTH EDUCATION ASSISTANT [facility] Blood (Blood, Venous) 05/07/2024 6:43 AM HEALTH EDUCATION ASSISTANT 05/07/2024 6:52 AM HEALTH EDUCATION ASSISTANT us Sergo Ambrocio M.D. LAB BLOOD ADD-ON Final Resu lt [facility] [address] [place] [address], [facility] in [address] [address] * Basic Metabolic Panel (05/07/2024 6:43 AM HEALTH EDUCATION ASSISTANT) Only the most recent of4 resultswithin the time period is included. Potassium, P 4.2 3.6 - 5.2 mmol/L 05/07/2024 7:34 AM HEALTH EDUCATION ASSISTANT MK[facility] Sodium, P 140 135 - 145 mmol/L 05/07/2024 7:34 AM HEALTH EDUCATION ASSISTANT [facility] Chloride, P 105 98 - 107 mmol/L 05/07/2024 7:34 AM HEALTH EDUCATION ASSISTANT [facility] Bicarbonate, P 27 22 - 29 mmol/L 05/07/2024 7:34 AM HEALTH EDUCATION ASSISTANT [facility] Anion Gap, P 8 7 - 15 05/07/2024 7:34 AM HEALTH EDUCATION ASSISTANT [facility] BUN (Blood Urea Nitrogen), P 9 6 - 21 mg/dL 05/07/2024 7:34 AM HEALTH EDUCATION ASSISTANT [facility] Creatinine 0.69 0.59 - 1.04 mg/dL 05/07/2024 7:34 AM HEALTH EDUCATION ASSISTANT [facility] Estimated GFR (eGFR) >90 >=60 mL/min/BSA 05/07/2024 7:34 AM HEALTH EDUCATION ASSISTANT MK[facility] Comment: Estimated GFR calculated using the 2020 CKD_EPI creatinine equation. Calcium, Total, P 8.8 8.8 - 10.2 mg/dL 05/07/2024 7:34 AM HEALTH EDUCATION ASSISTANT [facility] Glucose, P 88 70 - 140 mg/dL 05/07/2024 7:34 AM HEALTH EDUCATION ASSISTANT [facility] Blood (Blood, Venous) 05/07/2024 6:43 AM HEALTH EDUCATION ASSISTANT 05/07/2024 6:52 AM HEALTH EDUCATION ASSISTANT us Sergo Ambrocio M.D. LAB BLOOD ADD-ON Final Resu lt [facility] [address] [place] [address], [facility] in [address] [address] * (ABNORMAL) CBC with Differential, Blood (05/06/2024 7:00 AM HEALTH EDUCATION ASSISTANT) Only the most recent of4 resultswithin the time period is included. Hemoglobin 11.4(L) 11.6 - 15.0 g/dL 05/06/2024 7:39 AM HEALTH EDUCATION ASSISTANT MKTO Hematocrit 36.1 35.5 - 44.9 % 05/06/2024 7:39 AM HEALTH EDUCATION ASSISTANT [facility] Erythrocytes 4.02 3.92 - 5.13 x10(12)/L 05/06/2024 7:39 AM HEALTH EDUCATION ASSISTANT [facility] MCV 89.8 78.2 - 97.9 fL 05/06/2024 7:39 AM HEALTH EDUCATION ASSISTANT [facility] RBC Distrib Width 13.0 12.2 - 16.1 % 05/06/2024 7:39 AM HEALTH EDUCATION ASSISTANT [facility] Platelet Count 315 157 - 371 x10(9)/L 05/06/2024 7:39 AM HEALTH EDUCATION ASSISTANT [facility] Leukocytes 5.0 3.4 - 9.6 x10(9)/L 05/06/2024 7:39 AM HEALTH EDUCATION ASSISTANT [facility] Neutrophils 3.52 1.56 - 6.45 x10(9)/L 05/06/2024 7:39 AM HEALTH EDUCATION ASSISTANT [facility] Lymphocytes 0.83(L) 0.95 - 3.07 x10(9)/L 05/06/2024 7:39 AM HEALTH EDUCATION ASSISTANT [facility] Monocytes 0.50 0.26 - 0.81 x10(9)/L 05/06/2024 7:39 AM HEALTH EDUCATION ASSISTANT [facility] Eosinophils 0.10 0.03 - 0.48 x10(9)/L 05/06/2024 7:39 AM HEALTH EDUCATION ASSISTANT MKTO Basophils <0.03 0.01 - 0.08 x10(9)/L 05/06/2024 7:39 AM HEALTH EDUCATION ASSISTANT [facility] Blood (Blood, Venous) 05/06/2024 7:00 AM HEALTH EDUCATION ASSISTANT 05/06/2024 7:35 AM HEALTH EDUCATION ASSISTANT us Adia Geiger M.D. LAB BLOOD ADD-ON Final Result [facility] [address] [place] [address], [facility] MKTO [facility] [place] [address] [place] [address] * pH (05/04/2024 6:15 PM HEALTH EDUCATION ASSISTANT) pH 7.38 7.35 - 7.45 pH 05/04/2024 6:23 PM HEALTH EDUCATION ASSISTANT [facility] Blood 05/04/2024 6:15 PM HEALTH EDUCATION ASSISTANT 05/04/2024 6:19 PM HEALTH EDUCATION ASSISTANT Tamara Hutton APRN.N.P., D.N.P. LAB HISTORICA L ORDERS Final Result Performing Organization Address City/[facility]/ZIP Co de Phone Number [facility] [address] [place] [address], [facility] [place] [address] [place] [address] * (ABNORMAL) Cancer Antigen 125 (CA 125) (05/04/2024 6:15 PM HEALTH EDUCATION ASSISTANT) Cancer Ag 125 (CA 125), S 8527(H) <46 U/mL 05/06/2024 6:47 AM HEALTH EDUCATION ASSISTANT AUST Comment: Biotin has been identified by the shake cutter as a potential interfering substance. Higher concentrations [...] disease. Blood (Blood, Venous) 05/04/2024 6:15 PM HEALTH EDUCATION ASSISTANT 05/05/2024 1:52 PM HEALTH EDUCATION ASSISTANT Hakan Iniguez APRN, C.N.P., D.N.P. LAB BLOOD ADD -ON Final Result Performing Organization Address City/[facility]/ZIP Co de Phone Number [facility] [address] [place] [address], [facility] - [facility] [address] [place] [address] * (ABNORMAL) LD (Lactate Dehydrogenase) (05/04/2024 6:15 PM HEALTH EDUCATION ASSISTANT) Pathologist [facility] Lactate Dehydrogenase (LD), P 285(H) 122 - 222 U/L 05/04/2024 6:42 PM HEALTH EDUCATION ASSISTANT [facility] Blood (Blood, Venous) 05/04/2024 6:15 PM HEALTH EDUCATION ASSISTANT 05/04/2024 6:20 PM HEALTH EDUCATION ASSISTANT us Hakan Iniguez APRN, C.N.P., D.N.P. LAB BLOOD NON ADD-ON Final Result Performing Organization Address City/[facility]/ZIP Co de Phone Number [facility] [address] [place] [address], [address] [address] * (ABNORMAL) Calcium, Ionized (05/04/2024 6:15 PM HEALTH EDUCATION ASSISTANT) [facility] Calcium, Ionized, B 4.56(L) 4.65 - 5.30 mg/dL 05/04/2024 6:23 PM HEALTH EDUCATION ASSISTANT MK[facility] Blood 05/04/2024 6:15 PM HEALTH EDUCATION ASSISTANT 05/04/2024 6:19 PM HEALTH EDUCATION ASSISTANT us Hakan Iniguez APRN, C.N.P., D.N.P. LAB BLOOD NON ADD-ON Final Result [facility] [address] [place] [address], [address] [address] * Urinalysis with Microscopic if Indicated: Urine, Midstream (05/04/2024 5:59 PM HEALTH EDUCATION ASSISTANT) Source Urine, Urine, Midstream 05/04/2024 6:08 PM HEALTH EDUCATION ASSISTANT MKTO Clarity Clear Clear 05/04/2024 6:08 PM HEALTH EDUCATION ASSISTANT MKTO Color Yellow 05/04/2024 6:08 PM HEALTH EDUCATION ASSISTANT MKTO Comment: ----REFERENCE VALUE---- Colorless Yellow Ginger Blood Negative Negative 05/04/2024 6:08 PM HEALTH EDUCATION ASSISTANT MKTO Nitrite Negative Negative 05/04/2024 6:08 PM HEALTH EDUCATION ASSISTANT [facility]TO Leukocyte Esterase Negative Negative 05/04/2024 6:08 PM HEALTH EDUCATION ASSISTANT MKTO Protein Negative mg/dL 05/04/2024 6:08 PM HEALTH EDUCATION ASSISTANT MKTO Comment: ----REFERENCE VALUE---- Negative Trace Glucose Negative Negative mg/dL 05/04/2024 6:08 PM HEALTH EDUCATION ASSISTANT MKTO Ketone Negative Negative mg/dL 05/04/2024 6:08 PM HEALTH EDUCATION ASSISTANT MKTO Bilirubin Negative Negative 05/04/2024 6:08 PM HEALTH EDUCATION ASSISTANT MKTO pH 5.5 5.0 - 8.0 05/04/2024 6:08 PM HEALTH EDUCATION ASSISTANT MKTO Specific Panacea 1.010 1.001 - 1.035 05/04/2024 6:08 PM HEALTH EDUCATION ASSISTANT [facility]TO Urobilinogen 0.2 0.2 - 1.0 mg/dL 05/04/2024 6:08 PM HEALTH EDUCATION ASSISTANT MKTO Urine (Urine, Midstream) 05/04/2024 5:59 PM HEALTH EDUCATION ASSISTANT 05/04/2024 6:05 PM HEALTH EDUCATION ASSISTANT us Hakan Iniguez APRN, C.N.P., D.N.P. LAB URINE ORD ERABLES Final Result [facility] [address] [place] [address], [facility] MKTO [facility] [place] [address] * (ABNORMAL) Cytology Non-KINDERGARTNER (05/04/2024 12:06 PM HEALTH EDUCATION ASSISTANT) Only the most recent of2 resultswithin the time period is included. (A) 05/08/2024 9:38 AM HEALTH EDUCATION ASSISTANT [facility] Report electronically signed by Inocencio Ford MD I verify that I have examined all relevant slides/materials for the specimen(s) and rendered or confirmed the diagnosis. (A) 05/08/2024 9:38 AM HEALTH EDUCATION ASSISTANT [facility] Gross Description 1050 ml of cloudy reddish/yellow fluid received. 60 ml fixed with 50% ETOH at 7:15 am on 05-06-2024. 2 slides and cell block prepared. (A) 05/08/2024 9:38 AM HEALTH EDUCATION ASSISTANT [facility] Source A. Pleural, Right, fluid(A) 05/08/2024 9:38 AM HEALTH EDUCATION ASSISTANT [facility] Clinical History August 2008, right breast, grade 3, infiltrating ductal carcinoma, treated with chemotherapy. On 05/03/2024 with abdominal bloating and dyspnea and mild hypoxia. The CT scan showed diffuse omental or peritoneal thickening and moderate right pleural effusion. Presentation is not typical for recurrence of breast cancer. (A) 05/08/2024 9:38 AM HEALTH EDUCATION ASSISTANT HK Interpretation A. Pleural, Right, fluid (smears/cell [...] Acceptable control results. (A) 05/08/2024 9:38 AM HEALTH EDUCATION ASSISTANT [facility] Fluid (Pleural Fluid, Right) 05/04/2024 12:06 PM HEALTH EDUCATION ASSISTANT 05/06/2024 8:11 AM HEALTH EDUCATION ASSISTANT us Hakan Iniguez APRN, C.N.P., D.N.P. LAB SURG PATH ORDERABLES Final Result [facility] [address] [place] [address], [facility] [address] [address] * US Paracentesis with Imaging Guidance (05/04/2024 11:35 AM HEALTH EDUCATION ASSISTANT) Anatomical Region Laterality Modality Abdomen, Ultrasound RST LOS, Ultrasound ARZ LOS, Procedure FLA LOS, Abdominal FLA LOS, Procedural, Procedural NWWI LOS N/A Ultrasound Impressions 05/04/2024 12:33 PM HEALTH EDUCATION ASSISTANT Successful ultrasound guided diagnostic and therapeutic paracentesis. Narrative 05/04/2024 12:33 PM HEALTH EDUCATION ASSISTANT EXAM: US PARACENTESIS WITH IMAGING GUIDANCE PROCEDURE: [...] medications. Patient education provided by the care [employer] sales and lending team member. Ready to learn, no apparent [...] medications. Patient education provided by the care [employer] sales and lending team member. Ready to learn, no apparent learningbarriers were identified. Post-procedure care explained; patient expressedunderstanding of the content. IMPRESSION: Successful ultrasound guided diagnostic and therapeutic paracentesis. us Tamara Hutton APRN.N.P., D.N.P. IMG US PROCED URES Final Result * Magnesium (05/04/2024 11:30 AM HEALTH EDUCATION ASSISTANT) Magnesium, P 1.8 1.7 - 2.3 mg/dL 05/04/2024 11:58 AM HEALTH EDUCATION ASSISTANT MKTO Blood (Blood, Venous) 05/04/2024 11:30 AM HEALTH EDUCATION ASSISTANT 05/04/2024 11:38 AM HEALTH EDUCATION ASSISTANT us Tamara Hutton APRN.N.P., D.N.P. LAB BLOOD ADD -ON Final Result [facility] [address] [place] [address], [facility] MKTO [facility] [place] [address] [place] [address] * ECG 12 Lead (05/04/2024 11:23 AM HEALTH EDUCATION ASSISTANT) Ventricular Rate ECG/Min 75 BPM MUSE NC Interval 184 ms MUSE QRSD Interval 80 ms MUSE QT Interval 384 ms MUSE QTC Interval 428 ms MUSE P [place] 49 degrees MUSE R [place] 80 degrees MUSE T Wave [place] 47 degrees MUSE 05/04/2024 11:2 3 AM HEALTH EDUCATION ASSISTANT 05/04/2024 11:33 AM HEALTH EDUCATION ASSISTANT Impressions MUSE - 05/04/2024 11:33 AM HEALTH EDUCATION ASSISTANT Normal sinus rhythm Normal ECG No previous ECGs available Reviewed by LINDA Linda Narrative Procedure Note Zhang Sandy M.D. - 05/04/2024 IMPRESSION: Normal sinus rhythm Normal ECG No previous ECGs available Reviewed by LINDA Linda us Tamara Hutton APRN.N.P., D.N.P. ECG ORDERABLE S Final Result Performing Organization Address [facility]/ZIP Co de Phone Number MUSE NA * Glucose, Body Fluid (05/04/2024 11:23 AM HEALTH EDUCATION ASSISTANT) Glucose, BF 63 See Comment mg/dL 05/05/2024 12:32 PM HEALTH EDUCATION ASSISTANT DTL Comment: ----ADDITIONAL INFORMATION---- Body fluid glucose [...] cystic lesions. All other fluids refer to www.[facility] [facility] [employer] [facility] [employer] for further interpretive information. This test has been modified from the shake cutter's instructions. Its performance characteristics were determined by [facility] in a manner consistent with CLIA requirements. This test has not been cleared or approved by the U.S. Food and Drug Administration. Fluid Type, Glucose PLEURAL 05/05 11:00 AM HEALTH EDUCATION ASSISTANT DTL Fluid (Pleural Fluid, Right) 05/04/2024 11:23 AM HEALTH EDUCATION ASSISTANT 05/05/2024 9:24 AM HEALTH EDUCATION ASSISTANT us Hakan Iniguez APRN, C.N.P., D.N.P. LAB B FRANKIE FLUIDS AND STOOLS ORDERABLES Final Result Performing Organization Address [facility] Co de Phone Number [facility] [address] [place] [address], [facility] [place] [address] [place] [address] * Hepatic Function Panel (05/04/2024 11:11 AM HEALTH EDUCATION ASSISTANT) Bilirubin, Total, P <0.2 0.0 - 1.2 mg/dL 05/04/2024 1:47 PM HEALTH EDUCATION ASSISTANT MKTO Bilirubin, Direct, P <0.1 0.0 - 0.3 mg/dL 05/04/2024 1:47 PM HEALTH EDUCATION ASSISTANT MKTO Aspartate Aminotransferase (AST), P 28 8 - 43 U/L 05/04/2024 1:47 PM HEALTH EDUCATION ASSISTANT MKTO Alanine Aminotransferase (ALT), P 20 7 - 45 U/L 05/04/2024 1:47 PM HEALTH EDUCATION ASSISTANT MKTO Alkaline Phosphatase, P 59 35 - 104 U/L 05/04/2024 1:47 PM HEALTH EDUCATION ASSISTANT MKTO Albumin, P 3.6 3.5 - 5.0 g/dL 05/04/2024 1:47 PM HEALTH EDUCATION ASSISTANT MKTO Protein, Total, P 6.5 6.3 - 7.9 g/dL 05/04/2024 1:47 PM HEALTH EDUCATION ASSISTANT MKTO Blood (Blood, Venous) 05/04/2024 11:11 AM HEALTH EDUCATION ASSISTANT 05/04/2024 1:34 PM HEALTH EDUCATION ASSISTANT Hakan Iniguez APRN, C.N.P., D.N.P. LAB BLOOD ADD -ON Final Result [facility] [address] [place] [address], [facility] [place] [address] * Protein, Total, Body Fluid (05/04/2024 10:50 AM HEALTH EDUCATION ASSISTANT) Only the most recent of2 resultswithin the time period is included. Protein, Total, BF 4.9 See Comment g/dL 05/05/2024 12:34 PM HEALTH EDUCATION ASSISTANT DTL Comment: ----ADDITIONAL INFORMATION---- A pleural fluid [...] clinical findings. All other fluids refer to www.[facility] [facility].com for further interpretive information. This test has been modified from the shake cutter's instructions. Its performance characteristics were determined by [facility] in a manner consistent with CLIA requirements. This test has not been cleared or approved by the U.S. Food and Drug Administration. Fluid Type, Protein, Total PERITONEAL 05/05/2024 11:01 AM HEALTH EDUCATION ASSISTANT DTL Fluid (Abdomen) 05/04/2024 1 0:50 AM HEALTH EDUCATION ASSISTANT 05/05/2024 9:24 AM HEALTH EDUCATION ASSISTANT Tamara Hutton APRN.N.P., D.N.P. LAB B FRANKIE FLUIDS AND STOOLS ORDERABLES Final Result Performing Organization Address [facility] Co de Phone Number [facility] [address] [place] [address], [facility] DTL [address] [address] * Bacterial Culture, Aerobic + Susceptibility (05/04/2024 10:50 AM HEALTH EDUCATION ASSISTANT) Only the most recent of2 resultswithin the time period is included. Bacterial Culture, Aerobic + Susc No growth after 5 days of incubation. 05/09/2024 6:59 AM HEALTH EDUCATION ASSISTANT MKTO Fluid (Abdomen) 05/04/2024 1 0:50 AM HEALTH EDUCATION ASSISTANT 05/04/2024 11:50 AM HEALTH EDUCATION ASSISTANT Comment:Specimen Source Site : Fluid Hakan Iniguez APRN, C.N.P., D.N.P. LAB M ICROBIOLOGY - GENERAL ORDERABLES Final Result [facility] [address] [place] [address], [facility] MKTO [facility] [place] [address] [place] [address] * Cell Count and Differential, Body Fluid (05/04/2024 10:50 AM HEALTH EDUCATION ASSISTANT) Only the most recent of2 resultswithin the time period is included. Fluid Type Peritoneal/Pa racentesis 05/04/2024 12:46 PM HEALTH EDUCATION ASSISTANT MKTO Gross Appearance Slightly Cloudy 05/04/2024 12:47 PM HEALTH EDUCATION ASSISTANT MKTO Total Nucleated Cells 2808 /mcL 05/04/2024 12:48 PM HEALTH EDUCATION ASSISTANT MKTO Comment: ----REFERENCE VALUE---- Synovial: <150 Peritoneal: <500 Pleural: <500 Pericardial: <500 ----ADDITIONAL INFORMATION---- This test has been modified from the shake cutter's instructions. Its performance characteristics were determined by [facility] in a manner consistent with CLIA requirements. This test has not been cleared or approved by the U.S. Food and Drug Administration. Neutrophils 3 % 05/04/2024 1:20 PM HEALTH EDUCATION ASSISTANT MKTO Comment: ----REFERENCE VALUE---- Synovial: <25% Peritoneal: <25% Pleural: <25% Pericardial: <25% Lymphocytes 34 Synovial : <75% % 05/04/2024 1:20 PM HEALTH EDUCATION ASSISTANT MKTO Monocytes/Macropha ges 42 Synovial : <70% % 05/04/2024 1:20 PM HEALTH EDUCATION ASSISTANT MKTO Other Cells 21 % 05/04/2024 1:20 PM HEALTH EDUCATION ASSISTANT MKTO Comment: ----REFERENCE VALUE---- The reference range and other method performance specifications have not been established for this body fluid. The test result must be integrated into the clinical context for interpretation. Other Cells Are: SeeComment 05/04/19 25 7:48 PM HEALTH EDUCATION ASSISTANT MKTO Comment: REVISED RESULTS Mesothelial cells: 8 Atypical cells: 13 Atypical cells, Correlate with cytology specimen. Dr. Hernandez ----PREVIOUSLY REPORTED ---- Mesothelial cells: 8 Atypical cells: 13 Atypical cells, Correlate with cytology specimen. (Reported 05/04/2024 13:22) Reviewed by: Dr. Hernandez 05/04/2024 7:48 PM HEALTH EDUCATION ASSISTANT MKTO Comment: REVISED RESULTS ----PREVIOUSLY REPORTED ---- Will be reviewed by Pathologist Flagged as: N/A (Reported 05/04/2024 13:22) Fluid (Abdomen) 05/04/2024 1 0:50 AM HEALTH EDUCATION ASSISTANT 05/04/2024 11:50 AM HEALTH EDUCATION ASSISTANT us Hakan Iniguez APRN, C.N.P., D.N.P. LAB BODY FLUIDS AND STOOLS ORDERABLES Edited Result - Final [facility] [address] [place] [address], [address] [address] * Gram Stain (05/04/2024 10:50 AM HEALTH EDUCATION ASSISTANT) Only the most recent of2 resultswithin the time period is included. Gram Stain No organisms seen. White blood cells present. Stain performed on concentrated cytospin preparation. 05/04/2024 12:50 PM HEALTH EDUCATION ASSISTANT [facility] Fluid (Abdomen) 05/04/2024 1 0:50 AM HEALTH EDUCATION ASSISTANT 05/04/2024 11:50 AM HEALTH EDUCATION ASSISTANT Comment:Specimen Source Site : Fluid us Hakan Iniguez APRN, C.N.P., D.N.P. LAB M ICROBIOLOGY - GENERAL ORDERABLES Final Result Performing Organization Address [facility] Co de Phone Number [facility] [address] [place] [address], [address] [address] * Bacterial Culture, Anaerobic + Susceptibility (05/04/2024 10:50 AM HEALTH EDUCATION ASSISTANT) Only the most recent of2 resultswithin the time period is included. Bacterial Culture, Anaerobic No growth after 7 days of incubation. 05/11/2024 5:49 AM HEALTH EDUCATION ASSISTANT [facility] Fluid (Abdomen) 05/04/2024 1 0:50 AM HEALTH EDUCATION ASSISTANT 05/04/2024 11:50 AM HEALTH EDUCATION ASSISTANT Comment:Specimen Source Site : Fluid us Hakan Iniguez APRN, C.N.P., D.N.P. LAB M ICROBIOLOGY - GENERAL ORDERABLES Final Result Performing Organization Address [facility] Co de Phone Number [facility] [address] [place] [address], [address] [address] * Albumin, Body Fluid (05/04/2024 10:50 AM HEALTH EDUCATION ASSISTANT) Albumin BF 2.8 See Comment g/dL 05/05/2024 12:34 PM HEALTH EDUCATION ASSISTANT DTL Comment: ----ADDITIONAL INFORMATION---- Peritoneal fluid albumin is used to calculate the serum-ascites albumin gradient (SAAG). Values greater than or equal to 1.1 g/dL suggest portal hypertension. Pleural fluid albumin may be used to calculate a serum-effusion albumin gradient. Values greater than 1.2 g/dL are most consistent with a transudative process. All other fluids refer to www.[facility].com for further interpretive information. This test has been modified from the shake cutter's instructions. Its performance characteristics were determined by [facility] in a manner consistent with CLIA requirements. This test has not been cleared or approved by the U.S. Food and Drug Administration. Fluid Type, Albumin PERITONEAL 05/05/2024 11:01 AM HEALTH EDUCATION ASSISTANT DT Fluid (Abdomen) 05/04/2024 1 0:50 AM HEALTH EDUCATION ASSISTANT 05/05/2024 9:24 AM HEALTH EDUCATION ASSISTANT us Hakan Iniguez APRN, C.N.P., D.N.P. LAB B FRANKIE FLUIDS AND STOOLS ORDERABLES Final Result [address] [address], [facility] [address] [place] [address] * pH, Pleural Fluid (05/04/2024 10:30 AM HEALTH EDUCATION ASSISTANT) pH, Pleural Fluid 7.35 Not Applicable pH 05/04/2024 12:14 PM HEALTH EDUCATION ASSISTANT MKTO Comment: Clinical guidelines suggest that in parapneumonic pleural effusions, a pH <7.2 indicate the need for tube drainage. Fluid (Pleural Fluid, Right) 05/04/2024 10:30 AM HEALTH EDUCATION ASSISTANT 05/04/2024 12:07 PM HEALTH EDUCATION ASSISTANT us Hakan Iniguez APRN, C.N.P., D.N.P. LAB B FRANKIE FLUIDS AND STOOLS ORDERABLES Final Result Performing Organization Address [facility]/ZIP Co de Phone Number [facility] [address] [place] [address], [place] MKTO [facility] [place] [address] [place] [address] * Lactate Dehydrogenase (LD), Body Fluid (05/04/2024 10:30 AM HEALTH EDUCATION ASSISTANT) Lactate Dehydrogenase (LD), BF 291 See Comment U/L 05/05/2024 2:30 PM HEALTH EDUCATION ASSISTANT DTL Comment: ----ADDITIONAL INFORMATION---- Pleural fluid lactate [...] clinical findings. All other fluids refer to www.[facility].[employer] for further interpretive information. This test has been modified from the shake cutter's instructions. Its performance characteristics were determined by [facility] in a manner consistent with CLIA requirements. This test has not been cleared or approved by the U.S. Food and Drug Administration. Fluid Type, Lactate Dehydrogenase PLEURAL 05/05/2024 2:41 PM HEALTH EDUCATION ASSISTANT DTL Fluid (Pleural Fluid, Right) 05/04/2024 10:30 AM HEALTH EDUCATION ASSISTANT 05/05/2024 12:35 PM HEALTH EDUCATION ASSISTANT us Hakan Iniguez APRN, C.N.P., D.N.P. LAB B FRANKIE FLUIDS AND STOOLS ORDERABLES Final Result Performing Organization Address [facility]/ZIP Co de Phone Number [facility] [address] [place] [address], [facility] [place] [address] [place] [address] * CT Abdomen Pelvis with IV Contrast (05/03/2024 3:01 PM HEALTH EDUCATION ASSISTANT) Anatomical Region Laterality Modality Abdomen, Pelvis, Abdominal R ST LOS, Abdominal ARZ LOS, Abdominal FLA LOS N/A Computed Tomography 05/03/2024 2:55 PM HEALTH EDUCATION ASSISTANT Impressions 05/03/2024 3:12 PM HEALTH EDUCATION ASSISTANT 1. No evidence for acute or chronic pulmonary embolus. 2. Moderate-sized right pleural effusion with associated atelectasis and/or consolidation. 3. Diffuse omental and peritoneal disease identified concerning for metastatic or primary malignancy. 4. Moderate ascites. 5. Cholelithiasis. 6. Diverticulosis. 7. Distal small bowel wall thickening. Differential includes reactive change versus inflammatory disease versus infiltrative process. Narrative 05/03/2024 3:12 PM HEALTH EDUCATION ASSISTANT EXAM: CT CHEST ANGIOGRAM AND PULMONARY ARTERIES [...] Arteries with IV Contrast (05/03/2024 2:45 PM HEALTH EDUCATION ASSISTANT) Anatomical Region Laterality Modality Chest, Cardiovascular RST LO S, Thoracic ARZ LOS, Thoracic FLA LOS N/A Computed Tomography 05/03/2024 2:57 PM HEALTH EDUCATION ASSISTANT Impressions 05/03/2024 3:12 PM HEALTH EDUCATION ASSISTANT 1. No evidence for acute or chronic pulmonary embolus. 2. Moderate-sized right pleural effusion with associated atelectasis and/or consolidation. 3. Diffuse omental and peritoneal disease identified concerning for metastatic or primary malignancy. 4. Moderate ascites. 5. Cholelithiasis. 6. Diverticulosis. 7. Distal small bowel wall thickening. Differential includes reactive change versus inflammatory disease versus infiltrative process. Narrative 05/03/2024 3:12 PM HEALTH EDUCATION ASSISTANT EXAM: CT CHEST ANGIOGRAM AND PULMONARY ARTERIES [...] B-Type Natriuretic Peptide (BNP) (05/03/2024 1:19 PM HEALTH EDUCATION ASSISTANT) NT-Pro BNP 153 <=226 pg/mL 05/03/2024 1:57 PM HEALTH EDUCATION ASSISTANT NPRG Comment: NT-proBNP values less than 300 [...] failure. Blood (Blood, Venous) 05/03/2024 1:19 PM HEALTH EDUCATION ASSISTANT 05/03/2024 1:21 PM HEALTH EDUCATION ASSISTANT us Ilda Martinez M.D., M.B.A. LAB BLOOD ADD-ON Final Result Performing Organization Address City/[facility]/ZIP Co de Phone Number [facility] [address] [place] [address], [facility] NPRG [place] [address] [place] [address] * (ABNORMAL) D-Dimer (05/03/2024 1:19 PM HEALTH EDUCATION ASSISTANT) D-Dimer, P 3913(H) <=500 ng/mL FEU 05/03/2024 1:44 PM HEALTH EDUCATION ASSISTANT NPRG Comment: D-dimer concentrations increase with age. [...] (PE). Blood (Blood, Venous) 05/03/2024 1:19 PM HEALTH EDUCATION ASSISTANT 05/03/2024 1:22 PM HEALTH EDUCATION ASSISTANT Ilda Martinez M.D., M.B.A. LAB BLOOD ADD-ON Final Result Performing Organization Address City/[facility]/ZIP Co de Phone Number [facility] [address] [place] [address], [facility] NPRG [place] [address] [place] [address] * (ABNORMAL) Comprehensive Metabolic Panel (05/03/2024 1:19 PM HEALTH EDUCATION ASSISTANT) Potassium, P 4.4 3.6 - 5.2 mmol/L 05/03/2024 1:54 PM HEALTH EDUCATION ASSISTANT NPRG Sodium, P 138 135 - 145 mmol/L 05/03/2024 1:54 PM HEALTH EDUCATION ASSISTANT NPRG Chloride, P 103 98 - 107 mmol/L 05/03/2024 1:54 PM HEALTH EDUCATION ASSISTANT NPRG Bicarbonate, P 26 22 - 29 mmol/L 05/03/2024 1:54 PM HEALTH EDUCATION ASSISTANT NPRG Anion Gap, P 9 7 - 15 05/03/2024 1:54 PM HEALTH EDUCATION ASSISTANT NPRG BUN (Blood Urea Nitrogen), P 13 6 - 21 mg/dL 05/03/2024 1:54 PM HEALTH EDUCATION ASSISTANT NPRG Creatinine 0.71 0.59 - 1.04 mg/dL 05/03/2024 1:54 PM HEALTH EDUCATION ASSISTANT NPRG Estimated GFR (eGFR) >90 >=60 mL/min/BS A 05/03/2024 1:54 PM HEALTH EDUCATION ASSISTANT NPRG Comment: Estimated GFR calculated using the 2020 CKD_EPI creatinine equation. Calcium, Total, P 8.7(L) 8.8 - 10.2 mg/dL 05/03/2024 1:54 PM HEALTH EDUCATION ASSISTANT NPRG Glucose, P 85 70 - 140 mg/dL 05/03/2024 1:54 PM HEALTH EDUCATION ASSISTANT NPRG Protein, Total, P 6.5 6.3 - 7.9 g/dL 05/03/2024 1:54 PM HEALTH EDUCATION ASSISTANT NPRG Albumin, P 3.6 3.5 - 5.0 g/dL 05/03/2024 1:54 PM HEALTH EDUCATION ASSISTANT NPRG Aspartate Aminotransferase (AST), P 26 8 - 43 U/L 05/03/2024 1:54 PM HEALTH EDUCATION ASSISTANT NPRG Alkaline Phosphatase, P 61 35 - 104 U/L 05/03/2024 1:54 PM HEALTH EDUCATION ASSISTANT NPRG Alanine Aminotransferase (ALT), P 21 7 - 45 U/L 05/03/2024 1:54 PM HEALTH EDUCATION ASSISTANT NPRG Bilirubin, Total, P <0.2 0.0 - 1.2 mg/dL 05/03/2024 1:54 PM HEALTH EDUCATION ASSISTANT NPRG Blood (Blood, Venous) 05/03/2024 1:19 PM HEALTH EDUCATION ASSISTANT 05/03/2024 1:22 PM HEALTH EDUCATION ASSISTANT us Ilda Martinez M.D., M.B.A. LAB BLOOD ADD-ON Final Result [facility] [address] [facility] [address], [facility] NPRG [facility] [address] [place] [address] * SARS Coronavirus 2, PCR Rapid Symptomatic (05/03/2024 1:15 PM HEALTH EDUCATION ASSISTANT) SARS CoV-2, PCR, Rapid, V Undetected Undetected 05/03/2024 1:24 PM HEALTH EDUCATION ASSISTANT NPRG SARS Coronavirus 2, Source, Rapid Swab, Nasopharynx 05/03/2024 1:22 PM HEALTH EDUCATION ASSISTANT NPRG Swab (Nasopharynx) 05/03/2024 1:15 PM HEALTH EDUCATION ASSISTANT 05/03/2024 1:22 PM HEALTH EDUCATION ASSISTANT Ilda Martinez M.D., M.B.A. LAB MICROBIOLOGY - GENERAL ORDERABLES Final Result Performing Organization Address City/[facility]/ZIP Co de Phone Number [facility] [address] [place] [address], [address] [address] * Influenza A/B and RSV, PCR, Point of Care (05/03/2024 1:15 PM HEALTH EDUCATION ASSISTANT) Influenza A, POCT Negative Negative 05/03/2024 1:21 PM HEALTH EDUCATION ASSISTANT NPRG Influenza B, POCT Negative Negative 05/03/2024 1:21 PM HEALTH EDUCATION ASSISTANT NPRG Resp Syncytial Virus, POCT Negative Negative 05/03/2024 1:21 PM HEALTH EDUCATION ASSISTANT NPRG Swab (Nasopharynx) 05/03/2024 1:15 PM HEALTH EDUCATION ASSISTANT 05/03/2024 1:22 PM HEALTH EDUCATION ASSISTANT Ilda Martinez M.D., M.B.A. LAB POCT ORDERABL ES - DEVICE Final Result [facility] [address] [place] [address], [place] [address] [address] [place] [address] * DX Chest AP or PA and Lateral 2 Views (04/24/2024 4:06 PM HEALTH EDUCATION ASSISTANT) Anatomical Region Laterality Modality Chest, Thoracic RST LOS, Tho racic ARZ LOS, Thoracic FLA LOS N/A Digital Radiography Impressions 04/24/2024 4:08 PM HEALTH EDUCATION ASSISTANT New large pleural effusion in the RIGHT lower lobe. Narrative 04/24/2024 4:08 PM HEALTH EDUCATION ASSISTANT EXAM: DX CHEST AP OR PA AND [...] Final Result from Last 3 Months Insurance [facility] Advance Directives For more information, please contact: [phone] * Full Code (Latest Code Status on File) Date Activated Date Inactivated Comments 05/04/2024 9:37 AM 05/07/2024 7:42 PM Question Answer Comments Full Code: Discussed with patient Care Teams Service Station Attendant Relationship Specialty Start Date End Date Elsewhere, Pcp PCP - General Internal Medicine 04/24/24
--- OUTSIDE RECORDS SUMMARY | 2024-05-16 14:19 | XMS_ITS | Encounter Summary ---
Author Organization [facility] Address [address] [place] [address] Care Team Providers Care Hospice Administrator Name Role Phone Elsewhere, Pcp Primary Care Provider Unavailabl e Encounter Details Date Type Department Care Team (Late st Contact Info) Description 05/13/2024 Results Follow-Up Department of Oncology in [place], [place] [address] [place] [phone] Tegan Weaver M.D. [address] [place] [phone] Cytology Non-AMBULANCE PARAMEDIC, Cytology Non-AMBULANCE PARAMEDIC Social History Tobacco Use Types Packs/Day Years Used Date Smoking Tobacco: Every Day Cigarettes Passive Smoke Exposure: Current Smokeless Tobacco: Never Alcohol Use Standard Drinks/Week Comments Yes 0 (1 standard drink = 0.6 oz pur e alcohol) [facility] Utilities Answer Date Recorded In the past 12 months has [facility] [email or web address], gas, oil, or water [employer] threatened to shut off services in your [...] your living situation today? 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
--- OUTSIDE RECORDS SUMMARY | 2024-05-16 14:19 | XMS_ITS | Encounter Summary ---
Author Organization [facility] Address [address] [place] [address] Care Team Providers Care Fur Mixer Operator Name Role Phone Elsewhere, Pcp Primary Care Provider Unavailabl e Reason for Visit * Reason Comments Med Refill Encounter Details Date Type Department Care Team ([facility] st Contact Info) Description 05/07/2024 Refill [facility] [address] [place] [phone] Sabrina Ascencio P.A.-C., P.A. [address] [place] [phone] Med Refill Social History Tobacco Use Types Packs/Day Years Used Date Smoking Tobacco: Every Day Cigarettes Passive Smoke Exposure: Current Smokeless Tobacco: Never Alcohol Use Standard Drinks/Week Comments Yes 0 (1 standard drink = 0.6 oz pur e alcohol) [facility] Utilities Answer Date Recorded In the past 12 months has [facility] [employer], gas, oil, or water [email or web address] threatened to shut off services in your [...] living situation today? 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
--- NOTE | 2024-05-16 14:30 | ED.NURSE ---
field operations technician ambulated pt on room air around the unit, pt in between 93-94% oxygen
--- NOTE | 2024-05-16 14:57 | ED.GENADULT ---
HPI - General Adult General Date Seen: 05/16/24 Chief complaint: Shortness of Breath/Dyspnea Stated complaint: Fluid in lungs Time Seen by Provider: 05/16/24 13:48 History of Present Illness HPI narrative: Patient is a 63-year-old woman with a recent diagnosis of ovarian cancer. She says she presented to [facility] [place], [place], she was having shortness of breath and abdominal swelling. She had a CT scan and then was transferred to [place]. She says that she had a thoracentesis x2 on May 04 and . She had 1 paracentesis on the . She notes that they took off a little over a L each time from the lung and about a 0.5 L from the abdomen. She came in today because she feels like she is may be starting to get more short of breath and she did not want to get as bad as it got last time. She also feels like her appetite is decreased and wonders if she needs another paracentesis. She denies any chest pain, fevers, cough, lower extremity swelling or pain. Related Data Home Medications ?Medication ?Instructions ?Recorded ?Confirmed albuterol sulfate 90 mcg/actuation inhalation 12/22/23 aerosol inhaler amlodipine 5 mg tablet 5 mg PO DAILY 12/22/23 05/16/24 lisinopril 40 mg tablet 40 mg PO DAILY 12/22/23 05/16/24 metoprolol succinate 50 mg 50 mg PO DAILY 12/22/23 05/16/24 tablet,extended release 24 hr rosuvastatin 10 mg tablet 10 mg PO QPM 12/22/23 05/16/24 Allergies Allergy/AdvReac Type Severity Reaction Status Date / Time Sulfa (Sulfonamide Allergy Unknown Verified 12/22/23 14:50 Antibiotics) [facility] Social History Smoking Status: Smoker, status unknown How often do you have a drink containing alcohol: monthly or less How often do you have six or more drinks on one occasion: Never AUDIT-C Alcohol total score: 1 Non-prescribed substance use: denies use service: No Exam Narrative: Exam Narrative: Vital signs reviewed In general, alert, nontoxic manage woman. Head: Normocephalic, atraumatic. Eyes: Sclera clear. Pupils equal and reactive. ENT: Mucous membranes moist. Dentition is poor. Neck: Supple without adenopathy. Heart: Regular rate and rhythm without murmur. Lungs: Breath sounds are decreased on the right. No crackles or wheezes, no increased work of breathing. Abdomen: Abdomen is soft, there is probably some ascites although not at all tense. She has of firm what feels like a mass in the lower abdomen below the umbilicus. Extremities: Well perfused, pulses intact. No significant edema. Neurologic: Alert, conversant. Speech fluent, face symmetric. Moves all extremities equally. Skin: Warm, dry well perfused. Affect: Normal. Const: Vital Signs, click to edit/add: Vital Signs - 24 hr 05/16/24 13:42 Temperature 97.6 F Pulse Rate [Pulse Oximeter] 89 Respiratory Rate 20 Blood Pressure [Ri ght Upper Arm] 132/53 L Pulse Oximetry 94 Oxygen Delivery Me thod Room Air Course Course ED Course: I looked with the bedside ultrasound. She does have some ascites but it is pretty mild and I do not see a window where we would be able to do a paracentesis. I did a chest x-ray, she has a small pleural effusion on the right by my review, radiology review agrees. She is ambulatory with O2 sats of 93-94%. Discussed with Dr. Duron, who agrees that there is not enough pleural effusion to do paracentesis today. She is seeing [facility] for the 1st time tomorrow. I have asked her to raise this question with them in terms of where she should get further paracentesis/thoracentesis as I suspect she may need those in the near future. If she forgets or if they do not have a clear answer, she can return to the ER at any time if she is worsening or can talk with her primary doctor about getting an x-ray and referral to surgery. I asked her if she felt we needed to look at other possible reasons for her shortness of breath. She says she does not think that is necessary, she feels that it is just due to this fluid collection as it feels the same as it did previously. Therefore, we did not pursue other imaging today. Discussed reasons to return such as chest pain, worsening or severe shortness of breath, fevers. Otherwise, [facility] tomorrow as planned. Vital Signs Vital signs: Initial Vital Signs Temperature 97.6 F 05/16/24 13:42 Temperature Source Temporal Artery Scan 05/16/24 13:42 Pulse Rate 89 05/16/24 13:42 Respiratory Rate 20 05/16/24 13:42 Respiratory Effort Normal, Spontaneous, Non-Labored 05/16/24 13:42 Respiratory Depth Normal 05/16/24 13:42 Respiratory Pattern Normal 05/16/24 13:42 Blood Pressure 132/53 L 05/16/24 13:42 Blood Pressure Mean 79 05/16/24 13:42 Blood Pressure Position Sitting 05/16/24 13:42 Pulse Oximetry 94 05/16/24 13:42 Oxygen Delivery Method Room Air 05/16/24 13:42 Vital Signs Temperature 97.6 F 05/16/24 13:42 Pulse Rate 89 05/16/24 13:42 Respiratory Rate 20 05/16/24 13:42 Blood Pressure 132/53 L 05/16/24 13:42 Pulse Oximetry 94 05/16/24 13:42 Oxygen Delivery Method Room Air 05/16/24 13:42 Temperature 97.6 F 05/16/24 13:42 Pulse Rate 89 05/16/24 13:42 Respiratory Rate 20 05/16/24 13:42 Blood Pressure 132/53 L 05/16/24 13:42 Pulse Oximetry 94 05/16/24 13:42 Oxygen Delivery Method Room Air 05/16/24 13:42 Discharge Plan Discharge Clinical Impression: Pleural effusion on right, Ovarian cancer Patient Disposition: Home, Self-Care Condition: Stable Instructions: Pleural Effusion (DC) Additional Instructions: For today, there is not enough fluid to require thoracentesis or paracentesis. Discussed this with [facility] tomorrow, they may have a plan in place so that you can get a thoracentesis when needed. You can certainly return to the ER at any time or talk with Dr. Matta about getting this procedure scheduled as well. If you feel you are significantly worsening, you become acutely short of breath at any time, have chest pain, fevers, or other worsening, return to the emergency department. Prescriptions: No Action metoprolol succinate 50 mg tablet extended release 24 hr 50 mg PO DAILY amlodipine 5 mg tablet 5 mg PO DAILY albuterol sulfate 90 mcg/actuation HFA aerosol inhaler inhalation lisinopril 40 mg tablet 40 mg PO DAILY rosuvastatin 10 mg tablet 10 mg PO QPM Follow Up/Referrals: Luz Maria Matta MD [Primary Care Provider] - Stand Alone Forms: [employer] Info Instructions
== END 2024-05-16 15:20 | disposition home or self-care (01) ==
PROVIDERS: Emergency Provider Emergency Medicine; PCP Family Medicine
DX: I26.99 Other pulmonary embolism without acute cor pulmonale (principal); C56.3 Malignant neoplasm of bilateral ovaries
CPT/HCPCS: 71046; 76705; 99284

== ENCOUNTER 2024-05-23 08:49 | Day surgery (SDC) | payer BC, SELFPAY ==
--- OUTSIDE RECORDS SUMMARY | 2024-05-23 08:52 | XMS_ITS | CCD ---
Author Name Interface, [id number] lity Address [address] [address] [facility] Address [address] [place] [address] Care Team Providers Care Sand Technician Name Role Phone Cynthia Euceda Unavailable Unava ilable Allergies and Adverse Reactions Medication/Group Name Reaction Severity Date SULFA (SULFONAMIDE ANTIBIOTICS) Anaphylaxis 05/17/2024 Care Plan Date Type Value 05/29/2024 APPOINTMENT OUTSIDE TEST 5 M IN 05/28/2024 APPOINTMENT TREATMENT 5 HR 05/28/2024 APPOINTMENT PORT DRAW 15 MIN 05/28/2024 APPOINTMENT OV 30 MIN 05/24/2024 APPOINTMENT OUTSIDE TEST 5 M IN 05/24/2024 APPOINTMENT TREATMENT TEACH 60 MIN 05/22/2024 APPOINTMENT GENETICS NEW PT INTERNAL REFERRAL 60 MIN 05/22/2024 APPOINTMENT TELEGENETIC NEW CONSULT INTERNAL REFERRAL 60 MIN 05/20/2024 APPOINTMENT OUTSIDE TEST 5 M IN 05/17/2024 APPOINTMENT LAB 15 MIN 05/17/2024 APPOINTMENT NEW PT CONSULT 6 0 MIN 05/14/2024 APPOINTMENT LAB 15 MIN 05/14/2024 APPOINTMENT NEW PT CONSULT 6 0 MIN 05/28/2024 LABORDER CMP 05/28/2024 LABORDER CBC w/ auto diff 05/28/2024 LABORDER iSTAT creatinine panel 05/28/2024 LABORDER Magnesium Panel 05/28/2024 LABORDER CA 125 panel Reason for Visit TELEGENETIC NEW CONSULT INTERNAL REFERRAL 60 MIN Encounters Date Name 05/29/2024 Ovarian cancer 05/28/2024 Ovarian cancer 05/28/2024 Ovarian cancer 05/28/2024 Ovarian cancer 05/24/2024 Ovarian cancer 05/24/2024 Ovarian cancer 05/22/2024 Ovarian cancer 05/17/2024 Ovarian cancer 05/17/2024 Ovarian cancer 05/29/2024 OUTSIDE TEST 5 MIN 05/28/2024 TREATMENT 5 HR 05/28/2024 OV 30 MIN 05/28/2024 PORT DRAW 15 MIN 05/24/2024 OUTSIDE TEST 5 MIN 05/24/2024 TREATMENT TEACH 60 M IN 05/22/2024 TELEGENETIC NEW CONS ULT INTERNAL REFERRAL 60 MIN 05/20/2024 OUTSIDE TEST 5 MIN 05/17/2024 Ovarian cancer 05/17/2024 LAB 15 MIN Immunizations Date Name Route Dose Instructions Refusal Reason Stat us Other Patient declined/rejecte d Not Administered Diagnostic Results Date Type Test Units Lower Limit Upper Limit Result Flag Comments Status Ordered By Specimen Source Lab Address 05/07 Misc other lab See stemhole borer and topper d Medications Date Name Route Dose Frequency Instructions Start Date End Date Status Lisinopril Oral orally 1.0 tablet daily active 08/30 18 ML aprepitant 7.2 MG/ML Injection intravenously 130.0 mg once Administer 30 minutes prior to chemotherapy. Do NOT dilute. Flush with NS before and after administration . 2024 active 08/30 1 ML epinephrine 1 MG/ML Injection intramuscularly 0.3 mg once Re-initiate treatment only upon physician approval. 2024 active 08/30 methylprednisol one 2000 MG Injection intravenously 125.0 mg Re-initiate treatment only upon physician approval. 2024 active 08/30 diphenhydramine hydrochloride 0.5 MG/ML Injectable Solution intravenously 50.0 mg Re-initiate treatment only upon physician approval. 2024 active 08/30 paclitaxel 6 MG/ML Injectable Solution intravenously 318.0 mg once Dilute in 250-500 mL NS. Final product concentration must be 0.3-1.2 mg/mL. Administer using [id number] ining equipment and through an in-line 0.22 micron filter. Paclitaxel is a vascular irritant. 2024 active 08/30 Solu-Cortef intravenously 100.0 mg Re-initiate treatment only upon physician approval. 2024 active 08/30 carboplatin 10 MG/ML Injectable Solution intravenously 690.0 mg once Mix in D5W or NS.Carboplatin is an irritant. 2024 active 08/30 2 ML famotidine 10 MG/ML Injection intravenously 20.0 mg once Administer 30-60 minutes prior to paclitaxel. 2024 active 08/30 diphenhydramine hydrochloride 0.5 MG/ML Injectable Solution intravenously 25.0 mg once Administer 30-60 minutes prior to paclitaxel. 2024 active 08/30 dexamethasone sodium phosphate intravenously 20.0 mg once Administer 30-60 minutes prior to paclitaxel. 2024 active 08/30 famotidine 10 MG/ML Injectable Solution intravenously 20.0 mg Re-initiate treatment only upon physician approval. 2024 active 08/30 Palonosetron IV intravenously 0.25 mg once 2024 active 08/09 Solu-Cortef intravenously 100.0 mg Re-initiate treatment only upon physician approval. 2024 active 08/09 diphenhydramine hydrochloride 0.5 MG/ML Injectable Solution intravenously 25.0 mg once Administer 30-60 minutes prior to paclitaxel. 2024 active 08/09 18 ML aprepitant 7.2 MG/ML Injection intravenously 130.0 mg once Administer 30 minutes prior to chemotherapy. Do NOT dilute. Flush with NS before and after administration . 2024 active 08/09 famotidine 10 MG/ML Injectable Solution intravenously 20.0 mg Re-initiate treatment only upon physician approval. 2024 active 08/09 carboplatin 10 MG/ML Injectable Solution intravenously 690.0 mg once Mix in D5W or NS.Carboplatin is an irritant. 2024 active 08/09 1 ML epinephrine 1 MG/ML Injection intramuscularly 0.3 mg once Re-initiate treatment only upon physician approval. 2024 active 08/09 dexamethasone sodium phosphate intravenously 20.0 mg once Administer 30-60 minutes prior to paclitaxel. 2024 active 08/09 paclitaxel 6 MG/ML Injectable Solution intravenously 318.0 mg once Dilute in 250-500 mL NS. Final product concentration must be 0.3-1.2 mg/mL. Administer using [id number] ining equipment and through an in-line 0.22 micron filter. Paclitaxel is a vascular irritant. 2024 active 08/09 Palonosetron IV intravenously 0.25 mg once 2024 active 08/09 diphenhydramine hydrochloride 0.5 MG/ML Injectable Solution intravenously 50.0 mg Re-initiate treatment only upon physician approval. 2024 active 08/09 2 ML famotidine 10 MG/ML Injection intravenously 20.0 mg once Administer 30-60 minutes prior to paclitaxel. 2024 active 08/09 methylprednisol one 2000 MG Injection intravenously 125.0 mg Re-initiate treatment only upon physician approval. 2024 active 07/19 carboplatin 10 MG/ML Injectable Solution intravenously 690.0 mg once Mix in D5W or NS.Carboplatin is an irritant. 2024 active 07/19 2 ML famotidine 10 MG/ML Injection intravenously 20.0 mg once Administer 30-60 minutes prior to paclitaxel. 2024 active 07/19 18 ML aprepitant 7.2 MG/ML Injection intravenously 130.0 mg once Administer 30 minutes prior to chemotherapy. Do NOT dilute. Flush with NS before and after administration . 2024 active 07/19 methylprednisol one 2000 MG Injection intravenously 125.0 mg Re-initiate treatment only upon physician approval. 2024 active 07/19 paclitaxel 6 MG/ML Injectable Solution intravenously 318.0 mg once Dilute in 250-500 mL NS. Final product concentration must be 0.3-1.2 mg/mL. Administer using [id number] ining equipment and through an in-line 0.22 micron filter. Paclitaxel is a vascular irritant. 2024 active 07/19 1 ML epinephrine 1 MG/ML Injection intramuscularly 0.3 mg once Re-initiate treatment only upon physician approval. 2024 active 07/19 Palonosetron IV intravenously 0.25 mg once 2024 active 07/19 dexamethasone sodium phosphate intravenously 20.0 mg once Administer 30-60 minutes prior to paclitaxel. 2024 active 07/19 diphenhydramine hydrochloride 0.5 MG/ML Injectable Solution intravenously 25.0 mg once Administer 30-60 minutes prior to paclitaxel. 2024 active 07/19 famotidine 10 MG/ML Injectable Solution intravenously 20.0 mg Re-initiate treatment only upon physician approval. 2024 active 07/19 Solu-Cortef intravenously 100.0 mg Re-initiate treatment only upon physician approval. 2024 active 07/19 diphenhydramine hydrochloride 0.5 MG/ML Injectable Solution intravenously 50.0 mg Re-initiate treatment only upon physician approval. 2024 active 06/28 diphenhydramine hydrochloride 0.5 MG/ML Injectable Solution intravenously 25.0 mg once Administer 30-60 minutes prior to paclitaxel. 2024 active 06/28 1 ML epinephrine 1 MG/ML Injection intramuscularly 0.3 mg once Re-initiate treatment only upon physician approval. 2024 active 06/28 18 ML aprepitant 7.2 MG/ML Injection intravenously 130.0 mg once Administer 30 minutes prior to chemotherapy. Do NOT dilute. Flush with NS before and after administration . 2024 active 06/28 2 ML famotidine 10 MG/ML Injection intravenously 20.0 mg once Administer 30-60 minutes prior to paclitaxel. 2024 active 06/28 dexamethasone sodium phosphate intravenously 20.0 mg once Administer 30-60 minutes prior to paclitaxel. 2024 active 06/28 carboplatin 10 MG/ML Injectable Solution intravenously 690.0 mg once Mix in D5W or NS.Carboplatin is an irritant. 2024 active 06/28 methylprednisol one 2000 MG Injection intravenously 125.0 mg Re-initiate treatment only upon physician approval. 2024 active 06/28 famotidine 10 MG/ML Injectable Solution intravenously 20.0 mg Re-initiate treatment only upon physician approval. 2024 active 06/28 Solu-Cortef intravenously 100.0 mg Re-initiate treatment only upon physician approval. 2024 active 06/28 Palonosetron IV intravenously 0.25 mg once 2024 active 06/28 paclitaxel 6 MG/ML Injectable Solution intravenously 318.0 mg once Dilute in 250-500 mL NS. Final product concentration must be 0.3-1.2 mg/mL. Administer using [id number] ining equipment and through an in-line 0.22 micron filter. Paclitaxel is a vascular irritant. 2024 active 06/28 diphenhydramine hydrochloride 0.5 MG/ML Injectable Solution intravenously 50.0 mg Re-initiate treatment only upon physician approval. 2024 active 06/07 2 ML famotidine 10 MG/ML Injection intravenously 20.0 mg once Administer 30-60 minutes prior to paclitaxel. 2024 active 06/07 famotidine 10 MG/ML Injectable Solution intravenously 20.0 mg Re-initiate treatment only upon physician approval. 2024 active 06/07 paclitaxel 6 MG/ML Injectable Solution intravenously 318.0 mg once Dilute in 250-500 mL NS. Final product concentration must be 0.3-1.2 mg/mL. Administer using Cip-[id number]-luamz ining equipment and through an in-line 0.22 micron filter. Paclitaxel is a vascular irritant. 2024 active 06/07 Palonosetron IV intravenously 0.25 mg once 2024 active 06/07 dexamethasone sodium phosphate intravenously 20.0 mg once Administer 30-60 minutes prior to paclitaxel. 2024 active 06/07 1 ML epinephrine 1 MG/ML Injection intramuscularly 0.3 mg once Re-initiate treatment only upon physician approval. 2024 active 06/07 Solu-Cortef intravenously 100.0 mg Re-initiate treatment only upon physician approval. 2024 active 06/07 methylprednisol one 2000 MG Injection intravenously 125.0 mg Re-initiate treatment only upon physician approval. 2024 active 06/07 18 ML aprepitant 7.2 MG/ML Injection intravenously 130.0 mg once Administer 30 minutes prior to chemotherapy. Do NOT dilute. Flush with NS before and after administration . 2024 active 06/07 diphenhydramine hydrochloride 0.5 MG/ML Injectable Solution intravenously 25.0 mg once Administer 30-60 minutes prior to paclitaxel. 2024 active 06/07 diphenhydramine hydrochloride 0.5 MG/ML Injectable Solution intravenously 50.0 mg Re-initiate treatment only upon physician approval. 2024 active 06/07 carboplatin 10 MG/ML Injectable Solution intravenously 690.0 mg once Mix in D5W or NS.Carboplatin is an irritant. 2024 active 05/17 18 ML aprepitant 7.2 MG/ML Injection intravenously 130.0 mg once Administer 30 minutes prior to chemotherapy. Do NOT dilute. Flush with NS before and after administration . 2024 active 05/17 dexamethasone sodium phosphate intravenously 20.0 mg once Administer 30-60 minutes prior to paclitaxel. 2024 active 05/17 2 ML famotidine 10 MG/ML Injection intravenously 20.0 mg once Administer 30-60 minutes prior to paclitaxel. 2024 active 05/17 diphenhydramine hydrochloride 0.5 MG/ML Injectable Solution intravenously 50.0 mg Re-initiate treatment only upon physician approval. 2024 active 05/17 1 ML epinephrine 1 MG/ML Injection intramuscularly 0.3 mg once Re-initiate treatment only upon physician approval. 2024 active 05/17 prochlorperazin e 10 MG Oral Tablet orally 1.0 tablet every 6 hours 2024 active 05/17 olanzapine 2.5 MG Oral Tablet orally 2.5 mg every day at bedtime 2024 active 05/17 diphenhydramine hydrochloride 0.5 MG/ML Injectable Solution intravenously 25.0 mg once Administer 30-60 minutes prior to paclitaxel. 2024 active 05/17 famotidine 10 MG/ML Injectable Solution intravenously 20.0 mg Re-initiate treatment only upon physician approval. 2024 active 05/17 paclitaxel 6 MG/ML Injectable Solution intravenously 318.0 mg once Dilute in 250-500 mL NS. Final product concentration must be 0.3-1.2 mg/mL. Administer using [id number] ining equipment and through an in-line 0.22 micron filter. Paclitaxel is a vascular irritant. 2024 active 05/17 Palonosetron IV intravenously 0.25 mg once 2024 active 05/17 methylprednisol one 2000 MG Injection intravenously 125.0 mg Re-initiate treatment only upon physician approval. 2024 active 05/17 Solu-Cortef intravenously 100.0 mg Re-initiate treatment only upon physician approval. 2024 active 05/17 carboplatin 10 MG/ML Injectable Solution intravenously 690.0 mg once Mix in D5W or NS.Carboplatin is an irritant. 2024 active 12/07 Metoprolol Oral 24 hr Tab (Succinate) Oral 50.0 mg Once a Day 2023 active 11/01 Amlodipine Oral Oral 5.0 mg Once a Day 2023 active 11/01 Folic Acid Oral Oral 40.0 mg Once a Day 2023 active 11/01 Albuterol HFA Inhaler 90 mcg/actuation Inhalation 2.0 {puff} Once every 4 Hours 2023 active 11/01 Rosuvastatin Calcium Oral Oral 10.0 mg Once a Day 2023 active 11/25 Cetirizine Oral Oral 10.0 mg Once a Day 2021 active 06/14 Fluticasone Nasal Hooper 50 mcg/actuation Nasal 1.0 {spray} 2021 active 12/04 Clobetasol Topical Ointment 0.05 % Topical Once every 0.5 Days 2019 active 06/13 Albuterol Nebulized Neb 2.5 mg Once every 4 Hours 2017 active Problems Diagnosis Status Date of Diagnosi s Ovarian cancer Active Procedures Date Category Name Instructions Status 05/17/2024 Physician Order Thoracentesis (procedure) Therapeutic right sided. No cytology. No albumin. PRN once a week. Expires 05/16/2025. Ordered 05/17/2024 Physician Order Centesis Therapeutic. No cytology. No albumin. PRN once a week. Expires 05/16/2025. Ordered 05/17/2024 Physician Order Pelvic examinati on (List separately in addition to code for primary procedure) Administered 05/22/2024 Physician Order Diagnostic surinder ic counseling Ordered 05/23/2024 Physician Order Port placement Use MD valdez smith from today for pre-op Ordered 05/24/2024 Physician Order RTC patient teaching RN P atient Teaching Visit CHIEF EXECUTIVE OFFICER RN on Fridays in [place] ideally Ordered 05/28/2024 Physician Order RTC CHARITY FUNDRAISER/PA and infusion Carbo/Ta xol Ordered 05/29/2024 Physician Order Computed tomogra phy guided biopsy (procedure) CT guided biopsy of omental nodularity Ordered Social History Date Name Value 05/17/2024 Smoking Status Current every da y smoker 05/17/2024 Sex Female Vital Signs Date Type Value 05/17/2024 Height 66.00 05/17/2024 Weight 155.30 05/17/2024 Intravascular Systolic 110 05/17/2024 Intravascular Diastolic 64 05/17/2024 Respiratory Rate 16.00 05/17/2024 Heart Beat 94.00 05/17/2024 Body Temperature 96.70 05/17/2024 Pain Scale 0.00 05/17/2024 Oxygen Saturation 89.00 05/17/2024 BMI 25.07
--- OUTSIDE RECORDS SUMMARY | 2024-05-23 08:53 | XMS_ITS | Encounter Summary ---
Author Organization [facility] Address [address] [place] [address] Care Team Providers Care It Professional Name Role Phone Elsewhere, Pcp Primary Care Provider Unavailabl e Encounter Details Date Type Department Care Team (Latest Contact Info) Description 05/03/2024 Intake [facility] Social History Tobacco Use Types Packs/Day Years Used Date Smoking Tobacco: Every Day Cigarettes Passive Smoke Exposure: Current Smokeless Tobacco: Never Alcohol Use Standard Drinks/Week Comments Yes 0 (1 standard drink = 0.6 oz pur e alcohol) [facility] Utilities Answer Date Recorded In the past 12 months has e [employer], gas, oil, or water wiseri threatened to shut off services in your [...] on file Legal Sex Female 2:38 PM MAID SUPERVISOR Gender Identity Not on file Sexual Orientation Not on file documented as of this encounter Functional Status * Intimate Partner Violence Question Answer Date of Assessment Author Within the last year, have y ou been humiliated or emotionally abused in other ways by your partner or ex-partner? No 05/04/2024 7:56 AM MAID SUPERVISOR Larissa Calderon R.N. Within the last year, have y ou been afraid of your partner or ex-partner? No 05/04/2024 7:56 AM MAID SUPERVISOR Larissa Calderon R.N. Within the last year, have y ou been raped or forced to have any kind of sexual activity by your partner or ex-partner? No 05/04/2024 7:56 AM MAID SUPERVISOR Larissa Calderon R.N. Within the last year, have y ou been kicked, hit, slapped, or otherwise physically hurt by your partner or ex-partner? No 05/04/2024 7:56 AM MAID SUPERVISOR Larissa Calderon R.N. documented as of this encounter Plan of Treatment Not on file documented as of this encounter Visit Diagnoses Not on filedocumented in this encounter Additional Health Concerns Infection Onset Date Last Indicated Resolved Time COVID19 Pending 05/03/2024 05/03/2024 05/03/2024 1 :43 PM MAID SUPERVISOR documented as of this encounter Care Teams It Professional Relationship Specialty Start Date End Date Elsewhere, Pcp PCP - General Internal Medicine 04/24/24 documented as of this encounter
--- OUTSIDE RECORDS SUMMARY | 2024-05-23 08:53 | XMS_ITS ---
Author Name Interface, [id number] lity Address [address] [place] [address] [facility] Address [address] [place] [address] Care Team Providers Care Laundromat Manager Name Role Phone Cynthia Euceda Unavailable Unava ilable Allergies and Adverse Reactions Plan Reason for Visit Encounters Immunizations Medications Problems Vital Signs Notes Section
--- OUTSIDE RECORDS SUMMARY | 2024-05-23 08:53 | XMS_ITS | Clinical Summary ---
Author Organization [employer] [facility] Address [address] [place] [address] Care Team Providers Care Tile Machine Operator Name Role Phone Luz Maria Matta MD [facility] Un[facility] Allergies Active Allergy Reactions Criticality Noted Date Comments Sulfa (Sulfonamide Antibiotics) Anaphylaxis High Medications albuterol (PROVENTIL) 0.083 % neb solutionIndication s:Bronchitis Inhale 3 mL via a nebulizer every 4 hours if needed. 1 box 06/14/19 18 Active clobetasol 0.05% (TEMOVATE 0.05% OINTMENT) 0.05 % ointmentIndication s:Prurigo nodularis Apply topically to affected area(s) 2 times daily. 1 Tube 12/05/19 20 Active fluticasone (50 mcg per actuation) nasal solution (FLONASE) Inhale 1 [place] into affected nostril(s). 06/15/19 22 Active cetirizine (ZYRTEC) 10 mg tabletIndications: Congestion of nasal sinus Take 1 Tablet (10 mg) by mouth once daily. 60 Tablet 11/26/19 22 Active rosuvastatin (CRESTOR) 10 mg tabletIndications: Other hyperlipidemia Take 1 Tablet (10 mg) by mouth at bedtime. 90 Tablet 3 11/02/19 24 Active lisinopriL (PRINIVIL; ZESTRIL) 40 mg tabletIndications: HTN (hypertension) Take 1 Tablet (40 mg) by mouth once daily. 90 Tablet 1 11/02/19 24 Active albuterol HFA (Ventolin HFA) 90 mcg/actuation inhalerIndications :History of wheezing Inhale 2 Puffs by mouth every 4 hours if needed for Shortness Of Breath or Wheezing. 2 Each 2 11/02/19 24 Active metoprolol succinate (TOPROL XL) 50 mg sustained-release tabletIndications: HTN (hypertension) Take 1 Tablet (50 mg) by mouth once daily. 90 Tablet 12/08/19 24 Active amLODIPine (NORVASC) 5 mg tabletIndications: HTN (hypertension) Take 1 Tablet (5 mg) by mouth once daily. 90 Tablet 3 05/17/19 25 Active amLODIPine (NORVASC) 5 mg tabletIndications: HTN (hypertension) Take 1 Tablet (5 mg) by mouth once daily. 90 Tablet 1 11/02/19 24 025 Discontin ued(Reord er (E-cancel not sent)) Active Problems Problem Noted Date Diagnosed Date Pulmonary emphysema 11/02/2023 Smoking greater than 20 pack years 11/02/2023 HTN (hypertension) 02/24/2022 Other hyperlipidemia 02/24/2022 Breast cancer 10/28/2008 Overview (02/24/2010): 1) S/P right breast lumpectomy 11-14-08 demonstrating 2.8 cm grade 3 infiltrating ductal carcinoma ER/SD negative, Her2 amplified and separate tumor measuring [...] Date Type Department Care Team Description 05/16/2024 Orders Only [facility] Scanner 1 scan: (1-Ord) [facility], XR CHEST 2V, 05/16/2024 05/16/2024 Refill [facility] [address] [facility] [place] [id number] Luz Maria Matta MD Refill Request (amlodipine) 05/15/2024 Nurse Triage [facility] [address] [place] [address] Luz Maria Matta MD Difficulty Breathing 05/15/2024 Nurse Triage [facility] [address] [place] [address] Luz Maria Matta MD Error-please disregard 05/09/2024 11:15 AM DATA SYSTEMS ANALYST Office Visit [facility] [address] [place] [address] Avel Nguyen MD Hospital F/U (breathing feels okay - setting up when to have fluid drained ) 05/09/2024 Travel 05/07/2024 Telephone [facility] [address] [facility] [address] [place] [address] [place], [facility] Referral (Malignant neoplasm of female breast, unspecified estrogen receptor status) 05/07/2024 Telephone [facility] [address] [place] [address] Luz Maria Matta MD Referral (Oncology) 05/04/2024 Orders Only [facility] Scanner 1 scan: (1-Ord) [facility] ER, MULTIPLE PATHOLOGIES, 05/04/2024 from Last 3 Months [...] on file Legal Sex Female 7:38 AM DATA SYSTEMS ANALYST Gender Identity Not on file Sexual Orientation Not on file 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 [employer] Not on file Not on file Not on file Not on file Not on file Not on file Not on file Obstetrics History Last Filed Vital Signs Vital Sign Reading Time Taken Comments Blood Pressure 123/80 05/09/2024 11:20 AM DATA SYSTEMS ANALYST Pulse 85 05/09/2024 11:20 AM DATA SYSTEMS ANALYST Temperature 36.8 C (98.2 F) 02/24/2022 4:16 PM DATA SYSTEMS ANALYST Respiratory Rate 18 06/13/2017 5:03 PM CDT Oxygen Saturation 95% 05/09/2024 11:20 AM DATA SYSTEMS ANALYST Inhaled Oxygen Concentration - - Weight 71.9 kg (158 lb 9.6 oz) 05/09/2024 11:20 AM DATA SYSTEMS ANALYST Height 167.9 cm (5' 6.1) 11/02/2023 10:58 [...] Completed 06/06/2019 Medical Devices Implanted Type Area Casting Wheel Operator Helper Device Identifier Shelf Expiration Date Model / Serial / Lot Port Power 8fr [id number] [employer] - [id number] Implanted:Qty: 1 on 11/14/2008 at [facility] Left: Chest [employer] 09/14/2010 [id number] / / [id number] Procedures Procedure Name Priority Date/Time Associated Diagnosis Comments SCAN-RADIOLOGY REPORT 05/16/2024 12:00 AM DATA SYSTEMS ANALYST SCAN-PATHOLOGY REPORT 05/04/2024 12:00 AM DATA SYSTEMS ANALYST XR MAMMO GETACHEW BILAT SCREEN Routine 11/16/2023 11:10 AM CDT Visit for screening mammogram LIPID PANEL W REFLEX MEASURED LDL Routine 11/02/2023 11:44 AM CDT Other hyperlipidemia ANTI HCV Routine 06/06/2019 10:57 AM CDT Encounter for hepatitis C screening test for low risk patient AUTO PAINTER THIN PREP PAP SCREEN IMAGED Routine 06/06/2019 10:30 AM CDT Screening for malignant neoplasm of cervix CT CHEST WO STAT 11/12/2008 10:24 AM CDT Lung Nodule from Last 3 Months or Most Recently Relevant to Health Maintenance Results * SCAN-RADIOLOGY REPORT (05/16/2024 12:00 AM DATA SYSTEMS ANALYST) Anatomical Region Laterality Modality Other us Scanner OTHER Final Result * SCAN-PATHOLOGY REPORT (05/04/2024 12:00 AM DATA SYSTEMS ANALYST) us Scanner OTHER Final Result * XR [...] care provider. XR MAMMO GETACHEW BILAT SCREEN [[id number]] CLINICAL HISTORY: This is an asymptomatic 63 y.o. patient. INDICATION FOR EXAM: Mammogram Screening. TECHNIQUE: CC & MLO views were obtained. This study was evaluated with the assistance of Computer-Aided Detection. Breast Tomosynthesis was used in interpretation. COMPARISON FILM: Yes 11/10/22 [facility] 12/05/19 [facility] FINDINGS: There are scattered areas of fibroglandular density. There are no dominant masses, suspicious micro calcifications or areas of architectural distortion. Luz Maria Matta MD MAMMO Final Resul t * LIPID PANEL W REFLEX MEASURED LDL (11/02/2023 11:44 AM CDT) CHOLESTEROL,TOTAL 148 100 - 199 mg/dL 11/03/2023 1:13 AM CDT [facility] Comment: Cholesterol, Total Reference Ranges Desirable <200 mg/dL Borderline 200-239 mg/dL High >=240 mg/dL TRIGLYCERIDES 128 <150 mg/dL 11/03/2023 1:13 AM CDT [facility] HDL CHOLESTEROL 50 >40 mg/dL 1:13 AM CDT [facility] NON-HDL CHOLESTEROL 98 <145 mg/dl 11/03/2023 1:13 AM CDT [facility] CHOL/HDL RATIO 2.96 <4.50 11/03/2023 1:13 AM CDT [facility] LDL CHOLESTEROL 72 <=130 mg/dL 11/03/2023 1:13 AM CDT [facility] VLDL CHOLESTEROL 26 <=30 mg/dL 11/03/2023 1:13 AM CDT [facility] PROVIDER ORDERED STATUS RANDOM 11/03/2023 1:13 AM CDT [facility] Blood BLOOD SPECIMEN / Unknown Venipuncture / Unknown 11/02/2023 11:44 AM CDT 11/02/2023 11:45 AM CDT Luz Maria Matta MD CHEMISTRY Final Resul t [facility] [address] [place] [address], [place] * ANTI HCV (06/06/2019 10:57 AM CDT) HEPATITIS C ANTIBODY Non-React keri Non-React keri 06/06/2019 5:56 PM CDT [facility] Comment:Antibodies to HCV no t detected; does not exclude the possibility of exposure to HCV. Blood BLOOD SPECIMEN / Unknown Venipuncture / Unknown 06/06/2019 10:57 AM CDT 06/06/2019 10:57 AM CDT us Luz Maria Matta MD SEND OUTS Final Resul t [facility] [address] [place] [address], [place] * AUTO PAINTER THIN PREP PAP SCREEN IMAGED [[id number]] (06/06/2019 10:30 AM CDT) Case Report Gynecologic Cytology Report Case: [id number] Authorizing Provider: Luz Maria Matta MD Collected: 06/06/2019 1030 Ordering Location: [facility] Received: 06/06/2019 1111 Clinic First Screen: Ailyn Dave Specimen: AUTO PAINTER ThinPrep Vial Screening, Cervical 06/13/2019 10:39 AM CDT [facility] INTERPRETATION/ RESULT NEGATIVE FOR INTRAEPITHELIAL LESION OR MALIGNANCY (NIL) (none) 06/13/2019 10:39 AM CDT [facility] IMEN ADEQUACY Satisfactory for evaluation Endocervical component present 06/13/2019 10:39 AM CDT [facility] HPV REQUEST HPV and PAP 06/13/2019 10:39 AM CDT [facility] Date of LMP 2009 06/13/2019 10:39 AM CDT [facility] Last Pap Date unknown 06/13/2019 10:39 AM CDT [facility] Last Pap Result First Pap/Unknown 10:39 AM CDT [facility] Abnormal Pap or [place] Bx in last 5 years No 06/13/2019 10:39 AM CDT [facility] Menstrual Status Postmenopausal 06/13/2019 10:39 AM CDT [facility] [place] Bx Done Today No 06/13/2019 10:39 AM CDT [facility] Additional Information None given 06/13/2019 10:39 AM CDT [facility] Comment: Cytology is screened at [facility] - [address], [place] [address] and [facility] - [address], [place] [address] and [facility] - [address] [place] [address] Interpreted at [facility] - [address], [place] [address] Automated Review Successful 06/13/2019 10:39 AM CDT [facility] Comment:Specimen processed s uccessfully by automated editor magazine device, ThinPrep Imaging System, [employer] ANCILLARY TESTING AUTO PAINTER HPV Ordered, Please see separate report 06/13/2019 10:39 AM CDT [facility] Note The pap test is a [...] and malignant lesions. 06/13/2019 10:39 AM CDT [facility] Other (Cervical) Non-Blood / Unknown 06/06/2019 10:30 AM CDT 06/06/2019 11:11 AM CDT us Luz Maria Matta MD PATHOLOGY/CYTOLOGY Final Re sult [facility] [address] [place] [address], [place] * CT Chest wo Contrast (11/12/2008 [...] seen on MRI. TECHNIQUE: Noncontrast. COMPARISON: MRI [facility] 11/03/2008. FINDINGS: Two right breast masses [...] seen on MRI. TECHNIQUE: Noncontrast. COMPARISON: MRI [facility] 11/03/2008. FINDINGS: Two right breast masses [...] Mild emphysema. 3. Known right breast cancer. us Felipe Herrera MD CT Final Re sult from Last 3 Months or Most Recently Relevant to Health Maintenance Insurance [employer] OF [employer]-AR-ITS Advance Directives * Full Code (Latest Code Status on File) Date Activated Date Inactivated Comments 11/13/2008 7:43 AM 11/14/2008 7:15 PM Care Teams Tile Machine Operator Relationship Specialty Start Date End Date Luz Maria Matta MD [address] [place] [address] PCP - General Family Practice 12/05/19 Danna Bond, RN [address] [place] [id number] Nurse Navigator - Oncology Registered Nurse 05/07/24
--- OUTSIDE RECORDS SUMMARY | 2024-05-23 08:54 | XMS_ITS | Encounter Summary ---
Author Organization [facility] Address [address] [place] [address] Care Team Providers Care Retail Sales Consultant Name Role Phone Elsewhere, Pcp Primary Care Provider Unavailabl e Reason for Visit * Reason Comments Cough Patient reports prod uctive cough started originally around [place] time. Reports earache on her right side. Encounter Details Date Type Department Care Team (Late st Contact Info) Description 04/24/2024 3:13 PM PRODUCTION INTERN - 04/24/2024 4:25 PM PRODUCTION INTERN Emergency [facility] [address] [place] [phone] Sabrina Ascencio P.A.-Tamara., P.A. [address] [place] [phone] Cough Unspecified Type (Primary Dx); Pneumonia Discharge [...] file Legal Sex Female 2:38 PM PRODUCTION INTERN Gender Identity Not on file Sexual Orientation Not on file documented as of this encounter Last Filed Vital Signs Vital Sign Reading Time Taken Comments Blood Pressure 124/71 04/24/2024 2:31 PM PRODUCTION INTERN Pulse 89 04/24/2024 2:31 PM PRODUCTION INTERN Temperature 36.7 C (98.1 F) 04/24/2024 2:31 PM PRODUCTION INTERN Respiratory Rate 20 04/24/2024 2:31 PM PRODUCTION INTERN Oxygen Saturation 93% 04/24/2024 2:31 PM PRODUCTION INTERN Inhaled Oxygen Concentration - - Weight 77.5 kg (170 lb 12.8 oz) 04/24/2024 2:32 PM PRODUCTION INTERN Height - - Body Mass Index - [...] (Patient reports productive cough started originally around [place] time. Reports earache on her right side. [...] PCP whom she states is located in [facility]. Discussed with patient that she should [...] new or worsening symptoms to return to [facility] without delay. Ie chest pain, difficulty breathing, [...] Antibiotics) Anaphylaxis Sabrina Ascencio P.A.-C., P.A. 04/24/24 4101 UCTION INTERN documented in this encounter Plan of Treatment Not on file documented as of this encounter Procedures Procedure Name Priority Date/Time Associated Diagnosis Comments DX CHEST AP OR PA AND LATERAL 2 VIEWS RAD - Semiurgent (Fast; most ED patients; some inpatients) 04/24/2024 4:06 PM PRODUCTION INTERN Cough Unspecified Type documented in this encounter Results * DX Chest AP or PA and Lateral 2 Views (04/24/2024 4:06 PM PRODUCTION INTERN) Anatomical Region Laterality Modality Chest, Thoracic RST LOS, Tho racic ARZ LOS, Thoracic FLA LOS N/A Digital Radiography Impressions 04/24/2024 4:08 PM PRODUCTION INTERN New large pleural effusion in the RIGHT lower lobe. Narrative 04/24/2024 4:08 PM PRODUCTION INTERN EXAM: DX CHEST AP OR PA AND [...] Pneumonia documented in this encounter Care Teams Retail Sales Consultant Relationship Specialty Start Date End Date Elsewhere, Pcp PCP - General Internal Medicine 04/24/24 documented as of this encounter
--- OUTSIDE RECORDS SUMMARY | 2024-05-23 08:55 | XMS_ITS ---
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 Operator Adjuster Name Role Phone Cynthia Euceda Unavailable Unava ilable Allergies and Adverse Reactions Medication/Group Name Reaction Severity Date SULFA (SULFONAMIDE ANTIBIOTICS) Anaphylaxis 05/17/2024 Plan Date Type Value 05/29/2024 APPOINTMENT OUTSIDE TEST 5 M IN 05/28/2024 APPOINTMENT TREATMENT 5 HR 05/28/2024 APPOINTMENT PORT DRAW 15 MIN 05/28/2024 APPOINTMENT OV 30 MIN 05/24/2024 APPOINTMENT OUTSIDE TEST 5 M IN 05/24/2024 APPOINTMENT TREATMENT TEACH 60 MIN 05/22/2024 APPOINTMENT TELEGENETIC NEW CONSULT INTERNAL REFERRAL 60 MIN 05/22/2024 APPOINTMENT GENETICS NEW PT INTERNAL REFERRAL 60 MIN 05/20/2024 APPOINTMENT OUTSIDE TEST 5 M IN 05/17/2024 APPOINTMENT NEW PT CONSULT 6 0 MIN 05/17/2024 APPOINTMENT LAB 15 MIN 05/28/2024 LABORDER CMP 05/28/2024 LABORDER CBC w/ auto diff 05/28/2024 LABORDER CA 125 panel 05/28/2024 LABORDER Magnesium Panel 05/28/2024 LABORDER iSTAT creatinine panel Reason for Visit TELEGENETIC NEW CONSULT INTERNAL REFERRAL 60 MIN Encounters Date Name 05/17/2024 Ovarian cancer Immunizations Date Name Route Dose Instructions Refusal Reason Stat us Other Patient declined/rejecte d Not Administered Medications Date Name Route Dose Frequency Instructions Start Date End Date Status Lisinopril Oral orally 1.0 tablet daily active 08/30 Palonosetron IV intravenously 0.25 mg once 2024 active 08/30 2 ML famotidine 10 MG/ML Injection intravenously 20.0 mg once Administer 30-60 minutes prior to paclitaxel. 2024 active 08/30 1 ML epinephrine 1 [...] concentration must be 0.3-1.2 mg/mL. Administer using [id number] ining equipment and through an in-line 0.22 micron filter. Paclitaxel is a vascular irritant. 2024 active 08/30 Solu-Cortef intravenously 100.0 mg Re-initiate treatment only upon physician approval. 2024 active 08/30 carboplatin 10 MG/ML Injectable Solution intravenously 690.0 mg once Mix in D5W or NS.Carboplatin is an irritant. 2024 active 08/30 18 ML aprepitant 7.2 MG/ML Injection intravenously 130.0 mg once Administer 30 minutes prior to chemotherapy. Do NOT dilute. Flush with NS before and after administration . 2024 active 08/30 diphenhydramine hydrochloride 0.5 MG/ML Injectable Solution intravenously 25.0 mg once Administer 30-60 minutes prior to paclitaxel. 2024 active 08/30 dexamethasone sodium phosphate intravenously 20.0 mg once Administer 30-60 minutes prior to paclitaxel. 2024 active 08/30 famotidine 10 MG/ML Injectable Solution intravenously 20.0 mg Re-initiate treatment only upon physician approval. 2024 active 08/09 Palonosetron IV intravenously 0.25 mg once 2024 active 08/09 1 ML epinephrine 1 MG/ML Injection intramuscularly 0.3 mg once Re-initiate treatment only upon physician approval. 2024 active 08/09 diphenhydramine hydrochloride 0.5 MG/ML Injectable Solution intravenously 50.0 mg Re-initiate treatment only upon physician approval. 2024 active 08/09 dexamethasone sodium phosphate intravenously 20.0 mg once Administer 30-60 minutes prior to paclitaxel. 2024 active 08/09 2 ML famotidine 10 MG/ML Injection intravenously 20.0 mg once Administer 30-60 minutes prior to paclitaxel. 2024 active 08/09 famotidine 10 MG/ML Injectable Solution intravenously 20.0 mg Re-initiate treatment only upon physician approval. 2024 active 08/09 diphenhydramine hydrochloride 0.5 MG/ML Injectable Solution intravenously 25.0 mg once Administer 30-60 minutes prior to paclitaxel. 2024 active 08/09 carboplatin 10 MG/ML Injectable Solution intravenously 690.0 mg once Mix in D5W or NS.Carboplatin is an irritant. 2024 active 08/09 Solu-Cortef intravenously 100.0 mg Re-initiate treatment only upon physician approval. 2024 active 08/09 methylprednisol one 2000 MG Injection intravenously 125.0 mg Re-initiate treatment only upon physician approval. 2024 active 08/09 18 ML aprepitant 7.2 MG/ML Injection intravenously 130.0 mg once Administer 30 minutes prior to chemotherapy. Do NOT dilute. Flush with NS before and after administration . 2024 active 08/09 paclitaxel 6 MG/ML Injectable Solution intravenously 318.0 mg once Dilute in 250-500 mL NS. Final product concentration must be 0.3-1.2 mg/mL. Administer using [id number] ining equipment and through an in-line 0.22 micron filter. Paclitaxel is a vascular irritant. 2024 active 07/19 carboplatin 10 MG/ML Injectable Solution intravenously 690.0 mg once Mix in D5W or NS.Carboplatin is an irritant. 2024 active 07/19 famotidine 10 MG/ML Injectable Solution intravenously 20.0 mg Re-initiate treatment only upon physician approval. 2024 active 07/19 2 ML famotidine 10 [...] concentration must be 0.3-1.2 mg/mL. Administer using [id number] ining equipment and through an in-line 0.22 micron filter. Paclitaxel is a vascular irritant. 2024 active 07/19 Solu-Cortef intravenously 100.0 mg Re-initiate treatment only upon physician approval. 2024 active 07/19 diphenhydramine hydrochloride 0.5 MG/ML Injectable Solution intravenously 25.0 mg once Administer 30-60 minutes prior to paclitaxel. 2024 active 07/19 dexamethasone sodium phosphate intravenously 20.0 mg once Administer 30-60 minutes prior to paclitaxel. 2024 active 07/19 Palonosetron IV intravenously 0.25 mg once 2024 active 07/19 1 ML epinephrine 1 MG/ML Injection intramuscularly 0.3 mg once Re-initiate treatment only upon physician approval. 2024 active 06/28 methylprednisol one 2000 MG Injection intravenously 125.0 mg Re-initiate treatment only upon physician approval. 2024 active 06/28 carboplatin 10 MG/ML Injectable Solution intravenously 690.0 mg once Mix in D5W or NS.Carboplatin is an irritant. 2024 active 06/28 dexamethasone sodium phosphate intravenously 20.0 mg once Administer 30-60 minutes prior to paclitaxel. 2024 active 06/28 2 ML famotidine 10 MG/ML Injection intravenously 20.0 mg once Administer 30-60 minutes prior to paclitaxel. 2024 active 06/28 18 ML aprepitant 7.2 MG/ML Injection intravenously 130.0 mg once Administer 30 minutes prior to chemotherapy. Do NOT dilute. Flush with NS before and after administration . 2024 active 06/28 famotidine 10 MG/ML Injectable Solution intravenously 20.0 mg Re-initiate treatment only upon physician approval. 2024 active 06/28 Solu-Cortef intravenously 100.0 mg Re-initiate treatment only upon physician approval. 2024 active 06/28 Palonosetron IV intravenously 0.25 mg once 2024 active 06/28 diphenhydramine hydrochloride 0.5 MG/ML Injectable Solution intravenously 50.0 mg Re-initiate treatment only upon physician approval. 2024 active 06/28 paclitaxel 6 MG/ML Injectable Solution intravenously 318.0 mg once Dilute in 250-500 mL NS. Final product concentration must be 0.3-1.2 mg/mL. Administer using [id number]-ufovb ining equipment and through an in-line 0.22 micron filter. Paclitaxel is a vascular irritant. 2024 active 06/28 1 ML epinephrine 1 MG/ML Injection intramuscularly 0.3 mg once Re-initiate treatment only upon physician approval. 2024 active 06/28 diphenhydramine hydrochloride 0.5 MG/ML Injectable Solution intravenously 25.0 mg once Administer 30-60 minutes prior to paclitaxel. 2024 active 06/07 Palonosetron IV intravenously 0.25 mg once 2024 active 06/07 18 ML aprepitant 7.2 MG/ML Injection intravenously 130.0 mg once Administer 30 minutes prior to chemotherapy. Do NOT dilute. Flush with NS before and after administration . 2024 active 06/07 diphenhydramine hydrochloride 0.5 MG/ML Injectable Solution intravenously 25.0 mg once Administer 30-60 minutes prior to paclitaxel. 2024 active 06/07 carboplatin 10 MG/ML Injectable Solution intravenously 690.0 mg once Mix in D5W or NS.Carboplatin is an irritant. 2024 active 06/07 paclitaxel 6 MG/ML Injectable Solution intravenously 318.0 mg once Dilute in 250-500 mL NS. Final product concentration must be 0.3-1.2 mg/mL. Administer using [id number] ining equipment and through an in-line 0.22 micron filter. Paclitaxel is a vascular irritant. 2024 active 06/07 2 ML famotidine 10 [...] only upon physician approval. 2024 active 06/07 dexamethasone sodium phosphate intravenously 20.0 mg once Administer 30-60 minutes prior to paclitaxel. 2024 active 06/07 famotidine 10 MG/ML Injectable Solution intravenously 20.0 mg Re-initiate treatment only upon physician approval. 2024 active 06/07 1 ML epinephrine 1 MG/ML Injection intramuscularly 0.3 mg once Re-initiate treatment only upon physician approval. 2024 active 05/17 1 ML epinephrine 1 MG/ML Injection intramuscularly 0.3 mg once Re-initiate treatment only upon physician approval. 2024 active 05/17 diphenhydramine hydrochloride 0.5 MG/ML Injectable Solution intravenously 25.0 mg once Administer 30-60 minutes prior to paclitaxel. 2024 active 05/17 prochlorperazin e 10 MG Oral Tablet orally 1.0 tablet every 6 hours 2024 active 05/17 olanzapine 2.5 MG Oral Tablet orally 2.5 mg every day at bedtime 2024 active 05/17 famotidine 10 MG/ML Injectable Solution intravenously 20.0 mg Re-initiate treatment only upon physician approval. 2024 active 05/17 paclitaxel 6 MG/ML Injectable Solution intravenously 318.0 mg once Dilute in 250-500 mL NS. Final product concentration must be 0.3-1.2 mg/mL. Administer using [id number]-qxbfa ining equipment and through an in-line 0.22 [...] only upon physician approval. 2024 active 05/17 2 ML famotidine 10 MG/ML Injection intravenously 20.0 mg once Administer 30-60 minutes prior to paclitaxel. 2024 active 12/07 Metoprolol Oral 24 hr Tab (Succinate) Oral 50.0 mg Once a Day 2023 active 11/01 Amlodipine Oral Oral 5.0 mg Once a Day 2023 active 08/08 /2024 Folic Acid Oral Oral 40.0 mg Once a Day 2023 active 11/01 Albuterol HFA Inhaler 90 mcg/actuation Inhalation 2.0 {puff} Once every 4 Hours 2023 active 11/01 Rosuvastatin Calcium Oral Oral 10.0 mg Once a Day 2023 active 11/25 Cetirizine Oral Oral 10.0 mg Once a Day 2021 active 06/14 Fluticasone Nasal [place] 50 mcg/actuation Nasal 1.0 {spray} 2021 active 12/04 Clobetasol Topical Ointment 0.05 % Topical Once every 0.5 Days 2019 active 06/13 Albuterol Nebulized Neb 2.5 mg Once every 4 Hours 2017 active Problems Diagnosis Status Date of Diagnosi s Ovarian cancer Active Vital Signs Date Type Value 05/17/2024 Body Temperature 96.70 05/17/2024 Heart Beat 94.00 05/17/2024 Respiratory Rate 16.00 05/17/2024 Oxygen Saturation 89.00 05/17/2024 BSA 1.80 05/17/2024 Pain Scale 0.00 05/17/2024 Weight 155.30 05/17/2024 Height 66.00 05/17/2024 BMI 25.07 05/17/2024 Intravascular Systolic 110 05/17/2024 Intravascular Diastolic 64 Notes Section * MANAGER INSTRUMENTATION Onc Consult Note GYNECOLOGIC ONCOLOGY CONSULT Patient Name: SMILEY RICHMOND Patient : 1960 Patient Referring Physician: Luz Maria Matta MD Primary GYNOncologist: Jose Ayers (Hematology/Oncology), Cynthia Euceda (Gynecological/Oncology) Date of Service: 05/17/2024 Reason for Consult: Ovarian cancer?? History of Present Illness (Logistics/Shipper Oncology): Smiley Richmond is a 63-year-old female [facility] with Stage BATSHEVA high-grade serous ovarian carcinoma She presented to the ED 05/03/24 with shortness of breath and abdominal bloating for the past few weeks. CT scan showed moderate-sized right pleural effusion with associated atelectasis/consolidation, omental and peritoneal disease concerning for metastatic or primary malignancy, moderate ascites, diffuse small bowel thickening. Thoracentesis removed 1.2 L of clear yellow fluid and Paracentesis removed 600 mL of fluid. CA [id number] 05/04/24- Path cytology, pleural and peritoneal fluid -high grade serous carcinoma?? 05/07/24 Thoracentesis - 1.2L removed?? Genetic Testing (Logistics/Shipper Oncology): Germline testing - none per patient report?? Review of Systems: A complete 14-point review of systems is negative except as noted in the above history of present illness. Past Medical History: Breast cancer?? - 2009 - HER2 2+ by IHC, amplified on FISH diagnosed in 2008 and managed with adjuvant chemotherapy and Herceptin? Hypertension?? Hyperlipidemia?? Surgical History: Lumpectomy?? 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 Allergies# SULFA (SULFONAMIDE ANTIBIOTICS) Medications: * Amlodipine Oral 5.0 mg Oral Once a Day * Metoprolol Oral 24 hr Tab (Succinate) 50.0 mg Oral Once a Day * Albuterol Nebulized 2.5 mg Neb Once every 4 Hours * Cetirizine Oral 10.0 mg Oral Once a Day * Clobetasol Topical Ointment 0.05 % Topical Once every 0.5 Days * Fluticasone Nasal [place] 50 mcg/actuation 1.0 {spray} Nasal * Lisinopril Oral 40 mg tablet 1 tablet orally daily * Rosuvastatin Calcium Oral 10.0 mg Oral Once a Day * Folic Acid Oral 40.0 mg Oral Once a Day * Albuterol HFA Inhaler 90 mcg/actuation 2.0 {puff} Inhalation Once every 4 Hours Family History: No 1st degree family h/o breast, colon, ovarian, uterine cancer?? Social History: Smoker- 0.75 PPD. ??No illicit drug use. ??Occasional alcohol use. ??Employed. Health Maintenance: Smoker. Alcohol use. Lives with boyfriend in [place], 4 adult children.?? Vital Signs: Blood pressure: 110/64, Pulse: 94, Temperature: 96.7 F, Respirations: 16, O2 sat: 89%, Pain Scale: 0, Height: 66 in, Weight: 155.3 lb, BSA: 1.8, BMI: 25.07 kg/m2 Physical Exam (Logistics/Shipper Oncology): General: appears well and in no apparent distress, alert and oriented x3 HEENT: sclerae white, extraocular movements intact, no cervical or supraclavicular lymphadenopathy?? Respiratory: ??normal respiratory effort, decreased breath sounds in right lung, clear to auscultation on left side Heart: peripheral perfusion normal, regular rate and rhythm no murmurs or rubs Abdomen: soft, moderate distension, mildly tender to palpation, palpable firm mass in upper abdomen, no rebound or guarding.?? Lower extremities: no edema in bilateral lower extremities, non-tender to palpation?? Neuro: CNII-XII grossly intact, moving all extremities without difficulty?? Psych: appropriate mood and affect?? Pelvic: normal external genitalia. vagina without nodularity or lesions, cervix normal in appearance, physiologic discharge. no inguinofemoral lymphadenopathy, nodularity palpable in posterior cul desac, palpable fullness especially on patient's left side extending out of the pelvis?? Rectal exam: deferred? Laboratory Data: As documented above ? Imagin05/03/24 CT CAP:?? EXAM: CT CHEST ANGIOGRAM AND PULMONARY ARTERIES WITH IV CONTRAST, CT ABDOMEN PELVIS WITH IV CONTRAST Including 3D image postprocessing with or without Al assistance. COMPARISON: 04/24/2024 and prior FINDINGS: Chest [...] contains a small gallstone. The upper abdominal organsare within normal limits otherwise. There is moderate ascites. There is diverticulosis of the colon. The small and large bowel are of normal caliber. There is thickening of the distal small bowel wall in the right lower quadrant. There is mild arthritic change of the visualized skeleton. IMPRESSION: 1. No evidence for acute or chronic pulmonary embolus. 2. Moderate- sized right pleural effusion with associated atelectasis and/or consolidation. 3. Diffuse omental and peritoneal diseaseidentified concerning for metastatic or primary malignancy. 4. Moderate ascites. 5. Cholelithiasis.6. Diverticulosis. 7. Distal small bowel wall thickening. Differential includes reactive change versus inflammatory disease versus infiltrative process. Problems: * Ovarian cancer Assessment & Plan (Logistics/Shipper Oncology): Smiley Richmond is a 63-year-old female [facility] [place] [facility] Stage BATSHEVA high-grade serous ovarian carcinoma We discussed that the treatment for ovarian cancer includes a combination of surgery and systemic [place]/taxane (Carboplatin + Taxol) based chemotherapy. We reviewed that outcomes are equivocal forboth approaches, particularly in patients for whom upfront resection is not safe or is not feasible. Factors that have been studied and shown to increase the risk of morbidity associated with primarycytoreductive surgery include advanced age or frailty, multiple chronic conditions, poor nutritional status, low albumin and newly diagnosed VTE. Additionally, imaging findings of significant bowel involvement, diaphragmatic disease and LUQ disease are predictable for inability to achieve complete gross resection (no visible disease at the end of surgery).?? Given her CT findings and clinical status, I recommended neoadjuvant chemotherapy. I reviewed that for women who are fit for primary cytoreductive surgery but are deemed unlikely to have cytoreduction to <1 cm (ideally to no visible disease), neoadjuvant chemotherapy (NACT) is recommended over primary surgery. NACT is associated with less ria- and post-operative morbidity and mortality and shorter hospitalizations. I recommended proceeding with 3 cycles of Carboplatin/Paclitaxel followed byCT scan to assess response of the disease. If there has been good response, we would likely proceedwith surgery to remove the cancer at that time. This is followed up with an additional 3 cycles of c hemotherapy as adjuvant therapy. ??We reviewed the logistics and side effects of chemotherapy. All questions were answered.??* Recommend Carboplatin/Taxol x [address] scan and MD visit??to assess response/surgical candidacy * Caris testing ordered, genetic counseling referral placed * Port placement ordered - cleared for port placement?? * RN chemotherapy teaching visit ordered?? * Paracentesis and Thoracentesis PRN ordered I spent 20 minutes reviewing the patient's chart (outside clinic and hospital documentation, labs and imaging) before seeing the patient today. I spent 40 minutes face to face with the patient, whichwas spent interviewing, counseling and examining the patient.?? Cynthia Euceda MD ?? Gynecologic Oncology - [place] [facility]?? Pain Care Management: Pain Scale: 0 Patient Care needs: Depressions Status: Was screened; Outcome positive: No; Screening Date: 05/17/2024; Screening Tool:PRIME [id number]-[id number] Smoking Status: Smoking Tobacco : Current every day smoker; Smokeless Tobacco : Never used smokeless tobacco; Vaping : Never vaped Cynthia Euceda MD Copy to: Luz Maria Matta MD (Referring) ?? Electronically signed by Cynthia Euceda MD 05/17/2024 12:04 WEB CONTENT DIRECTOR
--- OUTSIDE RECORDS SUMMARY | 2024-05-23 08:55 | XMS_ITS ---
Author Name Interface, [id number] lity Address [address] [place] [address] [facility] Address [address] [place] [address] Care Team Providers Care Counter Waiter Name Role Phone Cynthia Euceda Unavailable Unava ilable Allergies and Adverse Reactions Plan Reason for Visit Encounters Immunizations Medications Problems Notes Section
--- OUTSIDE RECORDS SUMMARY | 2024-05-23 08:55 | XMS_ITS | Clinical Summary ---
Author Organization [facility] Address [address] [place] [id number] Care Team Providers Care Boatswain Mate Name Role Phone Elsewhere, Pcp Primary Care Provider Unavailabl e Source Comments Patient records contain information from all sites at [facility]. For routine questions regarding patient records, call [phone] during business hours, M-F 8:00 AM - 5:00 PM Central Time. 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 Cytology Non-RUG SAMPLE BEVELER, Cytology Non-RUG SAMPLE BEVELER 05/07/2024 Refill [facility] [address] [place] [phone] Sabrina Ascencio P.A.-C., P.A. Med Refill 05/04/2024 7:25 AM PRECIPITATION EQUIPMENT TENDER - 05/07/2024 5:42 PM PRECIPITATION EQUIPMENT TENDER Hospital Encounter [facility], [facility], Fifth Floor [address] [place] [address] Zane Chinchilla M.D. Ariana Jeffries APRN, C.N.P., M.S.N. Hakan Iniguez APRN, C.N.P., D.N.P. Adia Geiger M.D. Dastrange, Mehdi, M.D. Miguelina Harmon M.B., Jesus Madrigal Discharge Disposition: Home or Self Care 05/03/2024 12:29 PM PRECIPITATION EQUIPMENT TENDER - 05/04/2024 6:28 AM [facility] Emergency [facility] [address] [place] [address], [place] [phone] Ilda Martinez M.D., M.B.A. Salma Dinh M.D., M.P.H. Effusion Pleural (Primary Dx); Ascites Discharge Disposition: [facility] 05/03/2024 Intake [facility] 04/24/2024 3:13 PM PRECIPITATION EQUIPMENT TENDER - 04/24/2024 4:25 PM [facility] Emergency [facility] [address] [place] [phone] Sabrina Ascencio P.A.-C., P.A. Cough Unspecified Type [...] drink = 0.6 oz pur e alcohol) [facility] Utilities Answer Date Recorded In the past 12 months has th e [employer], gas, oil, or water [employer] threatened to shut off services in your [...] your living situation today? I have a [facility] place to live 05/04/2024 Comments No Sex and Gender Information Value Date Recorded Sex Assigned at Not on file Legal Sex Female 2:38 PM PRECIPITATION EQUIPMENT TENDER Gender Identity Not on file Sexual Orientation Not on file Last Filed Vital Signs Vital Sign Reading Time Taken Comments Blood Pressure 121/76 05/07/2024 2:11 PM PRECIPITATION EQUIPMENT TENDER Pulse 69 05/07/2024 2:11 PM PRECIPITATION EQUIPMENT TENDER Temperature 36.7 C (98.1 F) 05/07/2024 2:11 PM PRECIPITATION EQUIPMENT TENDER Respiratory Rate 23 05/07/2024 2:11 PM PRECIPITATION EQUIPMENT TENDER Oxygen Saturation 92% 05/07/2024 2:11 PM PRECIPITATION EQUIPMENT TENDER Inhaled Oxygen Concentration - - Weight 71.5 kg (157 lb 10.1 oz) 05/07/2024 6:00 AM PRECIPITATION EQUIPMENT TENDER Height 171 cm (5' 7.32) 05/04/2024 7:26 AM PRECIPITATION EQUIPMENT TENDER Body Mass Index 24.45 05/04/2024 7:26 AM PRECIPITATION EQUIPMENT TENDER Plan of Treatment Health Maintenance Due Date Last Done Comments CT Colonography 1959 Cervical/Vaginal Cancer Screening 1959 Cologuard 1959 Colonoscopy 1959 Colorectal Cancer Screening 1959 FIT 1959 HIV Screening 1959 Hepatitis B Screening 1959 Hepatitis C Screening 1959 Tobacco Cessation counseling 1959 Pneumococcal vaccine (50+ years) (1 of 2 - PCV) 07/06/1978 Zoster Vaccines (1 of 2) 07/06/2009 RSV vaccine - (32-36 weeks) or 60+ years (1 - Risk 60-74 years 1-dose series) 2019 COVID-19 Vaccine ( - 2023- season) 2023 Influenza Vaccine (#1) 2023 0, 03/02/2010, 12/11/2008 Depression Screening (Annual PHQ-2) 03/27/2024 [...] inpatients and all outpatients) 05/07/2024 4:22 PM PRECIPITATION EQUIPMENT TENDER US THORACENTESIS RIGHT WITH IMAGING GUIDANCE RAD - Routine (most inpatients and all outpatients) 05/07/2024 3:41 PM PRECIPITATION EQUIPMENT TENDER DX CHEST 1 VIEW RAD - Routine (most inpatients and all outpatients) 05/07/2024 10:12 AM PRECIPITATION EQUIPMENT TENDER BASIC METABOLIC PANEL, S/P Routine 05/07/2024 6:43 AM PRECIPITATION EQUIPMENT TENDER CBC WITHOUT DIFFERENTIAL, B Routine 05/07/2024 6:43 AM PRECIPITATION EQUIPMENT TENDER PULSE OXIMETRY, CONTINUOUS Routine 05/06/2024 8:01 AM PRECIPITATION EQUIPMENT TENDER ADULT OXYGEN THERAPY Routine 05/06/2024 8:01 AM PRECIPITATION EQUIPMENT TENDER BASIC METABOLIC PANEL, S/P Routine 05/06/2024 7:00 AM PRECIPITATION EQUIPMENT TENDER CBC WITH DIFFERENTIAL, B Routine 05/06/2024 7:00 AM PRECIPITATION EQUIPMENT TENDER PULSE OXIMETRY, CONTINUOUS Routine 05/05/2024 8:00 PM PRECIPITATION EQUIPMENT TENDER ADULT OXYGEN THERAPY Routine 05/05/2024 8:00 PM PRECIPITATION EQUIPMENT TENDER PULSE OXIMETRY, CONTINUOUS Routine 05/05/2024 8:01 AM PRECIPITATION EQUIPMENT TENDER ADULT OXYGEN THERAPY Routine 05/05/2024 8:01 AM PRECIPITATION EQUIPMENT TENDER CBC WITH DIFFERENTIAL, B Routine 05/05/2024 7:25 AM PRECIPITATION EQUIPMENT TENDER BASIC METABOLIC PANEL, S/P Routine 05/05/2024 7:25 AM PRECIPITATION EQUIPMENT TENDER PULSE OXIMETRY, CONTINUOUS Routine 05/04/2024 8:01 PM PRECIPITATION EQUIPMENT TENDER ADULT OXYGEN THERAPY Routine 05/04/2024 8:01 PM PRECIPITATION EQUIPMENT TENDER CALCIUM, IONIZED, S/B Routine 05/04/2024 6:15 PM PRECIPITATION EQUIPMENT TENDER PH BLOOD GAS Routine 05/04/2024 6:15 PM PRECIPITATION EQUIPMENT TENDER LACTATE DEHYDROGENASE (LD), S Routine 05/04/2024 6:15 PM PRECIPITATION EQUIPMENT TENDER CANCER AG 125 (CA 125), S Routine 05/04/2024 6:15 PM PRECIPITATION EQUIPMENT TENDER URINALYSIS WITH MICROSCOPIC IF INDICATED, U Routine 05/04/2024 5:59 PM PRECIPITATION EQUIPMENT TENDER CYTOLOGY NON-RUG SAMPLE BEVELER Timed 05/04/2024 12:06 PM PRECIPITATION EQUIPMENT TENDER CYTOLOGY NON-RUG SAMPLE BEVELER Timed 05/04/2024 11:54 AM PRECIPITATION EQUIPMENT TENDER US PARACENTESIS WITH IMAGING GUIDANCE RAD - Routine (most inpatients and all outpatients) 05/04/2024 11:35 AM PRECIPITATION EQUIPMENT TENDER US THORACENTESIS RIGHT WITH IMAGING GUIDANCE RAD - Routine (most inpatients and all outpatients) 05/04/2024 11:30 AM PRECIPITATION EQUIPMENT TENDER CBC WITH DIFFERENTIAL, B Routine 05/04/2024 11:30 AM PRECIPITATION EQUIPMENT TENDER MAGNESIUM, S Routine 05/04/2024 11:30 AM PRECIPITATION EQUIPMENT TENDER BASIC METABOLIC PANEL, S/P Routine 05/04/2024 11:30 AM PRECIPITATION EQUIPMENT TENDER ECG Routine 05/04/2024 11:23 AM PRECIPITATION EQUIPMENT TENDER GLUCOSE, BODY FLUID Routine 05/04/2024 11:23 AM PRECIPITATION EQUIPMENT TENDER HEPATIC FUNCTION PANEL, S Routine 05/04/2024 11:11 AM PRECIPITATION EQUIPMENT TENDER CELL COUNT AND DIFFERENTIAL, BF Timed 05/04/2024 10:50 AM PRECIPITATION EQUIPMENT TENDER PROTEIN, TOTAL, BF Routine 05/04/2024 10:50 AM PRECIPITATION EQUIPMENT TENDER ALBUMIN, BODY FLUID Routine 05/04/2024 10:50 AM PRECIPITATION EQUIPMENT TENDER GRAM STAIN Timed 05/04/2024 10:50 AM PRECIPITATION EQUIPMENT TENDER BACTERIAL CULTURE, ANAEROBIC + SUSC Timed 05/04/2024 10:50 AM PRECIPITATION EQUIPMENT TENDER BACTERIAL CULTURE, AEROBIC + SUSC Timed 05/04/2024 10:50 AM PRECIPITATION EQUIPMENT TENDER PH, PLEURAL FLUID Timed 05/04/2024 10:30 AM PRECIPITATION EQUIPMENT TENDER CELL COUNT AND DIFFERENTIAL, BF Timed 05/04/2024 10:30 AM PRECIPITATION EQUIPMENT TENDER PROTEIN, TOTAL, BF Timed 05/04/2024 10:30 AM PRECIPITATION EQUIPMENT TENDER LACTATE DEHYDROGENASE (LD), BF Timed 05/04/2024 10:30 AM PRECIPITATION EQUIPMENT TENDER BACTERIAL CULTURE, ANAEROBIC + SUSC Timed 05/04/2024 10:30 AM PRECIPITATION EQUIPMENT TENDER BACTERIAL CULTURE, AEROBIC + SUSC Timed 05/04/2024 10:30 AM PRECIPITATION EQUIPMENT TENDER GRAM STAIN Timed 05/04/2024 10:30 AM PRECIPITATION EQUIPMENT TENDER PULSE OXIMETRY, CONTINUOUS Routine 05/04/2024 9:39 AM PRECIPITATION EQUIPMENT TENDER PULSE OXIMETRY, CONTINUOUS Routine 05/04/2024 9:39 AM PRECIPITATION EQUIPMENT TENDER PULSE OXIMETRY, CONTINUOUS Routine 05/04/2024 9:37 AM PRECIPITATION EQUIPMENT TENDER ADULT OXYGEN THERAPY Routine 05/04/2024 9:37 AM PRECIPITATION EQUIPMENT TENDER ADULT OXYGEN THERAPY Routine 05/04/2024 9:37 AM PRECIPITATION EQUIPMENT TENDER ADULT OXYGEN THERAPY Routine 05/04/2024 9:[address] PRECIPITATION EQUIPMENT TENDER CT ABDOMEN PELVIS WITH IV CONTRAST RAD - Semiurgent (Fast; most ED patients; some inpatients) 05/03/2024 3:01 PM PRECIPITATION EQUIPMENT TENDER CT CHEST ANGIOGRAM AND PULMONARY ARTERIES WITH IV CONTRAST RAD - Semiurgent (Fast; most ED patients; some inpatients) 05/03/2024 2:45 PM PRECIPITATION EQUIPMENT TENDER NT-PRO B-TYPE NATRIURETIC PEPTIDE (BNP), S STAT 05/03/2024 1:19 PM PRECIPITATION EQUIPMENT TENDER D-DIMER, P STAT 05/03/2024 1:19 PM PRECIPITATION EQUIPMENT TENDER COMPREHENSIVE METABOLIC PANEL, S/P STAT 05/03/2024 1:19 PM PRECIPITATION EQUIPMENT TENDER CBC WITH DIFFERENTIAL, B STAT 05/03/2024 1:19 PM PRECIPITATION EQUIPMENT TENDER INFLUENZA A, B, RSV, PCR, POCT STAT 05/03/2024 1:15 PM PRECIPITATION EQUIPMENT TENDER SARS CORONAVIRUS 2, PCR RAPID, V STAT 05/03/2024 1:15 PM PRECIPITATION EQUIPMENT TENDER DX CHEST AP OR PA AND LATERAL 2 VIEWS RAD - Semiurgent (Fast; most ED patients; some inpatients) 04/24/2024 4:06 PM PRECIPITATION EQUIPMENT TENDER Cough Unspecified Type from Last 3 Months Results * DX Chest 1 View (05/07/2024 4:22 PM PRECIPITATION EQUIPMENT TENDER) Only the most recent of2 resultswithin the time period is included. Anatomical Region Laterality Modality Chest, Thoracic RST LOS, Tho racic ARZ LOS, Thoracic FLA LOS N/A Digital Radiography Impressions 05/07/2024 4:26 PM PRECIPITATION EQUIPMENT TENDER Decreased pleural effusion and no pneumothorax following right-sided thoracentesis Narrative 05/07/2024 4:26 PM PRECIPITATION EQUIPMENT TENDER EXAM: DX CHEST 1 VIEW COMPARISON: Chest [...] Right with Imaging Guidance (05/07/2024 3:41 PM PRECIPITATION EQUIPMENT TENDER) Only the most recent of2 resultswithin the time period is included. Anatomical Region Laterality Modality Chest, Ultrasound RST LOS, U ltrasound ARZ LOS, Procedure FLA LOS, Abdominal FLA LOS, Procedural, Procedural NWWI LOS Right Ultrasound Impressions 05/07/2024 4:18 PM PRECIPITATION EQUIPMENT TENDER Successful ultrasound guided thoracentesis. Narrative 05/07/2024 4:18 PM PRECIPITATION EQUIPMENT TENDER EXAM: US THORACENTESIS RIGHT WITH IMAGING GUIDANCE [...] medications. Patient education provided by the care nut steamer. Ready to learn, no apparent learning barriers [...] medications. Patient education provided by the care nut steamer. Ready tolearn, no apparent learning barriers were identified. Post-procedure careexplained; patient expressed understanding of the content. IMPRESSION: Successful ultrasound guided thoracentesis. us Miguelina Acharya B.Ch., M.D. IM US ADITI DENISE Final Result * CBC without Differential (05/07/2024 6:43 AM PRECIPITATION EQUIPMENT TENDER) Hemoglobin 12.0 11.6 - 15.0 g/dL 05/07/2024 6:54 AM PRECIPITATION EQUIPMENT TENDER [facility] Hematocrit 38.0 35.5 - 44.9 % 05/07/2024 6:54 AM PRECIPITATION EQUIPMENT TENDER [facility] Erythrocytes 4.25 3.92 - 5.13 x10(12)/L 05/07/2024 6:54 AM PRECIPITATION EQUIPMENT TENDER [facility] MCV 89.4 78.2 - 97.9 fL 05/07/2024 6:54 AM PRECIPITATION EQUIPMENT TENDER [facility] RBC Distrib Width 13.0 12.2 - 16.1 % 05/07/2024 6:54 AM PRECIPITATION EQUIPMENT TENDER [facility] Platelet Count 340 157 - 371 x10(9)/L 05/07/2024 6:54 AM PRECIPITATION EQUIPMENT TENDER [facility] Leukocytes 5.3 3.4 - 9.6 x10(9)/L 05/07/2024 6:54 AM PRECIPITATION EQUIPMENT TENDER [facility] Blood (Blood, Venous) 05/07/2024 6:43 AM PRECIPITATION EQUIPMENT TENDER 05/07/2024 6:52 AM PRECIPITATION EQUIPMENT TENDER us Sergo Ambrocio M.D. LAB BLOOD ADD-ON Final Resu lt [facility] [address] [place] [address], [facility] [place] [address] * Basic Metabolic Panel (05/07/2024 6:43 AM PRECIPITATION EQUIPMENT TENDER) Only the most recent of4 resultswithin the time period is included. Potassium, P 4.2 3.6 - 5.2 mmol/L 05/07/2024 7:34 AM PRECIPITATION EQUIPMENT TENDER [facility] Sodium, P 140 135 - 145 mmol/L 05/07/2024 7:34 AM PRECIPITATION EQUIPMENT TENDER [facility] Chloride, P 105 98 - 107 mmol/L 05/07/2024 7:34 AM PRECIPITATION EQUIPMENT TENDER [facility] Bicarbonate, P 27 22 - 29 mmol/L 05/07/2024 7:34 AM PRECIPITATION EQUIPMENT TENDER [facility] Anion Gap, P 8 7 - 15 05/07/2024 7:34 AM PRECIPITATION EQUIPMENT TENDER [facility] BUN (Blood Urea Nitrogen), P 9 6 - 21 mg/dL 05/07/2024 7:34 AM PRECIPITATION EQUIPMENT TENDER [facility] Creatinine 0.69 0.59 - 1.04 mg/dL 05/07/2024 7:34 AM PRECIPITATION EQUIPMENT TENDER [facility] Estimated GFR (eGFR) >90 >=60 mL/min/BSA 05/07/2024 7:34 AM PRECIPITATION EQUIPMENT TENDER [facility] Comment: Estimated GFR calculated using the 2020 CKD_EPI creatinine equation. Calcium, Total, P 8.8 8.8 - 10.2 mg/dL 05/07/2024 7:34 AM PRECIPITATION EQUIPMENT TENDER [facility] Glucose, P 88 70 - 140 mg/dL 05/07/2024 7:34 AM PRECIPITATION EQUIPMENT TENDER [facility] Blood (Blood, Venous) 05/07/2024 6:43 AM PRECIPITATION EQUIPMENT TENDER 05/07/2024 6:52 AM PRECIPITATION EQUIPMENT TENDER us Sergo Ambrocio M.D. LAB BLOOD ADD-ON Final Resu lt [facility] [address] [place] [address], [facility] [place] [address] * (ABNORMAL) CBC with Differential, Blood (05/06/2024 7:00 AM PRECIPITATION EQUIPMENT TENDER) Only the most recent of4 resultswithin the time period is included. Hemoglobin 11.4(L) 11.6 - 15.0 g/dL 05/06/2024 7:39 AM PRECIPITATION EQUIPMENT TENDER [facility] Hematocrit 36.1 35.5 - 44.9 % 05/06/2024 7:39 AM PRECIPITATION EQUIPMENT TENDER [facility] Erythrocytes 4.02 3.92 - 5.13 x10(12)/L 05/06/2024 7:39 AM PRECIPITATION EQUIPMENT TENDER [facility] MCV 89.8 78.2 - 97.9 fL 05/06/2024 7:39 AM PRECIPITATION EQUIPMENT TENDER [facility] RBC Distrib Width 13.0 12.2 - 16.1 % 05/06/2024 7:39 AM PRECIPITATION EQUIPMENT TENDER [facility] Platelet Count 315 157 - 371 x10(9)/L 05/06/2024 7:39 AM PRECIPITATION EQUIPMENT TENDER [facility] Leukocytes 5.0 3.4 - 9.6 x10(9)/L 05/06/2024 7:39 AM PRECIPITATION EQUIPMENT TENDER [facility] Neutrophils 3.52 1.56 - 6.45 x10(9)/L 05/06/2024 7:39 AM PRECIPITATION EQUIPMENT TENDER [facility] Lymphocytes 0.83(L) 0.95 - 3.07 x10(9)/L 05/06/2024 7:39 AM PRECIPITATION EQUIPMENT TENDER [facility] Monocytes 0.50 0.26 - 0.81 x10(9)/L 05/06/2024 7:39 AM PRECIPITATION EQUIPMENT TENDER [facility] Eosinophils 0.10 0.03 - 0.48 x10(9)/L 05/06/2024 7:39 AM PRECIPITATION EQUIPMENT TENDER [facility] Basophils <0.03 0.01 - 0.08 x10(9)/L 05/06/2024 7:39 AM PRECIPITATION EQUIPMENT TENDER [facility] Blood (Blood, Venous) 05/06/2024 7:00 AM PRECIPITATION EQUIPMENT TENDER 05/06/2024 7:35 AM PRECIPITATION EQUIPMENT TENDER us Adia Geiger M.D. LAB BLOOD ADD-ON Final Result [facility] [address] [place] [address], [facility] [address] [place] [address] * pH (05/04/2024 6:15 PM PRECIPITATION EQUIPMENT TENDER) pH 7.38 7.35 - 7.45 pH 05/04/2024 6:23 PM PRECIPITATION EQUIPMENT TENDER [facility] Blood 05/04/2024 6:15 PM PRECIPITATION EQUIPMENT TENDER 05/04/2024 6:19 PM PRECIPITATION EQUIPMENT TENDER us Hakan Iniguez APRN, C.N.P., D.N.P. LAB HISTORICA L ORDERS Final Result Performing Organization Address City/[facility]/ZIP Co de Phone Number [facility] [address] [place] [address], [address] [address] * (ABNORMAL) Cancer Antigen 125 (CA 125) (05/04/2024 6:15 PM PRECIPITATION EQUIPMENT TENDER) Cancer Ag 125 (CA 125), S 8527(H) <46 U/mL 05/06/2024 6:47 AM PRECIPITATION EQUIPMENT TENDER AUST Comment: Biotin has been identified by the executive vice president and chief operating officer as a potential interfering substance. Higher concentrations [...] disease. Blood (Blood, Venous) 05/04/2024 6:15 PM PRECIPITATION EQUIPMENT TENDER 05/05/2024 1:52 PM PRECIPITATION EQUIPMENT TENDER us Hakan Iniguez APRN, C.N.P., D.N.P. LAB BLOOD ADD -ON Final Result [facility] [address] [place] [address], [facility] [address] [place] [address] * (ABNORMAL) LD (Lactate Dehydrogenase) (05/04/2024 6:15 PM PRECIPITATION EQUIPMENT TENDER) Lactate Dehydrogenase (LD), P 285(H) 122 - 222 U/L 05/04/2024 6:42 PM PRECIPITATION EQUIPMENT TENDER [facility] Blood (Blood, Venous) 05/04/2024 6:15 PM PRECIPITATION EQUIPMENT TENDER 05/04/2024 6:20 PM PRECIPITATION EQUIPMENT TENDER us Hakan Iniguez APRN, C.N.P., D.N.P. LAB BLOOD NON ADD-ON Final Result Performing Organization Address City/[facility]/ZIP Co de Phone Number [facility] [address] [place] [address], [place] [address] * (ABNORMAL) Calcium, Ionized (05/04/2024 6:15 PM PRECIPITATION EQUIPMENT TENDER) Pathologist [facility] Calcium, Ionized, B 4.56(L) 4.65 - 5.30 mg/dL 05/04/2024 6:23 PM PRECIPITATION EQUIPMENT TENDER MK[facility] Blood 05/04/2024 6:15 PM PRECIPITATION EQUIPMENT TENDER 05/04/2024 6:19 PM PRECIPITATION EQUIPMENT TENDER us Hakan Iniguez APRN, C.N.P., D.N.P. LAB BLOOD NON ADD-ON Final Result [facility] [address] [place] [address], [place] [address] * Urinalysis with Microscopic if Indicated: Urine, Midstream (05/04/2024 5:59 PM PRECIPITATION EQUIPMENT TENDER) Source Urine, Urine, Midstream 05/04/2024 6:08 PM PRECIPITATION EQUIPMENT TENDER [facility] Clarity Clear Clear 05/04/2024 6:08 PM PRECIPITATION EQUIPMENT TENDER [facility] Color Yellow 05/04/2024 6:08 PM PRECIPITATION EQUIPMENT TENDER [facility] Comment: ----REFERENCE VALUE---- Colorless Yellow Ginger Blood Negative Negative 05/04/2024 6:08 PM PRECIPITATION EQUIPMENT TENDER [facility] Nitrite Negative Negative 05/04/2024 6:08 PM PRECIPITATION EQUIPMENT TENDER [facility] Leukocyte Esterase Negative Negative 05/04/2024 6:08 PM PRECIPITATION EQUIPMENT TENDER [facility] Protein Negative mg/dL 05/04/2024 6:08 PM PRECIPITATION EQUIPMENT TENDER [facility] Comment: ----REFERENCE VALUE---- Negative Trace Glucose Negative Negative mg/dL 05/04/2024 6:08 PM PRECIPITATION EQUIPMENT TENDER [facility] Ketone Negative Negative mg/dL 05/04/2024 6:08 PM PRECIPITATION EQUIPMENT TENDER [facility] Bilirubin Negative Negative 05/04/2024 6:08 PM PRECIPITATION EQUIPMENT TENDER [facility] pH 5.5 5.0 - 8.0 05/04/2024 6:08 PM PRECIPITATION EQUIPMENT TENDER [facility] Specific [place] 1.010 1.001 - 1.035 05/04/2024 6:08 PM PRECIPITATION EQUIPMENT TENDER [facility] Urobilinogen 0.2 0.2 - 1.0 mg/dL 05/04/2024 6:08 PM PRECIPITATION EQUIPMENT TENDER [facility] Urine (Urine, Midstream) 05/04/2024 5:59 PM PRECIPITATION EQUIPMENT TENDER 05/04/2024 6:05 PM PRECIPITATION EQUIPMENT TENDER us Hakan Iniguez APRN, C.N.P., D.N.P. LAB URINE ORD ERABLES Final Result [facility] [address] [place] [address], [facility] MK[facility] [place] [address] * (ABNORMAL) Cytology Non-RUG SAMPLE BEVELER (05/04/2024 12:06 PM PRECIPITATION EQUIPMENT TENDER) Only the most recent of2 resultswithin the time period is included. (A) 05/08/2024 9:38 AM PRECIPITATION EQUIPMENT TENDER [facility] Report electronically signed by Inocencio [place] MD I verify that I have examined all relevant slides/materials for the specimen(s) and rendered or confirmed the diagnosis. (A) 05/08/2024 9:38 AM PRECIPITATION EQUIPMENT TENDER [facility] Gross Description 1050 ml of cloudy reddish/yellow fluid received. 60 ml fixed with 50% ETOH at 7:15 am on 05-06-2024. 2 slides and cell block prepared. (A) 05/08/2024 9:38 AM PRECIPITATION EQUIPMENT TENDER [facility] Source A. Pleural, Right, fluid(A) 05/08/2024 9:38 AM PRECIPITATION EQUIPMENT TENDER [facility] Clinical History August 2008, right breast, grade 3, infiltrating ductal carcinoma, treated with chemotherapy. On 05/03/2024 with abdominal bloating and dyspnea and mild hypoxia. The CT scan showed diffuse omental or peritoneal thickening and moderate right pleural effusion. Presentation is not typical for recurrence of breast cancer. (A) 05/08/2024 9:38 AM PRECIPITATION EQUIPMENT TENDER [facility] Interpretation A. Pleural, Right, fluid (smears/cell [...] Acceptable control results. (A) 05/08/2024 9:38 AM PRECIPITATION EQUIPMENT TENDER [facility] Fluid (Pleural Fluid, Right) 05/04/2024 12:06 PM PRECIPITATION EQUIPMENT TENDER 05/06/2024 8:11 AM PRECIPITATION EQUIPMENT TENDER us Hakan Iniguez APRN, C.N.P., D.N.P. LAB SURG PATH ORDERABLES Final Result [facility] [address] [place] [address], [place] [facility] [address] [address] * US Paracentesis with Imaging Guidance (05/04/2024 11:35 AM PRECIPITATION EQUIPMENT TENDER) Anatomical Region Laterality Modality Abdomen, Ultrasound RST LOS, Ultrasound ARZ LOS, Procedure FLA LOS, Abdominal FLA LOS, Procedural, Procedural NWWI LOS N/A Ultrasound Impressions 05/04/2024 12:33 PM PRECIPITATION EQUIPMENT TENDER Successful ultrasound guided diagnostic and therapeutic paracentesis. Narrative 05/04/2024 12:33 PM PRECIPITATION EQUIPMENT TENDER EXAM: US PARACENTESIS WITH IMAGING GUIDANCE PROCEDURE: [...] medications. Patient education provided by the care nut steamer. Ready to learn, no apparent learning barriers [...] medications. Patient education provided by the care nut steamer. Ready to learn, no apparent learningbarriers were identified. Post-procedure care explained; patient expressedunderstanding of the content. IMPRESSION: Successful ultrasound guided diagnostic and therapeutic paracentesis. us Tamara Hutton APRN.N.P., D.N.P. IMG US PROCED URES Final Result * Magnesium (05/04/2024 11:30 AM PRECIPITATION EQUIPMENT TENDER) Magnesium, P 1.8 1.7 - 2.3 mg/dL 05/04/2024 11:58 AM PRECIPITATION EQUIPMENT TENDER [facility] Blood (Blood, Venous) 05/04/2024 11:30 AM PRECIPITATION EQUIPMENT TENDER 05/04/2024 11:38 AM PRECIPITATION EQUIPMENT TENDER Tamara Hutton APRN.N.P., D.N.P. LAB BLOOD ADD -ON Final Result [facility] [address] [place] [address], [facility] [place] [address] [place] [address] * ECG 12 Lead (05/04/2024 11:23 AM PRECIPITATION EQUIPMENT TENDER) Ventricular Rate ECG/Min 75 BPM MUSE IA Interval 184 ms MUSE QRSD Interval 80 ms MUSE QT Interval 384 ms MUSE QTC Interval 428 ms MUSE P Chicken 49 degrees MUSE R Chicken 80 degrees MUSE T Wave Chicken 47 degrees MUSE 05/04/2024 11:2 3 AM PRECIPITATION EQUIPMENT TENDER 05/04/2024 11:33 AM PRECIPITATION EQUIPMENT TENDER Impressions MUSE - 05/04/2024 11:33 AM PRECIPITATION EQUIPMENT TENDER Normal sinus rhythm Normal ECG No previous ECGs available Reviewed by LINDA Linda Narrative Procedure Note Zhang Sandy M.D. - 05/04/2024 IMPRESSION: Normal sinus rhythm Normal ECG No previous ECGs available Reviewed by LINDA Linda Tamara Hutton APRN.N.P., D.N.P. ECG ORDERABLE S Final Result MUSE NA * Glucose, Body Fluid (05/04/2024 11:23 AM PRECIPITATION EQUIPMENT TENDER) Glucose, BF 63 See Comment mg/dL 05/05/2024 12:32 PM PRECIPITATION EQUIPMENT TENDER DTL Comment: ----ADDITIONAL INFORMATION---- Body fluid glucose [...] cystic lesions. All other fluids refer to [email or web address].com for further interpretive information. This test has been modified from the executive vice president and chief operating officer's instructions. Its performance characteristics were determined by [facility] in a manner consistent with CLIA requirements. This test has not been cleared or approved by the U.S. Food and Drug Administration. Fluid Type, Glucose PLEURAL 05/05 11:00 AM PRECIPITATION EQUIPMENT TENDER DTL Fluid (Pleural Fluid, Right) 05/04/2024 11:23 AM PRECIPITATION EQUIPMENT TENDER 05/05/2024 9:24 AM PRECIPITATION EQUIPMENT TENDER us Hakan Iniguez APRN, C.N.P., D.N.P. LAB B [facility] FLUIDS [facility] STO[facility] ORDERABLES Final Result Performing Organization Address City/[facility]/ZIP Co de Phone Number [facility] [address] [place] [address], [facility] [address] [place], [place] [address] * Hepatic Function Panel (05/04/2024 11:11 AM PRECIPITATION EQUIPMENT TENDER) Bilirubin, Total, P <0.2 0.0 - 1.2 mg/dL 05/04/2024 1:47 PM PRECIPITATION EQUIPMENT TENDER MKTO Bilirubin, Direct, P <0.1 0.0 - 0.3 mg/dL 05/04/2024 1:47 PM PRECIPITATION EQUIPMENT TENDER MKTO Aspartate Aminotransferase (AST), P 28 8 - 43 U/L 05/04/2024 1:47 PM PRECIPITATION EQUIPMENT TENDER MKTO Alanine Aminotransferase (ALT), P 20 7 - 45 U/L 05/04/2024 1:47 PM PRECIPITATION EQUIPMENT TENDER MKTO Alkaline Phosphatase, P 59 35 - 104 U/L 05/04/2024 1:47 PM PRECIPITATION EQUIPMENT TENDER MKTO Albumin, P 3.6 3.5 - 5.0 g/dL 05/04/2024 1:47 PM PRECIPITATION EQUIPMENT TENDER MKTO Protein, Total, P 6.5 6.3 - 7.9 g/dL 05/04/2024 1:47 PM PRECIPITATION EQUIPMENT TENDER MKTO Blood (Blood, Venous) 05/04/2024 11:11 AM PRECIPITATION EQUIPMENT TENDER 05/04/2024 1:34 PM PRECIPITATION EQUIPMENT TENDER Hakan Iniguez APRN, C.N.P., D.N.P. LAB BLOOD ADD -ON Final Result [facility] [address] [place] [address], [facility] [place] [address] * Protein, Total, Body Fluid (05/04/2024 10:50 AM PRECIPITATION EQUIPMENT TENDER) Only the most recent of2 resultswithin the time period is included. Protein, Total, BF 4.9 See Comment g/dL 05/05/2024 12:34 PM PRECIPITATION EQUIPMENT TENDER DTL Comment: ----ADDITIONAL INFORMATION---- A pleural fluid [...] clinical findings. All other fluids refer to www.[employer].com for further interpretive information. This test has been modified from the executive vice president and chief operating officer's instructions. Its performance characteristics were determined by [facility] in a manner consistent with CLIA requirements. This test has not been cleared or approved by the U.S. Food and Drug Administration. Fluid Type, Protein, Total PERITONEAL 05/05/2024 11:01 AM PRECIPITATION EQUIPMENT TENDER DTL Fluid (Abdomen) 05/04/2024 1 0:50 AM PRECIPITATION EQUIPMENT TENDER 05/05/2024 9:24 AM PRECIPITATION EQUIPMENT TENDER Tamara Hutton APRN.N.P., D.N.P. LAB B FRANKIE FLUIDS AND STOOLS ORDERABLES Final Result Performing Organization Address [facility] Co de Phone Number [facility] [address] [place] [address], [facility] [address] [place] [address] * Bacterial Culture, Aerobic + Susceptibility (05/04/2024 10:50 AM PRECIPITATION EQUIPMENT TENDER) Only the most recent of2 resultswithin the time period is included. Bacterial Culture, Aerobic + Susc No growth after 5 days of incubation. 05/09/2024 6:59 AM PRECIPITATION EQUIPMENT TENDER MKTO Fluid (Abdomen) 05/04/2024 1 0:50 AM PRECIPITATION EQUIPMENT TENDER 05/04/2024 11:50 AM PRECIPITATION EQUIPMENT TENDER Comment:Specimen Source Site : Fluid Hakan Iniguez APRN, C.N.P., D.N.P. LAB M ICROBIOLOGY - GENERAL ORDERABLES Final Result [facility] [place] [address], [facility] MKTO [facility] [place] [address] [place] [address] * Cell Count and Differential, Body Fluid (05/04/2024 10:50 AM PRECIPITATION EQUIPMENT TENDER) Only the most recent of2 resultswithin the time period is included. Fluid Type Peritoneal/Pa racentesis 05/04/2024 12:46 PM PRECIPITATION EQUIPMENT TENDER MKTO Gross Appearance Slightly Cloudy 05/04/2024 12:47 PM PRECIPITATION EQUIPMENT TENDER MKTO Total Nucleated Cells 2808 /mcL 05/04/2024 12:48 PM PRECIPITATION EQUIPMENT TENDER MKTO Comment: ----REFERENCE VALUE---- Synovial: <150 Peritoneal: <500 Pleural: <500 Pericardial: <500 ----ADDITIONAL INFORMATION---- This test has been modified from the executive vice president and chief operating officer's instructions. Its performance characteristics were determined by [facility] in a manner consistent with CLIA requirements. This test has not been cleared or approved by the U.S. Food and Drug Administration. Neutrophils 3 % 05/04/2024 1:20 PM PRECIPITATION EQUIPMENT TENDER MKTO Comment: ----REFERENCE VALUE---- Synovial: <25% Peritoneal: <25% Pleural: <25% Pericardial: <25% Lymphocytes 34 Synovial : <75% % 05/04/2024 1:20 PM PRECIPITATION EQUIPMENT TENDER MKTO Monocytes/Macropha ges 42 Synovial : <70% % 05/04/2024 1:20 PM PRECIPITATION EQUIPMENT TENDER MKTO Other Cells 21 % 05/04/2024 1:20 PM PRECIPITATION EQUIPMENT TENDER MKTO Comment: ----REFERENCE VALUE---- The reference range and other method performance specifications have not been established for this body fluid. The test result must be integrated into the clinical context for interpretation. Other Cells Are: SeeComment 05/04/19 25 7:48 PM PRECIPITATION EQUIPMENT TENDER MKTO Comment: REVISED RESULTS Mesothelial cells: 8 Atypical cells: 13 Atypical cells, Correlate with cytology specimen. Dr. Hernandez ----PREVIOUSLY REPORTED ---- Mesothelial cells: 8 Atypical cells: 13 Atypical cells, Correlate with cytology specimen. (Reported 05/04/2024 13:22) Reviewed by: Dr. Hernandez 05/04/2024 7:48 PM PRECIPITATION EQUIPMENT TENDER MKTO Comment: REVISED RESULTS ----PREVIOUSLY REPORTED ---- Will be reviewed by Pathologist Flagged as: N/A (Reported 05/04/2024 13:22) Fluid (Abdomen) 05/04/2024 1 0:50 AM PRECIPITATION EQUIPMENT TENDER 05/04/2024 11:50 AM PRECIPITATION EQUIPMENT TENDER us Hakan Iniguez APRN, C.N.P., D.N.P. LAB BODY FLUIDS AND STOOLS ORDERABLES Edited Result - Final Performing Organization Address [facility] Co de Phone Number [facility] [address] [place] [address], [address] [address] * Gram Stain (05/04/2024 10:50 AM PRECIPITATION EQUIPMENT TENDER) Only the most recent of2 resultswithin the time period is included. Gram Stain No organisms seen. White blood cells present. Stain performed on concentrated cytospin preparation. 05/04/2024 12:50 PM PRECIPITATION EQUIPMENT TENDER [facility] Fluid (Abdomen) 05/04/2024 1 0:50 AM PRECIPITATION EQUIPMENT TENDER 05/04/2024 11:50 AM PRECIPITATION EQUIPMENT TENDER Comment:Specimen Source Site : Fluid us Hakan Iniguez APRN, C.N.P., D.N.P. LAB M ICROBIOLOGY - GENERAL ORDERABLES Final Result Performing Organization Address [facility] Co de Phone Number [facility] [address] [place] [address], [address] [address] * Bacterial Culture, Anaerobic + Susceptibility (05/04/2024 10:50 AM PRECIPITATION EQUIPMENT TENDER) Only the most recent of2 resultswithin the time period is included. Bacterial Culture, Anaerobic No growth after 7 days of incubation. 05/11/2024 5:49 AM PRECIPITATION EQUIPMENT TENDER [facility] Fluid (Abdomen) 05/04/2024 1 0:50 AM PRECIPITATION EQUIPMENT TENDER 05/04/2024 11:50 AM PRECIPITATION EQUIPMENT TENDER Comment:Specimen Source Site : Fluid us Hakan Iniguez APRN, C.N.P., D.N.P. LAB M ICROBIOLOGY - GENERAL ORDERABLES Final Result Performing Organization Address [facility] Co de Phone Number [facility] [address] [place] [address], [address] [address] * Albumin, Body Fluid (05/04/2024 10:50 AM PRECIPITATION EQUIPMENT TENDER) Albumin BF 2.8 See Comment g/dL 05/05/2024 12:34 PM PRECIPITATION EQUIPMENT TENDER DTL Comment: ----ADDITIONAL INFORMATION---- Peritoneal fluid albumin is used to calculate the serum-ascites albumin gradient (SAAG). Values greater than or equal to 1.1 g/dL suggest portal hypertension. Pleural fluid albumin may be used to calculate a serum-effusion albumin gradient. Values greater than 1.2 g/dL are most consistent with a transudative process. All other fluids refer to www.[employer].com for further interpretive information. This test has been modified from the executive vice president and chief operating officer's instructions. Its performance characteristics were determined by [facility] in a manner consistent with CLIA requirements. This test has not been cleared or approved by the U.S. Food and Drug Administration. Fluid Type, Albumin PERITONEAL 05/05/2024 11:01 AM PRECIPITATION EQUIPMENT TENDER DTL Fluid (Abdomen) 05/04/2024 1 0:50 AM PRECIPITATION EQUIPMENT TENDER 05/05/2024 9:24 AM PRECIPITATION EQUIPMENT TENDER Hakan Iniguez APRN, Tamara.N.P., D.N.P. LAB B FRANKIE FLUIDS AND STOOLS ORDERABLES Final Result [facility] [address] [place] [address], [facility] [address] [place] [address] * pH, Pleural Fluid (05/04/2024 10:30 AM PRECIPITATION EQUIPMENT TENDER) pH, Pleural Fluid 7.35 Not Applicable pH 05/04/2024 12:14 PM PRECIPITATION EQUIPMENT TENDER MKTO Comment: Clinical guidelines suggest that in parapneumonic pleural effusions, a pH <7.2 indicate the need for tube drainage. Fluid (Pleural Fluid, Right) 05/04/2024 10:30 AM PRECIPITATION EQUIPMENT TENDER 05/04/2024 12:07 PM PRECIPITATION EQUIPMENT TENDER Hakan Iniguez APRN, C.N.P., D.N.P. LAB B FRANKIE FLUIDS AND STOOLS ORDERABLES Final Result Performing Organization Address City/[facility]/ZIP Co de Phone Number [facility] [address] [place] [address], [place] MKTO [facility] [place] [address] [place] [address] * Lactate Dehydrogenase (LD), Body Fluid (05/04/2024 10:30 AM PRECIPITATION EQUIPMENT TENDER) Lactate Dehydrogenase (LD), BF 291 See Comment U/L 05/05/2024 2:30 PM PRECIPITATION EQUIPMENT TENDER DTL Comment: ----ADDITIONAL INFORMATION---- Pleural fluid lactate [...] clinical findings. All other fluids refer to [employer] for further interpretive information. This test has been modified from the executive vice president and chief operating officer's instructions. Its performance characteristics were determined by [facility] in a manner consistent with CLIA requirements. This test has not been cleared or approved by the U.S. Food and Drug Administration. Fluid Type, Lactate Dehydrogenase PLEURAL 05/05/2024 2:41 PM PRECIPITATION EQUIPMENT TENDER DTL Fluid (Pleural Fluid, Right) 05/04/2024 10:30 AM PRECIPITATION EQUIPMENT TENDER 05/05/2024 12:35 PM PRECIPITATION EQUIPMENT TENDER us Hakan Iniguez APRN, C.N.P., D.N.P. LAB B FRANKIE FLUIDS AND STOOLS ORDERABLES Final Result Performing Organization Address City/[facility]/ZIP Co de Phone Number [facility] [address] [place] [address], [place] [facility] [address] [place] [address] * CT Abdomen Pelvis with IV Contrast (05/03/2024 3:01 PM PRECIPITATION EQUIPMENT TENDER) Anatomical Region Laterality Modality Abdomen, Pelvis, Abdominal R ST LOS, Abdominal ARZ LOS, Abdominal FLA LOS N/A Computed Tomography 05/03/2024 2:55 PM PRECIPITATION EQUIPMENT TENDER Impressions 05/03/2024 3:12 PM PRECIPITATION EQUIPMENT TENDER 1. No evidence for acute or chronic pulmonary embolus. 2. Moderate-sized right pleural effusion with associated atelectasis and/or consolidation. 3. Diffuse omental and peritoneal disease identified concerning for metastatic or primary malignancy. 4. Moderate ascites. 5. Cholelithiasis. 6. Diverticulosis. 7. Distal small bowel wall thickening. Differential includes reactive change versus inflammatory disease versus infiltrative process. Narrative 05/03/2024 3:12 PM PRECIPITATION EQUIPMENT TENDER EXAM: CT CHEST ANGIOGRAM AND PULMONARY ARTERIES [...] versus infiltrative process. Ilda Martinez M.D., M.B.A. [facility] PROCEDURES Final Result * CT Chest Angiogram and Pulmonary Arteries with IV Contrast (05/03/2024 2:45 PM PRECIPITATION EQUIPMENT TENDER) Anatomical Region Laterality Modality Chest, Cardiovascular RST LO S, Thoracic ARZ LOS, Thoracic FLA LOS N/A Computed Tomography 05/03/2024 2:57 PM PRECIPITATION EQUIPMENT TENDER Impressions 05/03/2024 3:12 PM PRECIPITATION EQUIPMENT TENDER 1. No evidence for acute or chronic pulmonary embolus. 2. Moderate-sized right pleural effusion with associated atelectasis and/or consolidation. 3. Diffuse omental and peritoneal disease identified concerning for metastatic or primary malignancy. 4. Moderate ascites. 5. Cholelithiasis. 6. Diverticulosis. 7. Distal small bowel wall thickening. Differential includes reactive change versus inflammatory disease versus infiltrative process. Narrative 05/03/2024 3:12 PM PRECIPITATION EQUIPMENT TENDER EXAM: CT CHEST ANGIOGRAM AND PULMONARY ARTERIES [...] B-Type Natriuretic Peptide (BNP) (05/03/2024 1:19 PM PRECIPITATION EQUIPMENT TENDER) NT-Pro BNP 153 <=226 pg/mL 05/03/2024 1:57 PM PRECIPITATION EQUIPMENT TENDER NPRG Comment: NT-proBNP values less than 300 [...] failure. Blood (Blood, Venous) 05/03/2024 1:19 PM PRECIPITATION EQUIPMENT TENDER 05/03/2024 1:21 PM PRECIPITATION EQUIPMENT TENDER Ilda Martinez M.D., M.B.A. LAB BLOOD ADD-ON Final Result Performing Organization Address City/[facility] Co de Phone Number [facility] [address] [place] [address], [facility] NPRG [facility] [address] [place] [address] * (ABNORMAL) D-Dimer (05/03/2024 1:19 PM PRECIPITATION EQUIPMENT TENDER) D-Dimer, P 3913(H) <=500 ng/mL FEU 05/03/2024 1:44 PM PRECIPITATION EQUIPMENT TENDER NPRG Comment: D-dimer concentrations increase with age. [...] (PE). Blood (Blood, Venous) 05/03/2024 1:19 PM PRECIPITATION EQUIPMENT TENDER 05/03/2024 1:22 PM PRECIPITATION EQUIPMENT TENDER Ilda Martinez M.D., M.B.A. LAB BLOOD ADD-ON Final Result Performing Organization Address City/[facility]/ZIP Co de Phone Number [facility] [address] [place] [address], [facility] NPRG [facility] [address] [place] [address] * (ABNORMAL) Comprehensive Metabolic Panel (05/03/2024 1:19 PM PRECIPITATION EQUIPMENT TENDER) Potassium, P 4.4 3.6 - 5.2 mmol/L 05/03/2024 1:54 PM PRECIPITATION EQUIPMENT TENDER NPRG Sodium, P 138 135 - 145 mmol/L 05/03/2024 1:54 PM PRECIPITATION EQUIPMENT TENDER NPRG Chloride, P 103 98 - 107 mmol/L 05/03/2024 1:54 PM PRECIPITATION EQUIPMENT TENDER NPRG Bicarbonate, P 26 22 - 29 mmol/L 05/03/2024 1:54 PM PRECIPITATION EQUIPMENT TENDER NPRG Anion Gap, P 9 7 - 15 05/03/2024 1:54 PM PRECIPITATION EQUIPMENT TENDER NPRG BUN (Blood Urea Nitrogen), P 13 6 - 21 mg/dL 05/03/2024 1:54 PM PRECIPITATION EQUIPMENT TENDER NPRG Creatinine 0.71 0.59 - 1.04 mg/dL 05/03/2024 1:54 PM PRECIPITATION EQUIPMENT TENDER NPRG Estimated GFR (eGFR) >90 >=60 mL/min/BS A 05/03/2024 1:54 PM PRECIPITATION EQUIPMENT TENDER NPRG Comment: Estimated GFR calculated using the 2020 CKD_EPI creatinine equation. Calcium, Total, P 8.7(L) 8.8 - 10.2 mg/dL 05/03/2024 1:54 PM PRECIPITATION EQUIPMENT TENDER NPRG Glucose, P 85 70 - 140 mg/dL 05/03/2024 1:54 PM PRECIPITATION EQUIPMENT TENDER NPRG Protein, Total, P 6.5 6.3 - 7.9 g/dL 05/03/2024 1:54 PM PRECIPITATION EQUIPMENT TENDER NPRG Albumin, P 3.6 3.5 - 5.0 g/dL 05/03/2024 1:54 PM PRECIPITATION EQUIPMENT TENDER NPRG Aspartate Aminotransferase (AST), P 26 8 - 43 U/L 05/03/2024 1:54 PM PRECIPITATION EQUIPMENT TENDER NPRG Alkaline Phosphatase, P 61 35 - 104 U/L 05/03/2024 1:54 PM PRECIPITATION EQUIPMENT TENDER NPRG Alanine Aminotransferase (ALT), P 21 7 - 45 U/L 05/03/2024 1:54 PM PRECIPITATION EQUIPMENT TENDER NPRG Bilirubin, Total, P <0.2 0.0 - 1.2 mg/dL 05/03/2024 1:54 PM PRECIPITATION EQUIPMENT TENDER NPRG Blood (Blood, Venous) 05/03/2024 1:19 PM PRECIPITATION EQUIPMENT TENDER 05/03/2024 1:22 PM PRECIPITATION EQUIPMENT TENDER us Ilda Martinez M.D., M.B.A. LAB BLOOD ADD-ON Final Result [facility] [address] [place] [address], [facility] NPRG [facility] [address] [place] [address] * SARS Coronavirus 2, PCR Rapid Symptomatic (05/03/2024 1:15 PM PRECIPITATION EQUIPMENT TENDER) SARS CoV-2, PCR, Rapid, V Undetected Undetected 05/03/2024 1:24 PM PRECIPITATION EQUIPMENT TENDER NPRG SARS Coronavirus 2, Source, Rapid Swab, Nasopharynx 05/03/2024 1:22 PM PRECIPITATION EQUIPMENT TENDER NPRG Swab (Nasopharynx) 05/03/2024 1:15 PM PRECIPITATION EQUIPMENT TENDER 05/03/2024 1:22 PM PRECIPITATION EQUIPMENT TENDER Ilda Martinez M.D., M.B.A. LAB MICROBIOLOGY - GENERAL ORDERABLES Final Result Performing Organization Address [facility]/ZIP Co de Phone Number [facility] [address] [place] [address], [address] [address] * Influenza A/B and RSV, PCR, Point of Care (05/03/2024 1:15 PM PRECIPITATION EQUIPMENT TENDER) Influenza A, POCT Negative Negative 05/03/2024 1:21 PM PRECIPITATION EQUIPMENT TENDER NPRG Influenza B, POCT Negative Negative 05/03/2024 1:21 PM PRECIPITATION EQUIPMENT TENDER NPRG Resp Syncytial Virus, POCT Negative Negative 05/03/2024 1:21 PM PRECIPITATION EQUIPMENT TENDER NPRG Swab (Nasopharynx) 05/03/2024 1:15 PM PRECIPITATION EQUIPMENT TENDER 05/03/2024 1:22 PM PRECIPITATION EQUIPMENT TENDER Ilda Martinez M.D., M.B.A. LAB POCT ORDERABL ES - DEVICE Final Result [facility] [address] [place] [address], [address] [address] * DX Chest AP or PA and Lateral 2 Views (04/24/2024 4:06 PM PRECIPITATION EQUIPMENT TENDER) Anatomical Region Laterality Modality Chest, Thoracic RST LOS, Tho racic ARZ LOS, Thoracic FLA LOS N/A Digital Radiography Impressions 04/24/2024 4:08 PM PRECIPITATION EQUIPMENT TENDER New large pleural effusion in the RIGHT lower lobe. Narrative 04/24/2024 4:08 PM PRECIPITATION EQUIPMENT TENDER EXAM: DX CHEST AP OR PA AND [...] Final Result from Last 3 Months Insurance [facility] Advance Directives For more information, please contact: [phone] * Full Code (Latest Code Status on File) Date Activated Date Inactivated Comments 05/04/2024 9:37 AM 05/07/2024 7:42 PM Question Answer Comments Full Code: Discussed with patient Care Teams Boatswain Mate Relationship Specialty Start Date End Date Elsewhere, Pcp PCP - General Internal Medicine 04/24/24
--- OUTSIDE RECORDS SUMMARY | 2024-05-23 08:55 | XMS_ITS | Encounter Summary ---
Author Organization [facility] Address [address] [place] [address] Care Team Providers Care It Systems Analyst Consultant Name Role Phone Elsewhere, Pcp Primary Care Provider Unavailabl e Encounter Details Date Type Department Care Team (Late st Contact Info) Description 05/13/2024 Results Follow-Up Department of Oncology in [place], [place] [address] [place] [phone] Tegan Weaver M.D. [address] [place] [phone] Cytology Non-AMERICAN BOARD CERTIFIED ORTHOTIST, Cytology Non-AMERICAN BOARD CERTIFIED ORTHOTIST Social History Tobacco Use Types Packs/Day Years Used Date Smoking Tobacco: Every Day Cigarettes Passive Smoke Exposure: Current Smokeless Tobacco: Never Alcohol Use Standard Drinks/Week Comments Yes 0 (1 standard drink = 0.6 oz pur e alcohol) [facility] Utilities Answer Date Recorded In the past 12 months has [facility] [employer], gas, oil, or water [employer] threatened to shut off services in your [...] living situation today? 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
--- OUTSIDE RECORDS SUMMARY | 2024-05-23 08:55 | XMS_ITS | Encounter Summary ---
Author Organization [facility] Address [address] [place] [address] Care Team Providers Care Cook Dessert Name Role Phone Elsewhere, Pcp Primary Care Provider Unavailabl e Reason for Visit * Reason Comments Med Refill Encounter Details Date Type Department Care Team ([facility] st Contact Info) Description 05/07/2024 Refill [facility] [address] [place] [phone] Sabrina Asecncio P.A.-C., P.A. [address] [place] [phone] Med Refill Social History Tobacco Use Types Packs/Day Years Used Date Smoking Tobacco: Every Day Cigarettes Passive Smoke Exposure: Current Smokeless Tobacco: Never Alcohol Use Standard Drinks/Week Comments Yes 0 (1 standard drink = 0.6 oz pur e alcohol) [facility] Utilities Answer Date Recorded In the past 12 months has [facility] [employer], gas, oil, or water [employer] threatened to shut off services in your [...] your living situation today? 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
--- OUTSIDE RECORDS SUMMARY | 2024-05-23 08:56 | XMS_ITS | Encounter Summary ---
Author Organization [facility] Address [address] [place] [address] Care Team Providers Care Aurist Name Role Phone Elsewhere, Pcp Primary Care Provider Unavailabl e Reason for Visit * Reason Comments Shortness of Breath Pt presents with wor sening shortness of breath causing her to have to sleep upright. Pt reports stomach cramping and distention that is worsening her SOB as well. Encounter Details Date Type Department Care Team ([facility] st Contact Info) Description 05/03/2024 12:29 PM [employer] - 05/04/2024 6:28 AM [facility] Emergency [place] [facility] [address] [place] [address] [phone] Ilda Martinez M.D., M.B.A. [address] [place] [address] [phone] Salma Dinh M.D., M.P.H. [address] [place] [phone] Effusion Pleural (Primary Dx); Ascites Discharge Disposition: Acute Care Hospital Social History Tobacco Use Types Packs/Day Years Used Date Smoking Tobacco: Every Day Cigarettes Passive Smoke Exposure: Current Smokeless Tobacco: Never Alcohol Use Standard Drinks/Week Comments Yes 0 (1 standard drink = 0.6 oz pur e alcohol) [facility] Utilities Answer Date Recorded In the [...] your living situation today? I have a [facility] place to live 05/04/2024 Comments No Sex and Gender Information Value Date Recorded Sex Assigned at Not on file Legal Sex Female 2:38 PM [employer] Gender Identity Not on file Sexual Orientation Not on file documented as of this encounter Last Filed Vital Signs Vital Sign Reading Time Taken Comments Blood Pressure 128/73 05/04/2024 6:00 AM [employer] Pulse 80 05/04/2024 6:15 AM [employer] Temperature 36.6 C (97.9 F) 05/03/2024 12:30 PM [employer] Respiratory Rate 19 05/04/2024 6:15 AM [employer] Oxygen Saturation 95% 05/04/2024 6:15 AM [employer] Inhaled Oxygen Concentration - - Weight 74.4 kg (164 lb) 05/03/2024 12:28 PM [employer] Height - - Body Mass Index - [...] is comfortable and prefers to haveit in [place] where they will send fluid for evaluation. She is not requiring any escalation of oxygen. Will transfer by EMS. VITAL SIGNS BP 126/85 Pulse 73 Temp 36.6 ??C (Temporal) Resp 19 Wt 74.4 kg SpO2 94% Final Diagnoses: as of 05/03/24 2246 Effusion Pleural Ascites Salma Dinh M.D., M.P.H. 05/04/24 0035 [employer] * Ilda Martinez M.D., M.B.A. - 05/03/2024 [...] vomiting unless it is post-tussive. Also around [place] time she started to develop a cold. [...] No pain PHYSICAL EXAMINATION Constitutional: Adult female, [id number] distress HENT: Head: Normocephalic and atraumatic. Nose: [...] was here and ultimately was accepted to [place] by Dr. Chinchilla. Patient was transitioned to [...] Ascites Ilda Martinez M.D., M.B.A. 05/04/24 0932 [employer] documented in this encounter Plan of Treatment Not on file documented as of this encounter Procedures Procedure Name Priority Date/Time Associated Diagnosis Comments CT ABDOMEN PELVIS WITH IV CONTRAST RAD - Semiurgent (Fast; most ED patients; some inpatients) 05/03/2024 3:01 PM E[employer] CT CHEST ANGIOGRAM AND PULMONARY ARTERIES WITH IV CONTRAST RAD - Semiurgent (Fast; most ED patients; some inpatients) 05/03/2024 2:45 PM [employer] NT-PRO B-TYPE NATRIURETIC PEPTIDE (BNP), S STAT 05/03/2024 1:19 PM [employer] D-DIMER, P STAT 05/03/2024 1:19 PM [employer] CBC WITH DIFFERENTIAL, B STAT 05/03/2024 1:19 PM [employer] COMPREHENSIVE METABOLIC PANEL, S/P STAT 05/03/2024 1:19 PM [employer] SARS CORONAVIRUS 2, PCR RAPID, V STAT 05/03/2024 1:15 PM [employer] INFLUENZA A, B, RSV, PCR, POCT STAT 05/03/2024 1:15 PM [employer] documented in this encounter Results * CT Abdomen Pelvis with IV Contrast (05/03/2024 3:01 PM EYE [employer]) Anatomical Region Laterality Modality Abdomen, Pelvis, Abdominal R ST LOS, Abdominal ARZ LOS, Abdominal FLA LOS N/A Computed Tomography 05/03/2024 2:55 PM E[employer] Impressions 05/03/2024 3:12 PM [employer] 1. No evidence for acute or chronic pulmonary embolus. 2. Moderate-sized right pleural effusion with associated atelectasis and/or consolidation. 3. Diffuse omental and peritoneal disease identified concerning for metastatic or primary malignancy. 4. Moderate ascites. 5. Cholelithiasis. 6. Diverticulosis. 7. Distal small bowel wall thickening. Differential includes reactive change versus inflammatory disease versus infiltrative process. Narrative 05/03/2024 3:12 PM EYE [employer] EXAM: CT CHEST ANGIOGRAM AND PULMONARY ARTERIES [...] Arteries with IV Contrast (05/03/2024 2:45 PM E[employer]) Anatomical Region Laterality Modality Chest, Cardiovascular RST LO S, Thoracic ARZ LOS, Thoracic FLA LOS N/A Computed Tomography 05/03/2024 2:57 PM [employer] Impressions 05/03/2024 3:12 PM [employer] 1. No evidence for acute or chronic pulmonary embolus. 2. Moderate-sized right pleural effusion with associated atelectasis and/or consolidation. 3. Diffuse omental and peritoneal disease identified concerning for metastatic or primary malignancy. 4. Moderate ascites. 5. Cholelithiasis. 6. Diverticulosis. 7. Distal small bowel wall thickening. Differential includes reactive change versus inflammatory disease versus infiltrative process. Narrative 05/03/2024 3:12 PM E[employer] EXAM: CT CHEST ANGIOGRAM AND PULMONARY ARTERIES [...] B-Type Natriuretic Peptide (BNP) (05/03/2024 1:19 PM EYE [employer]) NT-Pro BNP 153 <=226 pg/mL 05/03/2024 1:57 PM [employer] [facility] Comment: NT-proBNP values less than 300 [...] failure. Blood (Blood, Venous) 05/03/2024 1:19 PM [employer] 05/03/2024 1:21 PM [employer] Ilda Martinez M.D., M.B.A. LAB BLOOD ADD-ON Final Result [facility] [address] [place] [address], [facility] [address] [place] [address] * (ABNORMAL) D-Dimer (05/03/2024 1:19 PM E[employer]) D-Dimer, P 3913(H) <=500 ng/mL FEU 05/03/2024 1:44 PM [employer] [facility] Comment: D-dimer concentrations increase with age. [...] (PE). Blood (Blood, Venous) 05/03/2024 1:19 PM [employer] 05/03/2024 1:22 PM E[employer] us Ilda Martinez M.D., M.B.A. LAB BLOOD ADD-ON Final Result [facility] [address] [place] [address], [place] [facility] [address] [place] [address] * (ABNORMAL) Comprehensive Metabolic Panel (05/03/2024 1:19 PM E[employer]) Potassium, P 4.4 3.6 - 5.2 mmol/L 05/03/2024 1:54 PM [employer] [facility] Sodium, P 138 135 - 145 mmol/L 05/03/2024 1:54 PM [employer] [facility] Chloride, P 103 98 - 107 mmol/L 05/03/2024 1:54 PM [employer] [facility] Bicarbonate, P 26 22 - 29 mmol/L 05/03/2024 1:54 PM [employer] [facility] Anion Gap, P 9 7 - 15 05/03/2024 1:54 PM [employer] [facility] BUN (Blood Urea Nitrogen), P 13 6 - 21 mg/dL 05/03/2024 1:54 PM [employer] [facility] Creatinine 0.71 0.59 - 1.04 mg/dL 05/03/2024 1:54 PM [employer] [facility] Estimated GFR (eGFR) >90 >=60 mL/min/BS A 05/03/2024 1:54 PM [employer] [facility] Comment: Estimated GFR calculated using the 2020 CKD_EPI creatinine equation. Calcium, Total, P 8.7(L) 8.8 - 10.2 mg/dL 05/03/2024 1:54 PM [employer] [facility] Glucose, P 85 70 - 140 mg/dL 05/03/2024 1:54 PM [employer] [facility] Protein, Total, P 6.5 6.3 - 7.9 g/dL 05/03/2024 1:54 PM [employer] [facility] Albumin, P 3.6 3.5 - 5.0 g/dL 05/03/2024 1:54 PM [employer] [facility] Aspartate Aminotransferase (AST), P 26 8 - 43 U/L 05/03/2024 1:54 PM [employer] [facility] Alkaline Phosphatase, P 61 35 - 104 U/L 05/03/2024 1:54 PM [employer] [facility] Alanine Aminotransferase (ALT), P 21 7 - 45 U/L 05/03/2024 1:54 PM [employer] [facility] Bilirubin, Total, P <0.2 0.0 - 1.2 mg/dL 05/03/2024 1:54 PM [employer] [facility] Blood (Blood, Venous) 05/03/2024 1:19 PM [employer] 05/03/2024 1:22 PM [employer] Ilda Martinez M.D., M.B.A. LAB BLOOD ADD-ON Final Result [facility] [address] [place] [address], [facility] NPR[facility] [address] [place] [address] * (ABNORMAL) CBC with Differential, Blood (05/03/2024 1:19 PM E[employer]) Hemoglobin 11.6 11.6 - 15.0 g/dL 05/03/2024 1:27 PM [employer] [facility] Hematocrit 36.8 35.5 - 44.9 % 05/03/2024 1:27 PM [employer] [facility] Erythrocytes 4.07 3.92 - 5.13 x10(12)/L 05/03/2024 1:27 PM [employer] [facility] MCV 90.4 78.2 - 97.9 fL 05/03/2024 1:27 PM [employer] [facility] RBC Distrib Width 12.9 12.2 - 16.1 % 05/03/2024 1:27 PM [employer] [facility] Platelet Count 345 157 - 371 x10(9)/L 05/03/2024 1:27 PM [employer] [facility] Leukocytes 5.5 3.4 - 9.6 x10(9)/L 05/03/2024 1:27 PM [employer] [facility] Neutrophils 4.21 1.56 - 6.45 x10(9)/L 05/03/2024 1:27 PM [employer] [facility] Lymphocytes 0.76(L) 0.95 - 3.07 x10(9)/L 05/03/2024 1:27 PM [employer] [facility] Monocytes 0.50 0.26 - 0.81 x10(9)/L 05/03/2024 1:27 PM [employer] [facility] Eosinophils 0.05 0.03 - 0.48 x10(9)/L 05/03/2024 1:27 PM [employer] [facility] Basophils <0.04 0.01 - 0.08 x10(9)/L 05/03/2024 1:27 PM [employer] [facility] Blood (Blood, Venous) 05/03/2024 1:19 PM E[employer] 05/03/2024 1:22 PM [employer] Ilda Martinez M.D., M.B.A. LAB BLOOD ADD-ON Final Result Performing Organization Address [facility]/ZIP Co de Phone Number [facility][NOTE 3] [facility] [address] [place] [id number], [facility] NPRG [address] [address] * Influenza A/B and RSV, PCR, Point of Care (05/03/2024 1:15 PM EYE [employer]ER) Pathologist [facility] Influenza A, POCT Negative Negative 05/03/2024 1:21 PM [employer] [facility] Influenza B, POCT Negative Negative 05/03/2024 1:21 PM [employer] [facility] Resp Syncytial Virus, POCT Negative Negative 05/03/2024 1:21 PM [employer] [facility] Swab (Nasopharynx) 05/03/2024 1:15 PM E[employer]ER 05/03/2024 1:22 PM E[employer] us Ilda Martinez M.D., M.B.A. LAB POCT ORDERABL ES - DEVICE Final Result Performing Organization Address [facility]/ZIP Co de Phone Number [facility][NOTE 3] [facility] [address] [place] [id number], [facility] NPRG [address] [place] [address] * SARS Coronavirus 2, PCR Rapid Symptomatic (05/03/2024 1:15 PM E[employer]) SARS CoV-2, PCR, Rapid, V Undetected Undetected 05/03/2024 1:24 PM [employer] [facility] SARS Coronavirus 2, Source, Rapid Swab, Nasopharynx 05/03/2024 1:22 PM [employer] [facility] Swab (Nasopharynx) 05/03/2024 1:15 PM E[employer] 05/03/2024 1:22 PM E[employer] us Ilda Martinez M.D., M.B.A. LAB MICROBIOLOGY - GENERAL ORDERABLES Final Result [facility] [address] [address], [facility] NPRG [address] [address] documented in this encounter Visit Diagnoses Diagnosis [...] Radiant Medication Guidelines Given 05/03/2024 2:40 PM E[employer] 140 mL sodium chloride 0.9 % flush 100 mL 100 mL, intravenous, Once in imaging, line care, for CT Exam, Starting on Mon05/03/24 at 1440, For 1 dose Given 05/03/2024 2:40 PM E[employer] 100 mL sodium chloride 0.9 % injection 10 mL 10 mL, intravenous, Once in imaging, line care, Starting on Mon05/03/24 at 1440, For 1 dose Given 05/03/2024 2:40 PM E[employer] 10 mL documented in this encounter Active and Recently Administered Medications Times are shown in [employer]. PRN Medication Order 05/02/2024 05/03/2024 05/04/2024 iohexoL [...] Pending 05/03/2024 05/03/2024 05/03/2024 1 :43 PM E[employer] documented as of this encounter Care Teams Aurist Relationship Specialty Start Date End Date Elsewhere, Pcp PCP - General Internal Medicine 04/24/24 documented as of this encounter
--- OUTSIDE RECORDS SUMMARY | 2024-05-23 08:56 | XMS_ITS | Encounter Summary ---
Author Organization [facility] Address [address] [place] [address] Care Team Providers Care Truck Driver Teamster Name Role Phone Elsewhere, Pcp Primary Care Provider Unavailabl e Reason for Visit * Auth/Cert (Routine) Specialty Diagnoses / Procedures Referred By Contebenezer t Referred To Contact Diagnoses Acute Respiratory Failure With Hypoxia (HCC) shortness of breath Procedures INPT Referral ID Status Reason Start Date Expiration Date Visits Re quested Visits Authorized [id number] 1 1 Encounter Details Date Type Department Care Team (Latest Contact Info) Description 05/04/2024 7:25 AM FINANCIAL PLANNING ASSISTANT - 05/07/2024 5:42 PM FINANCIAL PLANNING ASSISTANT Hospital Encounter [facility], [facility], Fifth Floor [address] [phone] Zane Chinchilla M.D. [address] [place], [place] [id number] Ariana Jeffries APRN, C.N.P., M.S.N. [address] [place], [place] [phone] Hakan Iniguez APRN, C.N.P., D.N.P. [address] [place] [address] Adia Geiger M.D. [address] [place] [phone] Sergo Ambrocio M.D. [address] [place] [phone] Miguelina Harmon M.B., Arpita Madrigal. [address] [place] [address] Discharge Disposition: Home or Self Care Social History Tobacco Use Types Packs/Day Years Used Date Smoking Tobacco: Every Day Cigarettes Passive Smoke Exposure: Current Smokeless Tobacco: Never Alcohol Use Standard Drinks/Week Comments Yes 0 (1 standard drink = 0.6 oz pur e alcohol) [facility] Utilities Answer Date Recorded In the past 12 months has e [employer], gas, oil, or water [employer] threatened to shut off services in your [...] your living situation today? [facility] 05/04/2024 Comments No Sex and Gender Information Value Date Recorded Sex Assigned at Not on file Legal Sex Female 2:38 PM FINANCIAL PLANNING ASSISTANT Gender Identity Not on file Sexual Orientation Not on file documented as of this encounter Last Filed Vital Signs Vital Sign Reading Time Taken Comments Blood Pressure 121/76 05/07/2024 2:11 PM FINANCIAL PLANNING ASSISTANT Pulse 69 05/07/2024 2:11 PM FINANCIAL PLANNING ASSISTANT Temperature 36.7 C (98.1 F) 05/07/2024 2:11 PM FINANCIAL PLANNING ASSISTANT Respiratory Rate 23 05/07/2024 2:11 PM FINANCIAL PLANNING ASSISTANT Oxygen Saturation 92% 05/07/2024 2:11 PM FINANCIAL PLANNING ASSISTANT Inhaled Oxygen Concentration - - Weight 71.5 kg (157 lb 10.1 oz) 05/07/2024 6:00 AM FINANCIAL PLANNING ASSISTANT Height 171 cm (5' 7.32) 05/04/2024 7:26 AM FINANCIAL PLANNING ASSISTANT Body Mass Index 24.45 05/04/2024 7:26 AM FINANCIAL PLANNING ASSISTANT documented in this encounter Functional Status * Intimate Partner Violence Question Answer Date of Assessment Author Within the last year, have y ou been humiliated or emotionally abused in other ways by your partner or ex-partner? No 05/04/2024 7:56 AM FINANCIAL PLANNING ASSISTANT Larissa Calderon R.N. Within the last year, have y ou been afraid of your partner or ex-partner? No 05/04/2024 7:56 AM FINANCIAL PLANNING ASSISTANT Larissa Calderon R.N. Within the last year, have y ou been raped or forced to have any kind of sexual activity by your partner or ex-partner? No 05/04/2024 7:56 AM FINANCIAL PLANNING ASSISTANT Larissa Calderon R.N. Within the last year, have y ou been kicked, hit, slapped, or otherwise physically hurt by your partner or ex-partner? No 05/04/2024 7:56 AM FINANCIAL PLANNING ASSISTANT Larissa Calderon RKennN. documented as of this encounter Discharge Summaries * Miguelina Harmon M.B., Jesus Madrigal - 05/07/2024 4:09 PM CST DISCHARGE SUMMARY BRIEF OVERVIEW Discharge Hospital: Hospital: [facility] Discharge Provider: Miguelina Harmon M.B., Jesus Madrigal Primary Care Providers: Elsewhere, Pcp (General) No address on file Discharge Provider Team: [facility] Internal Medicine ([facility]) [facility] Primary Care Provider Phone Number: [...] UP Scheduled Appointments 05/07/2024 4:[address] [facility] PORT 04 Radiology For appointment details refer to your Patient Appointment Guide. TEST RESULTS PENDING AT DISCHARGE Pending Labs Order Current Status Cytology Non-CUT OFF SAWYER In process Cytology Non-CUT OFF SAWYER In process Bacterial Culture, Aerobic + Susceptibility [...] abuse, hypertension, and hyperlipidemiawho presents to the [place] emergency department on 05/03/2024 with the abdominal [...] PE seen. Patient to be transferred to [facility] for hypoxia and further management of large pleural effusion including thoracentesis. status post thoracentesis with 1.2 L of clear straw-colored y ellow fluid drained on 05/04. status post paracentesis with 600 mL clear straw- colored fluid drained.CEA significantly elevated (8527). Patient does not live in [place]. She communicated with her PCP,she then provided [...] evaluated Smiley Hernández today and provided counseling [id number] at bedside. I personally spent a total of greater than 30 minutes in counseling and coordination of care as described above to facilitate the hospital discharge. Discharge instructions were provided to the patient and caregiver(s). NCIAL PLANNING ASSISTANT documented in this encounter Medications at Time [...] panel negative. # Hypertension Controlled. - continue TUBULAR SPLITTING MACHINE TENDER dosing of amlodipine, lisinopril, and metoprolol. # Hyperlipidemia - continue TUBULAR SPLITTING MACHINE TENDER dosing of rosuvastatin # vaginal itching Vaginal [...] Oncology recs Total time spent 35 minutes NCIAL PLANNING ASSISTANT * Adia Geiger M.D. - 05/05/2024 8:17 [...] panel negative. # Hypertension Controlled. - continue TUBULAR SPLITTING MACHINE TENDER dosing of amlodipine, lisinopril, and metoprolol. # Hyperlipidemia - continue TUBULAR SPLITTING MACHINE TENDER dosing of rosuvastatin # vaginal itching Vaginal [...] clinical improvement. Total time spent 50 minutes NCIAL PLANNING ASSISTANT documented in this encounter H&P Notes * [...] abuse, hypertension, and hyperlipidemiawho presents to the [place] emergency department on 05/03/2024 with the abdominal [...] PE seen. Patient to be transferred to [facility] for hypoxia and further managementof large pleural [...] Alcohol use: Yes Lives with boyfriend in [place]. She has 4 adult children. OBJECTIVE VITAL [...] effusion and ascites. She is hospitalized on [facility] for evaluation and management of: Acute Respiratory [...] - follow-up with Oncology outpatient - continue TUBULAR SPLITTING MACHINE TENDER dosing of albuterol - continue TUBULAR SPLITTING MACHINE TENDER dosing of Tessalon Perles - Tylenol or [...] than 110. # Hypertension Controlled. - continue TUBULAR SPLITTING MACHINE TENDER dosing of amlodipine, lisinopril, and metoprolol. - monitor blood pressures q.4 hours and consider albumin replacement infusion if begins to drop # Hyperlipidemia - continue TUBULAR SPLITTING MACHINE TENDER dosing of rosuvastatin # Acute Candidiasis Of [...] Known Problems Daughter No Known Problems Daughter NCIAL PLANNING ASSISTANT documented in this encounter Consult Notes * Tegan Weaver M.D. - 05/05/2024 11:48 AM CSTAssociated Order(s): IP CONSULT TO ONCOLOGY [facility] Plan of care note [facility] Provider Tegan Weaver REASON FOR REFERRAL Medical Oncology Consultation patient with omental thickening, findings of peritoneal carcinomatosis, pleural effusion REFERRING PROVIDER: Ilda Martinez M.D., M.B.A. [address] [place] [phone] Oncology History/HPI -[place] a lump in right breast in August 2008. - Mammography at [facility]: 2 lobulated masses in upper outer quadrant. Biopsy: G3 IDC, ER neg, SC neg - Larger lesion was HER2 positive by FISH. Smaller lesion was HER2 negative by FISH -Preop breast MRI was performed prior. Pathology demonstrated 2 foci of invasive carcinoma. One of the tumors was a 2.8 cm grade 3 infiltrating ductal carcinoma, ER/SC and Her2 amplified based on FISH ratio of 2.56. The second tumor was a grade 3 infiltrating ductal carcinoma, ER/SC and Her2 negative. 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 Herman lymph node biopsy was performed and a total of 3 lymph nodes were identified and were benign. -10/24/2008 Met with Medical Oncology: recommendation given to meet with Genetic Counselor for germline testing but I did not see any results of testing -Right breast s/p lumpectomy 11-14-08 demonstrating 2.8 cm grade 3 infiltrating ductal carcinoma ER/SC negative, Her2 amplified and separate tumor measuring 1.5 cm grade 3 infiltrating ductal carcinoma, triple negative. No lymph node involvement. -Enrolled in ALTTO trial and received AC followed by Paclitaxel. Also received Trastuzumab with lapatinib in the adjuvant setting - at [facility]. -05/03/2024 presents to [facility] with abdominal bloating and dyspnea and mild [...] Ketone Negative Bilirubin Negative pH 5.5 Specific Maynard 1.010 Urobilinogen 0.2 LD (Lactate Dehydrogenase) Collection [...] as well. Tegan Weaver M.D. 12:04 PM FINANCIAL PLANNING ASSISTANT 05/05/24 ADMINISTRATIVE BILLING I personally spent 25 [...] Alcohol use: Yes Drug use: Not Currently NCIAL PLANNING ASSISTANT documented in this encounter Nursing Notes * [...] removed. All belongings sent home with patient. NCIAL PLANNING ASSISTANT * Vicenta Pinon R.N. - 05/07/2024 1:49 [...] at 3 pm, possible d/c this evening NCIAL PLANNING ASSISTANT * Debi Meneses R.N. - 05/07/2024 5:07 [...] pending. Slept fairly well during the night. NCIAL PLANNING ASSISTANT * Vicenta Pinon R.N. - 05/06/2024 4:05 [...] UPCOMING PLAN OF CARE: Pending cytology labs NCIAL PLANNING ASSISTANT NCIAL PLANNING ASSISTANT * Miri Tidwell R.N. - 05/06/2024 5:08 [...] CARE: Cultures pending. Continue plan of care. NCIAL PLANNING ASSISTANT * Zeus Alcocer R.N. - 05/05/2024 9:56 [...] - Awaiting results of culture from fluids. NCIAL PLANNING ASSISTANT * Dee Dee Mcghee M.S.N. R.NKenn - [...] Absence of infection during hospitalization Outcome: Progressing NCIAL PLANNING ASSISTANT * Brenna Lubin R.N. - 05/05/2024 6:16 AM CST Shift Goals: Monitor oxygen titration, patient safety, thoracentesis and paracentesis sites and rest. Identify possible barriers to meeting goals/advancing plan of care: None End of Shift Summary: Patient continued on 2L NC. Thoracentesis and paracentesis sites remained CDI. Patient had no c/o pain, up IND in room. Patient rested comfortably throughout shift. VSS. NCIAL PLANNING ASSISTANT * Larissa Calderon R.N. - 05/04/2024 1:51 [...] Raheel, visiting most of day. Very pleasant. NCIAL PLANNING ASSISTANT documented in this encounter Plan of Treatment Not on file documented as of this encounter Procedures Procedure Name Priority Date/Time Associated Diagnosis Comments DX CHEST 1 VIEW RAD - Routine (most inpatients and all outpatients) 05/07/2024 4:22 PM FINANCIAL PLANNING ASSISTANT US THORACENTESIS RIGHT WITH IMAGING GUIDANCE RAD - Routine (most inpatients and all outpatients) 05/07/2024 3:41 PM FINANCIAL PLANNING ASSISTANT DX CHEST 1 VIEW RAD - Routine (most inpatients and all outpatients) 05/07/2024 10:12 AM FINANCIAL PLANNING ASSISTANT CBC WITHOUT DIFFERENTIAL, B Routine 05/07/2024 6:43 AM FINANCIAL PLANNING ASSISTANT BASIC METABOLIC PANEL, S/P Routine 05/07/2024 6:43 AM FINANCIAL PLANNING ASSISTANT ADULT OXYGEN THERAPY Routine 05/06/2024 8:01 AM FINANCIAL PLANNING ASSISTANT PULSE OXIMETRY, CONTINUOUS Routine 05/06/2024 8:01 AM FINANCIAL PLANNING ASSISTANT CBC WITH DIFFERENTIAL, B Routine 05/06/2024 7:00 AM FINANCIAL PLANNING ASSISTANT BASIC METABOLIC PANEL, S/P Routine 05/06/2024 7:00 AM FINANCIAL PLANNING ASSISTANT ADULT OXYGEN THERAPY Routine 05/05/2024 8:00 PM FINANCIAL PLANNING ASSISTANT PULSE OXIMETRY, CONTINUOUS Routine 05/05/2024 8:00 PM FINANCIAL PLANNING ASSISTANT ADULT OXYGEN THERAPY Routine 05/05/2024 8:01 AM FINANCIAL PLANNING ASSISTANT PULSE OXIMETRY, CONTINUOUS Routine 05/05/2024 8:01 AM FINANCIAL PLANNING ASSISTANT CBC WITH DIFFERENTIAL, B Routine 05/05/2024 7:25 AM FINANCIAL PLANNING ASSISTANT BASIC METABOLIC PANEL, S/P Routine 05/05/2024 7:25 AM FINANCIAL PLANNING ASSISTANT ADULT OXYGEN THERAPY Routine 05/04/2024 8:01 PM FINANCIAL PLANNING ASSISTANT PULSE OXIMETRY, CONTINUOUS Routine 05/04/2024 8:01 PM FINANCIAL PLANNING ASSISTANT PH BLOOD GAS Routine 05/04/2024 6:15 PM FINANCIAL PLANNING ASSISTANT CANCER AG 125 (CA 125), S Routine 05/04/2024 6:15 PM FINANCIAL PLANNING ASSISTANT LACTATE DEHYDROGENASE (LD), S Routine 05/04/2024 6:15 PM FINANCIAL PLANNING ASSISTANT CALCIUM, IONIZED, S/B Routine 05/04/2024 6:15 PM FINANCIAL PLANNING ASSISTANT URINALYSIS WITH MICROSCOPIC IF INDICATED, U Routine 05/04/2024 5:59 PM FINANCIAL PLANNING ASSISTANT CYTOLOGY NON-CUT OFF SAWYER Timed 05/04/2024 12:0 6 PM FINANCIAL PLANNING ASSISTANT CYTOLOGY NON-CUT OFF SAWYER Timed 05/04/2024 11:5 4 AM FINANCIAL PLANNING ASSISTANT US PARACENTESIS WITH IMAGING GUIDANCE RAD - Routine (most inpatients and all outpatients) 05/04/2024 11:35 AM FINANCIAL PLANNING ASSISTANT US THORACENTESIS RIGHT WITH IMAGING GUIDANCE RAD - Routine (most inpatients and all outpatients) 05/04/2024 11:30 AM FINANCIAL PLANNING ASSISTANT CBC WITH DIFFERENTIAL, B Routine 05/04/2024 11:30 AM FINANCIAL PLANNING ASSISTANT MAGNESIUM, S Routine 05/04/2024 11:30 AM FINANCIAL PLANNING ASSISTANT BASIC METABOLIC PANEL, S/P Routine 05/04/2024 11:30 AM FINANCIAL PLANNING ASSISTANT ECG Routine 05/04/2024 11:23 AM FINANCIAL PLANNING ASSISTANT GLUCOSE, BODY FLUID Routine 05/04/2024 1 1:23 AM FINANCIAL PLANNING ASSISTANT HEPATIC FUNCTION PANEL, S Routine 05/04/2024 11:11 AM FINANCIAL PLANNING ASSISTANT PROTEIN, TOTAL, BF Routine 05/04/2024 10 :50 AM FINANCIAL PLANNING ASSISTANT BACTERIAL CULTURE, AEROBIC + SUSC Timed 05/04/2024 10:50 AM FINANCIAL PLANNING ASSISTANT CELL COUNT AND DIFFERENTIAL, BF Timed 05/04/2024 10:50 AM FINANCIAL PLANNING ASSISTANT GRAM STAIN Timed 05/04/2024 10:50 AM FINANCIAL PLANNING ASSISTANT BACTERIAL CULTURE, ANAEROBIC + SUSC Timed 05/04/2024 10:50 AM FINANCIAL PLANNING ASSISTANT ALBUMIN, BODY FLUID Routine 05/04/2024 1 0:50 AM FINANCIAL PLANNING ASSISTANT PROTEIN, TOTAL, BF Timed 05/04/2024 10 :30 AM FINANCIAL PLANNING ASSISTANT BACTERIAL CULTURE, AEROBIC + SUSC Timed 05/04/2024 10:30 AM FINANCIAL PLANNING ASSISTANT CELL COUNT AND DIFFERENTIAL, BF Timed 05/04/2024 10:30 AM FINANCIAL PLANNING ASSISTANT PH, PLEURAL FLUID Timed 05/04/2024 10: 30 AM FINANCIAL PLANNING ASSISTANT GRAM STAIN Timed 05/04/2024 10:30 AM FINANCIAL PLANNING ASSISTANT BACTERIAL CULTURE, ANAEROBIC + SUSC Timed 05/04/2024 10:30 AM FINANCIAL PLANNING ASSISTANT LACTATE DEHYDROGENASE (LD), BF Timed 05/04/2024 10:30 AM FINANCIAL PLANNING ASSISTANT PULSE OXIMETRY, CONTINUOUS Routine 05/04/2024 9:39 AM FINANCIAL PLANNING ASSISTANT PULSE OXIMETRY, CONTINUOUS Routine 05/04/2024 9:39 AM FINANCIAL PLANNING ASSISTANT PULSE OXIMETRY, CONTINUOUS Routine 05/04/2024 9:37 AM FINANCIAL PLANNING ASSISTANT ADULT OXYGEN THERAPY Routine 05/04/2024 9:37 AM FINANCIAL PLANNING ASSISTANT ADULT OXYGEN THERAPY Routine 05/04/2024 9:37 AM FINANCIAL PLANNING ASSISTANT ADULT OXYGEN THERAPY Routine 05/04/2024 9:37 AM FINANCIAL PLANNING ASSISTANT documented in this encounter Results * DX Chest 1 View (05/07/2024 4:22 PM FINANCIAL PLANNING ASSISTANT) Anatomical Region Laterality Modality Chest, Thoracic RST LOS, Tho racic ARZ LOS, Thoracic FLA LOS N/A Digital Radiography Impressions 05/07/2024 4:26 PM FINANCIAL PLANNING ASSISTANT Decreased pleural effusion and no pneumothorax following right-sided thoracentesis Narrative 05/07/2024 4:26 PM FINANCIAL PLANNING ASSISTANT EXAM: DX CHEST 1 VIEW COMPARISON: [...] Right with Imaging Guidance (05/07/2024 3:41 PM FINANCIAL PLANNING ASSISTANT) Anatomical Region Laterality Modality Chest, Ultrasound RST LOS, U ltrasound ARZ LOS, Procedure FLA LOS, Abdominal FLA LOS, Procedural, Procedural NWWI LOS Right Ultrasound Impressions 05/07/2024 4:18 PM FINANCIAL PLANNING ASSISTANT Successful ultrasound guided thoracentesis. Narrative 05/07/2024 4:18 PM FINANCIAL PLANNING ASSISTANT EXAM: US THORACENTESIS RIGHT WITH IMAGING [...] medications. Patient education provided by the care produce team member. Ready to learn, no apparent [...] medications. Patient education provided by the care produce team member. Ready tolearn, no apparent learning barriers were identified. Post-procedure careexplained; patient expressed understanding of the content. IMPRESSION: Successful ultrasound guided thoracentesis. us Miguelina Acharya, Jesus Madrigal [facility] US ADITI DENISE Final Result * DX Chest 1 View (05/07/2024 10:12 AM FINANCIAL PLANNING ASSISTANT) Anatomical Region Laterality Modality Chest, Thoracic RST LOS, Tho racic ARZ LOS, Thoracic FLA LOS N/A Digital Radiography Impressions 05/07/2024 10:22 AM FINANCIAL PLANNING ASSISTANT Enlarging RIGHT pleural effusion since April 24. Narrative 05/07/2024 10:22 AM FINANCIAL PLANNING ASSISTANT EXAM: DX CHEST 1 VIEW COMPARISON: [...] * Basic Metabolic Panel (05/07/2024 6:43 AM FINANCIAL PLANNING ASSISTANT) Pathologist [facility] Potassium, P 4.2 3.6 - 5.2 mmol/L 05/07/2024 7:34 AM FINANCIAL PLANNING ASSISTANT [facility] Sodium, P 140 135 - 145 mmol/L 05/07/2024 7:34 AM FINANCIAL PLANNING ASSISTANT [facility] Chloride, P 105 98 - 107 mmol/L 05/07/2024 7:34 AM FINANCIAL PLANNING ASSISTANT [facility] Bicarbonate, P 27 22 - 29 mmol/L 05/07/2024 7:34 AM FINANCIAL PLANNING ASSISTANT [facility] Anion Gap, P 8 7 - 15 05/07/2024 7:34 AM FINANCIAL PLANNING ASSISTANT [facility] BUN (Blood Urea Nitrogen), P 9 6 - 21 mg/dL 05/07/2024 7:34 AM FINANCIAL PLANNING ASSISTANT [facility] Creatinine 0.69 0.59 - 1.04 mg/dL 05/07/2024 7:34 AM FINANCIAL PLANNING ASSISTANT [facility] Estimated GFR (eGFR) >90 >=60 mL/min/BSA 05/07/2024 7:34 AM FINANCIAL PLANNING ASSISTANT [facility] Comment: Estimated GFR calculated using the 2020 CKD_EPI creatinine equation. Calcium, Total, P 8.8 8.8 - 10.2 mg/dL 05/07/2024 7:34 AM FINANCIAL PLANNING ASSISTANT [facility] Glucose, P 88 70 - 140 mg/dL 05/07/2024 7:34 AM FINANCIAL PLANNING ASSISTANT [facility] Blood (Blood, Venous) 05/07/2024 6:43 AM FINANCIAL PLANNING ASSISTANT 05/07/2024 6:52 AM FINANCIAL PLANNING ASSISTANT us Sergo Ambrocio M.D. LAB BLOOD ADD-ON Final Resu lt [facility] [address] [place] [address], [facility] [address] [address] * CBC without Differential (05/07/2024 6:43 AM FINANCIAL PLANNING ASSISTANT) Hemoglobin 12.0 11.6 - 15.0 g/dL 05/07/2024 6:54 AM FINANCIAL PLANNING ASSISTANT [facility] Hematocrit 38.0 35.5 - 44.9 % 05/07/2024 6:54 AM FINANCIAL PLANNING ASSISTANT [facility] Erythrocytes 4.25 3.92 - 5.13 x10(12)/L 05/07/2024 6:54 AM FINANCIAL PLANNING ASSISTANT [facility] MCV 89.4 78.2 - 97.9 fL 05/07/2024 6:54 AM FINANCIAL PLANNING ASSISTANT [facility] RBC Distrib Width 13.0 12.2 - 16.1 % 05/07/2024 6:54 AM FINANCIAL PLANNING ASSISTANT [facility] Platelet Count 340 157 - 371 x10(9)/L 05/07/2024 6:54 AM FINANCIAL PLANNING ASSISTANT [facility] Leukocytes 5.3 3.4 - 9.6 x10(9)/L 05/07/2024 6:54 AM FINANCIAL PLANNING ASSISTANT [facility] Blood (Blood, Venous) 05/07/2024 6:43 AM FINANCIAL PLANNING ASSISTANT 05/07/2024 6:52 AM FINANCIAL PLANNING ASSISTANT us Sergo Ambrocio M.D. LAB BLOOD ADD-ON Final Resu lt [facility] [address] [place] [address], [address] [address] * (ABNORMAL) Basic Metabolic Panel (05/06/2024 7:00 AM FINANCIAL PLANNING ASSISTANT) Potassium, P 4.0 3.6 - 5.2 mmol/L 05/06/2024 8:19 AM FINANCIAL PLANNING ASSISTANT [facility] Sodium, P 140 135 - 145 mmol/L 05/06/2024 8:19 AM FINANCIAL PLANNING ASSISTANT [facility] Chloride, P 105 98 - 107 mmol/L 05/06/2024 8:19 AM FINANCIAL PLANNING ASSISTANT [facility] Bicarbonate, P 29 22 - 29 mmol/L 05/06/2024 8:19 AM FINANCIAL PLANNING ASSISTANT [facility] Anion Gap, P 6(L) 7 - 15 05/06/2024 8:19 AM FINANCIAL PLANNING ASSISTANT [facility] BUN (Blood Urea Nitrogen), P 8 6 - 21 mg/dL 05/06/2024 8:19 AM FINANCIAL PLANNING ASSISTANT [facility] Creatinine 0.67 0.59 - 1.04 mg/dL 05/06/2024 8:19 AM FINANCIAL PLANNING ASSISTANT [facility] Estimated GFR (eGFR) >90 >=60 mL/min/BSA 05/06/2024 8:19 AM FINANCIAL PLANNING ASSISTANT [facility] Comment: Estimated GFR calculated using the 2020 CKD_EPI creatinine equation. Calcium, Total, P 8.5(L) 8.8 - 10.2 mg/dL 05/06/2024 8:19 AM FINANCIAL PLANNING ASSISTANT [facility] Glucose, P 91 70 - 140 mg/dL 05/06/2024 8:19 AM FINANCIAL PLANNING ASSISTANT [facility] Blood (Blood, Venous) 05/06/2024 7:00 AM FINANCIAL PLANNING ASSISTANT 05/06/2024 7:35 AM FINANCIAL PLANNING ASSISTANT us Adia Geiger M.D. LAB BLOOD ADD-ON Final Result [facility] [address] [place] [address], [facility] [address] * (ABNORMAL) CBC with Differential, Blood (05/06/2024 7:00 AM FINANCIAL PLANNING ASSISTANT) Hemoglobin 11.4(L) 11.6 - 15.0 g/dL 05/06/2024 7:39 AM FINANCIAL PLANNING ASSISTANT [facility] Hematocrit 36.1 35.5 - 44.9 % 05/06/2024 7:39 AM FINANCIAL PLANNING ASSISTANT [facility] Erythrocytes 4.02 3.92 - 5.13 x10(12)/L 05/06/2024 7:39 AM FINANCIAL PLANNING ASSISTANT [facility] MCV 89.8 78.2 - 97.9 fL 05/06/2024 7:39 AM FINANCIAL PLANNING ASSISTANT [facility] RBC Distrib Width 13.0 12.2 - 16.1 % 05/06/2024 7:39 AM FINANCIAL PLANNING ASSISTANT [facility] Platelet Count 315 157 - 371 x10(9)/L 05/06/2024 7:39 AM FINANCIAL PLANNING ASSISTANT [facility] Leukocytes 5.0 3.4 - 9.6 x10(9)/L 05/06/2024 7:39 AM FINANCIAL PLANNING ASSISTANT [facility] Neutrophils 3.52 1.56 - 6.45 x10(9)/L 05/06/2024 7:39 AM FINANCIAL PLANNING ASSISTANT [facility] Lymphocytes 0.83(L) 0.95 - 3.07 x10(9)/L 05/06/2024 7:39 AM FINANCIAL PLANNING ASSISTANT [facility] Monocytes 0.50 0.26 - 0.81 x10(9)/L 05/06/2024 7:39 AM FINANCIAL PLANNING ASSISTANT [facility] Eosinophils 0.10 0.03 - 0.48 x10(9)/L 05/06/2024 7:39 AM FINANCIAL PLANNING ASSISTANT [facility] Basophils <0.03 0.01 - 0.08 x10(9)/L 05/06/2024 7:39 AM FINANCIAL PLANNING ASSISTANT [facility] Blood (Blood, Venous) 05/06/2024 7:00 AM FINANCIAL PLANNING ASSISTANT 05/06/2024 7:35 AM FINANCIAL PLANNING ASSISTANT us Adia Geiger M.D. LAB BLOOD ADD-ON Final Result [facility] [address] [place] [address], [facility] [place] [address] * (ABNORMAL) CBC with Differential, Blood (05/05/2024 7:25 AM FINANCIAL PLANNING ASSISTANT) Pathologist [facility] Hemoglobin 12.1 11.6 - 15.0 g/dL 05/05/2024 8:00 AM FINANCIAL PLANNING ASSISTANT [facility] Hematocrit 38.4 35.5 - 44.9 % 05/05/2024 8:00 AM FINANCIAL PLANNING ASSISTANT [facility] Erythrocytes 4.29 3.92 - 5.13 x10(12)/L 05/05/2024 8:00 AM FINANCIAL PLANNING ASSISTANT [facility] MCV 89.5 78.2 - 97.9 fL 05/05/2024 8:00 AM FINANCIAL PLANNING ASSISTANT [facility] RBC Distrib Width 13.0 12.2 - 16.1 % 05/05/2024 8:00 AM FINANCIAL PLANNING ASSISTANT [facility] Platelet Count 344 157 - 371 x10(9)/L 05/05/2024 8:00 AM FINANCIAL PLANNING ASSISTANT [facility] Leukocytes 5.5 3.4 - 9.6 x10(9)/L 05/05/2024 8:00 AM FINANCIAL PLANNING ASSISTANT [facility] Neutrophils 4.12 1.56 - 6.45 x10(9)/L 05/05/2024 8:00 AM FINANCIAL PLANNING ASSISTANT [facility] Lymphocytes 0.81(L) 0.95 - 3.07 x10(9)/L 05/05/2024 8:00 AM FINANCIAL PLANNING ASSISTANT [facility] Monocytes 0.45 0.26 - 0.81 x10(9)/L 05/05/2024 8:00 AM FINANCIAL PLANNING ASSISTANT [facility] Eosinophils 0.05 0.03 - 0.48 x10(9)/L 05/05/2024 8:00 AM FINANCIAL PLANNING ASSISTANT [facility] Basophils 0.03 0.01 - 0.08 x10(9)/L 05/05/2024 8:00 AM FINANCIAL PLANNING ASSISTANT [facility] Blood (Blood, Venous) 05/05/2024 7:25 AM FINANCIAL PLANNING ASSISTANT 05/05/2024 7:57 AM FINANCIAL PLANNING ASSISTANT us Hakan Iniguez APRN, C.N.P., D.N.P. LAB BLOOD ADD -ON Final Result [facility] [address] [place] [address], [facility] [place] [address] * (ABNORMAL) Basic Metabolic Panel (05/05/2024 7:25 AM FINANCIAL PLANNING ASSISTANT) Pathologist [facility] Potassium, P 3.9 3.6 - 5.2 mmol/L 05/05/2024 8:19 AM FINANCIAL PLANNING ASSISTANT MKTO Sodium, P 138 135 - 145 mmol/L 05/05/2024 8:19 AM FINANCIAL PLANNING ASSISTANT MKTO Chloride, P 103 98 - 107 mmol/L 05/05/2024 8:19 AM FINANCIAL PLANNING ASSISTANT MKTO Bicarbonate, P 27 22 - 29 mmol/L 05/05/2024 8:19 AM FINANCIAL PLANNING ASSISTANT MKTO Anion Gap, P 8 7 - 15 05/05/2024 8:19 AM FINANCIAL PLANNING ASSISTANT MKTO BUN (Blood Urea Nitrogen), P 8 6 - 21 mg/dL 05/05/2024 8:19 AM FINANCIAL PLANNING ASSISTANT MKTO Creatinine 0.75 0.59 - 1.04 mg/dL 05/05/2024 8:19 AM FINANCIAL PLANNING ASSISTANT MKTO Estimated GFR (eGFR) 89 >=60 mL/min/BSA 05/05/2024 8:19 AM FINANCIAL PLANNING ASSISTANT MKTO Comment: Estimated GFR calculated using the 2020 CKD_EPI creatinine equation. Calcium, Total, P 8.7(L) 8.8 - 10.2 mg/dL 05/05/2024 8:19 AM FINANCIAL PLANNING ASSISTANT MKTO Glucose, P 147(H) 70 - 140 mg/dL 05/05/2024 8:19 AM FINANCIAL PLANNING ASSISTANT MKTO Blood (Blood, Venous) 05/05/2024 7:25 AM FINANCIAL PLANNING ASSISTANT 05/05/2024 7:57 AM FINANCIAL PLANNING ASSISTANT us Hakan Iniguez APRN, C.N.P., D.N.P. LAB BLOOD ADD -ON Final Result Performing Organization Address City/[facility]/ZIP Co de Phone Number [facility] [address] [place] [address] * (ABNORMAL) Calcium, Ionized (05/04/2024 6:15 PM FINANCIAL PLANNING ASSISTANT) Calcium, Ionized, B 4.56(L) 4.65 - 5.30 mg/dL 05/04/2024 6:23 PM FINANCIAL PLANNING ASSISTANT MKTO Blood 05/04/2024 6:15 PM FINANCIAL PLANNING ASSISTANT 05/04/2024 6:19 PM FINANCIAL PLANNING ASSISTANT us Hakan Iniguez APRN, C.N.P., D.N.P. LAB BLOOD NON ADD-ON Final Result Performing Organization Address City/[facility]/ZIP Co de Phone Number [facility] [address] [place] [address] * pH (05/04/2024 6:15 PM FINANCIAL PLANNING ASSISTANT) pH 7.38 7.35 - 7.45 pH 05/04/2024 6:23 PM FINANCIAL PLANNING ASSISTANT [facility] Blood 05/04/2024 6:15 PM FINANCIAL PLANNING ASSISTANT 05/04/2024 6:19 PM FINANCIAL PLANNING ASSISTANT us Hakan Iniguez APRN, C.N.P., D.N.P. LAB HISTORICA L ORDERS Final Result [facility] [address] [place] [address] * (ABNORMAL) LD (Lactate Dehydrogenase) (05/04/2024 6:15 PM FINANCIAL PLANNING ASSISTANT) Lactate Dehydrogenase (LD), P 285(H) 122 - 222 U/L 05/04/2024 6:42 PM FINANCIAL PLANNING ASSISTANT MK Blood (Blood, Venous) 05/04/2024 6:15 PM FINANCIAL PLANNING ASSISTANT 05/04/2024 6:20 PM FINANCIAL PLANNING ASSISTANT us Hakan Iniguez APRN, C.N.P., D.N.P. LAB BLOOD NON ADD-ON Final Result Performing Organization Address City/[facility]/ZIP Co de Phone Number [facility] [address] [place] [address], [place] [address] * (ABNORMAL) Cancer Antigen 125 (CA 125) (05/04/2024 6:15 PM FINANCIAL PLANNING ASSISTANT) Cancer Ag 125 (CA 125), S 8527(H) <46 U/mL 05/06/2024 6:47 AM FINANCIAL PLANNING ASSISTANT AUST Comment: Biotin has been identified by the knurling machine tender as a potential interfering substance. Higher concentrations [...] disease. Blood (Blood, Venous) 05/04/2024 6:15 PM FINANCIAL PLANNING ASSISTANT 05/05/2024 1:52 PM FINANCIAL PLANNING ASSISTANT us Hakan Iniguez APRN, C.N.P., D.N.P. LAB BLOOD ADD -ON Final Result [facility] [address] [place] [address], [facility] [address] [place] [address] * Urinalysis with Microscopic if Indicated: Urine, Midstream (05/04/2024 5:59 PM FINANCIAL PLANNING ASSISTANT) Source Urine, Urine, Midstream 05/04/2024 6:08 PM FINANCIAL PLANNING ASSISTANT MKTO Clarity Clear Clear 05/04/2024 6:08 PM FINANCIAL PLANNING ASSISTANT MKTO Color Yellow 05/04/2024 6:08 PM FINANCIAL PLANNING ASSISTANT MKTO Comment: ----REFERENCE VALUE---- Colorless Yellow Ginger Blood Negative Negative 05/04/2024 6:08 PM FINANCIAL PLANNING ASSISTANT MKTO Nitrite Negative Negative 05/04/2024 6:08 PM FINANCIAL PLANNING ASSISTANT MKTO Leukocyte Esterase Negative Negative 05/04/2024 6:08 PM FINANCIAL PLANNING ASSISTANT MKTO Protein Negative mg/dL 05/04/2024 6:08 PM FINANCIAL PLANNING ASSISTANT MKTO Comment: ----REFERENCE VALUE---- Negative Trace Glucose Negative Negative mg/dL 05/04/2024 6:08 PM FINANCIAL PLANNING ASSISTANT MKTO Ketone Negative Negative mg/dL 05/04/2024 6:08 PM FINANCIAL PLANNING ASSISTANT MKTO Bilirubin Negative Negative 05/04/2024 6:08 PM FINANCIAL PLANNING ASSISTANT MKTO pH 5.5 5.0 - 8.0 05/04/2024 6:08 PM FINANCIAL PLANNING ASSISTANT MKTO Specific Maynard 1.010 1.001 - 1.035 05/04/2024 6:08 PM FINANCIAL PLANNING ASSISTANT MKTO Urobilinogen 0.2 0.2 - 1.0 mg/dL 05/04/2024 6:08 PM FINANCIAL PLANNING ASSISTANT MKTO Urine (Urine, Midstream) 05/04/2024 5:59 PM FINANCIAL PLANNING ASSISTANT 05/04/2024 6:05 PM FINANCIAL PLANNING ASSISTANT us Hakan Iniguez APRN, C.N.P., D.N.P. LAB URINE ORD ERABLES Final Result [facility] [address] [place] [address], [facility] MKTO [facility] [place] [address] [place] [address] * (ABNORMAL) Cytology Non-CUT OFF SAWYER (05/04/2024 12:06 PM FINANCIAL PLANNING ASSISTANT) (A) 05/08/2024 9:38 AM FINANCIAL PLANNING ASSISTANT HKCY Report electronically signed by Inocencio Ford MD I verify that I have examined all relevant slides/materials for the specimen(s) and rendered or confirmed the diagnosis. (A) 05/08/2024 9:38 AM FINANCIAL PLANNING ASSISTANT HKCY Gross Description 1050 ml of cloudy reddish/yellow fluid received. 60 ml fixed with 50% ETOH at 7:15 am on 05-06-2024. 2 slides and cell block prepared. (A) 05/08/2024 9:38 AM FINANCIAL PLANNING ASSISTANT HKCY Source A. Pleural, Right, fluid(A) 05/08/2024 9:38 AM FINANCIAL PLANNING ASSISTANT HKCY Clinical History August 2008, right breast, grade 3, infiltrating ductal carcinoma, treated with chemotherapy. On 05/03/2024 with abdominal bloating and dyspnea and mild hypoxia. The CT scan showed diffuse omental or peritoneal thickening and moderate right pleural effusion. Presentation is not typical for recurrence of breast cancer. (A) 05/08/2024 9:38 AM FINANCIAL PLANNING ASSISTANT HKCY Interpretation A. Pleural, Right, fluid (smears/cell [...] Acceptable control results. (A) 05/08/2024 9:38 AM FINANCIAL PLANNING ASSISTANT HKCY Fluid (Pleural Fluid, Right) 05/04/2024 12:06 PM FINANCIAL PLANNING ASSISTANT 05/06/2024 8:11 AM FINANCIAL PLANNING ASSISTANT us Hakan Iniguez APRN, C.N.P., D.N.P. LAB SURG PATH ORDERABLES Final Result [facility] [address] [place] [address], [facility] HKCY [address] [address] * (ABNORMAL) Cytology Non-CUT OFF SAWYER (05/04/2024 11:54 AM FINANCIAL PLANNING ASSISTANT) (A) 05/08/2024 9:38 AM FINANCIAL PLANNING ASSISTANT HKCY Report electronically signed by Inocencio Ford MD I verify that I have examined all relevant slides/material s for the specimen(s) and rendered or confirmed the diagnosis. (A) 05/08/2024 9:38 AM FINANCIAL PLANNING ASSISTANT HKCY Gross Description 600 ml of cloudy perez yellow fluid received. 60 ml fixed with 50% ETOH at 7:25 am on 05-06-2024. 2 slides and cell block prepared. (A) 05/08/2024 9:38 AM FINANCIAL PLANNING ASSISTANT HKCY Source A. Peritoneal, fluid(A) 05/08/2024 9:38 AM FINANCIAL PLANNING ASSISTANT HKCY Clinical History August 2008, right breast, grade 3, infiltrating ductal carcinoma, treated with chemotherapy. On 05/03/2024 with abdominal bloating and dyspnea and mild hypoxia. The CT scan showed diffuse omental or peritoneal thickening and moderate right pleural effusion. Presentation is not typical for recurrence of breast cancer. (A) 05/08/2024 9:38 AM FINANCIAL PLANNING ASSISTANT HKCY Interpretation A. Peritoneal, fluid (smears/cell block): Positive for malignancy. High-grade serous carcinoma. (A) 05/08/2024 9:38 AM FINANCIAL PLANNING ASSISTANT HKCY Fluid (Peritoneal Fluid) 05/04/2024 11:54 AM FINANCIAL PLANNING ASSISTANT 05/06/2024 8:53 AM FINANCIAL PLANNING ASSISTANT us Hakan Iniguez APRN, C.N.P., D.N.P. LAB SURG PATH ORDERABLES Final Result [facility] [address] [place] [address], [place] [facility] [address] [facility] [address] [place] [address] * US Paracentesis with Imaging Guidance (05/04/2024 11:35 AM FINANCIAL PLANNING ASSISTANT) Anatomical Region Laterality Modality Abdomen, Ultrasound RST LOS, Ultrasound ARZ LOS, Procedure FLA LOS, Abdominal FLA LOS, Procedural, Procedural NWWI LOS N/A Ultrasound Impressions 05/04/2024 12:33 PM FINANCIAL PLANNING ASSISTANT Successful ultrasound guided diagnostic and therapeutic paracentesis. Narrative 05/04/2024 12:33 PM FINANCIAL PLANNING ASSISTANT EXAM: US PARACENTESIS WITH IMAGING GUIDANCE PROCEDURE: Sterile; 1% lidocaine for local anesthesia. Location: Right lower quadrant Needle size: 5 Fr [facility] Fluid Amount/Color: 600 mL of clear [...] medications. Patient education provided by the care produce team member. Ready to learn, no apparent [...] medications. Patient education provided by the care produce team member. Ready to learn, no apparent learningbarriers were identified. Post-procedure care explained; patient expressedunderstanding of the content. IMPRESSION: Successful ultrasound guided diagnostic and therapeutic paracentesis. us Hakan Iniguez APRN, C.N.P., D.N.P. IMG US PROCED URES Final Result * US Thoracentesis Right with Imaging Guidance (05/04/2024 11:30 AM FINANCIAL PLANNING ASSISTANT) Anatomical Region Laterality Modality Chest, Ultrasound RST LOS, U ltrasound ARZ LOS, Procedure FLA LOS, Abdominal FLA LOS, Procedural, Procedural NWWI LOS Right Ultrasound Impressions 05/04/2024 12:32 PM FINANCIAL PLANNING ASSISTANT Successful ultrasound guided diagnostic and therapeutic right thoracentesis. Narrative 05/04/2024 12:32 PM FINANCIAL PLANNING ASSISTANT EXAM: US THORACENTESIS RIGHT WITH IMAGING [...] medications. Patient education provided by the care produce team member. Ready to learn, no apparent learning barriers were identified. Post-procedure care explained; patient expressed understanding of the content. Procedure Note Navid Roth M.D. - 05/04/2024 EXAM: US THORACENTESIS RIGHT WITH IMAGING GUIDANCE PROCEDURE: Sterile; 1% lidocaine for local anesthesia. Location: Right pleural space Needle size: 5 Fr [facility] Fluid Amount/Color: 1.2 L of clear [...] medications. Patient education provided by the care produce team member. Ready to learn, no apparent learningbarriers were identified. Post-procedure care explained; patient expressedunderstanding of the content. IMPRESSION: Successful ultrasound guided diagnostic and therapeutic rightthoracentesis. us Hakan Iniguez APRN, C.N.P., D.N.P. IMG US PROCED URES Final Result * (ABNORMAL) CBC with Differential, Blood (05/04/2024 11:30 AM FINANCIAL PLANNING ASSISTANT) Hemoglobin 11.5(L) 11.6 - 15.0 g/dL 05/04/2024 11:45 AM FINANCIAL PLANNING ASSISTANT MKTO Hematocrit 36.2 35.5 - 44.9 % 05/04/2024 11:45 AM FINANCIAL PLANNING ASSISTANT MKTO Erythrocytes 4.06 3.92 - 5.13 x10(12)/L 05/04/2024 11:45 AM FINANCIAL PLANNING ASSISTANT MKTO MCV 89.2 78.2 - 97.9 fL 05/04/2024 11:45 AM FINANCIAL PLANNING ASSISTANT MKTO RBC Distrib Width 12.9 12.2 - 16.1 % 05/04/2024 11:45 AM FINANCIAL PLANNING ASSISTANT MKTO Platelet Count 356 157 - 371 x10(9)/L 05/04/2024 11:45 AM FINANCIAL PLANNING ASSISTANT MKTO Leukocytes 5.4 3.4 - 9.6 x10(9)/L 05/04/2024 11:45 AM FINANCIAL PLANNING ASSISTANT MKTO Neutrophils 3.98 1.56 - 6.45 x10(9)/L 05/04/2024 11:45 AM FINANCIAL PLANNING ASSISTANT MKTO Lymphocytes 0.93(L) 0.95 - 3.07 x10(9)/L 05/04/2024 11:45 AM FINANCIAL PLANNING ASSISTANT MKTO Monocytes 0.46 0.26 - 0.81 x10(9)/L 05/04/2024 11:45 AM FINANCIAL PLANNING ASSISTANT MKTO Eosinophils 0.06 0.03 - 0.48 x10(9)/L 05/04/2024 11:45 AM FINANCIAL PLANNING ASSISTANT MKTO Basophils <0.03 0.01 - 0.08 x10(9)/L 05/04/2024 11:45 AM FINANCIAL PLANNING ASSISTANT MKTO Blood (Blood, Venous) 05/04/2024 11:30 AM FINANCIAL PLANNING ASSISTANT 05/04/2024 11:38 AM FINANCIAL PLANNING ASSISTANT us Hakan Iniguez APRN, C.N.P., D.N.P. LAB BLOOD ADD -ON Final Result [facility] [address] [place] [address], [facility] MKTO [facility] [place] [address] [place] [address] * Magnesium (05/04/2024 11:30 AM FINANCIAL PLANNING ASSISTANT) Magnesium, P 1.8 1.7 - 2.3 mg/dL 05/04/2024 11:58 AM FINANCIAL PLANNING ASSISTANT MKTO Blood (Blood, Venous) 05/04/2024 11:30 AM FINANCIAL PLANNING ASSISTANT 05/04/2024 11:38 AM FINANCIAL PLANNING ASSISTANT us Hakan Iniguez APRN, C.N.P., D.N.P. LAB BLOOD ADD -ON Final Result [facility] [address] [place] [address], [facility] MKTO [facility] [place] [address] [place] [address] * (ABNORMAL) Basic Metabolic Panel (05/04/2024 11:30 AM FINANCIAL PLANNING ASSISTANT) Potassium, P 4.4 3.6 - 5.2 mmol/L 05/04/2024 11:58 AM FINANCIAL PLANNING ASSISTANT MKTO Sodium, P 138 135 - 145 mmol/L 05/04/2024 11:58 AM FINANCIAL PLANNING ASSISTANT MKTO Chloride, P 102 98 - 107 mmol/L 05/04/2024 11:58 AM FINANCIAL PLANNING ASSISTANT MKTO Bicarbonate, P 25 22 - 29 mmol/L 05/04/2024 11:58 AM FINANCIAL PLANNING ASSISTANT MKTO Anion Gap, P 11 7 - 15 05/04/2024 11:58 AM FINANCIAL PLANNING ASSISTANT MKTO BUN (Blood Urea Nitrogen), P 10 6 - 21 mg/dL 05/04/2024 11:58 AM FINANCIAL PLANNING ASSISTANT MKTO Creatinine 0.68 0.59 - 1.04 mg/dL 05/04/2024 11:58 AM FINANCIAL PLANNING ASSISTANT MKTO Estimated GFR (eGFR) >90 >=60 mL/min/BSA 05/04/2024 11:58 AM FINANCIAL PLANNING ASSISTANT MKTO Comment: Estimated GFR calculated using the 2020 CKD_EPI creatinine equation. Calcium, Total, P 8.5(L) 8.8 - 10.2 mg/dL 05/04/2024 11:58 AM FINANCIAL PLANNING ASSISTANT MKTO Glucose, P 75 70 - 140 mg/dL 05/04/2024 11:58 AM FINANCIAL PLANNING ASSISTANT MKTO Blood (Blood, Venous) 05/04/2024 11:30 AM FINANCIAL PLANNING ASSISTANT 05/04/2024 11:38 AM FINANCIAL PLANNING ASSISTANT us Hakan Iniguez APRN C.N.P., D.N.P. LAB BLOOD ADD -ON Final Result [facility] [address] [place] [address], [place] MKTO [facility] [place] [address] [place] [address] * ECG 12 Lead (05/04/2024 11:23 AM FINANCIAL PLANNING ASSISTANT) Ventricular Rate ECG/Min 75 BPM MUSE SC Interval 184 ms MUSE QRSD Interval 80 ms MUSE QT Interval 384 ms MUSE QTC Interval 428 ms MUSE P [place] 49 degrees MUSE R [place] 80 degrees MUSE T Wave [place] 47 degrees MUSE 05/04/2024 11:2 3 AM FINANCIAL PLANNING ASSISTANT 05/04/2024 11:33 AM FINANCIAL PLANNING ASSISTANT Impressions MUSE - 05/04/2024 11:33 AM FINANCIAL PLANNING ASSISTANT Normal sinus rhythm Normal ECG No previous ECGs available Reviewed by LINDA Linda Narrative Procedure Note Zhang Sandy M.D. - 05/04/2024 IMPRESSION: Normal sinus rhythm Normal ECG No previous ECGs available Reviewed by LINDA Linda Hakan Iniguez APRN, C.N.P., D.N.P. ECG ORDERABLE S Final Result Performing Organization Address [facility] Co de Phone Number MUSE NA * Glucose, Body Fluid (05/04/2024 11:23 AM FINANCIAL PLANNING ASSISTANT) Glucose, BF 63 See Comment mg/dL 05/05/2024 12:32 PM FINANCIAL PLANNING ASSISTANT DTL Comment: ----ADDITIONAL INFORMATION---- Body fluid [...] cystic lesions. All other fluids refer to www.[employer].com for further interpretive information. This test has been modified from the knurling machine tender's instructions. Its performance characteristics were determined by [facility] in a manner consistent with CLIA requirements. This test has not been cleared or approved by the U.S. Food and Drug Administration. Fluid Type, Glucose PLEURAL 05/05 11:00 AM FINANCIAL PLANNING ASSISTANT DTL Fluid (Pleural Fluid, Right) 05/04/2024 11:23 AM FINANCIAL PLANNING ASSISTANT 05/05/2024 9:24 AM FINANCIAL PLANNING ASSISTANT us Hakan Iniguez APRN, C.N.P., D.N.P. LAB B FRANKIE FLUIDS AND STOOLS ORDERABLES Final Result [facility] [address] [place] [address], [facility] [place] [address] [place] [address] * Hepatic Function Panel (05/04/2024 11:11 AM FINANCIAL PLANNING ASSISTANT) Bilirubin, Total, P <0.2 0.0 - 1.2 mg/dL 05/04/2024 1:47 PM FINANCIAL PLANNING ASSISTANT MKTO Bilirubin, Direct, P <0.1 0.0 - 0.3 mg/dL 05/04/2024 1:47 PM FINANCIAL PLANNING ASSISTANT MKTO Aspartate Aminotransferase (AST), P 28 8 - 43 U/L 05/04/2024 1:47 PM FINANCIAL PLANNING ASSISTANT MKTO Alanine Aminotransferase (ALT), P 20 7 - 45 U/L 05/04/2024 1:47 PM FINANCIAL PLANNING ASSISTANT MKTO Alkaline Phosphatase, P 59 35 - 104 U/L 05/04/2024 1:47 PM FINANCIAL PLANNING ASSISTANT MKTO Albumin, P 3.6 3.5 - 5.0 g/dL 05/04/2024 1:47 PM FINANCIAL PLANNING ASSISTANT MKTO Protein, Total, P 6.5 6.3 - 7.9 g/dL 05/04/2024 1:47 PM FINANCIAL PLANNING ASSISTANT MKTO Blood (Blood, Venous) 05/04/2024 11:11 AM FINANCIAL PLANNING ASSISTANT 05/04/2024 1:34 PM FINANCIAL PLANNING ASSISTANT us Hakan Iniguez APRN, C.N.P., D.N.P. LAB BLOOD ADD -ON Final Result Performing Organization Address City/[facility]/ZIP Co de Phone Number [facility] [address] [place] [address], [facility] MKTO [facility] [place] [address] [place] [address] * Protein, Total, Body Fluid (05/04/2024 10:50 AM FINANCIAL PLANNING ASSISTANT) Protein, Total, BF 4.9 See Comment g/dL 05/05/2024 12:34 PM FINANCIAL PLANNING ASSISTANT DTL Comment: ----ADDITIONAL INFORMATION---- A pleural [...] clinical findings. All other fluids refer to www.[employer].com for further interpretive information. This test has been modified from the knurling machine tender's instructions. Its performance characteristics were determined by [facility] in a manner consistent with CLIA requirements. This test has not been cleared or approved by the U.S. Food and Drug Administration. Fluid Type, Protein, Total PERITONEAL 05/05/2024 11:01 AM FINANCIAL PLANNING ASSISTANT DTL Fluid (Abdomen) 05/04/2024 1 0:50 AM FINANCIAL PLANNING ASSISTANT 05/05/2024 9:24 AM FINANCIAL PLANNING ASSISTANT us Hakan Iniguez APRN, C.N.P., D.N.P. LAB B FRANKIE FLUIDS AND STOOLS ORDERABLES Final Result [facility] [address] [place] [address], [facility] [facility] [place] [address] [place] [address] * Gram Stain (05/04/2024 10:50 AM FINANCIAL PLANNING ASSISTANT) Gram Stain No organisms seen. White blood cells present. Stain performed on concentrated cytospin preparation. 05/04/2024 12:50 PM FINANCIAL PLANNING ASSISTANT MKTO Fluid (Abdomen) 05/04/2024 1 0:50 AM FINANCIAL PLANNING ASSISTANT 05/04/2024 11:50 AM FINANCIAL PLANNING ASSISTANT Comment:Specimen Source Site : Fluid us Tamara Hutton APRN.N.Jung., D.N.P. LAB M ICROBIOLOGY - GENERAL ORDERABLES Final Result [facility] [address] [place] [address], [facility] MKTO [facility] [place] [address] [place] [address] * Albumin, Body Fluid (05/04/2024 10:50 AM FINANCIAL PLANNING ASSISTANT) Albumin BF 2.8 See Comment g/dL 05/05/2024 12:34 PM FINANCIAL PLANNING ASSISTANT DTL Comment: ----ADDITIONAL INFORMATION---- Peritoneal fluid albumin is used to calculate the serum-ascites albumin gradient (SAAG). Values greater than or equal to 1.1 g/dL suggest portal hypertension. Pleural fluid albumin may be used to calculate a serum-effusion albumin gradient. Values greater than 1.2 g/dL are most consistent with a transudative process. All other fluids refer to www.[facility]com for further interpretive information. This test has been modified from the knurling machine tender's instructions. Its performance characteristics were determined by [facility] in a manner consistent with CLIA requirements. This test has not been cleared or approved by the U.S. Food and Drug Administration. Fluid Type, Albumin PERITONEAL 05/05/2024 11:01 AM FINANCIAL PLANNING ASSISTANT DTL Fluid (Abdomen) 05/04/2024 1 0:50 AM FINANCIAL PLANNING ASSISTANT 05/05/2024 9:24 AM FINANCIAL PLANNING ASSISTANT Tamara Hutton APRN.N.P., D.N.PKenn LAB B FRANKIE FLUIDS AND STOOLS ORDERABLES Final Result [facility] [address] [place] [address], [place] [address] [facility] [address] [place] [address] * Cell Count and Differential, Body Fluid (05/04/2024 10:50 AM FINANCIAL PLANNING ASSISTANT) Fluid Type Peritoneal/Pa racentesis 05/04/2024 12:46 PM FINANCIAL PLANNING ASSISTANT MKTO Gross Appearance Slightly Cloudy 05/04/2024 12:47 PM FINANCIAL PLANNING ASSISTANT MKTO Total Nucleated Cells 2808 /mcL 05/04/2024 12:48 PM FINANCIAL PLANNING ASSISTANT MKTO Comment: ----REFERENCE VALUE---- Synovial: <150 Peritoneal: <500 Pleural: <500 Pericardial: <500 ----ADDITIONAL INFORMATION---- This test has been modified from the knurling machine tender's instructions. Its performance characteristics were determined by [facility] in a manner consistent with CLIA requirements. This test has not been cleared or approved by the U.S. Food and Drug Administration. Neutrophils 3 % 05/04/2024 1:20 PM FINANCIAL PLANNING ASSISTANT MKTO Comment: ----REFERENCE VALUE---- Synovial: <25% Peritoneal: <25% Pleural: <25% Pericardial: <25% Lymphocytes 34 Synovial : <75% % 05/04/2024 1:20 PM FINANCIAL PLANNING ASSISTANT MKTO Monocytes/Macropha ges 42 Synovial : <70% % 05/04/2024 1:20 PM FINANCIAL PLANNING ASSISTANT MKTO Other Cells 21 % 05/04/2024 1:20 PM FINANCIAL PLANNING ASSISTANT MKTO Comment: ----REFERENCE VALUE---- The reference range and other method performance specifications have not been established for this body fluid. The test result must be integrated into the clinical context for interpretation. Other Cells Are: SeeComment 05/04/19 25 7:48 PM FINANCIAL PLANNING ASSISTANT MKTO Comment: REVISED RESULTS Mesothelial cells: 8 Atypical cells: 13 Atypical cells, Correlate with cytology specimen. Dr. Hernandez ----PREVIOUSLY REPORTED ---- Mesothelial cells: 8 Atypical cells: 13 Atypical cells, Correlate with cytology specimen. (Reported 05/04/2024 13:22) Reviewed by: Dr. Hernandez 05/04/2024 7:48 PM FINANCIAL PLANNING ASSISTANT [facility] Comment: REVISED RESULTS ----PREVIOUSLY REPORTED ---- Will be reviewed by Pathologist Flagged as: N/A (Reported 05/04/2024 13:22) Fluid (Abdomen) 05/04/2024 1 0:50 AM FINANCIAL PLANNING ASSISTANT 05/04/2024 11:50 AM FINANCIAL PLANNING ASSISTANT Tamara Hutton APRN.N.P., D.N.P. LAB BODY FLUIDS AND STOOLS ORDERABLES Edited Result - Final Performing Organization Address City/[facility]/ZIP Co de Phone Number [facility] [address] [place] [address], [place] [address] * Bacterial Culture, Anaerobic + Susceptibility (05/04/2024 10:50 AM FINANCIAL PLANNING ASSISTANT) Bacterial Culture, Anaerobic No growth after 7 days of incubation. 05/11/2024 5:49 AM FINANCIAL PLANNING ASSISTANT [facility] Fluid (Abdomen) 05/04/2024 1 0:50 AM FINANCIAL PLANNING ASSISTANT 05/04/2024 11:50 AM FINANCIAL PLANNING ASSISTANT Comment:Specimen Source Site : Fluid Hakan Iniguez APRN, C.N.P., D.N.P. LAB M ICROBIOLOGY - GENERAL ORDERABLES Final Result Performing Organization Address [facility]/ZIP Co de Phone Number [facility] [address] [place] [address], [place] [address] * Bacterial Culture, Aerobic + Susceptibility (05/04/2024 10:50 AM FINANCIAL PLANNING ASSISTANT) Bacterial Culture, Aerobic + Susc No growth after 5 days of incubation. 05/09/2024 6:59 AM FINANCIAL PLANNING ASSISTANT [facility] Fluid (Abdomen) 05/04/2024 1 0:50 AM FINANCIAL PLANNING ASSISTANT 05/04/2024 11:50 AM FINANCIAL PLANNING ASSISTANT Comment:Specimen Source Site : Fluid us Hakan Iniguez APRN, C.N.P., D.N.P. LAB M ICROBIOLOGY - GENERAL ORDERABLES Final Result [facility] [address] [place] [phone], [facility] in [place] [address] [place] [phone] * pH, Pleural Fluid (05/04/2024 10:30 AM FINANCIAL PLANNING ASSISTANT) pH, Pleural Fluid 7.35 Not Applicable pH 05/04/2024 12:14 PM FINANCIAL PLANNING ASSISTANT [facility] Comment: Clinical guidelines suggest that in parapneumonic pleural effusions, a pH <7.2 indicate the need for tube drainage. Fluid (Pleural Fluid, Right) 05/04/2024 10:30 AM FINANCIAL PLANNING ASSISTANT 05/04/2024 12:07 PM FINANCIAL PLANNING ASSISTANT us Hakan Iniguez APRN, Tamara.N.P., D.N.P. LAB B [facility] FLUIDS AND STOOLS ORDERABLES Final Result Performing Organization Address [facility]/ZIP Co de Phone Number [facility] [address] [place] [phone], [facility] in [address] [address] * Bacterial Culture, Anaerobic + Susceptibility (05/04/2024 10:30 AM FINANCIAL PLANNING ASSISTANT) Bacterial Culture, Anaerobic No growth after 7 days of incubation. 05/11/2024 5:49 AM FINANCIAL PLANNING ASSISTANT [facility] Fluid (Pleural Fluid, Right) 05/04/2024 10:30 AM FINANCIAL PLANNING ASSISTANT 05/04/2024 12:07 PM FINANCIAL PLANNING ASSISTANT Comment:Specimen Source Site : Fluid us Hakan Iniguez APRN, C.N.P., D.N.P. LAB M ICROBIOLOGY - GENERAL ORDERABLES Final Result Performing Organization Address City/[facility]/ZIP Co de Phone Number [facility] [address] [place] [address], [place] [address] [phone] * Bacterial Culture, Aerobic + Susceptibility (05/04/2024 10:30 AM FINANCIAL PLANNING ASSISTANT) Bacterial Culture, Aerobic + Susc No growth after 5 days of incubation. 05/09/2024 7:00 AM FINANCIAL PLANNING ASSISTANT [facility] Fluid (Pleural Fluid, Right) 05/04/2024 10:30 AM FINANCIAL PLANNING ASSISTANT 05/04/2024 12:07 PM FINANCIAL PLANNING ASSISTANT Comment:Specimen Source Site : Fluid Hakan Iniguez APRN, C.N.P., D.N.P. LAB [facility] Final Result Performing Organization Address [facility] Co de Phone Number [facility] [address] [place] [phone], [address] [address] * Gram Stain (05/04/2024 10:30 AM FINANCIAL PLANNING ASSISTANT) Gram Stain No organisms seen. White blood cells present. Stain performed on concentrated cytospin preparation. 05/04/2024 12:50 PM FINANCIAL PLANNING ASSISTANT [facility] Fluid (Pleural Fluid, Right) 05/04/2024 10:30 AM FINANCIAL PLANNING ASSISTANT 05/04/2024 12:07 PM FINANCIAL PLANNING ASSISTANT Comment:Specimen Source Site : Fluid Hakan Iniguez APRN, C.N.P., D.N.P. LAB [facility]AB[facility] Final Result Performing Organization Address City/[facility]/ZIP Co de Phone Number [facility] [address] [place] [phone], [address] [address] * Cell Count and Differential, Body Fluid (05/04/2024 10:30 AM FINANCIAL PLANNING ASSISTANT) Fluid Type Pleural/Thora centesis 05/04/2024 1:23 PM FINANCIAL PLANNING ASSISTANT [facility] Gross Appearance Serous 05/04/19 25 1:26 PM FINANCIAL PLANNING ASSISTANT [facility] Total Nucleated Cells 523 /mcL 05/04/2024 1:26 PM FINANCIAL PLANNING ASSISTANT [facility] Comment: ----REFERENCE VALUE---- Synovial: <150 Peritoneal: <500 Pleural: <500 Pericardial: <500 ----ADDITIONAL INFORMATION---- This test has been modified from the knurling machine tender's instructions. Its performance characteristics were determined by [facility] in a manner consistent with CLIA requirements. This test has not been cleared or approved by the U.S. Food and Drug Administration. Neutrophils 1 % 05/04/2024 1:25 PM FINANCIAL PLANNING ASSISTANT [facility] Comment: ----REFERENCE VALUE---- Synovial: <25% Peritoneal: <25% Pleural: <25% Pericardial: <25% Lymphocytes 58 Synovial : <75% % 05/04/2024 1:25 PM FINANCIAL PLANNING ASSISTANT [facility] Monocytes/Macropha ges 25 Synovial : <70% % 05/04/2024 1:25 PM FINANCIAL PLANNING ASSISTANT [facility] Other Cells 16 % 05/04/2024 1:25 PM FINANCIAL PLANNING ASSISTANT [facility] Comment: ----REFERENCE VALUE---- The reference range and other method performance specifications have not been established for this body fluid. The test result must be integrated into the clinical context for interpretation. Other Cells Are: SeeComment 05/04/19 25 7:44 PM FINANCIAL PLANNING ASSISTANT [facility] Comment: REVISED RESULTS Mesothelial Cells: 7 Atypical cells: 9 Atypical cell, correlate with cytology specimen. Dr. Hernandez ----PREVIOUSLY REPORTED ---- Mesothelial Cells: 7 Atypical cells: 9 Atypical cell, correlate with cytology specimen. (Reported 05/04/2024 13:26) Reviewed by: Dr. Hernandez 05/04/2024 7:44 PM FINANCIAL PLANNING ASSISTANT [facility] Comment: REVISED RESULTS ----PREVIOUSLY REPORTED ---- Will be reviewed by Pathology Flagged as: N/A (Reported 05/04/2024 13:26) Fluid (Pleural Fluid, Right) 05/04/2024 10:30 AM FINANCIAL PLANNING ASSISTANT 05/04/2024 12:07 PM FINANCIAL PLANNING ASSISTANT us Hakan Iniguez APRN, C.N.P., D.N.P. LAB BODY FLUIDS AND STOOLS ORDERABLES Edited Result - Final [facility] [address] [place] [address], [facility] in [place] [address] [place] [address] * Protein, Total, Body Fluid (05/04/2024 10:30 AM FINANCIAL PLANNING ASSISTANT) Protein, Total, BF 4.2 See Comment g/dL 05/05/2024 12:35 PM FINANCIAL PLANNING ASSISTANT DTL Comment: ----ADDITIONAL INFORMATION---- A pleural [...] clinical findings. All other fluids refer to [email or web address] for further interpretive information. This test has been modified from the knurling machine tender's instructions. Its performance characteristics were determined by [facility] in a manner consistent with CLIA requirements. This test has not been cleared or approved by the U.S. Food and Drug Administration. Fluid Type, Protein, Total PLEURAL 05/05/2024 11:01 AM FINANCIAL PLANNING ASSISTANT DTL Fluid (Pleural Fluid, Right) 05/04/2024 10:30 AM FINANCIAL PLANNING ASSISTANT 05/05/2024 9:24 AM FINANCIAL PLANNING ASSISTANT Hakan Iniguez APRN, C.N.P., D.N.P. LAB B [place] FLUIDS AND STOOLS ORDERABLES Final Result Performing Organization Address City/State/[facility] Co de Phone Number [facility] [address] [place] [address], [facility] DTL [facility] [address] [place] [address] * Lactate Dehydrogenase (LD), Body Fluid (05/04/2024 10:30 AM FINANCIAL PLANNING ASSISTANT) Lactate Dehydrogenase (LD), BF 291 See Comment U/L 05/05/2024 2:30 PM FINANCIAL PLANNING ASSISTANT DTL Comment: ----ADDITIONAL INFORMATION---- Pleural fluid [...] clinical findings. All other fluids refer to [email or web address] for further interpretive information. This test has been modified from the knurling machine tender's instructions. Its performance characteristics were determined by [facility] in a manner consistent with CLIA requirements. This test has not been cleared or approved by the U.S. Food and Drug Administration. Fluid Type, Lactate Dehydrogenase PLEURAL 05/05/2024 2:41 PM FINANCIAL PLANNING ASSISTANT DTL Fluid (Pleural Fluid, Right) 05/04/2024 10:30 AM FINANCIAL PLANNING ASSISTANT 05/05/2024 12:35 PM FINANCIAL PLANNING ASSISTANT aHkan Iniguez APRN, C.N.P., D.N.P. LAB B [place] FLUIDS AND STOOLS ORDERABLES Final Result [facility] [address] [place] [address], [facility] [address] [place] [address] documented in this encounter Visit Diagnoses Diagnosis [...] hours all sources Given 05/06/2024 11:49 PM FINANCIAL PLANNING ASSISTANT 1,000 mg amLODIPine tablet 5 mg (Norvasc) 5 mg, oral, Daily, First dose on 05/04/24 at 0945, Do not give if SBP<105 Given 05/07/2024 8:27 AM FINANCIAL PLANNING ASSISTANT 5 mg Given 05/06/2024 9:52 AM FINANCIAL PLANNING ASSISTANT 5 mg Given 05/05/2024 10:45 AM FINANCIAL PLANNING ASSISTANT 5 mg enoxaparin injection 40 mg (Lovenox) 40 mg, subcutaneous, Daily, First dose on 05/05/24 at 0900 Given 05/07/2024 8:27 AM FINANCIAL PLANNING ASSISTANT 40 mg Left Lower Abdomen Given 05/06/2024 9:52 AM FINANCIAL PLANNING ASSISTANT 40 mg Le ft Lower Abdomen Given 05/05/2024 10:48 AM FINANCIAL PLANNING ASSISTANT 40 mg L eft Lower Abdomen fluconazole tablet 150 mg (Diflucan) 150 mg, oral, Once, On 05/04/24 at 1115, For 1 dose, Drug Monitoring Program: Pharmacist to adjust medication dosing based on indication and drug clearance factors., Indications: Skin and soft tissue infection, vaginal infectionIndications:Skin and soft tissue infection,vaginal infection Given 05/04/2024 1:01 PM FINANCIAL PLANNING ASSISTANT 150 mg lidocaine (PF) 10 mg/mL (1 %) injection 10 mL (Xylocaine) 10 mL, subcutaneous, Once, On 05/04/24 at 1030, For 1 dose Given 05/04/2024 10:25 AM FINANCIAL PLANNING ASSISTANT 10 mL Other lidocaine (PF) 10 mg/mL (1 %) injection 10 mL (Xylocaine) 10 mL, subcutaneous, Once, On 05/04/24 at 1045, For 1 dose Given 05/04/2024 10:45 AM FINANCIAL PLANNING ASSISTANT 10 mL Right Lower Abdomen lidocaine (PF) 10 mg/mL (1 %) injection 5 mL (Xylocaine) 5 mL, subcutaneous, Once, On 05/07/24 at 1600, For 1 dose Given 05/07/2024 3:34 PM FINANCIAL PLANNING ASSISTANT 5 mL Right Chest lisinopriL tablet 40 mg 40 mg, oral, Daily, First dose on 05/04/24 at 0945, Do not give if SBP<105 Given 05/07/2024 8:27 AM FINANCIAL PLANNING ASSISTANT 40 mg Given 05/06/2024 9:52 AM FINANCIAL PLANNING ASSISTANT 40 mg Given 05/05/2024 10:45 AM FINANCIAL PLANNING ASSISTANT 40 mg melatonin tablet 9 mg 9 mg, oral, Bedtime PRN, sleep, Starting on 05/04/24 at 0931 Given 05/06/2024 11:49 PM FINANCIAL PLANNING ASSISTANT 9 mg metoprolol succinate 24 hr tablet 50 mg (Toprol XL) 50 mg, oral, Daily, First dose on 05/04/24 at 0945, Do not give if SBP<100 or HR<60 Do NOT crush or chew. Tablet may be split on score if needed. Given 05/07/2024 8:27 AM FINANCIAL PLANNING ASSISTANT 50 mg Given 05/06/2024 9:52 AM FINANCIAL PLANNING ASSISTANT 50 mg Given 05/05/2024 10:45 AM FINANCIAL PLANNING ASSISTANT 50 mg rosuvastatin tablet 10 mg (Crestor) 10 mg, oral, Daily, First dose on 05/04/24 at 0945 Given 05/07/2024 8:27 AM FINANCIAL PLANNING ASSISTANT 10 mg Given 05/06/2024 9:51 AM FINANCIAL PLANNING ASSISTANT 10 mg Given 05/05/2024 10:45 AM FINANCIAL PLANNING ASSISTANT 10 mg sodium chloride 0.9 % injection 3 mL 3 mL, intravenous, As needed, line care, Starting on 05/04/24 at 0932, Prior to and following infusion and between multiple consecutive infusions: sodium chloride 0.9 % injection Given 05/04/2024 12:04 PM FINANCIAL PLANNING ASSISTANT 3 mL sodium chloride 0.9 % injection 3 mL 3 mL, intravenous, Every 12 hours scheduled, First dose on 05/04/24 at 2100, Peripheral Intravenous Catheter and Rapid Infusion Catheter, when no infusion to maintain patency Given 05/07/2024 8: 27 AM FINANCIAL PLANNING ASSISTANT 3 mL Given 05/06/2024 9:59 PM FINANCIAL PLANNING ASSISTANT 3 mL Given 05/06/2024 9:52 AM FINANCIAL PLANNING ASSISTANT 3 mL documented in this encounter Active and Recently Administered Medications Times are shown in FINANCIAL PLANNING ASSISTANT. Scheduled Medication Order 05/05/2024 05/06/2024 05/07/2024 albumin [...] PRN, sleep, Starting on 05/04/24 at 0931 2346 (Given - Provider: Kelsey Meneses R.N.) naloxone [...] injection documented in this encounter Care Teams Truck Driver Teamster Relationship Specialty Start Date End Date Elsewhere, Pcp PCP - General Internal Medicine 04/24/24 documented as of this encounter
[2024-05-23 09:17] VITALS: BP 127/72; PULSE 84; RESP 20; TEMP 36.4; O2SAT 92
[2024-05-23 09:21] VITALS: BMI 25.0
--- NOTE | 2024-05-23 10:23 | PM.GSCN ---
History of Present Illness Consult details Date Seen: 05/23/24 Consult date: 05/23/24 Narrative: The patient is a 63-year-old female who was recently diagnosed with metastatic ovarian cancer. Earlier in the month she presented to an outside hospital with shortness of breath. She was found to have a pleural effusion as well as ascites. She had a diagnostic thoracentesis and paracentesis. She was found to have metastatic ovarian cancer. She followed up with oncology and chemotherapy is planned. Port was requested. The patient has a history of prior right breast cancer in 2008. She had a left-sided port placed at that time. She had no issues with this. She does have some ongoing shortness of breath which she states is mild. This is from recurrent effusion on the right side. She was recently in the emergency department with some shortness of breath, however her fusion was found to be small and therefore therapeutic tap was not deemed necessary. She feels that her breathing is stable from then. She does not take any blood thinners. [facility] Medical History (Updated 05/21/24 @ 09:13 by Charisma Nascimento RN) Pleural effusion on right ?J90 - Pleural effusion, not elsewhere classified (ICD-10) Ovarian cancer ?C56.9 - Malignant neoplasm of unspecified ovary (ICD-10) Hyperlipidemia ?E78.5 - Hyperlipidemia, unspecified (ICD-10) Hypertension ?I10 - Essential (primary) hypertension (ICD-10) Surgical History (Updated 05/21/24 @ 09:13 by Charisma Nascimento RN) H/O lumpectomy ?Z98.890 - Other specified postprocedural states (ICD-10) Social History Narrative: She smokes 3/4 of a pack per day. She drinks alcohol couple times a week. She does work at [employer]. She does a fair amount of lifting and movement with this. Smoking Status: Current every day smoker Do you use any of these nicotine containing products: None How often do you have a drink containing alcohol: monthly or less How often do you have six or more drinks on one occasion: Never AUDIT-C Alcohol total score: 1 Non-prescribed substance use: denies use service: No Meds Home Medications and Allergies Home Medications ?Medication ?Instructions ?Recorded ?Confirmed ?Type albuterol sulfate 90 mcg/actuation inhalation 12/22/23 History aerosol inhaler amlodipine 5 mg tablet 5 mg PO DAILY 12/22/23 05/23/24 History lisinopril 40 mg tablet 40 mg PO DAILY 12/22/23 05/23/24 History metoprolol succinate 50 mg 50 mg PO DAILY 12/22/23 05/23/24 History tablet,extended release 24 hr rosuvastatin 10 mg tablet 10 mg PO QPM 12/22/23 05/23/24 History cetirizine 10 mg tablet (24Hour 10 mg PO DAILY PRN 05/21/24 05/23/24 History Allergy) fluticasone propionate 50 1 spray intranasal DAILY PRN 05/21/24 05/23/24 History mcg/actuation nasal spray,suspension (Allergy Relief (fluticasone)) Allergies Allergy/AdvReac Type Severity Reaction Status Date / Time Sulfa (Sulfonamide Allergy Unknown Verified 05/23/24 09:07 Antibiotics) Exam Narrative: Exam Narrative: General appearance: Alert, cooperative, and in no distress Eyes: PERRLA, eye lids clear, and sclera white HENT Head: Normocephalic Ears: External ears normal Pulmonary: Breathing nonlabored on room air Chest: Scar on left upper chest from prior port. Cardiovascular Heart: Regular rate Extremities: warm and well perfused Musculoskeletal: Extremities: Upper: Both upper extremities have normal joint range of motion and intact strength. Lower: Both lower extremities have normal joint range of motion and intact strength. Skin: Normal skin color, texture, and turgor. Neurologic: No focal deficits Psychiatric: Alert, oriented, cooperative, normal affect. Const: Vital Signs, click to edit/add: Vital Signs - 24 hr 05/23/24 09:17 Temperature 97.5 F L Pulse Rate 84 Respiratory Rate 20 Blood Pressure 127/72 Pulse Oximetry 92 Oxygen Delivery Me thod Room Air Results Labs Labs: All other labs normal. Imaging Additional studies: Chest x-ray reviewed today. Patient does have small moderate pleural effusion on the right which is increased from her prior imaging last week. Progress Note:A&P Assessment and plan (1) Ovarian cancer: Status: Acute (2) Pleural effusion on right: Status: Acute Plan The patient is a 63-year-old female who presents today for port placement. Risks and benefits were discussed and she is agreeable to proceed. She does have a pleural effusion on the right which is larger from last week. We did discuss that she may need additional therapeutic thoracentesis. She states an order has been placed by her oncologist for her to come here and have them done as needed. Since she is minimally symptomatic at this time and we discussed that if she develops worsening shortness of breath she should call to have the procedure scheduled as an outpatient possible. Otherwise no contraindications to proceeding with port placement today.
--- NOTE | 2024-05-23 10:23 | PM.GSPRC ---
Operative Note Date of procedure: 05/23/24 Pre-op diagnosis: Metastatic ovarian cancer Post-op diagnosis: Same Type of Procedure: Right IJ power port placement with ultrasound and fluoroscopic guidance Indications: The patient is a 63-year-old female who was recently diagnosed with metastatic ovarian cancer. Port placement was requested by her oncologist for chemotherapy administration. The patient was agreeable to proceed after discussion of risks. Procedure Description: After discussing the risks and benefits of the procedure, the patient signed informed consent.? The operative site was marked and the patient was brought to the operating room and placed on the operating table in supine position.? Her arms were tucked by her side and a neck roll was placed. Care was taken to pad the patient's pressure points.?? The patient was then given sedation by anesthesia.?? The operative site was then prepped and draped in the usual sterile fashion.? A time-out was then performed. The patient's right internal jugular vein was visualized using ultrasound. Local anesthetic was injected into the skin overlying the vein. This was accessed percutaneously using ultrasound guidance. Using Seldinger technique, a guidewire was threaded through the needle. A skin jonas was made around the wire. Next, local anesthetic was injected into the skin below the clavicle and along the proposed tract to the neck incision. A skin incision was then made with a 15 blade and a pocket created in the subcutaneous tissue with cautery. A tunneler was then used to thread the catheter from the chest wall pocket to the neck incision. Once this was done fluoroscopy was brought into the field. Over the wire the tract was dilated using fluoroscopy. The wire and the dilator were then removed leaving the sheath in the vein. Through this, the catheter was threaded. Using fluoroscopy, the catheter was positioned into the distal SVC. The catheter was noted to flush and aspirate easily. The catheter was then connected to the port. The port was placed in the pocket and secured in place with 2 0 Prolene sutures. It was noted to flush and aspirate easily. This was then locked with heparinized saline. The skin was closed with absorbable suture. Sterile dressings were applied. Instrument sponge and needle counts were correct at the end of the case. The patient was woken and taken to the recovery area in stable condition. ? The patient tolerated the procedure well. Findings: Right IJ power port placed in the low SVC Implants: Power port Anesthesia: MAC Surgeon: Ilda Duron MD Estimated blood loss (mL): 5 Condition: stable Disposition: PACU
[2024-05-23] MEDS: LACTATED RINGERS 1000 ML 1,000 ML 100 ML IV (10:35)
[2024-05-23] MEDS: CEFAZOLIN 2 GM INJ IVP (10:45)
[2024-05-23] MEDS: LIDOCAINE 1% MDV 20 ML INJECTION (11:10)
[2024-05-23] MEDS: HEPARIN 500 UNIT/5 ML SYRINGE IVF (11:10)
[2024-05-23] MEDS: BUPIVACAINE 0.5% 30 ML INJECTION (11:10)
[2024-05-23] MEDS: 0.9% SODIUM CHL 50 ML VIAL INJECTION (11:10)
--- NOTE | 2024-05-23 11:31 | W.ANESCHARGE ---
Anesthesia Charges Start Date/Time Anesthesia Start Date: 05/23/24 Anesthesia Start Time: 10:35 Stop Date/Time Anesthesia Stop Date: 05/23/24 Anesthesia Stop Time: 11:32 Coding CPT Codes CPT Codes: ANESTH VASCULAR ACCESS - 58202 ([id number]) P2 - PATIENT W/MILD SYST DISEASE, QK - DRILLER AND REAMER 2-4 CNCRNT ANES PROC, QX - KEY RINGER SVC W/ MD MED DIRECTION
[2024-05-23 11:33] VITALS: BP 106/71; PULSE 74; RESP 16; TEMP 36.1; O2SAT 91
--- NOTE | 2024-05-23 11:40 | W.ANESCHARGE ---
Anesthesia Charges Start Date/Time Anesthesia Start Date: 05/23/24 Anesthesia Start Time: 10:35 Stop Date/Time Anesthesia Stop Date: 05/23/24 Anesthesia Stop Time: 11:32 Coding CPT Codes CPT Codes: ANESTH VASCULAR ACCESS - 74453 ([id number]) QK - DIRECTOR OF IT OPERATIONS 2-4 CNCRNT ANES PROC, QX - CORDAGE SALES REPRESENTATIVE SVC W/ MD MED DIRECTION, P2 - PATIENT W/MILD SYST DISEASE
[2024-05-23 11:49] VITALS: BP 113/73; PULSE 75; RESP 16; O2SAT 90
[2024-05-23 12:04] VITALS: BP 121/81; PULSE 73; RESP 16; TEMP 36.3; O2SAT 93
[2024-05-23] MEDS: HYDROCODONE-ACETAMIN 5-325 MG 1 TAB PO (12:19)
== END 2024-05-23 12:28 | disposition home or self-care (01) ==
PROVIDERS: PCP Family Medicine; Visit Provider Surgery
PROC: (CPT 36561; principal; 2024-05-23 10:15)
DX: Z45.2 Encounter for adjustment and management of vascular access device (principal); I10 Essential (primary) hypertension; C78.6 Secondary malignant neoplasm of retroperitoneum and peritoneum; J91.0 Malignant pleural effusion; C56.9 Malignant neoplasm of unspecified ovary
CPT/HCPCS: 36561; 00532; 71045; 76998; J2003; A9270; J0665; J0690; J1642; J2250; J2704; J3010; J3490; J7120